=== PATIENT | male | born 1935 | race Caucasian/White ===

== ENCOUNTER 2021-08-10 08:21 | Inpatient (IN) | payer MEDICARE, OTHER, SELFPAY ==
[2021-08-10] VITALS (7 sets, daily range): BP systolic 97–180; BP diastolic 40–90; PULSE 68–128; RESP 18–22; TEMP 37.2–38.4; O2SAT 93–100; BMI 19.5
--- NOTE | ~2021-08-10 | CT_ITS ---
EXAMINATION: CT CHEST WITHOUT CONTRAST CLINICAL INFORMATION: Fever and confusion COMPARISON: Previous chest x-ray from earlier the same day TECHNIQUE: Multidetector volumetric CT imaging of the chest was done. Axial MIP volume rendering provided. Sagittal and coronal reformatted images were obtained. This CT examination was performed using dose optimization techniques as appropriate, variously including the following: *Automated exposure control *Adjustment of mA and/or kV according to patient size (this includes techniques or standardized protocols for targeted exams where dose is matched to indication/reason for exam; i.e. extremities or head) *Use of iterative reconstruction technique DLP: 202 mGy-cm FINDINGS: CLIENT SERVER PROGRAMMER: The lungs are well inflated. LUNGS: There is biapical pleural and parenchymal scarring. There is evidence of emphysema. There is subsegmental atelectasis at the lung bases. No evidence of pneumonia or mass is. MEDIASTINUM: The heart does not appear enlarged. There is mild coronary artery calcification. The thoracic aorta is tortuous. There is mild dilatation of the descending thoracic aorta measuring 3.2 cm. The pulmonary arteries are upper normal in size. There are no enlarged hilar or mediastinal lymph nodes. PLEURA: There is no pleural effusion. No pleural mass or thickening. AXILLA: No lymphadenopathy. UPPER ABDOMEN: Unremarkable. OSSEOUS STRUCTURES: There are degenerative changes of the spine. There is an old left anterior 10th rib fracture. CT/CT chest wo con IMPRESSION: Emphysema. No evidence of pneumonia. 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 Fleischner guidelines were followed.
--- NOTE | ~2021-08-10 | CT_ITS ---
EXAMINATION: CT ABDOMEN AND PELVIS WITHOUT CONTRAST CLINICAL INFORMATION: Fever COMPARISON: None TECHNIQUE: Multidetector volumetric imaging was performed from the superior aspect of the liver through the pubic symphysis. Sagittal and coronal reformatted images were obtained on the technologist's workstation. This CT examination was performed using dose optimization techniques as appropriate, variously including the following: *Automated exposure control *Adjustment of mA and/or kV according to patient size (this includes techniques or standardized protocols for targeted exams where dose is matched to indication/reason for exam; i.e. extremities or head) *Use of iterative reconstruction technique DLP: 332 mGy-cm FINDINGS: LIVER, GALLBLADDER, AND BILIARY TREE: The liver is normal in size, shape, and attenuation. No focal hepatic lesion or biliary ductal dilatation is present. The gallbladder is unremarkable with no evidence of radiopaque gallstones, gallbladder wall thickening, or obvious pericholecystic inflammatory changes. PANCREAS: Unremarkable. SPLEEN: Unremarkable. ADRENAL GLANDS: There is nodular appearance of the left adrenal gland. The right adrenal gland is normal. KIDNEYS AND URETERS: There are bilateral renal cysts. Largest cyst measures 2 cm in the lower pole of the left kidney. There is a 5 mm high attenuation lesion in the lower pole of the left kidney suggestive of a hyperdense. No imaging follow-up needed. The kidneys are otherwise unremarkable. BLADDER: There is a Yee catheter in the bladder. Bladder is empty. The bladder wall appears diffusely thickened. GASTROINTESTINAL TRACT: Constipation. There is diverticulosis of the colon. No evidence of diverticulitis or colitis is seen. There are small bilateral inguinal hernias containing small bowel. There is no evidence of obstruction. The appendix is not seen. The stomach is not optimally distended. ABDOMINAL WALL: There are small bilateral inguinal hernias containing small bowel, right greater than left. There is no evidence of obstruction. LYMPH NODES: Normal. VASCULAR: There is a lower or infrarenal abdominal aortic aneurysm that measures 4 x 4.2 cm in dimension. No other aneurysm is seen. PELVIC VISCERA: The prostate gland is enlarged and protrudes into the base of the bladder. OSSEOUS STRUCTURES: There is scoliosis and degenerative changes of the spine. CT/CT abdomen pelvis wo con IMPRESSION: Constipation. Diverticulosis. Small bilateral inguinal hernias containing small bowel. No evidence of obstruction. Bilateral renal cysts. 4 x 4.2 cm lower abdominal aortic aneurysm. Enlarged prostate gland. Yee catheter in the bladder. Diffuse bladder wall thickening. Fleischner guidelines were followed.
--- NOTE | ~2021-08-10 | XR_ITS ---
EXAMINATION: XR CHEST CLINICAL INFORMATION: Weakness. COMPARISON: None TECHNIQUE: Frontal view of the chest was obtained. FINDINGS: Moderate aortic calcific atherosclerosis. Normal heart size. No effusions or pneumothoraces. No focal pulmonary consolidation. Normal pattern of pulmonary vasculature. Chronic appearing biapical pleural parenchymal scarring of the lungs. Moderate multilevel endplate osteophytosis of the visualized thoracic and lumbar spine. Diffuse osteopenia. XR/XR chest 1V IMPRESSION: -No acute cardiopulmonary abnormalities.
--- NOTE | 2021-08-10 08:33 | ECG_ITS ---
Test Reason : AMS Blood Pressure : / mmHG Vent. Rate : 105 BPM Atrial Rate : 105 BPM P-R Int : 228 ms QRS Dur : 090 ms QT Int : 334 ms P-R-T Axes : 087 142 086 degrees QTc Int : 441 ms Sinus tachycardia with 1st degree A-V block Left posterior fascicular block Abnormal ECG No previous ECGs available Referred By: Emmie Sweeney Electronically Signed By:Sanjay Rollins
--- NOTE | 2021-08-10 08:35 | ED.WEAKNESS ---
HPI - Weakness General Chief complaint: Urogenital-Male Stated complaint: ?uti Time Seen by Provider: 08/10/21 08:25 Source: patient and EMS Mode of arrival: EMS Limitations: altered mental status History of Present Illness HPI Narrative: son in law here 956am - conversation patient is normally alert and oriented, yesterday patient c/o weakness not feeling well and dysuria - they noted some hematuria, this morning worse EMS called MD Complaint: generalized weakness (burning with urination) Onset (ago): unknown Duration: constant Location: generalized Severity: moderate Relieving factors: none Exacerbating factors: none Context: other (confusion, weakness, EMS called - limited history family not at bedside) Associated symptoms: confusion and loss of appetite Related Data Home Medications Medication Instructions Recorded Confirmed aspirin 325 mg tablet 325 mg PO DAILY 08/10/21 08/10/21 fluticasone propionate 50 1 spray INTRANASAL BID 08/10/21 08/10/21 mcg/actuation nasal spray,suspension simvastatin 20 mg tablet 1 tab PO DAILY 08/10/21 08/10/21 Allergies Allergy/AdvReac Type Severity Reaction Status Date / Time pentazocine [From KELSEY] Allergy Unknown NAUSEA Unverified 05/17/20 19:40 Review of Systems Review of Systems: ROS unable to be obtained due to altered mental status [facility] Past Medical History Medical History (Updated 08/10/21 @ 14:40 by Nadya Garcia NP) Acute CVA (cerebrovascular accident) HLD (hyperlipidemia) UTI (urinary tract infection) Social History Social History (Updated 08/10/21 @ 08:36 by Emmie Sweeney DO) Patient Tobacco Use Status: Tobacco use Unknown Advance Directives: Yes Advance Directives Information Provided: No Advance Directives on File: No Physical Exam Vital Signs: Vital Signs: Last Vital Signs Temp 98.9 F 08/10/21 11:19 Pulse 83 08/10/21 13:07 Resp 19 08/10/21 13:07 BP 115/46 L 08/10/21 13:07 Pulse Ox 94 08/10/21 13:07 BMI result Body Mass Index 19.5 Appearance: Alert. Oriented X1. Mild acute distress. Appears weak and frail Eyes: Pupils equal, round and reactive to light. ENT: Pharynx moderate dry MM Neck: Normal inspection. Neck supple. CVS: Normal heart rate and rhythm. Pulses normal. Respiratory: No respiratory distress. Breath sounds decreased Abdomen: Soft and he does grimace with suprapubic exam but no rebound Skin: Skin warm and dry. Normal skin color. Normal skin turgor. Extremities: No lower extremity edema. No calf ttp Neuro: Oriented X 1. No motor deficit. No sensory deficit. Course Course Course Narrative: CT scan of abdomen and chest for infection ordered. given symptoms of incontinence and dysuria at home, hematuria, thick walled bladder suspect urinary source, plan to admit MDM - Weakness MDM Narrative Medical decision making narrative: 86 yo male limited history HLD, UTI here with confusion and weakness unknown duration - at this time is tachycardia and hot to the touch will need labs, cultures, CXR< UA, empiric IV ceftriaxone for infection - dispo per results and findings. Suspect infection as cause of his symptoms. Lab Data Result diagrams: 08/10/21 08:57 08/10/21 08:57 Labs: Lab Results 08/10/21 08/10/21 08/10/21 Range/Units 08:57 08:57 08:57 WBC 12.1 H (4.8-10.8) X10*3/uL RBC 4.63 (4.60-5.80) X10*6/uL Hgb 13.7 L (14.0-18.0) g/dl Hct 43.5 (42.0-52.0) % MCV 94.0 (80.0-98.0) fL MCH 29.6 (27.0-33.0) pg MCHC 31.5 (31.0-36.0) g/dl RDW 14.4 (11.0-16.0) % Plt Count 197 (160-400) X10*3/uL MPV 8.7 L (9.4-12.4) fL Immature Gran % (Auto) 0.5 H (0.0-0.4) % Neut % (Auto) 90.3 H (45-73) % Lymph % (Auto) 3.6 L (20-40) % [place] % (Auto) 5.0 (2-11) % Eos % (Auto) 0.3 (0-4) % Baso % (Auto) 0.3 (0-2) % Lymph # (Auto) 0.4 L (1.2-4.9) X10*3/uL [place] # (Auto) 0.6 (0.1-1.2) X10*3/uL Eos # (Auto) 0.0 (0.0-0.4) X10*3/uL Baso # (Auto) 0.0 (0.0-0.2) X10*3/uL Abs Immat Gran (auto) 0.06 H (0.00-0.03) X10*3/uL Absolute Neuts (auto) 11.0 H (2.0-8.3) x10*3/uL Absolute Nucleated RBC 0.000 (0.0-0.012) X10*3/uL Nucleated RBC % (auto) 0.0 (0.0-0.2) /100WBC Smear Tech's Comments VERIFIED Sodium 142 (135-145) mmol/L Potassium 4.8 (3.3-5.1) mmol/L Chloride 107 (96-108) mmol/L Carbon Dioxide 24 (22-29) mmol/L Anion Gap 16 (12-20) BUN 28 H (9-16) mg/dL Creatinine 1.15 (0.5-1.4) mg/dL Estim Creat Clear Calc 39.0 Estimated GFR > 60 Random Glucose 110 (60-115) mg/dL Lactic Acid 1.0 (0.5-2.0) mmol/L Calcium 9.3 (8.4-10.2) mg/dL Magnesium 2.0 (1.6-2.6) mg/dL Total Bilirubin 1.1 H (0.0-1.0) mg/dL Direct Bilirubin 0.4 (0.0-0.5) mg/dL AST 19 (5-37) U/L ALT 13 (0-40) U/L Alkaline Phosphatase 109 (39-117) U/L Troponin I High Sens (<3.5-35.0) ng/L Total Protein 7.5 (6.5-8.0) g/dL Albumin 4.2 (3.5-5.0) g/dL Lipase 23 (8-78) U/L Urine Color Urine Appearance Urine pH (5.0-8.0) Ur Specific [place] (1.005-1.025) Urine Protein (NEG-TRACE) MG/DL Urine Glucose (UA) (NEG) MG/DL Urine Ketones (NEG) MG/DL Urine Blood (NEG) Urine Nitrite (NEG) Ur Leukocyte Esterase (NEG) Urine RBC (0) /HPF Urine WBC (0-4) /HPF Ur Squamous Epith Cells /LPF Urine Bacteria /LPF COVID-19 ([facility]) (Negative) COVID-19 Clin Com 08/10/21 08/10/21 08/10/21 Range/Units 08:57 08:57 09:38 WBC (4.8-10.8) X10*3/uL RBC (4.60-5.80) X10*6/uL Hgb (14.0-18.0) g/dl Hct (42.0-52.0) % MCV (80.0-98.0) fL MCH (27.0-33.0) pg MCHC (31.0-36.0) g/dl RDW (11.0-16.0) % Plt Count (160-400) X10*3/uL MPV (9.4-12.4) fL Immature Gran % (Auto) (0.0-0.4) % Neut % (Auto) (45-73) % Lymph % (Auto) (20-40) % [place] % (Auto) (2-11) % Eos % (Auto) (0-4) % Baso % (Auto) (0-2) % Lymph # (Auto) (1.2-4.9) X10*3/uL [place] # (Auto) (0.1-1.2) X10*3/uL Eos # (Auto) (0.0-0.4) X10*3/uL Baso # (Auto) (0.0-0.2) X10*3/uL Abs Immat Gran (auto) (0.00-0.03) X10*3/uL Absolute Neuts (auto) (2.0-8.3) x10*3/uL Absolute Nucleated RBC (0.0-0.012) X10*3/uL Nucleated RBC % (auto) (0.0-0.2) /100WBC Smear Tech's Comments Sodium (135-145) mmol/L Potassium (3.3-5.1) mmol/L Chloride (96-108) mmol/L Carbon Dioxide (22-29) mmol/L Anion Gap (12-20) BUN (9-16) mg/dL Creatinine (0.5-1.4) mg/dL Estim Creat Clear Calc Estimated GFR Random Glucose (60-115) mg/dL Lactic Acid (0.5-2.0) mmol/L Calcium (8.4-10.2) mg/dL Magnesium (1.6-2.6) mg/dL Total Bilirubin (0.0-1.0) mg/dL Direct Bilirubin (0.0-0.5) mg/dL AST (5-37) U/L ALT (0-40) U/L Alkaline Phosphatase (39-117) U/L Troponin I High Sens 6.7 (<3.5-35.0) ng/L Total Protein (6.5-8.0) g/dL Albumin (3.5-5.0) g/dL Lipase (8-78) U/L Urine Color RED Urine Appearance HAZY Urine pH 5.0 (5.0-8.0) Ur Specific [place] 1.025 (1.005-1.025) Urine Protein 2+ H (NEG-TRACE) MG/DL Urine Glucose (UA) NEG (NEG) MG/DL Urine Ketones SEE NOTE (NEG) MG/DL Urine Blood 3+ H (NEG) Urine Nitrite SEE NOTE (NEG) Ur Leukocyte Esterase NEG (NEG) Urine RBC TNTC H (0) /HPF Urine WBC 1-4 (0-4) /HPF Ur Squamous Epith Cells 1+ /LPF Urine Bacteria NONE /LPF COVID-19 ([facility]) Negative (Negative) COVID-19 Clin Com See Note ECG Data Attestation: I personally reviewed and interpreted this ECG as follows: ECG interpretation date: 08/10/21 ECG interpretation time: 08:39 Interpretation: Rate: 105 Rhythm: sinus tach with 1st degree AVB [place]: normal Normal P waves. Normal BRITNEY. Normal QRS complex. ST T wave : nonspecific no NICK qTC: normal prior studies: no acute ischemia The study has been interpreted contemporaneously by me. . Discharge Plan Discharge Clinical Impression: Acute confusion, Cystitis Hematuria Qualifiers: Hematuria type: unspecified type Qualified Code(s): R31.9 - Hematuria, unspecified Fever Qualifiers: Fever type: unspecified Qualified Code(s): R50.9 - Fever, unspecified Patient Disposition: Admitted As Inpatient
[2021-08-10] MEDS: 0.9 % Sodium Chloride 1,000 ML 999 ML IVCONT (08:58)
[2021-08-10] MEDS: Acetaminophen Oral Liquid 650 MG/20.3 ML SOLUTION PO (09:03)
[2021-08-10] MEDS: ondansetron HCL 4 MG/2 ML VIAL IVPUSH (09:03)
[2021-08-10 09:11] LABS: Basophils Percent Auto 0.3 % (0-2); Eosinophils Percent Auto 0.3 % (0-4); Hematocrit 43.5 % (42.0-52.0); Hemoglobin 13.7 g/dl (14.0-18.0); Imm Gran Abs Auto 0.06 X10*3/uL (0.00-0.03); Imm Gran Pct Auto 0.5 % (0.0-0.4); Lymphocytes Absolute Auto 0.4 X10*3/uL (1.2-4.9); Lymphocytes Percent Auto 3.6 % (20-40); MANUAL DIFF FLAG SCAN; Mean Corpuscular HGB Conc 31.5 g/dl (31.0-36.0); Mean Corpuscular Hemoglobin 29.6 pg (27.0-33.0); Mean Platelet Volume 8.7 fL (9.4-12.4); Monocytes Absolute Auto 0.6 X10*3/uL (0.1-1.2); Neutrophils Percent Auto 90.3 % (45-73); Platelet Count 197 X10*3/uL (160-400); Red Blood Count 4.63 X10*6/uL (4.60-5.80); Red Cell Distribution Width 14.4 % (11.0-16.0); SCAN SMEAR FLAG 1; White Blood Count 12.1 X10*3/uL (4.8-10.8)
[2021-08-10 09:27] LABS: Alanine Aminotransferase 13 U/L (0-40); Albumin Level 4.2 g/dL (3.5-5.0); Alkaline Phosphatase 109 U/L (39-117); Anion Gap 16 (12-20); Aspartate Amino Transferase 19 U/L (5-37); Bilirubin Direct 0.4 mg/dL (0.0-0.5); Bilirubin Total 1.1 mg/dL (0.0-1.0); Blood Urea Nitrogen 28 mg/dL (9-16); Calcium 9.3 mg/dL (8.4-10.2); Carbon Dioxide 24 mmol/L (22-29); Chloride 107 mmol/L (96-108); Estimated Glomerular Filt Rate > 60; Glucose Random 110 mg/dL (60-115); Lipase 23 U/L (8-78); Potassium 4.8 mmol/L (3.3-5.1); Sodium 142 mmol/L (135-145); Total Protein 7.5 g/dL (6.5-8.0)
[2021-08-10 09:32] LABS: COVID-19 Test Negative (Negative)
[2021-08-10 09:33] LABS: Troponin-I High Sensitivity 6.7 ng/L (<3.5-35.0)
[2021-08-10 09:38] LABS: SLIDE REVIEW VERIFIED
[2021-08-10 09:44] LABS: Appearance Urine HAZY; Color Urine RED; Glucose Urine UA NEG (NEG); Leukocyte Esterase Urine NEG (NEG); Specific Gravity - Urine 1.025 (1.005-1.025); Urine Blood 3+ (NEG); Urine Protein 2+ MG/DL (NEG-TRACE)
[2021-08-10 09:50] LABS: RBC Urine TNTC /HPF (0); Squamous Epithelial Cell Urine 1+ /LPF; UACC Culture Trigger NO
--- NOTE | 2021-08-10 09:59 | PHA.MEDREC ---
Pharmacy Consult ? Medication Reconciliation Pharmacy has completed the medication reconciliation. SPOKE WITH SON IN LAW IN ED. PATIENT LIVES WITH HIM .
[2021-08-10] MEDS: cefTRIAXone sodium 1 GM in 0.9 % Sodium Chloride 50 ML IV (10:01)
[2021-08-10] MEDS: 0.9 % Sodium Chloride 1,000 ML 999 ML IV (10:45)
[2021-08-10] MEDS: 0.9 % Sodium Chloride 500 ML IV (11:47)
--- NOTE | 2021-08-10 12:47 | PM.IMHP ---
History of Present Illness Date of Service: 08/10/21 Chief Complaint: urinary discomfort 86-year-old man presenting with incontinence and weakness. Apparently yesterday he had had several episodes of incontinence which is unlike him. Then he started having burning with urination and hematuria today. His son thought he was very weak and decided to bring him to the ER for further evaluation. He denied fever, chills, nausea, vomiting, diarrhea. In the ER his white blood cell count was noted to be elevated at 12.1, he had a fever of 101.2, heart rate of 105 , normal lactic acid. Blood pressure on lower side with lowest reading of 97/40. He was given ceftriaxone, Zofran, L of IV fluid. He will be admitted for further management and treatment of sepsis secondary to urinary tract infection. Review of Systems Review of Systems: Denies any recent fever chills or decrease in appetite respiratory denies any shortness of breath coverage production cardiovascular denies chest pain gastrointestinal denies any dysphagia abdominal pain nausea vomiting or diarrhea genitourinary See HPI musculoskeletal denies any joint pain or swelling neuropsych denies any weakness or seizures all other systems reviewed are negative [facility] Medical History (Updated 08/10/21 @ 14:40 by Nadya Garcia NP) Acute CVA (cerebrovascular accident) HLD (hyperlipidemia) UTI (urinary tract infection) Social History (Updated 08/10/21 @ 08:36 by Emmie Sweeney DO) Patient Tobacco Use Status: Tobacco use Unknown Advance Directives: Yes Advance Directives Information Provided: No Advance Directives on File: No Meds Allergies Allergy/AdvReac Type Severity Reaction Status Date / Time pentazocine [From KELSEY] Allergy Unknown NAUSEA Unverified 05/17/20 19:40 Active Medications: Current Medications Pharmacy Consult (Consult Rx Perform Med Rec) 1 each MISCELLANE ONCE PRN PRN Reason: Consult order Home Medications Medication Instructions Recorded Confirmed Last Taken Type aspirin 325 mg tablet 325 mg PO DAILY 08/10/21 08/10/21 Unknown History fluticasone propionate 50 1 spray INTRANASAL BID 08/10/21 08/10/21 Unknown History mcg/actuation nasal spray,suspension simvastatin 20 mg tablet 1 tab PO DAILY 08/10/21 08/10/21 Unknown History Physical Exam Vital Signs and Narrative: Vital Signs: Last Vital Signs Temp 98.9 F 08/10/21 11:19 Pulse 89 08/10/21 11:19 Resp 18 08/10/21 11:19 BP 97/40 L 08/10/21 11:19 Pulse Ox 93 08/10/21 11:19 BMI result Body Mass Index 19.5 Appearing in no acute distress head is normocephalic atraumatic eyes pupils are PERRLA sclera is anicteric mouth throat mucous membranes are intact and moist neck is supple no lymphadenopathy, no JVD noted lung sounds are clear to auscultation heart regular rate rhythm, clear S1, S2 positive bowel sounds, abdomen is soft, nontender neuro patient is alert x3, no focal deficits Results Labs CBC and Chem 7: 08/10/21 08:57 08/10/21 08:57 Labs: Laboratory Results - last 24 hr 08/10/21 08/10/21 08/10/21 08:57 08:57 08:57 MCV 94.0 MCH 29.6 MCHC 31.5 RDW 14.4 Plt Count 197 MPV 8.7 L Immature Gran % (Auto) 0.5 H Neut % (Auto) 90.3 H Lymph % (Auto) 3.6 L [place] % (Auto) 5.0 Eos % (Auto) 0.3 Baso % (Auto) 0.3 Lymph # (Auto) 0.4 L [place] # (Auto) 0.6 Eos # (Auto) 0.0 Baso # (Auto) 0.0 Abs Immat Gran (auto) 0.06 H Absolute Neuts (auto) 11.0 H Absolute Nucleated RBC 0.000 Nucleated RBC % (auto) 0.0 Smear Tech's Comments VERIFIED Anion Gap 16 Estim Creat Clear Calc 39.0 Estimated GFR > 60 Random Glucose 110 Lactic Acid 1.0 Calcium 9.3 Magnesium 2.0 Total Bilirubin 1.1 H Direct Bilirubin 0.4 AST 19 ALT 13 Alkaline Phosphatase 109 Troponin I High Sens Total Protein 7.5 Albumin 4.2 Lipase 23 Urine Color Urine Appearance Urine pH Ur Specific [place] Urine Protein Urine Glucose (UA) Urine Ketones Urine Blood Urine Nitrite Ur Leukocyte Esterase Urine RBC Urine WBC Ur Squamous Epith Cells Urine Bacteria COVID-19 ([facility]) COVID-19 Clin Com 08/10/21 08/10/21 08/10/21 08:57 08:57 09:38 MCV MCH MCHC RDW Plt Count MPV Immature Gran % (Auto) Neut % (Auto) Lymph % (Auto) [place] % (Auto) Eos % (Auto) Baso % (Auto) Lymph # (Auto) [place] # (Auto) Eos # (Auto) Baso # (Auto) Abs Immat Gran (auto) Absolute Neuts (auto) Absolute Nucleated RBC Nucleated RBC % (auto) Smear Tech's Comments Anion Gap Estim Creat Clear Calc Estimated GFR Random Glucose Lactic Acid Calcium Magnesium Total Bilirubin Direct Bilirubin AST ALT Alkaline Phosphatase Troponin I High Sens 6.7 Total Protein Albumin Lipase Urine Color RED Urine Appearance HAZY Urine pH 5.0 Ur Specific [place] 1.025 Urine Protein 2+ H Urine Glucose (UA) NEG Urine Ketones SEE NOTE Urine Blood 3+ H Urine Nitrite SEE NOTE Ur Leukocyte Esterase NEG Urine RBC TNTC H Urine WBC 1-4 Ur Squamous Epith Cells 1+ Urine Bacteria NONE COVID-19 ([facility]) Negative COVID-19 Clin Com See Note Imaging Radiologist's Impressions: Impressions Chest X-Ray 08/10/21 09:27 IMPRESSION: -No acute cardiopulmonary abnormalities. Abdomen/Pelvis CT 08/10/21 11:34 IMPRESSION: Constipation. Diverticulosis. Small bilateral inguinal hernias containing small bowel. No evidence of obstruction. Bilateral renal cysts. 4 x 4.2 cm lower abdominal aortic aneurysm. Enlarged prostate gland. Yee catheter in the bladder. Diffuse bladder wall thickening. Fleischner guidelines were followed. Chest CT 08/10/21 11:35 IMPRESSION: Emphysema. No evidence of pneumonia. 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 Fleischner guidelines were followed. Assessment and Plan (1) Sepsis: Status: Acute (2) UTI (urinary tract infection): Status: Acute (3) Low blood pressure: Status: Acute 86 year admitted with sepsis secondary to urinary tract infection Sepsis. Leukocytosis, tachycardia, fever. normal lactic acid Follow blood cultures Urinary tract infection Rocephin Follow urine cultures Low blood pressure reading Likely secondary to infection Gentle IV fluid hydration Trend blood pressures closely Hyperlipidemia Continue statin and aspirin DVT prophylaxis with heparin Attending Dr. Thurman Quality Stroke Does the patient have a stroke diagnosis?: No VTE Prior VTE?: No VTE Risk Level:: Medical - moderate - high VTE Device Contraindication: Treatment Not Indicated VTE Drug Contraindication: N/A - Med Ordered
[2021-08-10] MEDS: Acetaminophen 325 MG TABLET 650 MG PO (13:26)
[2021-08-10] MEDS: Heparin Sodium,Porcine 5,000 UNIT/ML VIAL 5000 UNIT SUBCUT (13:26)
[2021-08-10] MEDS: 0.9 % Sodium Chloride 1,000 ML 80 ML IVCONT (13:26)
[2021-08-10] MEDS: Phenazopyridine HCL 100 MG TABLET PO ×2 (15:03→19:18)
--- NOTE | 2021-08-10 16:24 | PC.NURSE ---
pt completed HCP with t/w . pt designated HCP is his daughter, Mercy
--- NOTE | 2021-08-10 16:29 | PC.NURSE ---
pt up to bedside commode, had a lg BM of soft stool
[2021-08-10] MEDS: Fluticasone Propionate Nasal 16 GM SPRAY 1 SPRAY NOSTRIL-B (21:12)
[2021-08-11] VITALS: BP 102/45; PULSE 76; RESP 16; O2SAT 92
[2021-08-11] MEDS: Heparin Sodium,Porcine 5,000 UNIT/ML VIAL 5000 UNIT SUBCUT ×2 (00:39→14:01)
[2021-08-11] MEDS: 0.9 % Sodium Chloride Flush 3 ML SYRINGE IVFLUSH ×2 (00:39→07:38)
[2021-08-11 05:18] LABS: Basophils Percent Auto 0.2 % (0-2); Eosinophils Percent Auto 0.4 % (0-4); Hemoglobin 11.4 g/dl (14.0-18.0); Imm Gran Abs Auto 0.03 X10*3/uL (0.00-0.03); Imm Gran Pct Auto 0.3 % (0.0-0.4); Lymphocytes Absolute Auto 1.1 X10*3/uL (1.2-4.9); Lymphocytes Percent Auto 10.9 % (20-40); MANUAL DIFF FLAG NO; Mean Corpuscular HGB Conc 30.8 g/dl (31.0-36.0); Mean Corpuscular Hemoglobin 29.4 pg (27.0-33.0); Mean Corpuscular Volume 95.4 fL (80.0-98.0); Mean Platelet Volume 9.1 fL (9.4-12.4); Monocytes Absolute Auto 0.7 X10*3/uL (0.1-1.2); Monocytes Percent Auto 7.3 % (2-11); Neutrophils Absolute Auto 8.1 x10*3/uL (2.0-8.3); Neutrophils Percent Auto 80.9 % (45-73); Platelet Count 165 X10*3/uL (160-400); Red Blood Count 3.88 X10*6/uL (4.60-5.80); Red Cell Distribution Width 14.6 % (11.0-16.0)
[2021-08-11 05:51] LABS: Anion Gap 11 (12-20); Blood Urea Nitrogen 23 mg/dL (9-16); Carbon Dioxide 24 mmol/L (22-29); Chloride 110 mmol/L (96-108); Creatinine Clr Calc Pharmacy 48.2; Estimated Glomerular Filt Rate > 60; Glucose Random 104 mg/dL (60-115); Potassium 4.5 mmol/L (3.3-5.1); Sodium 140 mmol/L (135-145)
[2021-08-11 07:35] VITALS: BP 102/21; PULSE 69; RESP 16; TEMP 36.6; O2SAT 96
[2021-08-11] MEDS: Phenazopyridine HCL 100 MG TABLET PO ×2 (08:36→17:02)
[2021-08-11] MEDS: Acetaminophen 325 MG TABLET 650 MG PO ×3 (08:36→23:53)
[2021-08-11] MEDS: Aspirin 325 MG TABLET PO (08:37)
[2021-08-11] MEDS: cefTRIAXone sodium 1 GM in 0.9 % Sodium Chloride 50 ML IV (09:08)
[2021-08-11] MEDS: Fluticasone Propionate Nasal 16 GM SPRAY 1 SPRAY NOSTRIL-B ×2 (09:09→21:17)
--- NOTE | 2021-08-11 10:13 | HO.PM.IMPN ---
Subjective Subjective Date of Service: 08/11/21 Review of Systems follow-up hematuria/UTI Complaints of penile pain Denies chest pain, shortness breath, nausea, vomiting, diarrhea All other systems are reviewed and are negative Physical Exam Vital Signs: Vital Signs: Last Vital Signs Temp 97.8 F 08/11/21 07:35 Pulse 69 08/11/21 07:35 Resp 16 08/11/21 07:35 BP 102/21 L 08/11/21 07:35 Pulse Ox 96 08/11/21 07:35 BMI result Body Mass Index 19.5 Appearing in no acute distress lung sounds are clear to auscultation heart regular rate rhythm, clear S1, S2 positive bowel sounds, abdomen is soft, nontender CBI with noted hematuria neuro patient is alert x3, no focal deficits Objective Data Active Medications Acetaminophen (Acetaminophen 325 Mg Tablet) 650 mg PO Q6H PRN PRN Reason: Pain, Mild (Pain Scale 1-3) Last Admin: 08/11/21 08:36 Dose: 650 mg Documented by: KALYN Aspirin (Aspirin 325 Mg Tablet) 325 mg PO DAILY [facility] Last Admin: 08/11/21 08:37 Dose: 325 mg Documented by: KALYN Atorvastatin Calcium (Atorvastatin Calcium 10 Mg Tablet) 10 mg PO DAILY [facility] Fluticasone Propionate (Fluticasone Propionate Nasal 16 Gm [place]) 1 spray NOSTRIL-B BID [facility] Last Admin: 08/11/21 09:09 Dose: 1 spray Documented by: KALYN Heparin Sodium (Porcine) (Heparin Sodium,Porcine 5,000 Unit/Ml Vial) 5,000 unit SUBCUT Q12H [facility] Last Admin: 08/11/21 00:39 Dose: 5,000 unit Documented by: MONIQUE Ceftriaxone Sodium 1 gm/ (Sodium Chloride) 50 mls @ 100 mls/hr IV Q24H [facility] Last Infusion: 08/11/21 10:09 Dose: 0 mls/hr Documented by: KEVIN Sodium Chloride (Ns) 1,000 mls @ 80 mls/hr IVCONT .[id number] [facility] Last Admin: 08/11/21 05:37 Dose: Not Given Documented by: MONIQUE Non-Admin Reason: IV Running Ondansetron HCl (Ondansetron Hcl 4 Mg/2 Ml Vial) 4 mg IVPUSH Q8H PRN PRN Reason: Nausea and Vomiting Pharmacy Consult (Consult Rx Perform Med Rec) 1 each MISCELLANE ONCE PRN PRN Reason: Consult order Phenazopyridine HCl (Phenazopyridine Hcl 100 Mg Tablet) 100 mg PO BIDWM PRN PRN Reason: urinary pain Stop: 08/13/21 07:45 Last Admin: 08/11/21 08:36 Dose: 100 mg Documented by: KALYN Sodium Chloride (0.9 % Sodium Chloride Flush 3 Ml Syringe) 3 ml IVFLUSH QSHIFT TEE Last Admin: 08/11/21 07:38 Dose: 3 ml Documented by: KALYN Labs CBC & Chem 7: 08/11/21 04:48 08/11/21 04:48 Labs: Laboratory Results - last 24 hr 08/11/21 08/11/21 04:48 04:48 MCV 95.4 MCH 29.4 MCHC 30.8 L RDW 14.6 Plt Count 165 MPV 9.1 L Immature Gran % (Auto) 0.3 Neut % (Auto) 80.9 H Lymph % (Auto) 10.9 L [place] % (Auto) 7.3 Eos % (Auto) 0.4 Baso % (Auto) 0.2 Lymph # (Auto) 1.1 L [place] # (Auto) 0.7 Eos # (Auto) 0.0 Baso # (Auto) 0.0 Abs Immat Gran (auto) 0.03 Absolute Neuts (auto) 8.1 Absolute Nucleated RBC 0.000 Nucleated RBC % (auto) 0.0 Anion Gap 11 L Estim Creat Clear Calc 48.2 Estimated GFR > 60 Random Glucose 104 Calcium 8.0 L D Assessment and Plan (1) UTI (urinary tract infection): Status: Acute (2) Sepsis: Status: Acute (3) Hematuria: Status: Acute Assessment and Plan: 86 year admitted with sepsis secondary to urinary tract infection Hematuria add CBI HH stable Sepsis.?Resolved Leukocytosis, tachycardia, fever. normal lactic acid Follow blood cultures Urinary tract infection Rocephin Follow urine cultures pyridium for discomfort Low blood pressure reading Likely secondary to infection Gentle IV fluid hydration Trend blood pressures closely Hyperlipidemia Continue statin and aspirin DVT prophylaxis with heparin Attending Dr. Thurman Quality Stroke Does the patient have a stroke diagnosis?: No VTE Prior VTE?: No VTE Risk Level:: Medical - moderate - high VTE Device Contraindication: Treatment Not Indicated VTE Drug Contraindication: N/A - Med Ordered
[2021-08-11] MEDS: Morphine Sulfate 2 MG/ML CARTRIDGE IVPUSH (11:39)
--- NOTE | 2021-08-11 11:41 | PC.NURSE ---
unable to place ordered cbi 20fr d/t resistance, provider aware. dr fish consulted, at bedside attempting to place catheter via guidewire. pt has much resistance, able to place 18fr coude w clear drainage. per dr fish, cbi not indicated at this time.
[2021-08-11 12:16] VITALS: BP 134/63; PULSE 70; RESP 18; TEMP 36.3; O2SAT 92
[2021-08-11 15:21] VITALS: BP 99/55; PULSE 64; RESP 18; TEMP 36.4; O2SAT 97
--- NOTE | 2021-08-11 18:02 | PC.NURSE ---
catheter irrigated, small clot noted, but otherwise patent. pt tolerated well. will cont to monitor and assess
[2021-08-11] MEDS: LORazepam 0.5 MG TABLET 0.25 MG PO (18:10)
--- NOTE | 2021-08-11 19:06 | PM.UROCN ---
History of Present Illness Consult details Consult date: 08/11/21 Narrative: Consult for difficult Yee catheter placement Prior placement attempted by emergency room staff Question of urinary retention Unable to place regular Yee catheter To place with guidewire and patient had significant bladder spasm Required flexible cystoscope. Mild damage to prostate but bladder itself was easy to enter and was inflamed likely secondary to infection [place] tip 18 Telugu Yee catheter placed with 7 cc balloon Minimal issues Continue antibiotics for UTI Review of Systems Constitutional: Constitutional: Reports as per HPI and Reports no additional constitutional complaints Cardiovascular: Cardiovascular: Reports as per HPI and Reports no additional cardiovascular complaints Respiratory: Respiratory: Reports as per HPI and Reports no additional respiratory complaints Gastrointestinal: Gastrointestinal: Reports as per HPI and Reports no additional gastrointestinal complaints Genitourinary: Genitourinary: Reports as per HPI Musculoskeletal: Musculoskeletal: Reports no additional musculoskeletal complaints and Reports as per HPI Neurologic: Reports system reviewed and no additional complaints, except as documented and Reports as per HPI PMFSH Past Medical History Medical History (Updated 08/11/21 @ 19:09 by Luis Pineda MD) Acute CVA (cerebrovascular accident) HLD (hyperlipidemia) UTI (urinary tract infection) Social History Social History (Updated 08/10/21 @ 08:36 by Emmie Sweeney DO) Household Members: Children Housing: House Do you presently have visiting nurse or other home services: No Patient Tobacco Use Status: Current everyday Tobacco user Tobacco use type: Cigarette Cigarette Packs Per Day: 1 Cigarettes Per Day: 20.0 Years Smoked: 72 Smoked in Last 30 Days: Yes Patient Interested in Nicotine Replacement: No Second Hand Smoke Exposure: Yes Use of substances other than those prescribed or required for medical reasons: No Currently Displaying Signs/Symptoms of Drug Intoxication Withdrawal: No Have you been hit, kicked, punched, or otherwise hurt by someone within the past year? If so, by whom?: No Do you feel safe in your current relationship?: No Current Relationship Is there a partner from a previous relationship who is making you feel unsafe now?: No Are you made to feel afraid or neglected: No Advance Directives: Yes Advance Directives Information Provided: No Advance Directives on File: No Advance Directives Date on File: 08/11/21 Do you have thoughts of harming others: None Do you have a plan to hurt others: No Plan Recently lost weight without trying: No Nutrition Risks: No Nutritional Risk Poor oral hygiene: No Meds Allergies Allergy/AdvReac Type Severity Reaction Status Date / Time No Known Allergies Allergy Verified 08/11/21 13:57 Active Medications: Current Medications Acetaminophen (Acetaminophen 325 Mg Tablet) 650 mg PO Q6H PRN PRN Reason: Pain, Mild (Pain Scale 1-3) Last Admin: 08/11/21 08:36 Dose: 650 mg Documented by: Acetaminophen (Acetaminophen 325 Mg Tablet) 650 mg PO Q6H [facility] Last Admin: 08/11/21 18:10 Dose: 650 mg Documented by: Aspirin (Aspirin 325 Mg Tablet) 325 mg PO DAILY [facility] Last Admin: 08/11/21 08:37 Dose: 325 mg Documented by: Atorvastatin Calcium (Atorvastatin Calcium 10 Mg Tablet) 10 mg PO DAILY [facility] Fluticasone Propionate (Fluticasone Propionate Nasal 16 Gm [place]) 1 spray NOSTRIL-B BID [facility] Last Admin: 08/11/21 09:09 Dose: 1 spray Documented by: Heparin Sodium (Porcine) (Heparin Sodium,Porcine 5,000 Unit/Ml Vial) 5,000 unit SUBCUT Q12H [facility] Last Admin: 08/11/21 14:01 Dose: 5,000 unit Documented by: Ceftriaxone Sodium 1 gm/ (Sodium Chloride) 50 mls @ 100 mls/hr IV Q24H [facility] Last Infusion: 08/11/21 10:09 Dose: Infused Documented by: Sodium Chloride (Ns) 1,000 mls @ 80 mls/hr IVCONT .[id number] [facility] Last Admin: 08/11/21 14:02 Dose: Not Given Documented by: Ondansetron HCl (Ondansetron Hcl 4 Mg/2 Ml Vial) 4 mg IVPUSH Q8H PRN PRN Reason: Nausea and Vomiting Pharmacy Consult (Consult Rx Perform Med Rec) 1 each MISCELLANE ONCE PRN PRN Reason: Consult order Phenazopyridine HCl (Phenazopyridine Hcl 100 Mg Tablet) 100 mg PO BIDWM PRN PRN Reason: urinary pain Stop: 08/13/21 07:45 Last Admin: 08/11/21 17:02 Dose: 100 mg Documented by: Sodium Chloride (0.9 % Sodium Chloride Flush 3 Ml Syringe) 3 ml IVFLUSH QSHIFT [facility] Last Admin: 08/11/21 14:48 Dose: Not Given Documented by: Home Medications Medication Instructions Recorded Confirmed Last Taken Type aspirin 325 mg tablet 325 mg PO DAILY 08/10/21 08/10/21 Unknown History fluticasone propionate 50 1 spray INTRANASAL BID 08/10/21 08/10/21 Unknown History mcg/actuation nasal spray,suspension simvastatin 20 mg tablet 1 tab PO DAILY 08/10/21 08/10/21 Unknown History Physical Exam Vital Signs: Vital Signs: Last Vital Signs Temp 97.6 F 08/11/21 15:21 Pulse 64 08/11/21 15:21 Resp 18 08/11/21 15:21 BP 99/55 L 08/11/21 15:21 Pulse Ox 97 08/11/21 15:21 BMI result Body Mass Index 19.5 Const: General: cooperative, healthy appearing, comfortable and no acute distress Orientation/consciousness: patient oriented x3 HENMT: Face and sinus: Yes normal facial exam Mouth: moist mucous membranes Neck: Neck: Yes normal visual inspection, Yes full ROM and Yes trachea midline Chest: Chest palpation & inspection: normal inspection of the chest Resp: Effort & Inspection: normal respiratory effort, able to speak in complete sentences and no respiratory distress GI: Inspection: Yes normal to inspection Back/Spine/Pelvis: Cervical Spine: normal cervical lordosis Thoracic/Lumbar Spine: thoracic and lumbar spine normal to inspection Skin: General skin exam: no rashes or lesions noted Neuro: General: patient oriented x3, tone normal and moves all extremities Extrem: General: Yes normal to inspection and Yes capillary refill normal Results Labs Result diagrams: 08/11/21 04:48 08/11/21 04:48 Labs: Abnormal lab results 08/11/21 08/11/21 Range/Units 04:48 04:48 RBC 3.88 L (4.60-5.80) X10*6/uL Hgb 11.4 L (14.0-18.0) g/dl Hct 37.0 L (42.0-52.0) % MCHC 30.8 L (31.0-36.0) g/dl MPV 9.1 L (9.4-12.4) fL Neut % (Auto) 80.9 H (45-73) % Lymph % (Auto) 10.9 L (20-40) % Lymph # (Auto) 1.1 L (1.2-4.9) X10*3/uL Chloride 110 H (96-108) mmol/L Anion Gap 11 L (12-20) BUN 23 H (9-16) mg/dL Calcium 8.0 L D (8.4-10.2) mg/dL Short CBC 08/11/21 Range/Units 04:48 WBC 10.0 (4.8-10.8) X10*3/uL Hgb 11.4 L (14.0-18.0) g/dl Hct 37.0 L (42.0-52.0) % Plt Count 165 (160-400) X10*3/uL BMP 08/11/21 04:48 Sodium 140 Potassium 4.5 Chloride 110 H Carbon Dioxide 24 BUN 23 H Creatinine 0.93 Calcium 8.0 L D Urine 08/10/21 Range/Units 09:38 Urine Color RED Urine Appearance HAZY Urine pH 5.0 (5.0-8.0) Ur Specific [place] 1.025 (1.005-1.025) Urine Protein 2+ H (NEG-TRACE) MG/DL Urine Glucose (UA) NEG (NEG) MG/DL All other labs normal. Assessment and Plan (1) UTI (urinary tract infection): Status: Acute (2) Difficult Yee catheter placement: Status: Acute Catheter remained to drainage Procedures Date of Service Date of Service: 08/11/21 Procedure Note Procedure Note: Flexible cystoscopy with wire placement Sixteen Telugu flexible cystoscopy performed Scope placed into bladder. Wire placed through scope Eighteen Telugu [place] tip catheter placed over wire and inflated
[2021-08-11 19:35] VITALS: BP 102/58; PULSE 71; RESP 16; TEMP 36.6; O2SAT 93
[2021-08-11] MEDS: Atorvastatin Calcium 10 MG TABLET PO (21:13)
[2021-08-11 23:54] VITALS: BP 111/52; PULSE 55; RESP 18; TEMP 36.2; O2SAT 93
[2021-08-12] MEDS: 0.9 % Sodium Chloride 1,000 ML 80 ML IVCONT ×2 (01:25→14:04)
[2021-08-12] MEDS: Heparin Sodium,Porcine 5,000 UNIT/ML VIAL 5000 UNIT SUBCUT (01:29)
[2021-08-12 04:00] VITALS: BP 137/61; PULSE 63; RESP 18; TEMP 36.1; O2SAT 94
[2021-08-12 04:54] LABS: Hematocrit 35.7 % (42.0-52.0); Mean Corpuscular HGB Conc 30.8 g/dl (31.0-36.0); Mean Corpuscular Hemoglobin 29.3 pg (27.0-33.0); Mean Corpuscular Volume 95.2 fL (80.0-98.0); Mean Platelet Volume 9.6 fL (9.4-12.4); Platelet Count 172 X10*3/uL (160-400); Red Blood Count 3.75 X10*6/uL (4.60-5.80); Red Cell Distribution Width 14.3 % (11.0-16.0); White Blood Count 8.3 X10*3/uL (4.8-10.8)
[2021-08-12 05:31] LABS: Anion Gap 11 (12-20); Blood Urea Nitrogen 20 mg/dL (9-16); Calcium 7.9 mg/dL (8.4-10.2); Carbon Dioxide 24 mmol/L (22-29); Chloride 109 mmol/L (96-108); Creatinine Clr Calc Pharmacy 43.5; Estimated Glomerular Filt Rate > 60; Glucose Random 99 mg/dL (60-115); Potassium 4.1 mmol/L (3.3-5.1); Sodium 140 mmol/L (135-145)
[2021-08-12] MEDS: Acetaminophen 325 MG TABLET 650 MG PO ×2 (07:16→17:45)
[2021-08-12 07:46] VITALS: BP 103/51; PULSE 58; RESP 20; TEMP 36.4; O2SAT 95
--- NOTE | 2021-08-12 08:35 | HO.PM.IMPN ---
Subjective Subjective Date of Service: 08/12/21 Review of Systems Follow up hematuria and UTI Some confusion noted agitation resolved from last night Denies chest pain, shortness of breath, nausea and vomiting All other systems are reviewed and are negative Physical Exam Vital Signs: Vital Signs: Last Vital Signs Temp 97.6 F 08/12/21 07:46 Pulse 58 08/12/21 07:46 Resp 20 08/12/21 07:46 BP 103/51 L 08/12/21 07:46 Pulse Ox 95 08/12/21 07:46 BMI result Body Mass Index 19.5 Appearing in no acute distress lung sounds are clear to auscultation heart regular rate rhythm, clear S1, S2 positive bowel sounds, abdomen is soft, nontender Yee cath with dark yellow urine noted neuro patient is alert, confused Objective Data Active Medications Acetaminophen (Acetaminophen 325 Mg Tablet) 650 mg PO Q6H PRN PRN Reason: Pain, Mild (Pain Scale 1-3) Last Admin: 08/11/21 08:36 Dose: 650 mg Documented by: KALYN Acetaminophen (Acetaminophen 325 Mg Tablet) 650 mg PO Q6H [facility] Last Admin: 08/12/21 07:16 Dose: 650 mg Documented by: GERMÁN Comments: pt was sleeping Aspirin (Aspirin 325 Mg Tablet) 325 mg PO DAILY [facility] Last Admin: 08/11/21 08:37 Dose: 325 mg Documented by: KALYN Atorvastatin Calcium (Atorvastatin Calcium 10 Mg Tablet) 10 mg PO DAILY [facility] Last Admin: 08/11/21 21:13 Dose: 10 mg Documented by: GERMÁN Fluticasone Propionate (Fluticasone Propionate Nasal 16 Gm [place]) 1 spray NOSTRIL-B BID [facility] Last Admin: 08/11/21 21:17 Dose: 1 spray Documented by: GERMÁN Ceftriaxone Sodium 1 gm/ (Sodium Chloride) 50 mls @ 100 mls/hr IV Q24H [facility] Last Infusion: 08/11/21 10:09 Dose: 0 mls/hr Documented by: KEVIN Sodium Chloride (Ns) 1,000 mls @ 80 mls/hr IVCONT .[id number] [facility] Last Admin: 08/12/21 01:25 Dose: 80 mls/hr Documented by: GERMÁN Ondansetron HCl (Ondansetron Hcl 4 Mg/2 Ml Vial) 4 mg IVPUSH Q8H PRN PRN Reason: Nausea and Vomiting Pharmacy Consult (Consult Rx Perform Med Rec) 1 each MISCELLANE ONCE PRN PRN Reason: Consult order Phenazopyridine HCl (Phenazopyridine Hcl 100 Mg Tablet) 100 mg PO BIDWM PRN PRN Reason: urinary pain Stop: 08/13/21 07:45 Last Admin: 08/11/21 17:02 Dose: 100 mg Documented by: CYRUS Sodium Chloride (0.9 % Sodium Chloride Flush 3 Ml Syringe) 3 ml IVFLUSH QSHIFT [facility] Last Admin: 08/12/21 00:49 Dose: Not Given Documented by: GERMÁN Non-Admin Reason: IV Running Labs CBC & Chem 7: 08/12/21 04:14 08/12/21 04:14 Labs: Laboratory Results - last 24 hr 08/12/21 08/12/21 04:14 04:14 MCV 95.2 MCH 29.3 MCHC 30.8 L RDW 14.3 Plt Count 172 MPV 9.6 Absolute Nucleated RBC 0.000 Nucleated RBC % (auto) 0.0 Anion Gap 11 L Estim Creat Clear Calc 43.5 Estimated GFR > 60 Random Glucose 99 Calcium 7.9 L Microbiology Microbiology Results: Microbiology 08/10/21 09:33 Blood Culture - Preliminary Blood - Venous No growth after 24 hours. 08/10/21 08:57 Blood Culture - Preliminary Blood - Venous No growth after 24 hours. Assessment and Plan (1) Hematuria: Status: Acute (2) Cystitis: Status: Acute (3) Sepsis: Status: Acute (4) UTI (urinary tract infection): Status: Acute (5) Low blood pressure: Status: Acute Assessment and Plan: 86 year admitted with sepsis secondary to urinary tract infection Hematuria. nearly resolved No CBI needed HH stable urology following Sepsis.?Resolved Leukocytosis, tachycardia, fever. normal lactic acid Follow blood cultures Urinary tract infection Rocephin Follow urine cultures pyridium for discomfort Low blood pressure reading Likely secondary to infection Gentle IV fluid hydration Trend blood pressures Hyperlipidemia Continue statin and aspirin DISPO PT consult DVT prophylaxis with SCD boots Attending Dr. Law Quality Stroke Does the patient have a stroke diagnosis?: No VTE Prior VTE?: No VTE Risk Level:: Medical - moderate - high VTE Device Contraindication: Treatment Not Indicated VTE Drug Contraindication: N/A - Med Ordered
[2021-08-12 09:03] VITALS: BP 103/51; PULSE 58; O2SAT 95
[2021-08-12] MEDS: cefTRIAXone sodium 1 GM in 0.9 % Sodium Chloride 50 ML IV (09:19)
[2021-08-12] MEDS: Aspirin 325 MG TABLET PO (09:20)
[2021-08-12] MEDS: Atorvastatin Calcium 10 MG TABLET PO (09:20)
[2021-08-12] MEDS: 0.9 % Sodium Chloride Flush 3 ML SYRINGE IVFLUSH ×2 (09:20→15:55)
[2021-08-12] MEDS: Fluticasone Propionate Nasal 16 GM SPRAY 1 SPRAY NOSTRIL-B (09:48)
[2021-08-12 10:22] VITALS: BMI 19.5
[2021-08-12 12:00] VITALS: BP 132/60; PULSE 55; RESP 18; TEMP 36.2; O2SAT 97
--- NOTE | 2021-08-12 12:14 | MHC.CM.PN ---
Addendum entered by Ese Hu 08/12/21 14:16: [facility] IS OFFERING SERVICES AT [facility]. Addendum entered by Ese Hu 08/12/21 13:59: REFERRALS SENT TO 9 VISITING NURSE AGENCIES FOR HOME PT. PENDING SALE TO [facility], [facility], AND [facility] HAVE ALL DECLINED REFERRAL. CURRENTLY AWAITING RESPONSES FROM THE OTHER 6 AGENCIES Original Note: CM MET WITH PT AND SON WHO WAS AT BEDSIDE. PT LIVES WITH HIS DAUGHTER AND SON-IN-LAW AND IS INDEPENDENT WITH CARE PT HAS A WALKER BUT ONLY USES IT OUTDOORS HE REPORTS HE HAS A HCP NAMING HIS DAUGHTER, TONO, HIS AGENT PTS PCP IS HUANG GAFFNEY. IMM DELIVERED PT AND SON ARE AWARE PHYSICAL THERAPY IS RECOMMENDING STR VS HOME WITH [facility] PT REPORTS HE WOULD PREFER TO GO HOME WITH PT AND IS NOT INTERESTED IN STR PT DENIES HAVING A PREFERRED VN AGENCY CURRENT DC PLAN IS HOME WITH PT. FAMILY TO TRANSPORT
[2021-08-12 15:47] VITALS: BP 120/59; PULSE 65; RESP 18; TEMP 36.3; O2SAT 96
[2021-08-12 19:23] VITALS: BP 127/60; PULSE 64; RESP 18; TEMP 36.6; O2SAT 95
[2021-08-13] VITALS: BP 140/63; PULSE 70; RESP 18; TEMP 36.6; O2SAT 92
[2021-08-13] MEDS: 0.9 % Sodium Chloride 1,000 ML 80 ML IVCONT (01:39)
[2021-08-13 04:00] VITALS: BP 137/84; PULSE 82; RESP 18; TEMP 36.4; O2SAT 97
[2021-08-13] MEDS: Acetaminophen 325 MG TABLET 650 MG PO (05:22)
[2021-08-13 07:55] VITALS: BP 131/60; PULSE 65; RESP 17; TEMP 36.3; O2SAT 94
[2021-08-13] MEDS: Atorvastatin Calcium 10 MG TABLET PO (08:38)
[2021-08-13] MEDS: Aspirin 325 MG TABLET PO (08:38)
--- NOTE | 2021-08-13 09:03 | P.F2F_ITS ---
Service Date Service Date: 08/13/21 Encounter Date of encounter: 08/13/21 Reasons for Services Reason for care home: teach disease management and GI/ assessment (Yee catheter ) Reason for physical therapy: home safety and mobility Homebound: Leaving the home is medically contraindicated at this time without the asist of a device and/or another person due th the listed conditions above and below. Reason homebound: unsteady gait / fall risk and bedbound/chairbound Certification: Based on the above findings, I certify that this patient is confined to the home and needs intermittent care home care, physical therapy and/or speech therapy, or continues to need occupational therapy. The patient is under my care, and I have initiated the establishment of the plan of care. The patient will be followed by a physician who will periodically review the plan of care.
--- NOTE | 2021-08-13 09:05 | PM.DS ---
DS: Providers Provider Date of Service: 08/13/21 <Nadya Garcia NP - Last Filed: 08/13/21 10:28> Date of admission: 08/10/21 12:56 <Nadya Garcia NP - Last Filed: 08/13/21 10:28> Primary care physician: Unknown Physician <Nadya Garcia NP - Last Filed: 08/13/21 10:28> Consults: 08/11/21 08:23 Consult to Urology Routine Consulting Provider: Luis Pineda Reason for consultation: hematuria Has provider been notified: No <Nadya Gracia NP - Last Filed: 08/13/21 10:28> Attending physician on discharge: Nishant Law <Nadya Garcia NP - Last Filed: 08/13/21 10:28> Discharging clinician: Nadya Garcia <Nadya Garcia NP - Last Filed: 08/13/21 10:28> DS: Diagnosis Discharge Diagnosis (1) Hematuria: Status: Acute <Nadya Garcia NP - Last Filed: 08/13/21 10:28> (2) Cystitis: Status: Acute <Nadya Garcia NP - Last Filed: 08/13/21 10:28> (3) Sepsis: Status: Acute <Nadya Garcia NP - Last Filed: 08/13/21 10:28> (4) UTI (urinary tract infection): Status: Acute <Nadya Garcia NP - Last Filed: 08/13/21 10:28> (5) Low blood pressure: Status: Acute <Nadya Garcia NP - Last Filed: 08/13/21 10:28> DS: Summary Hospital Course Hospital Course: 86-year-old man presenting with incontinence and weakness.? Apparently yesterday he had had several episodes of incontinence which is unlike him.? Then he started having burning with urination and hematuria today.? His son thought he was very weak and decided to bring him to the ER for further evaluation.? He denied fever, chills, nausea, vomiting, diarrhea.? In the ER his white blood cell count was noted to be elevated at 12.1, he had a fever of 101.2, heart rate of 105 , normal lactic acid. Blood pressure on lower side with lowest reading of 97/40.? He was given ceftriaxone, Zofran, L of IV fluid.? He will be admitted for further management and treatment of sepsis secondary to urinary tract infection. Hematuria. Sanford catheter placed. Resolved after 24 hours, no CBI required. HH remained stable. Seen and examined by Urology, Dr. Pineda, will be discharged with sanford catheter to follow up in urology office. Sepsis.?Resolved. secondary to UTI. Blood cx negative after 48 hours Urinary tract infection. Treated with IV rocephin, home with 5 more days of Ceftin. Low blood pressure reading. Secondary to sepsis and UTI. Resolved with IV fluids. <Nadya Garcia NP - Last Filed: 08/13/21 10:28> Time Spent with Patient Time attestation: Total time spent providing and/or coordinating discharge services: <Nadya Garcia NP - Last Filed: 08/13/21 10:28> Discharge coordination time: Greater than 30 minutes <Nadya Garcia NP - Last Filed: 08/13/21 10:28> Quality: Stroke Does the patient have a stroke diagnosis?: No <Nadya Garcia NP - Last Filed: 08/13/21 10:28> Physical Exam Vital Signs: Vital Signs: Last Vital Signs Temp 97.4 F 08/13/21 07:55 Pulse 65 08/13/21 07:55 Resp 17 08/13/21 07:55 BP 131/60 08/13/21 07:55 Pulse Ox 94 08/13/21 07:55 BMI result Body Mass Index 19.5 <Nadya Garcia NP - Last Filed: 08/13/21 10:28> Appearing in no acute distress head is normocephalic atraumatic eyes pupils are PERRLA sclera is anicteric mouth throat mucous membranes are intact and moist neck is supple no lymphadenopathy, no JVD noted lung sounds are clear to auscultation heart regular rate rhythm, clear S1, S2 positive bowel sounds, abdomen is soft, nontender Sanford catheter present with yellow urine neuro patient is alert x3, no focal deficits <Nadya Garcia NP - Last Filed: 08/13/21 10:28> DS: Data Data Completed and Pending Labs on day of discharge: Preliminary micro results at discharge 08/10/21 09:33 Blood Culture - Preliminary Blood - Venous No growth after 48 hours. 08/10/21 08:57 Blood Culture - Preliminary Blood - Venous No growth after 48 hours. <Nadya Garcia NP - Last Filed: 08/13/21 10:28> Discharge Plan Discharge Anticipated Discharge Date/Time: 08/13/21 08:55 <Nadya Garcia NP - Last Filed: 08/13/21 10:28> Patient Disposition: Home Health Service <Nadya Garcia NP - Last Filed: 08/13/21 10:28> Discharge Diagnosis: hematuria sepsis UTI Hypotension <Nadya Garcia NP - Last Filed: 08/13/21 10:28> hematuria sepsis UTI Hypotension <Nishant Law MD - Last Filed: 08/13/21 12:06> Referrals: [facility] [Outside] - 3-5 Days Gabbi Ramirez MD [Physician] - 1 Week <Nadya Garcia NP - Last Filed: 08/13/21 10:28> Discharge Medications: New cefuroxime axetil 500 mg tablet 500 mg PO BID Qty: 10 RF: 0 Continued aspirin 325 mg Tablet 325 mg PO DAILY RF: 0 simvastatin 20 mg tablet 1 tab PO DAILY RF: 0 fluticasone propionate 50 mcg/actuation [place],Suspension 1 spray INTRANASAL BID RF: 0 <Nadya Garcia NP - Last Filed: 08/13/21 10:28> Discharge Orders: Discharge Order (Routine); Ordered 08/13/21 Ordered By: Nadya Garcia <Nadya Garcia NP - Last Filed: 08/13/21 10:28> Diet: advance to usual diet <Nadya Garcia NP - Last Filed: 08/13/21 10:28> advance to usual diet <Nishant Law MD - Last Filed: 08/13/21 12:06> Activity on Discharge: As tolerated <Nadya Garcia NP - Last Filed: 08/13/21 10:28> As tolerated <Nishant Law MD - Last Filed: 08/13/21 12:06> Stand Alone Forms: Patient Portal Discharge page <Nadya Garcia NP - Last Filed: 08/13/21 10:28> Care Plan Goals: Sanford catheter care and follow-up with Urology <Nadya Garcia NP - Last Filed: 08/13/21 10:28> Health Concerns: hematuria sepsis UTI Hypotension <Nadya Garcia NP - Last Filed: 08/13/21 10:28> Plan of Treatment: Your folley catheter was removed He will continue on Ceftin for urinary tract infection please take as prescribed You may follow-up with your primary care provider as needed <Nadya Garcia NP - Last Filed: 08/13/21 10:28> Assessment: See discharge summary Attending Attestation: I have personally seen and examined the patient independently (on the date of service as documented by NPP), reviewed the NPP history, exam and?MDM and agree with the assessment and plan as?written <Ndaya Garcia NP - Last Filed: 08/13/21 10:28> Discharge Date/Time: 08/13/21 10:55 <Nadya Garcia NP - Last Filed: 08/13/21 10:28>
--- NOTE | 2021-08-13 09:09 | MHC.CM.PN ---
Patient has been medically cleared for dc to home today, with services. A referral was made to [facility], who has been notified of today's dc.Last IMM addressed on 08/12/2021.
== END 2021-08-13 10:55 | disposition home health service (06) | DRG 872 ==
LOC: HO.ED 10:02 → HO.EDOVER 13:25 → HO.S3 08-11 10:50
PROVIDERS: Admitting Provider Nurse Practitioner Acute Care; Emergency Provider Emergency Medicine; PCP Internal Medicine; Visit Provider Nurse Practitioner Acute Care
DX: A41.9 Sepsis, unspecified organism (principal); N39.0 Urinary tract infection, site not specified; F17.210 Nicotine dependence, cigarettes, uncomplicated; R31.0 Gross hematuria; Z71.6 Tobacco abuse counseling; E78.5 Hyperlipidemia, unspecified; Z20.822 Contact with and (suspected) exposure to COVID-19; Z79.82 Long term (current) use of aspirin; Z79.899 Other long term (current) drug therapy
CPT/HCPCS: 36415; 71045; 71250; 74176; 80048; 80076; 81001; 83605; 83690; 83735; 84484; 85025; 85027; 87040; 87635; 93005; 96361; 96374; 96375; 97162; 99285; J0696; J2270; J2405

== ENCOUNTER → 2021-10-01 14:49 | Outpatient (BNVA) | payer MEDICARE, OTHER, SELFPAY | PROVIDERS: PCP Internal Medicine; Visit Provider Urology | DX: N40.1 Benign prostatic hyperplasia with lower urinary tract symptoms (principal); N13.8 Other obstructive and reflux uropathy; R31.0 Gross hematuria | CPT/HCPCS: 99202 ==

== ENCOUNTER 2022-10-13 07:46 | Observation (INO) | payer MEDICARE, OTHER, SELFPAY ==
[2022-10-13] VITALS (7 sets, daily range): BP systolic 114–150; BP diastolic 45–82; PULSE 69–94; RESP 13–18; TEMP 36.6–37.2; O2SAT 85–99; BMI 28.0
--- NOTE | 2022-10-13 | ECG_ITS ---
Test Reason : CHEST PAIN Blood Pressure : / mmHG Vent. Rate : 083 BPM Atrial Rate : 083 BPM P-R Int : 168 ms QRS Dur : 092 ms QT Int : 402 ms P-R-T Axes : 096 164 071 degrees QTc Int : 472 ms Normal sinus rhythm Normal ECG When compared with ECG of 10-AUG-2021 08:34, IN interval has decreased Referred By: Donya Sweeney Electronically Signed By:Sanjay Rollins
--- NOTE | ~2022-10-13 | CT_ITS ---
EXAMINATION: CT ANGIOGRAM OF THE CHEST WITH AND WITHOUT CONTRAST (CT PULMONARY ANGIOGRAM FOR PE) CLINICAL INFORMATION: Reason for Exam elevated ddimer, chest pain COMPARISON: Previous chest x-ray from earlier the same day and chest CT July 2021 TECHNIQUE: Prior to contrast administration, noncontrast localization images were obtained. Subsequently, multidetector volumetric imaging was performed from the thoracic inlet to below the diaphragms following the administration of 65 mL Omnipaque 350 intravenous contrast. No contrast reaction reported Sagittal, coronal, and MIP oblique sagittal reformatted images were obtained on the CT workstation, uploaded to PACS, and reviewed. This CT examination was performed using dose optimization techniques as appropriate, variously including the following: *Automated exposure control *Adjustment of mA and/or kV according to patient size (this includes techniques or standardized protocols for targeted exams where dose is matched to indication/reason for exam; i.e. extremities or head) *Use of iterative reconstruction technique Total exam dose-length product 2448 mGy-cm for combined CT of the chest, abdomen and pelvis FINDINGS: QUALITY OF STUDY/CONTRAST BOLUS: Satisfactory. PULMONARY ARTERIES: No central or segmental pulmonary emboli. Upper normal in size. THORACIC AORTA: No aneurysm or dissection. Atherosclerotic disease of the thoracic aorta and left subclavian arteries. LUNG: No focal consolidation, nodules or masses. Severe emphysema. Mild airways disease with bronchial wall thickening, greatest in the left lower lobe. Small calcified right upper lobe nodule axial image 28 series 7 that is able. PLEURA: No pleural effusion or pneumothorax. MEDIASTINUM: Normal heart size. No pericardial effusion. Small mediastinal lymph nodes. No enlarged hilar or mediastinal lymphadenopathy. No evidence of septal bowing or right heart strain. CORONARY ARTERY CALCIFICATION: None visualized on this study. CHEST WALL/AXILLA: No axillary or internal mammary lymphadenopathy. 1. OSSEOUS STRUCTURES: No acute or suspicious osseous abnormality. degenerative changes of the spine. UPPER ABDOMEN: Severe atherosclerotic disease. Partially visualized partially thrombosed upper abdominal aortic aneurysm measuring at least 4.1 x 4.3 cm. Bilateral renal cysts. No reflux of contrast into the hepatic veins to suggest elevated right heart pressures. CT/CT angio chest PE protocol IMPRESSION: 1. No evidence of pulmonary embolism. 2. Severe emphysema. Mild airways disease. Severe atherosclerotic disease. Partially visualized partially thrombosed upper abdominal aortic aneurysm measuring at least 4.1 x 4.3 cm. VTE: negative
--- NOTE | ~2022-10-13 | CT_ITS ---
EXAMINATION: CT ABDOMEN AND PELVIS WITH CONTRAST CLINICAL INFORMATION: Vomiting. Lower abdominal pain. COMPARISON: Previous CT July 2021 TECHNIQUE: Multidetector volumetric images were obtained from the superior aspect of the liver through the pubic symphysis following administration 85 mL of Omnipaque 350 intravenous contrast. Sagittal and coronal reformatted images were obtained on the technologist's workstation. Oral contrast: Yes This CT examination was performed using dose optimization techniques as appropriate, variously including the following: *Automated exposure control *Adjustment of mA and/or kV according to patient size (this includes techniques or standardized protocols for targeted exams where dose is matched to indication/reason for exam; i.e. extremities or head) *Use of iterative reconstruction technique DLP: 2448 mGy-cm for combined CT of the chest, abdomen and pelvis FINDINGS: LIVER, GALLBLADDER, AND BILIARY TREE: The liver is normal in size, shape, and attenuation. Small 5 mm low-attenuation lesion in the right lobe of the liver probably representing a small cyst. No other focal hepatic lesion or biliary ductal dilatation is present. The gallbladder is unremarkable with no evidence of radiopaque gallstones, gallbladder wall thickening, or obvious pericholecystic inflammatory changes. PANCREAS: Unremarkable. SPLEEN: Unremarkable. ADRENAL GLANDS: Unremarkable. KIDNEYS AND URETERS: The kidneys are normal in size, shape, and attenuation. No hydronephrosis, hydroureter, or calculi seen. No perinephric stranding. Bilateral renal cysts. No imaging follow-up. BLADDER: Unremarkable. GASTROINTESTINAL TRACT: Diverticulosis. The small and large bowel are otherwise unremarkable. The appendix is unremarkable. ABDOMINAL WALL: Small bilateral groin hernias containing small bowel. No evidence of obstruction. LYMPH NODES: Small retroperitoneal lymph nodes. No enlarged lymph nodes or ascites. VASCULAR: Severe atherosclerotic disease. There is a 4.2 x 5.6 cm in greatest dimension lower abdominal aortic aneurysm. This is slightly irregular in shape and slightly in the somewhat saccular in contour. This demonstrates irregular appearing contrast enhancement anteriorly and to the right for example axial image 36 series 5. This is minimally changed in size from July 2021, increased from 4 x 5 cm. No abnormal perinephric fluid or soft tissue. PELVIC VISCERA: Enlarged prostate gland OSSEOUS STRUCTURES: Degenerative changes of the spine. Scoliosis. CT/CT abdomen pelvis w IV con IMPRESSION: Slight interval increase in size in the abdominal aortic aneurysm now measuring 4.2 x 5.6 cm in greatest dimension. This is slightly irregular in shape and slightly saccular in contour. This demonstrates irregular appearing contrast enhancement anteriorly and to the right. Vascular surgery consultation recommended. Diverticulosis. Enlarged prostate gland. Bilateral renal cysts. Probable small liver cyst. Findings will be communicated by the [employer] work flow construction scheduler. Fleischner guidelines were followed.
--- NOTE | ~2022-10-13 | XR_ITS ---
EXAMINATION: XR CHEST CLINICAL INFORMATION: Left-sided chest pain COMPARISON: Previous chest x-ray and chest CT July 2021 TECHNIQUE: Frontal view of the chest was obtained. FINDINGS: The cardiac and mediastinal contours are stable. The lungs are well-inflated suggestive of COPD. The lungs are clear. There is no pleural effusion or pneumothorax. There are degenerative changes of the spine. XR/XR chest 1V IMPRESSION: No evidence for acute disease in the chest.
--- NOTE | 2022-10-13 08:04 | ED_ITS ---
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 Af ter he vomited at 430am he developed L sided pleuritic chest pain that resolved on EMS arrival. EMS found his sats to be 92%. He was given 324 of aspirin prior to arrival.He has no pain now but his lower abdomen is slightly ttp. MD elicited complaint: nausea, vomiting and abdominal pain Description of vomiting: food contents and watery Associated nausea: Yes Associated abdominal pain: Yes Radiation: other (suprapubic) Pain consistency: constant Severity: moderate Quality: cramping, dull and constant Exacerbating factors: none Relieving factors: none Associated symptoms: chest pain, loss of appetite, malaise and nausea/vomiting Related Data Home Medications Medication Instructions Recorded Confirmed aspirin 325 mg tablet 325 mg PO DAILY 08/10/21 09/10/22 fluticasone propionate 50 1 spray intranasal BID 08/10/21 09/10/22 mcg/actuation nasal spray,suspension simvastatin 20 mg tablet 1 tab PO DAILY 08/10/21 09/10/22 loratadine 10 mg tablet 10 mg PO DAILY 10/01/21 09/10/22 Previous Rx's Medication Instructions Recorded finasteride 5 mg tablet 5 mg PO DAILY 30 days #30 tabs 10/01/21 tamsulosin 0.4 mg capsule 0.4 mg PO BEDTIME 30 days #30 caps 10/01/21 Allergies Allergy/AdvReac Type Severity Reaction Status Date / Time No Known Allergies Allergy Verified 10/01/21 15:07 Review of Systems Review of Systems: Constitutional : No Weight loss, No Fever, No Chills ENT/Mouth : No sore throat, No Rhinorrhea Eyes: No Swelling, No Redness Cardiovascular : pos Chest Pain, No SOB, NoEdema Respiratory : No Cough, No Sputum, No Wheezing Gastrointestinal : Positive Nausea, Positive Vomiting, no Diarrhea, positive abdominal Pain, No Hematochezia, No Melena Genitourinary : No Dysuria, No Urinary Frequency, No Hematuria, No Urgency Musculoskeletal : No joint pain, No Myalgias, No Joint Swelling Skin : No Skin Lesions, No rash Neuro : No Weakness, No Numbness, No Dizziness, No Headache Psych : No Anxiety/Panic, No Depression Heme/Lymph: No Bruising, No Lymphadenopathy Endocrine : No Polyuria, No Polydipsia All other systems reviewed and are negative. Gastrointestinal: Gastrointestinal: Reports nausea PMFSH Past Medical History Attestation statement: The following information was validated with the patient. Medical History Acute CVA (cerebrovascular accident) HLD (hyperlipidemia) UTI (urinary tract infection) Social History Social History Household Members: Children Housing: House Do you presently have visiting nurse or other home services: No Patient Tobacco Use Status: Current everyday Tobacco user Tobacco use type: Cigarette Cigarette Packs Per Day: 1 Cigarettes Per Day: 20.0 Years Smoked: 72 Smoked in Last 30 Days: Yes Second Hand Smoke Exposure: Yes Advance Directives: Yes Advance Directives on File: Yes Advance Directives Date on File: 08/14/21 service: No Current occupational status: retired Physical Exam Vital Signs: Vital Signs: Last Vital Signs Temp 98.0 F 10/13/22 09:57 Pulse 87 10/13/22 09:57 Resp 18 10/13/22 09:57 BP 149/52 H 10/13/22 09:57 Pulse Ox 98 10/13/22 09:57 O2 Del Method 10/13/22 09:57 BMI result Body Mass Index 28.0 Appearance: Alert. Oriented X3. No acute distress. Eyes: Pupils equal, round and reactive to light. ENT: Pharynx normal. Neck: Normal inspection. Neck supple. CVS: Normal heart rate and rhythm. Pulses normal. Respiratory: No respiratory distress. Breath sounds diminished L side. Abdomen: Soft and suprapubic ttp no mass felt, no signs of hernia noted in either groin at this time. Skin: Skin warm and dry. Normal skin color. Normal skin turgor. Extremities: No lower extremity edema. No calf ttp Neuro: Oriented X 3. No motor deficit. No sensory deficit. Course Course Course Narrative: ddimer over age adjusted limit CTA for PE ordered repeat vomiting IV zofran ordered Dr. Kamara is reviewing images today - family aware and updated Dr. Kamara will consult no need for emergent surgery at this time - 81mg aspirin daily Medications Administered Discontinued Medications Generic Name Dose Route Start Last Admin Trade Name Erinn PRN Reason Stop Dose Admin Iohexol 100 ml 10/13/22 09:55 10/13/22 09:55 Iohexol 350 Mg/Ml 100 Ml Infus..Btl IV 10/13/22 09:56 85 ml ONCE ONE Administration Morphine Sulfate 1 mg 10/13/22 10:34 10/13/22 10:50 Morphine Sulfate 2 Mg/Ml Cartridge IVPUSH 10/13/22 10:35 1 mg ONCE ONE Administration Protocol Ondansetron HCl 4 mg 10/13/22 08:01 10/13/22 08:55 Ondansetron Hcl 4 Mg/2 Ml Vial IVPUSH 10/13/22 08:02 4 mg ONCE ONE Administration Ondansetron HCl 4 mg 10/13/22 09:19 10/13/22 09:24 Ondansetron Hcl 4 Mg/2 Ml Vial IVPUSH 10/13/22 09:20 4 mg ONCE ONE Administration Medical Decision Making Medical Decision Making [facility] Narrative: 87 yo male with PMH of UTI, BPH, 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 He has hx of UTIs in the past. He could have SBO vs enlarging aneurysm. He also has L sided pleuritic chest pain after vomiting - seems atypical for ACS, could be aspiration pneumonia. Will obtain labs, CXR for pneumonia - if negative may need ddimer, CT scan for mass/obstruction,aortic aneurysm. IV zofran for nausea. Differential Diagnosis Differential Diagnoses: The differential diagnosis associated with the presentation includes UTI, constipation, obstruction, BPH, acs, aspiration pneumonia, VTE, aortic aneurysm Admission/Observation Consideration of admission/observation: Escalation of care including adm ission/observation considered Consult Healthcare Provider Management of the patient was discussed with: Hospitalist vascular surgeon Lab Data [facility] Lab Attestation statement: I reviewed the patient's lab results. 10/13/22 08:15 10/13/22 08:15 Labs: Lab Results 10/13/22 10/13/22 10/13/22 Range/Units 08:15 08:15 08:15 WBC 9.1 (4.8-10.8) X10*3/uL RBC 4.66 D (4.60-5.80) X10*6/uL Hgb 13.8 L D (14.0-18.0) g/dl Hct 43.2 D (42.0-52.0) % MCV 92.7 (80.0-98.0) fL MCH 29.6 (27.0-33.0) pg MCHC 31.9 (31.0-36.0) g/dl RDW 14.0 (11.0-16.0) % Plt Count 179 (160-400) X10*3/uL MPV 8.8 L (9.4-12.4) fL Immature Gran % (Auto) 0.3 (0.0-0.4) % Neut % (Auto) 85.8 H (45-73) % Lymph % (Auto) 9.6 L (20-40) % [place] % (Auto) 3.0 (2-11) % Eos % (Auto) 1.0 (0-4) % Baso % (Auto) 0.3 (0-2) % Lymph # (Auto) 0.9 L (1.2-4.9) X10*3/uL [place] # (Auto) 0.3 (0.1-1.2) X10*3/uL Eos # (Auto) 0.1 (0.0-0.4) X10*3/uL Baso # (Auto) 0.0 (0.0-0.2) X10*3/uL Abs Immat Gran (auto) 0.03 (0.00-0.03) X10*3/uL Absolute Neuts (auto) 7.8 (2.0-8.3) x10*3/uL Absolute Nucleated RBC 0.000 (0.0-0.012) X10*3/uL Nucleated RBC % (auto) 0.0 (0.0-0.2) /100WBC PT (10.0-13.1) SEC INR (0.9-1.1) D-Dimer High Sensitivty NG/ML Sodium 140 (135-145) mmol/L Potassium 5.1 D (3.3-5.1) mmol/L Chloride 105 (96-108) mmol/L Carbon Dioxide 26 (22-29) mmol/L Anion Gap 14 (12-20) BUN 28 H (9-16) mg/dL Creatinine 1.14 (0.5-1.4) mg/dL Estim Creat Clear Calc 49.6 Estimated GFR > 60 Random Glucose 136 H (60-115) mg/dL Lactic Acid (0.5-2.0) mmol/L Calcium 9.2 D (8.4-10.2) mg/dL Magnesium 2.0 (1.6-2.6) mg/dL Total Bilirubin 0.9 (0.0-1.0) mg/dL Direct Bilirubin 0.3 (0.0-0.5) mg/dL AST 16 (5-37) U/L ALT 11 (0-40) U/L Alkaline Phosphatase 114 (39-117) U/L Troponin I High Sens (<3.5-35.0) ng/L B-Natriuretic Peptide 214 H (<100) pg/mL Total Protein 7.3 (6.5-8.0) g/dL Albumin 4.1 (3.5-5.0) g/dL Lipase 24 (8-78) U/L COVID-19 (MAU) (Negative) COVID-19 Clin Com 10/13/22 10/13/22 10/13/22 Range/Units 08:15 08:15 08:15 WBC (4.8-10.8) X10*3/uL RBC (4.60-5.80) X10*6/uL Hgb (14.0-18.0) g/dl Hct (42.0-52.0) % MCV (80.0-98.0) fL MCH (27.0-33.0) pg MCHC (31.0-36.0) g/dl RDW (11.0-16.0) % Plt Count (160-400) X10*3/uL MPV (9.4-12.4) fL Immature Gran % (Auto) (0.0-0.4) % Neut % (Auto) (45-73) % Lymph % (Auto) (20-40) % [place] % (Auto) (2-11) % Eos % (Auto) (0-4) % Baso % (Auto) (0-2) % Lymph # (Auto) (1.2-4.9) X10*3/uL [place] # (Auto) (0.1-1.2) X10*3/uL Eos # (Auto) (0.0-0.4) X10*3/uL Baso # (Auto) (0.0-0.2) X10*3/uL Abs Immat Gran (auto) (0.00-0.03) X10*3/uL Absolute Neuts (auto) (2.0-8.3) x10*3/uL Absolute Nucleated RBC (0.0-0.012) X10*3/uL Nucleated RBC % (auto) (0.0-0.2) /100WBC PT 12.7 (10.0-13.1) SEC INR 1.1 (0.9-1.1) D-Dimer High Sensitivty 937 NG/ML Sodium (135-145) mmol/L Potassium (3.3-5.1) mmol/L Chloride (96-108) mmol/L Carbon Dioxide (22-29) mmol/L Anion Gap (12-20) BUN (9-16) mg/dL Creatinine (0.5-1.4) mg/dL Estim Creat Clear Calc Estimated GFR Random Glucose (60-115) mg/dL Lactic Acid 1.0 (0.5-2.0) mmol/L Calcium (8.4-10.2) mg/dL Magnesium (1.6-2.6) mg/dL Total Bilirubin (0.0-1.0) mg/dL Direct Bilirubin (0.0-0.5) mg/dL AST (5-37) U/L ALT (0-40) U/L Alkaline Phosphatase (39-117) U/L Troponin I High Sens (<3.5-35.0) ng/L B-Natriuretic Peptide (<100) pg/mL Total Protein (6.5-8.0) g/dL Albumin (3.5-5.0) g/dL Lipase (8-78) U/L COVID-19 (MAU) Negative (Negative) COVID-19 Clin Com See Note 10/13/22 10/13/22 Range/Units 08:16 10:40 WBC (4.8-10.8) X10*3/uL RBC (4.60-5.80) X10*6/uL Hgb (14.0-18.0) g/dl Hct (42.0-52.0) % MCV (80.0-98.0) fL MCH (27.0-33.0) pg MCHC (31.0-36.0) g/dl RDW (11.0-16.0) % Plt Count (160-400) X10*3/uL MPV (9.4-12.4) fL Immature Gran % (Auto) (0.0-0.4) % Neut % (Auto) (45-73) % Lymph % (Auto) (20-40) % [place] % (Auto) (2-11) % Eos % (Auto) (0-4) % Baso % (Auto) (0-2) % Lymph # (Auto) (1.2-4.9) X10*3/uL [place] # (Auto) (0.1-1.2) X10*3/uL Eos # (Auto) (0.0-0.4) X10*3/uL Baso # (Auto) (0.0-0.2) X10*3/uL Abs Immat Gran (auto) (0.00-0.03) X10*3/uL Absolute Neuts (auto) (2.0-8.3) x10*3/uL Absolute Nucleated RBC (0.0-0.012) X10*3/uL Nucleated RBC % (auto) (0.0-0.2) /100WBC PT (10.0-13.1) SEC INR (0.9-1.1) D-Dimer High Sensitivty NG/ML Sodium (135-145) mmol/L Potassium (3.3-5.1) mmol/L Chloride (96-108) mmol/L Carbon Dioxide (22-29) mmol/L Anion Gap (12-20) BUN (9-16) mg/dL Creatinine (0.5-1.4) mg/dL Estim Creat Clear Calc Estimated GFR Random Glucose (60-115) mg/dL Lactic Acid (0.5-2.0) mmol/L Calcium (8.4-10.2) mg/dL Magnesium (1.6-2.6) mg/dL Total Bilirubin (0.0-1.0) mg/dL Direct Bilirubin (0.0-0.5) mg/dL AST (5-37) U/L ALT (0-40) U/L Alkaline Phosphatase (39-117) U/L Troponin I High Sens 6.4 6.5 (<3.5-35.0) ng/L B-Natriuretic Peptide (<100) pg/mL Total Protein (6.5-8.0) g/dL Albumin (3.5-5.0) g/dL Lipase (8-78) U/L COVID-19 (MAU) (Negative) COVID-19 Clin Com Independent Interpretation I performed an independent interpretation of an: EKG, Plain X-Ray, Ultrasound and CT Scan Interpretation: Rate: 83 Rhythm: NSR [place]: normal Normal P waves. Normal BR[place]NEY. Normal QRS complex. ST T wave : normal no NICK qTC: normal prior studies: no acute ischemia The study has been interpreted contemporaneously by me. Radiology Impression Discussion of test interpretation with radiology: I have reviewed the radiologist's reading. Independent Historian Clinical information obtained from an independent historian. History obtained from or confirmed by: EMS and Other (family) had aorta US 3 weeks ago saw vascular surgeon 3 weeks ago was told aortic aneurysm was only 3.6 cm and to monitor which is unusual given his CT scan a year ago read it as 4.2 and his PCP told the family it was 4.6cm External Record Review External record reviewed: Inpatient record Discharge Plan Discharge Clinical Impression: Saccular aneurysm Vomiting Qualifiers: Vomiting type: unspecified Nausea presence: with nausea Qualified Code(s): R11.2 - Nausea with vomiting, unspecified Chest pain Qualifiers: Chest pain type: chest pain on breathing Qualified Code(s): R07.1 - Chest pain on breathing Patient Disposition: Admitted As Inpatient
[2022-10-13 08:25] LABS: MANUAL DIFF FLAG NO
[2022-10-13 08:26] LABS: Basophils Percent Auto 0.3 % (0-2); Eosinophils Absolute Auto 0.1 X10*3/uL (0.0-0.4); Hematocrit 43.2 % (42.0-52.0); Hemoglobin 13.8 g/dl (14.0-18.0); Imm Gran Abs Auto 0.03 X10*3/uL (0.00-0.03); Imm Gran Pct Auto 0.3 % (0.0-0.4); Lymphocytes Absolute Auto 0.9 X10*3/uL (1.2-4.9); Lymphocytes Percent Auto 9.6 % (20-40); Mean Corpuscular HGB Conc 31.9 g/dl (31.0-36.0); Mean Corpuscular Hemoglobin 29.6 pg (27.0-33.0); Mean Corpuscular Volume 92.7 fL (80.0-98.0); Mean Platelet Volume 8.8 fL (9.4-12.4); Monocytes Absolute Auto 0.3 X10*3/uL (0.1-1.2); Neutrophils Absolute Auto 7.8 x10*3/uL (2.0-8.3); Neutrophils Percent Auto 85.8 % (45-73); Platelet Count 179 X10*3/uL (160-400); Red Blood Count 4.66 X10*6/uL (4.60-5.80); White Blood Count 9.1 X10*3/uL (4.8-10.8)
[2022-10-13 08:31] LABS: INTERNATIONAL NORM RATIO 1.1 (0.9-1.1); Prothrombin Time 12.7 SEC (10.0-13.1)
[2022-10-13 08:44] LABS: COVID-19 Test Negative (Negative); IDNOW Serial# 16C4AD1C
[2022-10-13 08:46] LABS: Troponin-I High Sensitivity 6.4 ng/L (<3.5-35.0)
[2022-10-13 08:46] LABS: B Type Natriuretic Peptide 214 pg/mL (<100)
[2022-10-13 08:55] LABS: Alanine Aminotransferase 11 U/L (0-40); Albumin Level 4.1 g/dL (3.5-5.0); Alkaline Phosphatase 114 U/L (39-117); Anion Gap 14 (12-20); Aspartate Amino Transferase 16 U/L (5-37); Bilirubin Direct 0.3 mg/dL (0.0-0.5); Bilirubin Total 0.9 mg/dL (0.0-1.0); Blood Urea Nitrogen 28 mg/dL (9-16); Calcium 9.2 mg/dL (8.4-10.2); Carbon Dioxide 26 mmol/L (22-29); Chloride 105 mmol/L (96-108); Creatinine Clr Calc Pharmacy 49.6; Estimated Glomerular Filt Rate > 60; Glucose Random 136 mg/dL (60-115); Lipase 24 U/L (8-78); Potassium 5.1 mmol/L (3.3-5.1); Sodium 140 mmol/L (135-145); Total Protein 7.3 g/dL (6.5-8.0)
[2022-10-13] MEDS: ondansetron HCL 4 MG/2 ML VIAL IVPUSH ×2 (08:55→09:24)
--- NOTE | 2022-10-13 08:59 | PC.NURSE ---
Alert and oriented, resp even and unlabored. Coming from home, reporting vomiting off and on since yesterday with chest pain that has now resolved since this morning. Lives with his daughter who called EMS. Has had intermittent chest pain while here, denies any pain at this time.
[2022-10-13 09:20] LABS: D Dimer High Sensitivity 937 NG/ML
--- NOTE | 2022-10-13 09:27 | PC.NURSE ---
Pt vomited small amount, medicated per the MAR.
[2022-10-13] MEDS: iohexoL 350 MG/ML 100 ML INFUS..BTL IV (09:55)
[2022-10-13] MEDS: Morphine Sulfate 2 MG/ML CARTRIDGE 1 MG IVPUSH ×2 (10:50→14:10)
[2022-10-13 11:12] LABS: Troponin-I High Sensitivity 6.5 ng/L (<3.5-35.0)
--- NOTE | 2022-10-13 12:04 | P.HPHOSP_ITS ---
History of Present Illness Date of Service: 10/13/22 Attending physician on admission: [facility] Chief Complaint: nausea, vomiting, abd pain, chest pain 87-year-old male with history of BPH with LUTS, saccular aneurysm, hyperlipidemia, and history of CVA who is a current 1.5 ppd cigarette smoker presented to the ED via EMS earlier this morning for evaluation of nausea, vomiting, bilateral lower abdominal pain, and left-sided chest pain that started last night. He states that he had 4 episodes of nonbilious vomiting last night and generally feels unwell. He states he did go to a restaurant the night prior to symptom onset, but is unclear if he ate anything bad and denies anyone else with similar symptoms. He is unable to describe the lower abdominal pain but describes a moderate tightness in the left chest that is brought on by deep inspiration. In the ambulance, was given 325 mg of aspirin. On arrival, vital signs stable. Hematology studies unremarkable. Coagulation studies normal except for elevated D-dimer of 937. Renal function baseline, electrolyte levels normal. Troponins negative x2. BNP 214. Negative COVID 19. CTA chest negative for any pulmonary emboli did show severe emphysema as well as severe atherosclerotic disease and a partially visualized upper abdominal aortic aneurysm. Abdominal/pelvis CT showed slight interval increase in size of a bdominal aortic aneurysm now measuring 4.2 x 5.6 cm in greatest dimension slightly irregular in shape and slightly saccular in contour. ED provider did discuss aneurysm with Dr. Kamara in vascular surgery who will follow along with Case on admission but does not feel this is responsible for his symptoms. Recommending baby aspirin 81 mg daily. Pt follows with [facility] Vascular surgery. Denies etoh use, mj use, or illicit drug use. Review of Systems Review of Systems: General: +chills, +malaise. No fevers, unintentional weight loss HEENT: No blurred vision, diplopia. No sore throat, nasal congestion, rh inorrhea, sinus pain, ear pain Cardiovascular: +pleuritic chest pain. No chest pressure, palpitations, or leg edema Respiratory: No shortness of breath, wheezing, cough GI: +abdominal pain, +n/v. No diarrhea, constipation, melena, hematochezia : No dysuria, hematuria, increased urinary frequency, decreased urinary output MSK: No myalgia, back pain Neuro: No headaches, weakness, paresthesias Skin: No rashes or lesions [facility] Medical History (Updated 10/13/22 @ 12:20 by SCARLETT Greenfield) Acute CVA (cerebrovascular accident) BPH w urinary obs/LUTS HLD (hyperlipidemia) Saccular aneurysm UTI (urinary tract infection) Social History Household Members: Children Housing: House Do you presently have visiting nurse or other home services: No Patient Tobacco Use Status: Current everyday Tobacco user Tobacco use type: Cigarette Cigarette Packs Per Day: 1.5 Cigarettes Per Day: 30.0 Years Smoked: 72 Smoked in Last 30 Days: Yes Patient Interested in Nicotine Replacement: No Patient Given Instructions on How to Stop Smoking: No Second Hand Smoke Exposure: No Advance Directives: Yes Advance Directives on File: Yes Advance Directives Date on File: 08/14/21 service: No Current occupational status: retired [employer] Allergies Allergy/AdvReac Type Severity Reaction Status Date / Time No Known Allergies Allergy Verified 10/01/21 15:07 Active Medications: Current Medications Acetaminophen (Acetaminophen 325 Mg Tablet) 650 mg PO Q6H PRN PRN Reason: Pain, Mild (Pain Scale 1-3) Aspirin (Aspirin Enteric Coated 81 Mg Tablet.Dr) 81 mg PO DAILY [facility] Docusate Sodium (Docusate Sodium 100 Mg Capsule) 100 mg PO DAILY PRN PRN Reason: Constipation Enoxaparin Sodium (Enoxaparin Sodium 40 Mg/0.4 Ml Syringe) 40 mg SUBCUT Q24H [facility] Non-Formulary Medication (Simvastatin) 1 tab PO DAILY [facility] Ondansetron HCl (Ondansetron Hcl 4 Mg/2 Ml Vial) 4 mg IVPUSH Q8H PRN PRN Reason: Nausea and Vomiting Pharmacy Consult (Consult Rx Perform Med Rec) 1 each MISCELLANE ONCE PRN PRN Reason: Consult order Sodium Chloride (0.9 % Sodium Chloride Flush 3 Ml Syringe) 3 ml IVFLUSH QSHIFT [facility] Home Medications Medication Instructions Recorded Confirmed Last Taken Type aspirin 325 mg tablet 325 mg PO DAILY 08/10/21 10/13/22 Unknown History simvastatin 20 mg tablet 1 tab PO DAILY 08/10/21 10/13/22 Unknown History Physical Exam Vital Signs and Narrative: Vital Signs: Last Vital Signs Temp 98.0 F 10/13/22 09:57 Pulse 87 10/13/22 09:57 Resp 18 10/13/22 09:57 BP 149/52 H 10/13/22 09:57 Pulse Ox 98 10/13/22 09:57 O2 Del Method 10/13/22 09:57 BMI result Body Mass Index 28.0 Constitutional - Awake and Alert, No apparent distress Eyes - PERRLA, EOMI Cardiovascular - S1S2, RRR, No edema Respiratory - Normal lung expansion, Normal respiratory effort, No respiratory distress, CTA bilaterally Chest: Reproducible ttp left chest Gastrointestinal - NT / ND; +BS; No rebound or guarding Extremities - no calf tenderness bilaterally, no swelling Skin - Warm/Dry Neurological - Alert & oriented x3, CN II-XII in tact, 5/5 strength BUE and BLE Psychological - Appropriate affect Results Labs 10/13/22 08:15 10/13/22 08:15 Labs: Laboratory Results - last 24 hr 10/13/22 10/13/22 10/13/22 08:15 08:15 08:15 MCV 92.7 MCH 29.6 MCHC 31.9 RDW 14.0 Plt Count 179 MPV 8.8 L Immature Gran % (Auto) 0.3 Neut % (Auto) 85.8 H Lymph % (Auto) 9.6 L [place] % (Auto) 3.0 Eos % (Auto) 1.0 Baso % (Auto) 0.3 Lymph # (Auto) 0.9 L [place] # (Auto) 0.3 Eos # (Auto) 0.1 Baso # (Auto) 0.0 Abs Immat Gran (auto) 0.03 Absolute Neuts (auto) 7.8 Absolute Nucleated RBC 0.000 Nucleated RBC % (auto) 0.0 PT INR D-Dimer High Sensitivty Anion Gap 14 Estim Creat Clear Calc 49.6 Estimated GFR > 60 Random Glucose 136 H Lactic Acid Calcium 9.2 D Magnesium 2.0 Total Bilirubin 0.9 Direct Bilirubin 0.3 AST 16 ALT 11 Alkaline Phosphatase 114 Troponin I High Sens B-Natriuretic Peptide 214 H Total Protein 7.3 Albumin 4.1 Lipase 24 COVID-19 (MAU) COVID-19 Clin Com 10/13/22 10/13/22 10/13/22 08:15 08:15 08:15 MCV MCH MCHC RDW Plt Count MPV Immature Gran % (Auto) Neut % (Auto) Lymph % (Auto) [place] % (Auto) Eos % (Auto) Baso % (Auto) Lymph # (Auto) [place] # (Auto) Eos # (Auto) Baso # (Auto) Abs Immat Gran (auto) Absolute Neuts (auto) Absolute Nucleated RBC Nucleated RBC % (auto) PT 12.7 INR 1.1 D-Dimer High Sensitivty 937 Anion Gap Estim Creat Clear Calc Estimated GFR Random Glucose Lactic Acid 1.0 Calcium Magnesium Total Bilirubin Direct Bilirubin AST ALT Alkaline Phosphatase Troponin I High Sens B-Natriuretic Peptide Total Protein Albumin Lipase COVID-19 (MAU) Negative COVID-19 Clin Com See Note 10/13/22 10/13/22 08:16 10:40 MCV MCH MCHC RDW Plt Count MPV Immature Gran % (Auto) Neut % (Auto) Lymph % (Auto) [place] % (Auto) Eos % (Auto) Baso % (Auto) Lymph # (Auto) [place] # (Auto) Eos # (Auto) Baso # (Auto) Abs Immat Gran (auto) Absolute Neuts (auto) Absolute Nucleated RBC Nucleated RBC % (auto) PT INR D-Dimer High Sensitivty Anion Gap Estim Creat Clear Calc Estimated GFR Random Glucose Lactic Acid Calcium Magnesium Total Bilirubin Direct Bilirubin AST ALT Alkaline Phosphatase Troponin I High Sens 6.4 6.5 B-Natriuretic Peptide Total Protein Albumin Lipase COVID-19 (MAU) COVID-19 Clin Com Imaging Radiologist's Impressions: Impressions Chest X-Ray 10/13/22 08:54 IMPRESSION: No evidence for acute disease in the chest. Abdomen/Pelvis CT 10/13/22 09:57 IMPRESSION: Slight interval increase in size in the abdominal aortic aneurysm now measuring 4.2 x 5.6 cm in greatest dimension. This is slightly irregular in shape and slightly saccular in contour. This demonstrates irregular appearing contrast enhancement anteriorly and to the right. Vascular surgery consultation recommended. Diverticulosis. Enlarged prostate gland. Bilateral renal cysts. Probable small liver cyst. Findings will be communicated by the [place] work flow restaurant supervisor. Fleischner guidelines were followed. Chest CTA 10/13/22 09:57 IMPRESSION: 1. No evidence of pulmonary embolism. 2. Severe emphysema. Mild airways disease. Severe atherosclerotic disease. Partially visualized partially thrombosed upper abdominal aortic aneurysm measuring at least 4.1 x 4.3 cm. VTE: negative Assessment and Plan (1) Nausea and vomiting: Status: Acute Plan 87-year-old male with history of BPH with LUTS, saccular aneurysm, hyperlipidemia, and history of CVA who is a current 1.5 ppd cigarette smoker to be observed for persistent vomiting. #Nausea/vomiting- ? viral in etiology -Abd/pelvis CT negative for acute abnormality. Did show 4.2 x 5.6cm saccular aortic aneurysm. Per vascular surgery, not related to symptoms -Reports eating at a restaurant the night prior to sx onset. No other constitution party with similar symptoms. No diarrhea -Ondansetron prn for n/v -Clear liquid diet -No AISHWARYA or electrolyte abn. Follow BMP #Atypical chest pain- likely musculoskeletal in nature -reproducible tenderness to palpation over the left chest -pain management p.r.n. -unlikely to be ACS. Troponins negative x2, EKG without evidence of acute ischemia # saccular abdominal aortic aneurysm -CT abdomen/pelvis showing 4.2 x 5.6 cm saccular aortic aneurysm -per ED provider, vascular surgery agrees to follow. Consult placed, appreciate input -continue ASA 81 mg daily #HLD -continue statin #History CVA -continue asa #Cigarette smoker -Cessation counseling -Declines NRT DVT prophylaxis- lovenox Full code per patient Time Spent With Patient Time: Total time managing care of this patient today ____ minutes. Quality Stroke Does the patient have a stroke diagnosis?: No VTE Prior VTE?: No VTE Risk Level:: Medical - moderate - high VTE Device Contraindication: Treatment Not Indicated VTE Drug Contraindication: N/A - Med Ordered
[2022-10-13 12:28] LABS: Appearance Urine Clear; Color Urine Yellow; Glucose Urine UA Negative (Negative); Leukocyte Esterase Urine Negative (Negative); Nitrite Urine Negative (Negative); Specific Gravity - Urine >= 1.030 (1.005-1.025); UMIC TRIGGER UACC YES; Urine Blood Small (1+) (Negative); Urine Ketones Trace mg/dL (Negative); Urine Protein Trace mg/dL (Neg-Trace)
[2022-10-13 13:49] LABS: Bacteria Urine None Seen (None Seen); Hyaline Casts Urine 0-2 /LPF (0-2); Squamous Epithelial Cell Urine 0-2 /HPF (0-2); WBC Urine 0-5 /HPF (0-5)
--- NOTE | 2022-10-13 14:01 | MHC.EDTECH ---
@1400 faxed a request again to [facility] for records for the patient per request of Dr. Sweeney. Requested records related to ultrasound, vascular surgery, and aorta ultrasound. Waiting for records to be sent at this time.
[2022-10-13] MEDS: Enoxaparin Sodium 40 MG/0.4 ML SYRINGE SUBCUT (14:11)
[2022-10-13] MEDS: 0.9 % Sodium Chloride 1,000 ML 80 ML IVCONT (15:35)
--- NOTE | 2022-10-13 21:19 | PC.NURSE ---
pt destates on room air to 85% room air. Pt is alert x 3 and conscious. No signs of respiratory distress noted. Rn placed pt on 2 liters via nasal cannula oxygen saturation much improved 98% via 2 liters nasal cannula.
[2022-10-14 00:36] VITALS: BP 128/52; PULSE 59; RESP 17; TEMP 36.8; O2SAT 92
--- NOTE | 2022-10-14 00:38 | MHC.EDTECH ---
PT soiled with urine. Pericare given . PT bed pads changed. Pt given warm blankets and call bailon placed in reach
--- NOTE | 2022-10-14 01:37 | PC.NURSE ---
Attempted to call report. RN will call back.
[2022-10-14 02:38] VITALS: BMI 16.5
[2022-10-14 03:15] VITALS: BP 150/65; PULSE 51; RESP 17; TEMP 36.9; O2SAT 98
[2022-10-14] MEDS: 0.9 % Sodium Chloride 1,000 ML 80 ML IVCONT (05:47)
[2022-10-14 06:07] LABS: Basophils Percent Auto 0.2 % (0-2); Eosinophils Percent Auto 0.1 % (0-4); Hematocrit 38.3 % (42.0-52.0); Hemoglobin 12.2 g/dl (14.0-18.0); Imm Gran Abs Auto 0.05 X10*3/uL (0.00-0.03); Imm Gran Pct Auto 0.5 % (0.0-0.4); MANUAL DIFF FLAG SCAN; Mean Corpuscular HGB Conc 31.9 g/dl (31.0-36.0); Mean Platelet Volume 10.2 fL (9.4-12.4); Neutrophils Percent Auto 84.7 % (45-73); PLT CLUMP 1; SCAN SMEAR FLAG 1
[2022-10-14 06:09] LABS: Lymphocytes Absolute Auto 1.1 X10*3/uL (1.2-4.9); Mean Corpuscular Hemoglobin 30.3 pg (27.0-33.0); Monocytes Absolute Auto 0.5 X10*3/uL (0.1-1.2); Monocytes Percent Auto 4.5 % (2-11); Red Blood Count 4.03 X10*6/uL (4.60-5.80)
[2022-10-14 06:18] LABS: Anion Gap 17 (12-20); Blood Urea Nitrogen 26 mg/dL (9-16); Calcium 8.4 mg/dL (8.4-10.2); Carbon Dioxide 22 mmol/L (22-29); Chloride 107 mmol/L (96-108); Creatinine Clr Calc Pharmacy 39.7; Estimated Glomerular Filt Rate > 60; Glucose Random 117 mg/dL (60-115); Potassium 4.6 mmol/L (3.3-5.1); Sodium 141 mmol/L (135-145)
[2022-10-14 06:35] LABS: Platelet Count 159 X10*3/uL (160-400); White Blood Count 10.6 X10*3/uL (4.8-10.8)
[2022-10-14 06:38] LABS: SLIDE REVIEW VERIFIED
[2022-10-14 08:00] VITALS: BP 133/61; PULSE 55; RESP 18; TEMP 37.2; O2SAT 90
--- NOTE | 2022-10-14 08:57 | P.DS_ITS ---
DS: Providers Provider Date of Service: 10/14/22 Date of admission: 10/13/22 11:57 Primary care physician: Gabbi Ramirez MD Consults: 10/13/22 12:13 Consult to Vascular Surgery Routine Consulting Provider: Jong Kamara Reason for consultation: saccular abdominal aortic aneurysm DS: Diagnosis Discharge Diagnosis (1) Nausea and vomiting: Status: Acute DS: Summary Hospital Course Hospital Course: Chief Complaint: nausea, vomiting, abd pain, chest pain 87-year-old male with history of BPH with LUTS, saccular aneurysm, hyperlipidemia, and history of CVA who is a current 1.5 ppd cigarette smoker p resented to the ED via EMS earlier this morning for evaluation of nausea, vomiting, bilateral lower abdominal pain, and left-sided chest pain that started last night.? He states that he had 4 episodes of nonbilious vomiting last night and generally feels unwell.? He states he did go to a restaurant the night prior to symptom onset, but is unclear if he ate anything bad and denies anyone else with similar symptoms.? He is unable to describe the lower abdominal pain but describes a moderate tightness in the left chest that is brought on by deep inspiration.? In the ambulance, was given 325 mg of aspirin.? On arrival, vital signs stable.? Hematology studies unremarkable.? Coagulation studies normal except for elevated D-dimer of 937.? Renal function baseline, electrolyte levels normal.? Troponins negative x2.? BNP 214.? Negative COVID 19.? CTA chest negative for any pulmonary emboli did show severe emphysema as well as severe atherosclerotic disease and a partially visualized upper abdominal aortic aneurysm.? Abdominal/pelvis CT showed slight interval increase in size of abdominal aortic aneurysm now measuring 4.2 x 5.6 cm in greatest dimension slightly irregular in shape and slightly saccular in contour.? ED provider did discuss aneurysm with Dr. Kamara in vascular surgery who will follow along with Case on admission but does not feel this is responsible for his symptoms.? Recommending baby aspirin 81 mg daily. Pt follows with [facility]. Denies etoh use, mj use, or illicit drug use. Hospital course: Patient was admitted for nausea vomiting abdominal pain that is related likely to food poisoning. He was observed overnight, treat asymptomatically and all symptoms have resolved. Diet is being advanced and is tolerating. Incidental finding of a uric aneurysm was deemed not to be a cause of his pain and could be follow-up on outpatient basis. Time Spent with Patient Time attestation: Total time managing care of this patient today ____ minutes. Discharge coordination time: Greater than 30 minutes Quality: Safe Use of Opioids Does Pt have an Active Cancer Diagnosis on the Problem List?: No Quality: Stroke Does the patient have a stroke diagnosis?: No Physical Exam Vital Signs: Vital Signs: Last Vital Signs Temp 98.9 F 10/14/22 08:00 Pulse 55 10/14/22 08:00 Resp 18 10/14/22 08:00 BP 133/61 10/14/22 08:00 Pulse Ox 90 L 10/14/22 08:00 O2 Del Method 10/14/22 08:00 O2 Flow Rate 2 10/14/22 03:15 BMI result Body Mass Index 16.5 DS: Data Data Completed and Pending Completed studies during hospitalization [Text1]: Procedures Drainage of Bladder with Drainage Device, Via Natural or Artificial Opening Endoscopic (08/10/21) Labs on day of discharge: Laboratory Results - last 24 hr 10/13/22 10/13/22 10/13/22 08:15 10:40 12:13 WBC RBC Hgb Hct MCV MCH MCHC RDW Plt Count MPV Immature Gran % (Auto) Neut % (Auto) Lymph % (Auto) [place] % (Auto) Eos % (Auto) Baso % (Auto) Lymph # (Auto) [place] # (Auto) Eos # (Auto) Baso # (Auto) Abs Immat Gran (auto) Absolute Neuts (auto) Absolute Nucleated RBC Nucleated RBC % (auto) Smear Tech's Comments D-Dimer High Sensitivty 937 Sodium Potassium Chloride Carbon Dioxide Anion Gap BUN Creatinine Estim Creat Clear Calc Estimated GFR Random Glucose Calcium Troponin I High Sens 6.5 Urine Color Yellow Urine Appearance Clear Urine pH 7.0 Ur Specific [place] >= 1.030 H Urine Protein Trace Urine Glucose (UA) Negative Urine Ketones Trace Urine Blood Small (1+) H Urine Nitrite Negative Ur Leukocyte Esterase Negative Urine RBC 6-10 H Urine WBC 0-5 Ur Squamous Epith Cells 0-2 Urine Bacteria None Seen Hyaline Casts 0-2 Blood Type Antibody Screen 10/13/22 10/14/22 10/14/22 21:34 05:11 05:11 WBC 10.6 RBC 4.03 L Hgb 12.2 L Hct 38.3 L MCV 95.0 MCH 30.3 MCHC 31.9 RDW 14.0 Plt Count 159 L MPV 10.2 Immature Gran % (Auto) 0.5 H Neut % (Auto) 84.7 H Lymph % (Auto) 10.0 L [place] % (Auto) 4.5 Eos % (Auto) 0.1 Baso % (Auto) 0.2 Lymph # (Auto) 1.1 L [place] # (Auto) 0.5 Eos # (Auto) 0.0 Baso # (Auto) 0.0 Abs Immat Gran (auto) 0.05 H Absolute Neuts (auto) 9.0 H Absolute Nucleated RBC 0.000 Nucleated RBC % (auto) 0.0 Smear Tech's Comments VERIFIED D-Dimer High Sensitivty Sodium 141 Potassium 4.6 Chloride 107 Carbon Dioxide 22 Anion Gap 17 BUN 26 H Creatinine 0.94 Estim Creat Clear Calc 39.7 Estimated GFR > 60 Random Glucose 117 H Calcium 8.4 D Troponin I High Sens Urine Color Urine Appearance Urine pH Ur Specific [place] Urine Protein Urine Glucose (UA) Urine Ketones Urine Blood Urine Nitrite Ur Leukocyte Esterase Urine RBC Urine WBC Ur Squamous Epith Cells Urine Bacteria Hyaline Casts Blood Type A Positive Antibody Screen NEGATIVE Discharge Plan Discharge Anticipated Discharge Date/Time: 10/14/22 09:01 Discharge Diagnosis: Gastroenteritis Referrals: Gabbi Ramirez MD [Primary Care Provider] - 1 Week Discharge Medications: No Action aspirin 325 mg Tablet 325 mg PO DAILY simvastatin 20 mg tablet 1 tab PO DAILY Diet: Advance to usual diet Activity on Discharge: As tolerated Stand Alone Forms: Patient Portal Discharge page Care Plan Goals: Full recovery Health Concerns: Nausea vomiting abdominal pain that have resolved. Abdominal aortic aneurysm Plan of Treatment: Drink plenty of fluid, it is expected that you recover fully and follow up with her primary care doctor. Follow-up with vascular surgery for aortic aneurysm that is old Assessment: As above
--- NOTE | 2022-10-14 09:40 | P.CONGS_ITS ---
History of Present Illness Consult details Consult date: 10/14/22 Reason for consult: abdominal pain Narrative: Very pleasant 87-year-old gentleman presents for evaluation of abdominal discomfort. He presented to the emergency room with a bout of nausea and vomiti ng. He reports that he was able to tolerate a fairly heavy pasta dinner with meat balls on Thursday night non Thursday night was a turkey dinner. After that he developed some nausea and vomiting and was uncomfortable. He presented to the emergency room. This morning he reports that he is doing better. He is tolerating a liquid diet this morning. He now presents for vascular evaluation regarding an incidental finding of an aortic aneurysm. Review of Systems Review of Systems: Yes all other systems are reviewed and are negative Constitutional: Constitutional: Reports no additional constitutional complaints ENT: Reports Normal hearing present Cardiovascular: Cardiovascular: Denies chest pain, Denies chest pain at rest, Denies chest pain with activity and Denies pedal edema Respiratory: Respiratory: Denies cough Gastrointestinal: Gastrointestinal: Denies abdominal pain Musculoskeletal: Musculoskeletal: Denies abnormal gait, Denies muscle cramps and Denies radiating pain into limb Integumentary/Breasts: Skin/Breast: Denies skin ulcer and Denies wounds Neurologic: Reports Normal hearing present and Denies abnormal gait Psychiatric: Psychiatric: Reports no additional psychiatric complaints PMFSH Past Medical History Medical History (Updated 10/14/22 @ 09:43 by Jong Kamara MD) Acute CVA (cerebrovascular accident) BPH w urinary obs/LUTS HLD (hyperlipidemia) Saccular aneurysm UTI (urinary tract infection) Social History Social History Household Members: Children Housing: House Do you presently have visiting nurse or other home services: No Patient Tobacco Use Status: Current everyday Tobacco user Tobacco use type: Cigarette Cigarette Packs Per Day: 1.5 Cigarettes Per Day: 30.0 Years Smoked: 72 Smoked in Last 30 Days: Yes Patient Interested in Nicotine Replacement: No Patient Given Instructions on How to Stop Smoking: No Second Hand Smoke Exposure: No Advance Directives: Yes Advance Directives on File: Yes Advance Directives Date on File: 08/14/21 service: No Current occupational status: retired Meds Allergies Allergy/AdvReac Type Severity Reaction Status Date / Time No Known Allergies Allergy Verified 10/01/21 15:07 Active Medications: Current Medications Acetaminophen (Acetaminophen 325 Mg Tablet) 650 mg PO Q6H PRN PRN Reason: Pain, Mild (Pain Scale 1-3) Aspirin (Aspirin Enteric Coated 81 Mg Tablet.) 81 mg PO DAILY ON LICENSE OF [facility] Last Admin: 10/14/22 07:17 Dose: Not Given Atorvastatin Calcium (Atorvastatin Calcium 10 Mg Tablet) 10 mg PO DAILY ON LICENSE OF [facility] Last Admin: 10/14/22 07:17 Dose: Not Given Docusate Sodium (Docusate Sodium 100 Mg Capsule) 100 mg PO DAILY PRN PRN Reason: Constipation Enoxaparin Sodium (Enoxaparin Sodium 40 Mg/0.4 Ml Syringe) 40 mg SUBCUT Q24H ON LICENSE OF [facility] Last Admin: 10/13/22 14:11 Dose: 40 mg Sodium Chloride (Ns) 1,000 mls @ 80 mls/hr IVCONT .[id number] ON LICENSE OF [facility] Last Admin: 10/14/22 05:47 Dose: 80 mls/hr Morphine Sulfate (Morphine Sulfate 2 Mg/Ml Cartridge) 1 mg IVPUSH Q4H PRN; Protocol PRN Reason: Pain, Severe (Pain Scale 7-10) Last Admin: 10/13/22 14:10 Dose: 1 mg Ondansetron HCl (Ondansetron Hcl 4 Mg/2 Ml Vial) 4 mg IVPUSH Q8H PRN PRN Reason: Nausea and Vomiting Pharmacy Consult (Consult Rx Perform Med Rec) 1 each MISCELLANE ONCE PRN PRN Reason: Consult order Sodium Chloride (0.9 % Sodium Chloride Flush 3 Ml Syringe) 3 ml IVFLUSH QSHIFT ON LICENSE OF [facility] Last Admin: 10/14/22 07:16 Dose: Not Given Home Medications Medication Instructions Recorded Confirmed Last Taken Type aspirin 325 mg tablet 325 mg PO DAILY 08/10/21 10/13/22 Unknown History simvastatin 20 mg tablet 1 tab PO DAILY 08/10/21 10/13/22 Unknown History Physical Exam Vital Signs: Vital Signs: Last Vital Signs Temp 98.9 F 10/14/22 08:00 Pulse 55 10/14/22 08:00 Resp 18 10/14/22 08:00 BP 133/61 10/14/22 08:00 Pulse Ox 90 L 10/14/22 08:00 O2 Del Method 10/14/22 08:00 O2 Flow Rate 2 10/14/22 03:15 BMI result Body Mass Index 16.5 Const: General: cooperative, healthy appearing and comfortable Orientation/consciousness: oriented to person, oriented to place and oriented to time HEENT: Head: Yes normal to inspection Neck: Neck: Yes normal visual inspection Carotids: no bruits Chest: Chest palpation & inspection: normal inspection of the chest Resp: Effort & Inspection: normal respiratory effort and able to speak in complete sentences Auscultation: clear to auscultation bilaterally, no crackles, no rales, no rhonchi and no wheezes Cardio: Rate: regular rate Rhythm: regular rhythm Heart sounds: S1 normal heart sound present and S2 normal heart sound present Bruits: no carotid bruits Peripheral pulses: Peripheral pulses 2+ throughout GI: Other: Abdomen soft with no rebound or guarding, no scars noted Inspection: Yes normal to inspection Skin: Wounds: no wounds Hair: normal Neuro: General: oriented to person, oriented to place and oriented to time Cranial nerves: Yes CN's II-XII intact bilaterally and Yes Normal hearing present Cognition (Neuro): normal cognition Motor exam (neuro): 5/5 motor strength present throughout Extrem: Other: venous exam: No significant superficial varicosities or spider telangiectasias, minimal edema General: No clubbing, No cyanosis and No edema Psych: Appearance: grossly normal Mental Status: mental status grossly normal Speech and movement: Normal speech and movement present Results Labs 10/14/22 05:11 10/14/22 05:11 Labs: Abnormal lab results 10/13/22 10/14/22 10/14/22 Range/Units 12:13 05:11 05:11 RBC 4.03 L (4.60-5.80) X10*6/uL Hgb 12.2 L (14.0-18.0) g/dl Hct 38.3 L (42.0-52.0) % Plt Count 159 L (160-400) X10*3/uL Immature Gran % (Auto) 0.5 H (0.0-0.4) % Neut % (Auto) 84.7 H (45-73) % Lymph % (Auto) 10.0 L (20-40) % Lymph # (Auto) 1.1 L (1.2-4.9) X10*3/uL Abs Immat Gran (auto) 0.05 H (0.00-0.03) X10*3/uL Absolute Neuts (auto) 9.0 H (2.0-8.3) x10*3/uL BUN 26 H (9-16) mg/dL Random Glucose 117 H (60-115) mg/dL Ur Specific [place] >= 1.030 H (1.005-1.025) Urine Blood Small (1+) H (Negative) Urine RBC 6-10 H (0-2) /HPF Short CBC 10/14/22 Range/Units 05:11 WBC 10.6 (4.8-10.8) X10*3/uL Hgb 12.2 L (14.0-18.0) g/dl Hct 38.3 L (42.0-52.0) % Plt Count 159 L (160-400) X10*3/uL BMP 10/14/22 05:11 Sodium 141 Potassium 4.6 Chloride 107 Carbon Dioxide 22 BUN 26 H Creatinine 0.94 Calcium 8.4 D Urine 10/13/22 Range/Units 12:13 Urine Color Yellow Urine Appearance Clear Urine pH 7.0 (5.0-9.0) Ur Specific [place] >= 1.030 H (1.005-1.025) Urine Protein Trace (Neg-Trace) mg/dL Urine Glucose (UA) Negative (Negative) mg/dL All other labs normal. Assessment and Plan (1) AAA (abdominal aortic aneurysm) without rupture: Status: Acute Plan In short patient has a stable aortic aneurysm. It is saccular nature and there was thrombus. It is approximately 4.2 cm in greatest dimension per my measurement. Upon discussion with the patient and the son he is actually being followed by [facility] vascular. He had seen Dr. Cruz approximately a week ago. He reports that there had been no significant change. I do not believe this is the source of his abdominal discomfort. He is stable from my perspective. He can follow up with [facility] vascular as he is their patient. Thank you for allowing us to participate in his care. If there are any questions or concerns please do not hesitate to contact us. Time Spent With Patient Time: Total time managing care of this patient today ____ minutes. Procedures Date of Service Date of Service: 10/14/22
[2022-10-14 11:47] VITALS: BMI 16.5
--- NOTE | 2022-10-14 11:54 | MHC.CLN ---
PT IS MODERATELY MALNOURISHED PT WITH MILDLY DEPLETED SUBCUTANEOUS FAT AND MUSCLE MASS WITH 6% NONSIGNIFICANT WT LOSS X 2 MONTHS PT REPORTS 6% NONSIGNIFICANT WT LOSS X 2 MONTHS UBW 125# NOW 118 PER PT PREVIOUS WT HX: 50.7KG (10/14/22) 59.8 (08/20)15% WT LOSS X 1 YEAR DIET RX: BLAND-APPROPRIATE PO 100% X 1 MEAL; PT REPORTED APPETITE IS GOOD PT REFUSED SUPPLEMENTS TO INCREASE KCALS AT THIS TIME MONITOR PO INTAKE CLOSELY SEE ALSO FULL CLINICAL NUTRITION ASSESSMENT
[2022-10-14 12:00] VITALS: BP 145/67; PULSE 70; RESP 18; TEMP 37.1
--- NOTE | 2022-10-14 14:33 | MHC.CM.PN ---
IMM 10/14/22, CM MET W/PT WHO REPORTS HE LIVES W/DTR AND NILE, PT REPRTS HE IS INDEPENDENT W/ALL CARE HOWEVER DOES USE A WALKER WHEN WALKING LONG DISTANCES, PT DENIES HOME SERVICES OR NEED FOR SERVICES. PT VERIFIES PCP IS SONIA DOWELL, HCP DTR TONO AND ON FILE AND PT DENIES BEING VACCINATED AGAINST COVID.
--- NOTE | 2022-10-14 14:37 | MHC.CM.PN ---
PT MEDICALLY CLEARED FOR D/C HOME NO SERVICES AND FAMILY HAS TRANSPORTED PT
== END 2022-10-14 13:19 | disposition home or self-care (01) ==
LOC: HO.ED 11:06 → HO.EDOVER 22:16 → HO.S3 10-14 02:12 → HO.EDOVER 10-14 11:07
PROVIDERS: Admitting Provider Physician Assistant; Emergency Provider Emergency Medicine; PCP Internal Medicine; Visit Provider Internal Medicine
DX: R07.9 Chest pain, unspecified (principal); R07.1 Chest pain on breathing; R11.2 Nausea with vomiting, unspecified; I71.40 Abdominal aortic aneurysm, without rupture, unspecified; J43.9 Emphysema, unspecified; J45.909 Unspecified asthma, uncomplicated; E78.5 Hyperlipidemia, unspecified; Z20.822 Contact with and (suspected) exposure to COVID-19
CPT/HCPCS: 36415; 71045; 71275; 74177; 80048; 80076; 81001; 83605; 83690; 83735; 83880; 84484; 85025; 85379; 85610; 86850; 86900; 86901; 87040; 87635; 93005; 96361; 96372; 96374; 99221; 99285; J1650; J2270; J2405; Q9967

== ENCOUNTER 2022-11-03 10:39 | Day surgery (SDC) | payer MEDICARE, SELFPAY ==
[2022-10-28 13:51] VITALS: BMI 16.7
--- NOTE | 2022-10-30 13:02 | MHC.SHP ---
Pre-Procedural Eval Section A Date of Service: 10/31/22 Section B Chief Complaint: Age-related nuclear cataract, right eye Allergies: Allergies Allergy/AdvReac Type Severity Reaction Status Date / Time pentazocine [From [facility]] Allergy Unknown Verified 10/28/22 13:49 Plan Diagnosis/Plan: Unchanged I have reviewed the history and physical and performed a pertinent physical examination on my patient. No changes have occurred unless specified. Time Spent With Patient Time: Total time managing care of this patient today ____ minutes.
--- NOTE | 2022-10-31 12:16 | HO.ANESPROP2 ---
Documented by User: Brittany Arellano NP 10/31/22 12:19 HPI - Anesthesia Eval Consult details Narrative: 87yo M for Right Cataract Extraction IOL Insertion PCP cleared No previous cataract on record (Work up with ECHO, holter pending w/u for frequent PACs, but cleared to proceed) [facility] Active Problems Active Problems: All Active Problems (Updated 10/22/22 @ 00:02 by Background Danita) UTI (urinary tract infection) (Acute) Gross hematuria (Acute) BPH w urinary obs/LUTS (Acute) Saccular aneurysm (Acute) Past Medical History Medical History AAA (abdominal aortic aneurysm) without rupture Acute CVA (cerebrovascular accident) BPH w urinary obs/LUTS HLD (hyperlipidemia) Saccular aneurysm Smoker UTI (urinary tract infection) Social History Social History Household Members: Children Household Members Other:: Daughter and Son in Law Housing: House Are you a primary home health care worker to a significant other at home: No Patient Tobacco Use Status: Current everyday Tobacco user Tobacco use type: Cigarette Cigarette Packs Per Day: 1 Cigarettes Per Day: 20.0 Years Smoked: 72 Smoked in Last 30 Days: Yes Patient Interested in Nicotine Replacement: No Patient Given Instructions on How to Stop Smoking: Yes Date Education Initiated: 10/28/22 Second Hand Smoke Exposure: No Use of substances other than those prescribed or required for medical reasons: No Have you been hit, kicked, punched, or otherwise hurt by someone within the past year? If so, by whom?: No Advance Directives: No Advance Directives Information Provided: Yes Advance Directives on File: Yes Advance Directives Date on File: 08/14/21 service: No Current occupational status: retired Meds Allergies Allergy/AdvReac Type Severity Reaction Status Date / Time pentazocine [From Joi] Allergy Unknown Verified 10/28/22 13:49 Home Medications Medication Instructions Recorded Confirmed Last Taken Type aspirin 325 mg tablet 325 mg PO DAILY 08/10/21 10/28/22 10/26/22 History simvastatin 20 mg tablet 1 tab PO DAILY 08/10/21 10/28/22 Unknown History Exam Exam Date and Time: October 31, 2022 1216 Height,Weight and Vital Signs: Height 5 ft 10 in Weight 53.07 kg Pertinent Lab Results Pertinent Lab Results: Laboratory Tests 10/14/22 10/14/22 05:11 05:11 WBC 10.6 Hgb 12.2 L Hct 38.3 L Plt Count 159 L Sodium 141 Potassium 4.6 Chloride 107 Carbon Dioxide 22 BUN 26 H Creatinine 0.94 Narrative Narrative: EKG 10/2022 SR w@ 96 Freq PACs Poor R wave progression Assessment and Plan Assessment Anesthesia Assessment: Chart Reviewed Documented by User: Bridget Urbina MD 11/03/22 13:19 PMFSH Past Medical History Medical History AAA (abdominal aortic aneurysm) without rupture Acute CVA (cerebrovascular accident) BPH w urinary obs/LUTS HLD (hyperlipidemia) Saccular aneurysm Smoker UTI (urinary tract infection) Family History Family history of problems with anesthesia: No Surgical History History of Problems with Anesthesia: No Social History Social History Household Members: Children Household Members Other:: Daughter and Son in Law Housing: House Are you a primary home health care worker to a significant other at home: No Patient Tobacco Use Status: Current everyday Tobacco user Tobacco use type: Cigarette Cigarette Packs Per Day: 1 Cigarettes Per Day: 20.0 Years Smoked: 72 Smoked in Last 30 Days: Yes Patient Interested in Nicotine Replacement: No Patient Given Instructions on How to Stop Smoking: Yes Date Education Initiated: 10/28/22 Second Hand Smoke Exposure: No Use of substances other than those prescribed or required for medical reasons: No Have you been hit, kicked, punched, or otherwise hurt by someone within the past year? If so, by whom?: No Advance Directives: No Advance Directives Information Provided: Yes Advance Directives on File: Yes Advance Directives Date on File: 08/14/21 service: No Current occupational status: retired Meds Allergies Allergy/AdvReac Type Severity Reaction Status Date / Time pentazocine [From Jio] Allergy Unknown Verified 10/28/22 13:49 Home Medications Medication Instructions Recorded Confirmed Last Taken Type aspirin 325 mg tablet 325 mg PO DAILY 08/10/21 10/28/22 10/26/22 History simvastatin 20 mg tablet 1 tab PO DAILY 08/10/21 10/28/22 Unknown History Assessment and Plan Final Anesthetic Review Family History of Problems with Anesthesia: No History of Problems with Anesthesia: No
[2022-11-03 12:12] VITALS: BP 136/86; PULSE 69; RESP 18; TEMP 36.7; O2SAT 96
[2022-11-03 12:19] VITALS: BMI 16.9
[2022-11-03] MEDS: Lactated Ringers 500 ML 50 ML IV (12:27)
[2022-11-03] MEDS: Tetracaine HCl/PF 0.5% Oph Sol 4 ML DROPS 1 DROP EYE-RIGHT ×2 (12:28)
[2022-11-03] MEDS: Cyclopentolate 1 % Ophth Sol 2 ML DRPBTL 1 DROP EYE-RIGHT ×3 (12:28→12:35)
[2022-11-03] MEDS: Ketorolac Tromethamine 0.5% Op 5 ML DROPS 1 DROP EYE-RIGHT ×3 (12:28→12:35)
[2022-11-03] MEDS: Phenylephrine HCL 2.5% Oph SoL 2 ML BOTTLE 1 DROP EYE-RIGHT ×3 (12:29→12:35)
[2022-11-03] MEDS: Tropicamide 1 % Ophth Sol 3 ML BTL 1 DROP EYE-RIGHT ×2 (12:32→12:33)
--- NOTE | 2022-11-03 13:29 | HO.PNOPHT ---
Ophthalmology Procedure Procedure Date of Service: 11/03/22 Ophthalmology Viscoelastic: Gustavo Millert Dual Pack Pro Ophthalmology Lenses: TECANDREW [id number] (21) Procedure Notes: PREOPERATIVE DIAGNOSIS: Decreased visual acuity right eye secondary to cataract POSTOPERATIVE DIAGNOSIS: Same PROCEDURE: Right cataract extraction with intraocular lens insertion SURGEON: Galen Conner M.D. ANESTHESIA: Topical/MAC ESTIMATED BLOOD LOSS: None COMPLICATIONS: None After obtaining informed consent, the patient was brought to the operating room suite and placed in the supine position. After adequate sedation per anesthesia, topical drops of Tetracaine were given to the right eye. The eye was then prepped and draped in the usual sterile fashion. The operating room microscope was then positioned over the operative eye and a lid speculum placed. A paracentesis was created. Viscoelastic was then instilled into the anterior chamber. A three plane incision was then created temporally, utilizing a 2.85 mm keratome. Capsulotomy forceps were then utilized to create a circular tear capsulotomy. Hydrodissection and hydrodelineation were carried out until adequate mobilization of the nucleus occurred. Phacoemulsification was then utilized to remove the dense central nucleus followed by removal of the cortical material utilizing the automated aspiration irrigation unit. Viscoelastic was instilled into the posterior capsular bag followed by placement of a posterior chamber intraocular lens without difficulty. The residual Viscoelastic was then removed utilizing the automated IA machine. The wound was checked and found to be watertight. The patient tolerated the procedure well and the lid speculum was removed. Intracameral injection of Vigamox 0.1 mL followed by a subtenon injection of Kenalog-40 0.2 mL were administered. The patient will be seen in the a.m.
[2022-11-03 13:58] VITALS: BP 163/59; PULSE 73; RESP 16; TEMP 36.9; O2SAT 95
== END 2022-11-03 14:22 | disposition home or self-care (01) ==
PROVIDERS: PCP Internal Medicine; Visit Provider Ophthalmology
PROC: (CPT 66985; principal; 2022-11-03 14:30)
DX: H25.11 Age-related nuclear cataract, right eye (principal); H54.7 Unspecified visual loss; E78.00 Pure hypercholesterolemia, unspecified; J44.9 Chronic obstructive pulmonary disease, unspecified; I87.2 Venous insufficiency (chronic) (peripheral); I71.40 Abdominal aortic aneurysm, without rupture, unspecified; Z86.73 Personal history of transient ischemic attack (TIA), and cerebral infarction without residual deficits; Z79.51 Long term (current) use of inhaled steroids; Z79.82 Long term (current) use of aspirin; Z79.899 Other long term (current) drug therapy; Z88.8 Allergy status to other drugs, medicaments and biological substances; F17.210 Nicotine dependence, cigarettes, uncomplicated
CPT/HCPCS: 66984; J3010; J3301; V2632

== ENCOUNTER 2022-11-17 10:13 | Day surgery (SDC) | payer MEDICARE, SELFPAY ==
[2022-10-28 14:03] VITALS: BMI 16.7
--- NOTE | 2022-11-14 09:03 | MHC.SHP ---
Pre-Procedural Eval Section A Date of Service: 11/14/22 The patient is an INPATIENT: No Changes since office visit: No Cold of Flu in the past 2 weeks, No New Medical Problems, No Changes in Medication and No Patient answered all questions The History & Physical has been completed within 30 days and I have reviewed it.: Yes Section B Chief Complaint: Age-related nuclear cataract, left eye Allergies: Allergies Allergy/AdvReac Type Severity Reaction Status Date / Time pentazocine [From Talwin] Allergy Unknown Verified 10/28/22 13:49 Plan Diagnosis/Plan: Unchanged I have reviewed the history and physical and performed a pertinent physical examination on my patient. No changes have occurred unless specified. Time Spent With Patient Time: Total time managing care of this patient today ____ minutes.
--- NOTE | 2022-11-14 10:31 | P.CONAN_ITS ---
Documented by User: Brittany Arellano NP 11/14/22 10:40 HPI - Anesthesia Eval Consult details Narrative: 87yo M for Left Cataract Extraction IOL Insertion PCP cleared Right eye 11/03/22 with TIVA: F 50 PMFSH Active Problems Active Problems: All Active Problems (Updated 10/22/22 @ 00:02 by Background Daemon) UTI (urinary tract infection) (Acute) Gross hematuria (Acute) BPH w urinary obs/LUTS (Acute) Saccular aneurysm (Acute) Past Medical History Medical History AAA (abdominal aortic aneurysm) without rupture Acute CVA (cerebrovascular accident) BPH w urinary obs/LUTS HLD (hyperlipidemia) Saccular aneurysm Smoker UTI (urinary tract infection) Family History Family history of problems with anesthesia: No Surgical History History of Problems with Anesthesia: No Social History Social History Household Members: Children Household Members Other:: Daughter and Son in Law Housing: House Are you a primary healthcare administrator to a significant other at home: No Do you presently have visiting nurse or other home services: No Patient Tobacco Use Status: Current everyday Tobacco user Tobacco use type: Cigarette Cigarette Packs Per Day: 1.5 Cigarettes Per Day: 30.0 Years Smoked: 72 Smoked in Last 30 Days: Yes Patient Interested in Nicotine Replacement: No Patient Given Instructions on How to Stop Smoking: Yes Date Education Initiated: 10/28/22 Second Hand Smoke Exposure: No Use of substances other than those prescribed or required for medical reasons: No Have you been hit, kicked, punched, or otherwise hurt by someone within the past year? If so, by whom?: No Are you DNR?: No Advance Directives: Yes Advance Directives Information Provided: No Advance Directives on File: Yes Advance Directives Date on File: 08/14/21 Recently lost weight without trying: No service: No Current occupational status: retired Meds Allergies Allergy/AdvReac Type Severity Reaction Status Date / Time pentazocine [From Talwin] Allergy Unknown Verified 10/28/22 13:49 Home Medications Medication Instructions Recorded Confirmed Last Taken Type aspirin 325 mg tablet 325 mg PO DAILY 08/10/21 10/28/22 10/26/22 History simvastatin 20 mg tablet 1 tab PO DAILY 08/10/21 10/28/22 Unknown History Exam Exam Date and Time: November 14, 2022 1031 Height,Weight and Vital Signs: Height 5 ft 10 in Weight 53.07 kg Assessment and Plan Assessment Anesthesia Assessment: Chart Reviewed Final Anesthetic Review Family History of Problems with Anesthesia: No History of Problems with Anesthesia: No Documented by User: Juliocesar Brice MD 11/17/22 13:53 [facility] Past Medical History Medical History AAA (abdominal aortic aneurysm) without rupture Acute CVA (cerebrovascular accident) BPH w urinary obs/LUTS HLD (hyperlipidemia) Saccular aneurysm Smoker UTI (urinary tract infection) Functional capacity: independent ambulation Social History Social History Household Members: Children Household Members Other:: Daughter and Son in Law Housing: House Are you a primary healthcare administrator to a significant other at home: No Do you presently have visiting nurse or other home services: No Patient Tobacco Use Status: Current everyday Tobacco user Tobacco use type: Cigarette Cigarette Packs Per Day: 1.5 Cigarettes Per Day: 30.0 Years Smoked: 72 Smoked in Last 30 Days: Yes Patient Interested in Nicotine Replacement: No Patient Given Instructions on How to Stop Smoking: Yes Date Education Initiated: 10/28/22 Second Hand Smoke Exposure: No Use of substances other than those prescribed or required for medical reasons: No Have you been hit, kicked, punched, or otherwise hurt by someone within the past year? If so, by whom?: No Are you DNR?: No Advance Directives: Yes Advance Directives Information Provided: No Advance Directives on File: Yes Advance Directives Date on File: 08/14/21 Recently lost weight without trying: No service: No Current occupational status: retired Meds Allergies Allergy/AdvReac Type Severity Reaction Status Date / Time pentazocine [From Talwin] Allergy Unknown Verified 10/28/22 13:49 Home Medications Medication Instructions Recorded Confirmed Last Taken Type aspirin 325 mg tablet 325 mg PO DAILY 08/10/21 10/28/22 10/26/22 History simvastatin 20 mg tablet 1 tab PO DAILY 08/10/21 10/28/22 Unknown History Exam Airway Mallampati Class: III TM Dist: >3cm Denture: Upper and Lower Loose/Missing/Broken Teeth: Yes Heart: S1,S2 Lungs: diminished breath sounds Assessment and Plan Assessment Anesthesia Assessment: Anesthesia Plan Discussed Final Anesthetic Review NPO: Yes ASA Class: III Final Preanesthetic Review: Meds/Allgs Chart Reviewed, Consent Obtained/Reviewed and Anes Risks/Benef Reviewed Patient Risk: Intermediate Procedure Risk: Intermediate Anesthetic Plan Anesthetic Plan: MAC: and Agree w/ Assess. and Plan Disposition: Standard PACU
[2022-11-17 11:01] VITALS: BP 156/61; PULSE 67; RESP 17; TEMP 36.3; O2SAT 95
[2022-11-17] MEDS: Tetracaine HCl/PF 0.5% Oph Sol 4 ML DROPS 1 DROP EYE-LEFT (11:03)
[2022-11-17] MEDS: Cyclopentolate 1 % Ophth Sol 2 ML DRPBTL 1 DROP EYE-LEFT ×3 (11:06→11:16)
[2022-11-17] MEDS: Tropicamide 1 % Ophth Sol 3 ML BTL 1 DROP EYE-LEFT ×3 (11:07→11:17)
[2022-11-17] MEDS: Ketorolac Tromethamine 0.5% Op 5 ML DROPS 1 DROP EYE-LEFT ×3 (11:08→11:19)
[2022-11-17] MEDS: Phenylephrine HCL 2.5% Oph SoL 2 ML BOTTLE 1 DROP EYE-LEFT ×3 (11:09→11:21)
[2022-11-17] MEDS: Lactated Ringers 500 ML 50 ML IV (11:24)
--- NOTE | 2022-11-17 12:09 | HO.PNOPHT ---
Ophthalmology Procedure Procedure Date of Service: 11/17/22 Ophthalmology Viscoelastic: Healon Duet Dual Pack Pro Ophthalmology Lenses: TECNIS [id number] (20.5) Procedure Notes: PREOPERATIVE DIAGNOSIS: Decreased visual acuity left eye secondary to cataract POSTOPERATIVE DIAGNOSIS: Same PROCEDURE: Left cataract extraction with intraocular lens insertion SURGEON: Galen Conner M.D. ANESTHESIA: Topical/MAC ESTIMATED BLOOD LOSS: None COMPLICATIONS: None After obtaining informed consent, the patient was brought to the operation room suite and placed in the supine position. After adequate sedation per anesthesia, topical drops of Tetracaine were given to the left eye. The eye was then prepped and draped in the usual sterile fashion. The operating room microscope was then positioned over the operative eye and a lid speculum placed. A paracentesis was created. Viscoelastic was then instilled into the anterior chamber. A three plane incision was then created temporally, utilizing a 2.85 mm keratome. Capsulotomy forceps were then utilized to create a circular tear capsulotomy. Hydrodissection and hydrodelineation were carried out until adequate mobilization of the nucleus occurred. Phacoemulsification was then utilized to remove the dense central nucleus followed by removal of the cortical material utilizing the automated aspiration irrigation unit. Viscoat elastic was instilled into the posterior capsular bag followed by placement of a posterior chamber intraocular lens without difficulty. The residual Viscoat elastic was then removed utilizing the automated IA machine. The wound was check and found to be watertight. The patient tolerated the procedure well and the lid speculum was removed. Intracameral injection of Vigamox 0.1 mL followed by a subtenon injection of Kenalog-40 0.2 mL were administered. The patient will be seen in the a.m.
[2022-11-17 12:31] VITALS: BP 138/74; PULSE 74; RESP 16; TEMP 36.6; O2SAT 100
[2022-11-17 12:42] VITALS: BP 143/49; PULSE 68; RESP 16; TEMP 36.6; O2SAT 95
== END 2022-11-17 12:46 | disposition home or self-care (01) ==
PROVIDERS: PCP Internal Medicine; Visit Provider Ophthalmology
PROC: (CPT 66985; principal; 2022-11-17 12:30)
DX: H25.12 Age-related nuclear cataract, left eye (principal); H54.7 Unspecified visual loss; H18.413 Arcus senilis, bilateral; J44.9 Chronic obstructive pulmonary disease, unspecified; I71.40 Abdominal aortic aneurysm, without rupture, unspecified; I87.2 Venous insufficiency (chronic) (peripheral); E78.5 Hyperlipidemia, unspecified; Z86.73 Personal history of transient ischemic attack (TIA), and cerebral infarction without residual deficits; F17.210 Nicotine dependence, cigarettes, uncomplicated; Z79.82 Long term (current) use of aspirin; Z79.51 Long term (current) use of inhaled steroids; Z79.899 Other long term (current) drug therapy; Z88.8 Allergy status to other drugs, medicaments and biological substances
CPT/HCPCS: 66984; J3301; V2632

== ENCOUNTER 2023-07-14 16:56 | Inpatient (IN) | payer MEDICARE, SELFPAY ==
--- NOTE | ~2023-07-14 | XR_ITS ---
EXAMINATION: XR CHEST CLINICAL INFORMATION: Confusion. Question pneumonia. COMPARISON: Previous chest x-ray October 2022 TECHNIQUE: Frontal view of the chest was obtained. FINDINGS: The cardiac and mediastinal contours are stable. The lungs are well-inflated suggestive of COPD. There is a new airspace disease and bronchial wall thickening in the left lung base suggestive of bronchopneumonia. There may be a new 8 mm nodule at the right lung base. No pleural effusion or pneumothorax. Degenerative changes of the spine. XR/XR chest 1V IMPRESSION: Emphysema. Left base bronchopneumonia. Question new 8 mm nodule at the right lateral costophrenic angle.
--- NOTE | ~2023-07-14 | CT_ITS ---
EXAMINATION: CT HEAD WITHOUT CONTRAST CLINICAL INFORMATION: Altered mental status. COMPARISON: CTA head and neck from 12/27/2018. TECHNIQUE: Contiguous axial imaging was performed from the skull base to vertex without intravenous administration of contrast. This CT examination was performed using dose optimization techniques as appropriate, variously including the following: *Automated exposure control. *Adjustment of mA and/or kV according to patient size (this includes techniques or standardized protocols for targeted exams where dose is matched to indication/reason for exam; i.e. extremities or head). *Use of iterative reconstruction technique. DLP: 647 mGy-cm FINDINGS: There are chronic regions of encephalomalacia within the right greater than left occipitoparietal lobes with associated volume loss. Chronic lacunar infarcts of the bilateral cerebellar hemispheres and right thalamus. No additional loss of bradshaw-white matter differentiation. No evidence of acute intracranial hemorrhage. Confluent hypoattenuation in the periventricular and deep white matter. Proportional prominence of the ventricles and sulcal spaces without evidence of obstructive hydrocephalus. No abnormal mass effect or midline shift. No extra-axial fluid collections. No acute soft tissue or osseous abnormalities. Moderate mucosal thickening of the paranasal sinuses. Moderate rightward nasal septal deviation with spurring. The mastoid air cells and middle ear cavities are clear. CT/CT head/brain wo IV con IMPRESSION: 1. No evidence of acute intracranial hemorrhage or edematous territorial infarction. 2. Chronic regions of encephalomalacia within the right greater than left occipitoparietal lobes. Chronic lacunar infarcts of the deep nuclei and cerebellum. Extensive underlying microangiopathy and generalized cerebral volume loss.
[2023-07-14 16:58] VITALS: BP 137/87; PULSE 91; RESP 20; TEMP 37.2; O2SAT 88; BMI 17.3
--- NOTE | 2023-07-14 16:58 | ECG_ITS ---
Test Reason : WEAKNESS Blood Pressure : / mmHG Vent. Rate : 089 BPM Atrial Rate : 089 BPM P-R Int : 158 ms QRS Dur : 084 ms QT Int : 360 ms P-R-T Axes : 092 054 070 degrees QTc Int : 438 ms Normal sinus rhythm RSR' or QR pattern in V1 suggests right ventricular conduction delay Borderline ECG When compared with ECG of 13-OCT-2022 08:07, No significant change was found Referred By: Cody Arndt Electronically Signed By:ELLE AGUILLON MD
--- NOTE | 2023-07-14 16:59 | ED.GENADULT ---
HPI - General Adult General Chief complaint: Weakness Stated complaint: Confused? Stroke? Time Seen by Provider: 07/14/23 17:44 Source: patient and RN notes reviewed Mode of arrival: ambulatory Limitations: no limitations History of Present Illness HPI narrative: This is a 88-year-old male, with a history of CVA, BPH with urinary obstruction, hyperlipidemia, and urinary tract infections, presenting to the emergency department, accompanied by family, for evaluation of confusion. Family reports that on Thursday, July 12, patient was ?disoriented?. Family reports that patient was counting money for an hour, and was very confused throughout the entire day. The next morning, patient had no recollection of what had happened the day prior. Family reports that today, he is confused again, and appears to be very weak. Family reports that patient was unsure what your was and was found in the bathroom unable to walk secondary to weakness. The other reports that patient has lost approximately 20 lb in the course of several months, recently started dietary recommendations 2 weeks ago and is currently being followed by his primary care physician. Family denies any increased coughing, fevers, complaints of chest pain, abdominal pain, nausea, vomiting or diarrhea. He has been eating at his normal baseline. Upon re-evaluation, patient states that he was exposed to a family member who was sick about a month ago. He states that he has had an increased cough over the last several weeks. No other complaints or concerns at this time. complaint: Confusion Onset (ago): day(s) Radiation: non-radiation Relieving factors: none Exacerbating factors: none Associated symptoms: denies other symptoms Treatments prior to arrival: none Related Data Home Medications Medication Instructions Recorded Confirmed aspirin 325 mg tablet 325 mg PO DAILY 08/10/21 07/14/23 simvastatin 20 mg tablet 1 tab PO DAILY 08/10/21 07/14/23 Allergies Allergy/AdvReac Type Severity Reaction Status Date / Time pentazocine [From Joi] Allergy Unknown Verified 10/28/22 13:49 Review of Systems Review of Systems: Yes all other systems are reviewed and are negative Constitutional: Constitutional: Reports as per [facility] Past Medical History Attestation statement: The following information was validated with the patient. Medical History Smoker AAA (abdominal aortic aneurysm) without rupture Saccular aneurysm BPH w urinary obs/LUTS Acute CVA (cerebrovascular accident) UTI (urinary tract infection) HLD (hyperlipidemia) Social History Social History Household Members: Children Household Members Other:: Daughter and Son in Law Housing: House Are you a primary medicare contact specialist to a significant other at home: No Alcohol intake: never Patient Tobacco Use Status: Current everyday Tobacco user Tobacco use type: Cigarette Cigarette Packs Per Day: 1.5 Cigarettes Per Day: 30.0 Years Smoked: 72 Smoked in Last 30 Days: Yes Second Hand Smoke Exposure: No Use of substances other than those prescribed or required for medical reasons: No Advance Directives: No Advance Directives Information Provided: No Advance Directives Date on File: 08/14/21 Nutrition Risks: No Nutritional Risk service: No Current occupational status: retired Physical Exam ED Vital Signs: Vital Signs - 24 hr 07/14/23 16:58 07/14/23 18:05 07/14/23 20:00 Temperature 98.9 F 98.5 F Pulse Rate 91 90 91 Respiratory Rate 20 18 24 H Blood Pressure 137/87 132/51 L 126/52 L Pulse Oximetry 88 L 98 94 Oxygen Delivery Method Room Air Nasal Cannula Room Air Oxygen Flow Rate 3 BMI result Body Mass Index 17.3 Const General: cooperative, comfortable and no acute distress Orientation/consciousness: oriented to person and oriented to place Limitations: no limitations HENMT Head: Yes normal to inspection, Yes normocephalic and Yes atraumatic Ears: hearing grossly normal bilaterally General nose exam: Normal external nose present Face and sinus: Yes normal facial exam Mouth: Normal oral and palatal mucosa present, oropharynx normal and moist mucous membranes Throat: Yes posterior oropharynx normal Eyes General: appearance normal, both eyes and all related structures Eyelids: Yes eyelids normal Conjunctivae: conjunctivae normal Sclerae: sclerae normal Pupils: Equal, round and reactive pupils present EOM: EOMs intact bilaterally Neck Neck: Yes normal visual inspection, Yes full ROM and Yes no lymphadenopathy Lymphatic: no lymphadenopathy noted Chest Chest palpation & inspection: normal inspection of the chest Resp Other: Frequent coarse cough heard during examination. Coarse crackles heard at left lower lung base. Effort & Inspection: normal respiratory effort and able to speak in complete sentences Cardio Rate: regular rate Rhythm: regular rhythm Heart sounds: S1 normal heart sound present and S2 normal heart sound present GI Other: Abdomen is soft and nontender. Inspection: Yes normal to inspection Skin General skin exam: no rashes or lesions noted Trauma: no lacerations or abrasions Wounds: no wounds Neuro General: oriented to person, oriented to place, moves all extremities and Unable to assess gait Cranial nerves: Yes CN's II-XII intact bilaterally and Yes Equal, round and reactive pupils present Cognition (Neuro): normal cognition Gait exam (Neuro): Unable to assess gait Motor exam (neuro): 5/5 motor strength present throughout Extrem General: Yes normal to inspection Right upper extremity: normal to inspection Left upper extremity: normal to inspection Right lower extremity: normal to inspection Left lower extremity: normal to inspection Course Course Course Narrative: This is an RME: Additional HPI, ROS, PE not included below will be deferred to primary provider. 88 yo m presents w/ confusion and global weakness since thursday, not acting his normal self per family. Denies medical complaints. oriented to self and place not time or situation. Plan- labs, ua, ekg, trop Reevaluation(s) Reevaluation #1: Patient with leukocytosis at 14.9 with left shift. BUN 36, BNP 149, COVID negative. Head CT without any acute findings. Chest x-ray revealing left base bronchopneumonia and a question new 8 mm nodule at the right lateral costophrenic angle. Given these findings, with increased weakness, patient needs to be admitted for pneumonia and weakness. Time: 20:20 Reevaluation #2: Discussed case with hospitalist, Dr. Ortiz who accepts transfer of care for pneumonia and weakness. Medications Administered Generic Name Dose Route Start Last Admin Trade Name Freq PRN Reason Stop Dose Admin Enoxaparin Sodium 30 mg 07/14/23 21:00 07/14/23 20:59 Enoxaparin Sodium 30 Mg/0.3 Ml Syringe SUBCUT 30 mg Q24H TEE Administration Ceftriaxone Sodium 1 gm/ 50 mls @ 100 mls/hr 07/14/23 21:00 07/14/23 21:47 Sodium Chloride IV Infused Q24H TEE Infusion Azithromycin 500 mg/ Sodium 250 mls @ 125 mls/hr 07/14/23 22:00 07/14/23 23:58 Chloride IV Infused Q24H TEE Infusion Sodium Chloride 3 ml 07/15/23 00:00 07/14/23 23:23 0.9 % Sodium Chloride Flush 3 Ml Syringe IVFLUSH Not Given QSHIFT TEE Discontinued Medications Generic Name Dose Route Start Last Admin Trade Name Erinn PRN Reason Stop Dose Admin Sodium Chloride 1,000 mls @ 999 mls/hr 07/14/23 20:49 07/14/23 23:04 Ns IV 07/14/23 21:49 Infused .Q1H1M ONE Infusion Medical Decision Making Medical Decision Making [facility] Narrative: This is a 88-year-old male, with a history of CVA, BPH with urinary obstruction, hyperlipidemia, and urinary tract infections, presenting to the emergency department for evaluation of confusion and weakness. On arrival, oxygen saturation 88% on room air, all other vital signs within normal limits. Patient is alert and oriented x2, unaware of time. Plan: Labs, EKG, head CT, chest x-ray, UA Differential Diagnosis Differential Diagnoses: The differential diagnosis associated with the presentation includes UTI, pneumonia, metabolic encephalopathy Lab Data [facility] Lab Attestation statement: I reviewed the patient's lab results. 07/14/23 17:49 07/14/23 17:49 Labs: Lab Results 07/14/23 Range/Units 17:49 WBC 14.9 H (4.8-10.8) X10*3/uL RBC 4.44 L (4.60-5.80) X10*6/uL Hgb 13.1 L (14.0-18.0) g/dl Hct 41.1 L (42.0-52.0) % MCV 92.6 (80.0-98.0) fL MCH 29.5 (27.0-33.0) pg MCHC 31.9 (31.0-36.0) g/dl RDW 14.5 (11.0-16.0) % Plt Count 197 (160-400) X10*3/uL MPV 9.4 (9.4-12.4) fL Immature Gran % (Auto) 0.5 H (0.0-0.4) % Neut % (Auto) 88.9 H (45-73) % Lymph % (Auto) 4.7 L (20-40) % [place] % (Auto) 5.3 (2-11) % Eos % (Auto) 0.4 (0-4) % Baso % (Auto) 0.2 (0-2) % Lymph # (Auto) 0.7 L (1.2-4.9) X10*3/uL [place] # (Auto) 0.8 (0.1-1.2) X10*3/uL Eos # (Auto) 0.1 (0.0-0.4) X10*3/uL Baso # (Auto) 0.0 (0.0-0.2) X10*3/uL Abs Immat Gran (auto) 0.07 H (0.00-0.03) X10*3/uL Absolute Neuts (auto) 13.3 H (2.0-8.3) x10*3/uL Absolute Nucleated RBC 0.000 (0.0-0.012) X10*3/uL Nucleated RBC % (auto) 0.0 (0.0-0.2) /100WBC PT 13.7 H (11.1-13.3) SEC INR 1.1 (0.9-1.1) Sodium 144 (135-145) mmol/L Potassium 4.8 (3.3-5.1) mmol/L Chloride 106 (96-108) mmol/L Carbon Dioxide 29 (22-29) mmol/L Anion Gap 14 (12-20) BUN 36 H (9-16) mg/dL Creatinine 1.23 (0.5-1.4) mg/dL Estim Creat Clear Calc 28.4 Estimated GFR 56 Random Glucose 133 H (60-115) mg/dL Lactic Acid 1.0 (0.5-2.0) mmol/L Calcium 9.4 D (8.4-10.2) mg/dL Magnesium 2.2 (1.6-2.6) mg/dL Total Bilirubin 0.6 (0.0-1.0) mg/dL AST 17 (5-37) U/L ALT 12 (0-40) U/L Alkaline Phosphatase 108 (39-117) U/L Total Creatine Kinase 75 (38-174) U/L Troponin I High Sens 10.2 D (<3.5-35.0) ng/L B-Natriuretic Peptide 149 H (<100) pg/mL Total Protein 8.2 H (6.5-8.0) g/dL Albumin 4.1 (3.5-5.0) g/dL COVID-19 (MAU) Negative (Negative) COVID-19 Clin Com See Note Radiology Impression Discussion of test interpretation with radiology: I have reviewed the radiologist's reading. Radiologist Impression: EXAMINATION: XR CHEST CLINICAL INFORMATION: Confusion. Question pneumonia. COMPARISON: Previous chest x-ray October 2022 TECHNIQUE: Frontal view of the chest was obtained. FINDINGS: The cardiac and mediastinal contours are stable. The lungs are well-inflated suggestive of COPD. There is a new airspace disease and bronchial wall thickening in the left lung base suggestive of bronchopneumonia. There may be a new 8 mm nodule at the right lung base. No pleural effusion or pneumothorax. Degenerative changes of the spine. XR/XR chest 1V IMPRESSION: Emphysema. Left base bronchopneumonia. Question new 8 mm nodule at the right lateral costophrenic angle. Dictated By: Daya Forde MD EXAMINATION: CT HEAD WITHOUT CONTRAST CLINICAL INFORMATION: Altered mental status. COMPARISON: CTA head and neck from 12/27/2018. TECHNIQUE: Contiguous axial imaging was performed from the skull base to vertex without intravenous administration of contrast. This CT examination was performed using dose optimization techniques as appropriate, variously including the following: *Automated exposure control. *Adjustment of mA and/or kV according to patient size (this includes techniques or standardized protocols for targeted exams where dose is matched to indication/reason for exam; i.e. extremities or head). *Use of iterative reconstruction technique. DLP: 647 mGy-cm FINDINGS: There are chronic regions of encephalomalacia within the right greater than left occipitoparietal lobes with associated volume loss. Chronic lacunar infarcts of the bilateral cerebellar hemispheres and right thalamus. No additional loss of bradshaw-white matter differentiation. No evidence of acute intracranial hemorrhage. Confluent hypoattenuation in the periventricular and deep white matter. Proportional prominence of the ventricles and sulcal spaces without evidence of obstructive hydrocephalus. No abnormal mass effect or midline shift. No extra-axial fluid collections. No acute soft tissue or osseous abnormalities. Moderate mucosal thickening of the paranasal sinuses. Moderate rightward nasal septal deviation with spurring. The mastoid air cells and middle ear cavities are clear. CT/CT head/brain wo IV con IMPRESSION: 1. No evidence of acute intracranial hemorrhage or edematous territorial infarction. 2. Chronic regions of encephalomalacia within the right greater than left occipitoparietal lobes. Chronic lacunar infarcts of the deep nuclei and cerebellum. Extensive underlying microangiopathy and generalized cerebral volume loss. Dictated By: Sean Cho DO Critical Care Time Critical Care Time Critical Care Time: Yes Total Critical Care Time: 60 Attestation: I have personally provided critical care time exclusive of time spent on separately billable procedures. Time includes review of lab data, radiology results, discussion with consultants, and monitoring for potential decompensation. Intervention performed as documented. Discharge Plan Discharge Clinical Impression: Pneumonia, Weakness Patient Disposition: Admitted As Inpatient
[2023-07-14 17:59] LABS: MANUAL DIFF FLAG NO
[2023-07-14 18:00] LABS: Basophils Percent Auto 0.2 % (0-2); Eosinophils Absolute Auto 0.1 X10*3/uL (0.0-0.4); Eosinophils Percent Auto 0.4 % (0-4); Hematocrit 41.1 % (42.0-52.0); Hemoglobin 13.1 g/dl (14.0-18.0); Imm Gran Abs Auto 0.07 X10*3/uL (0.00-0.03); Imm Gran Pct Auto 0.5 % (0.0-0.4); Lymphocytes Absolute Auto 0.7 X10*3/uL (1.2-4.9); Lymphocytes Percent Auto 4.7 % (20-40); Mean Corpuscular HGB Conc 31.9 g/dl (31.0-36.0); Mean Corpuscular Hemoglobin 29.5 pg (27.0-33.0); Mean Corpuscular Volume 92.6 fL (80.0-98.0); Mean Platelet Volume 9.4 fL (9.4-12.4); Monocytes Absolute Auto 0.8 X10*3/uL (0.1-1.2); Monocytes Percent Auto 5.3 % (2-11); Neutrophils Absolute Auto 13.3 x10*3/uL (2.0-8.3); Neutrophils Percent Auto 88.9 % (45-73); Platelet Count 197 X10*3/uL (160-400); Red Blood Count 4.44 X10*6/uL (4.60-5.80); Red Cell Distribution Width 14.5 % (11.0-16.0); White Blood Count 14.9 X10*3/uL (4.8-10.8)
[2023-07-14 18:05] VITALS: BP 132/51; PULSE 90; RESP 18; TEMP 36.9; O2SAT 98
[2023-07-14 18:06] LABS: INTERNATIONAL NORM RATIO 1.1 (0.9-1.1); Prothrombin Time 13.7 SEC (11.1-13.3)
[2023-07-14 18:16] LABS: Alanine Aminotransferase 12 U/L (0-40); Albumin Level 4.1 g/dL (3.5-5.0); Alkaline Phosphatase 108 U/L (39-117); Anion Gap 14 (12-20); Aspartate Amino Transferase 17 U/L (5-37); Bilirubin Total 0.6 mg/dL (0.0-1.0); Blood Urea Nitrogen 36 mg/dL (9-16); Calcium 9.4 mg/dL (8.4-10.2); Carbon Dioxide 29 mmol/L (22-29); Chloride 106 mmol/L (96-108); Creatinine Clr Calc Pharmacy 28.4; Estimated Glomerular Filt Rate 56; Glucose Random 133 mg/dL (60-115); Magnesium 2.2 mg/dL (1.6-2.6); Potassium 4.8 mmol/L (3.3-5.1); Sodium 144 mmol/L (135-145); Total Protein 8.2 g/dL (6.5-8.0)
[2023-07-14 18:17] LABS: IDNOW Serial# BCCEAD1C
[2023-07-14 18:18] LABS: COVID-19 Test Negative (Negative)
[2023-07-14 18:22] LABS: Troponin-I High Sensitivity 10.2 ng/L (<3.5-35.0)
[2023-07-14 19:10] LABS: B Type Natriuretic Peptide 149 pg/mL (<100)
--- NOTE | 2023-07-14 19:13 | PC.NURSE ---
this rn assumed care of pt. pt &ox3, respirations even and unlabored. pt denies weakness and pain at this time. pt titrated off 3L nasal cannula to room air, pt currently sating 93% room air. pt resting in stretcher comfortably.
[2023-07-14 20:00] VITALS: BP 126/52; PULSE 91; RESP 24; O2SAT 94
--- NOTE | 2023-07-14 20:50 | P.HPHOSP_ITS ---
History of Present Illness Date of Service: 07/14/23 Chief Complaint: Altered mentation This is a 88-year-old male with pertinent history of BPH, mixed hyperlipidemia, history of CVA, tobacco use disorder who was brought to the emergency department for evaluation of confusion. Patient's family stated that patient was confused about 2 days prior to presentation. Patient does not have any recollection of what happened. He states that he has been coughing a lot with purulent sputum. His son-in-law's father was sick and was coughing over the weekend at his home. Patient states his grandson also got sick because of his son-in-law's father. Has associated fatigue and weakness. Unclear if use has fevers or chills. No chest discomfort, palpitations, shortness of breath, abdominal pain, changes in urinary or bowel habits In the emergency department, patient was found to be septic and imaging concerning for left-sided pneumonia. Review of Systems 2 Constitutional: Constitutional: Reports fatigue, Reports lethargy and Reports weakness Cardiovascular: Cardiovascular: Reports no additional cardiovascular complaints Respiratory: Respiratory: Reports cough Gastrointestinal: Gastrointestinal: Reports no additional gastrointestinal complaints Genitourinary: Genitourinary: Reports no additional male genitourinary complaints Neurologic: Reports weakness Endocrine: Endocrine: Reports fatigue ON LICENSE OF [facility] Medical History Smoker AAA (abdominal aortic aneurysm) without rupture Saccular aneurysm BPH w urinary obs/LUTS Acute CVA (cerebrovascular accident) UTI (urinary tract infection) HLD (hyperlipidemia) Pertinent family history: No family history of early CAD Social History Household Members: Children Household Members Other:: Daughter and Son in Law Housing: House Are you a primary dog day care attendant to a significant other at home: No Alcohol intake: never Patient Tobacco Use Status: Current everyday Tobacco user Tobacco use type: Cigarette Cigarette Packs Per Day: 1.5 Cigarettes Per Day: 30.0 Years Smoked: 72 Second Hand Smoke Exposure: No Advance Directives Date on File: 08/14/21 service: No Current occupational status: retired Meds Allergies Allergy/AdvReac Type Severity Reaction Status Date / Time pentazocine [From [place]] Allergy Unknown Verified 10/28/22 13:49 Active Medications: Current Medications Ceftriaxone Sodium 1 gm/ (Sodium Chloride) 50 mls @ 100 mls/hr IV ONCE ONE Stop: 07/14/23 21:00 Home Medications Medication Instructions Recorded Confirmed Last Taken Type aspirin 325 mg tablet 325 mg PO DAILY 08/10/21 07/14/23 10/26/22 History simvastatin 20 mg tablet 1 tab PO DAILY 08/10/21 07/14/23 Unknown History Physical Exam 2 Vital Signs and Narrative: Vital Signs: Last Vital Signs Temp 98.5 F 07/14/23 18:05 Pulse 91 07/14/23 20:00 Resp 24 H 07/14/23 20:00 BP 126/52 L 07/14/23 20:00 Pulse Ox 94 07/14/23 20:00 O2 Del Method Room Air 07/14/23 20:00 O2 Flow Rate 3 07/14/23 18:05 BMI result Body Mass Index 17.3 Elderly male lying in bed in mild distress Neck supple, no JVD Regular rate and rhythm, S1-S2 heard Tachypneic with left-sided crackles Abdomen soft nontender, no guarding, no rigidity Patient is awake, alert and oriented to self, place, disoriented to time and person ; no focal motor deficit Psych: Normal mood No pedal edema Results Labs 07/14/23 17:49 07/14/23 17:49 Labs: Laboratory Results - last 24 hr 07/14/23 17:49 MCV 92.6 MCH 29.5 MCHC 31.9 RDW 14.5 Plt Count 197 MPV 9.4 Immature Gran % (Auto) 0.5 H Neut % (Auto) 88.9 H Lymph % (Auto) 4.7 L [place] % (Auto) 5.3 Eos % (Auto) 0.4 Baso % (Auto) 0.2 Lymph # (Auto) 0.7 L [place] # (Auto) 0.8 Eos # (Auto) 0.1 Baso # (Auto) 0.0 Abs Immat Gran (auto) 0.07 H Absolute Neuts (auto) 13.3 H Absolute Nucleated RBC 0.000 Nucleated RBC % (auto) 0.0 PT 13.7 H INR 1.1 Anion Gap 14 Estim Creat Clear Calc 28.4 Estimated GFR 56 Random Glucose 133 H Lactic Acid 1.0 Calcium 9.4 D Magnesium 2.2 Total Bilirubin 0.6 AST 17 ALT 12 Alkaline Phosphatase 108 Total Creatine Kinase 75 B-Natriuretic Peptide 149 H Total Protein 8.2 H Albumin 4.1 COVID-19 (MAU) Negative COVID-19 Clin Com See Note Imaging Radiologist's Impressions: Impressions Chest X-Ray 07/14/23 17:21 IMPRESSION: Emphysema. Left base bronchopneumonia. Question new 8 mm nodule at the right lateral costophrenic angle. Head CT 07/14/23 17:25 IMPRESSION: 1. No evidence of acute intracranial hemorrhage or edematous territorial infarction. 2. Chronic regions of encephalomalacia within the right greater than left occipitoparietal lobes. Chronic lacunar infarcts of the deep nuclei and cerebellum. Extensive underlying microangiopathy and generalized cerebral volume loss. Assessment and Plan (1) Pneumonia: Status: Acute Plan This is a 88-year-old male with pertinent history of BPH, mixed hyperlipidemia, history of CVA, tobacco use disorder who was brought to the emergency department for evaluation of confusion. #. Sepsis due to left-sided pneumonia: Resuscitated with IV crystalloids. Initiating empiric IV antibiotics. Lactic acid obtained. Blood culture and sputum culture pending #. Acute metabolic encephalopathy in the setting of above #. History of CVA: On aspirin and statin #. Tobacco use disorder: Counseled regarding cessation. Refused nicotine patch in the hospital Admit as inpatient and will require two night minimum hospital stay for IV antibiotics (as above), which is not possible in a lesser acute setting. Quality Stroke Does the patient have a stroke diagnosis?: No VTE Prior VTE?: No VTE Risk Level:: Medical - moderate - high VTE Device Contraindication: Treatment Not Indicated VTE Drug Contraindication: N/A - Med Ordered
[2023-07-14] MEDS: Enoxaparin Sodium 30 MG/0.3 ML SYRINGE SUBCUT (20:59)
[2023-07-14] MEDS: cefTRIAXone sodium 1 GM in 0.9 % Sodium Chloride 50 ML IV (20:59)
[2023-07-14] MEDS: 0.9 % Sodium Chloride 1,000 ML 999 ML IV (21:00)
--- NOTE | 2023-07-14 21:00 | PHA.MEDREC ---
Pharmacy Consult ? Medication Reconciliation Pharmacy has completed the medication reconciliation. Patient's daughter reported medications. Ibis Hilton, ZeferinoD
[2023-07-14] MEDS: Azithromycin 500 MG in 0.9 % Sodium Chloride 250 ML 125 MG IV (21:58)
--- NOTE | 2023-07-14 22:47 | PC.NURSE ---
per previous nurse at shift report, labs had been drawn for pt, antibiotics hung per order, during report to overflow it came appaarent that second set of cultures had not been drawn, pt has received two antibiotics already. provider aware.
--- NOTE | 2023-07-14 22:53 | PC.NURSE ---
per Dr. Ortiz verbal order, draw second set of blood cultures.
--- NOTE | 2023-07-14 23:00 | PC.NURSE ---
report given to Jayleen LEDESMA in overflow.
[2023-07-14 23:13] LABS: Appearance Urine Clear; Color Urine Yellow; Glucose Urine UA Negative (Negative); Leukocyte Esterase Urine Negative (Negative); Nitrite Urine Negative (Negative); UMIC TRIGGER UACC YES; Urine Blood Trace (Negative); Urine Ketones Negative (Negative); Urine Protein Negative (Neg-Trace)
[2023-07-15 00:02] LABS: Bacteria Urine None Seen (None Seen); Hyaline Casts Urine 0-2 /LPF (0-2); Squamous Epithelial Cell Urine 0-2 /HPF (0-2); WBC Urine 0-5 /HPF (0-5)
--- NOTE | 2023-07-15 04:26 | PC.NURSE ---
Pt asleep at the bedside. No apparent distress noted. Breaths are even regular and unlabored with equal chest rises. + cough with phlegm. Pending bed assignment. Monitoring ongoing.
--- NOTE | 2023-07-15 05:01 | PC.NURSE ---
Pt awake, alert, oriented to self. Confused. Ambulating to the bathroom with 1 assist. Unsteady gait noted.
[2023-07-15 05:23] VITALS: BP 120/56; PULSE 72; RESP 16; TEMP 36.6; O2SAT 92
[2023-07-15 05:52] LABS: MANUAL DIFF FLAG NO
[2023-07-15 05:54] LABS: Basophils Percent Auto 0.3 % (0-2); Eosinophils Absolute Auto 0.1 X10*3/uL (0.0-0.4); Eosinophils Percent Auto 0.9 % (0-4); Hematocrit 37.6 % (42.0-52.0); Hemoglobin 11.8 g/dl (14.0-18.0); Imm Gran Abs Auto 0.03 X10*3/uL (0.00-0.03); Imm Gran Pct Auto 0.3 % (0.0-0.4); Lymphocytes Absolute Auto 1.5 X10*3/uL (1.2-4.9); Lymphocytes Percent Auto 13.3 % (20-40); Mean Corpuscular HGB Conc 31.4 g/dl (31.0-36.0); Mean Corpuscular Hemoglobin 30.1 pg (27.0-33.0); Mean Corpuscular Volume 95.9 fL (80.0-98.0); Mean Platelet Volume 9.4 fL (9.4-12.4); Monocytes Absolute Auto 0.8 X10*3/uL (0.1-1.2); Monocytes Percent Auto 6.8 % (2-11); Neutrophils Absolute Auto 9.1 x10*3/uL (2.0-8.3); Neutrophils Percent Auto 78.4 % (45-73); Platelet Count 182 X10*3/uL (160-400); Red Blood Count 3.92 X10*6/uL (4.60-5.80); Red Cell Distribution Width 14.6 % (11.0-16.0); White Blood Count 11.6 X10*3/uL (4.8-10.8)
--- NOTE | 2023-07-15 05:58 | PC.NURSE ---
Pt declines hospital attire. Pt desires to wear own clothes.
[2023-07-15 06:09] LABS: Anion Gap 11 (12-20); Blood Urea Nitrogen 28 mg/dL (9-16); Calcium 8.6 mg/dL (8.4-10.2); Carbon Dioxide 26 mmol/L (22-29); Chloride 109 mmol/L (96-108); Creatinine Clr Calc Pharmacy 39.8; Estimated Glomerular Filt Rate > 60; Glucose Random 99 mg/dL (60-115); Potassium 4.2 mmol/L (3.3-5.1); Sodium 142 mmol/L (135-145)
--- NOTE | 2023-07-15 06:09 | PC.NURSE ---
Pt ambulating with unsteady gait. Walker provided with great improvement. Pt redirected to the bedside.
[2023-07-15 07:50] VITALS: PULSE 80; RESP 15; TEMP 35.9; O2SAT 96
--- NOTE | 2023-07-15 07:50 | PC.NURSE ---
PT IS A/O X 2 NO SOB/CHAU NOTED SPEAKS IN FULL SENTENCES. PT AMB TO BATHROOM WITH WALKER AND CONTACT ASSIST. PT IS PLEASANT. PT AWARE OF PLAN OF CARE.
[2023-07-15] MEDS: Aspirin 325 MG TABLET PO (07:59)
[2023-07-15] MEDS: Atorvastatin Calcium 10 MG TABLET PO (07:59)
--- NOTE | 2023-07-15 08:59 | MHC.CM.PN ---
Patient lives with his daughter and son-in-law (HCP) HCP is on file and verified. He uses a cane in the home and a scooter when outside of home. He also has a FWW, but rarely uses this. Patient's insurance sends an RN for [id number] wellness visits. NO MANAGEMENT TRAINEE MARKETING services in the home Patient understands his Medicare rights. IMM signed. Copy 07/15 placed in ED medical records bin.
--- NOTE | 2023-07-15 09:05 | MHC.CM.PN ---
PCP IS SONIA DOWELL OF [facility]
--- NOTE | 2023-07-15 09:08 | MHC.CM.PN ---
PATIENT LIVES ALONE. SHE USES A 4-PRONG CANE FOR AMBULATION ASSIST. NO VNA OR NON LICENSED NUCLEAR EQUIPMENT OPERATOR SERVICES. SHE IS HOPING TO DC HOME TODAY WITH NO NEED FOR SERVICES. DAUGHTER TO TRANSPORT AT [employer] ASSISTANT FOUND HCP AT [facility] AND A COPY WILL BE SENT OVER. IMM 07/15 COPY IN ED MEDICAL RECORDS BIN
[2023-07-15] MEDS: 0.9 % Sodium Chloride Flush 3 ML SYRINGE IVFLUSH (12:26)
[2023-07-15 12:33] VITALS: BP 127/55; PULSE 78; RESP 18; O2SAT 96
--- NOTE | 2023-07-15 12:40 | P.DS_ITS ---
DS: Providers Provider Date of Service: 07/15/23 Date of admission: 07/14/23 20:48 Primary care physician: Unknown Physician DS: Diagnosis Discharge Diagnosis (1) Pneumonia: Status: Acute DS: Summary Hospital Course Hospital Course: This is a 88-year-old male with pertinent history of BPH, mixed hyperlipidemia, history of CVA, tobacco use disorder who was brought to the emergency department for evaluation of confusion. Patient's family stated that patient was confused about 2 days prior to presentation. Patient does not have any recollection of what happened. He states that he has been coughing a lot with purulent sputum. His son-in-law's father was sick and was coughing over the weekend at his home. Patient states his grandson also got sick because of his son-in-law's father. Has associated fatigue and weakness. Unclear if use has fevers or chills. No chest discomfort, palpitations, shortness of breath, abdominal pain, changes in urinary or bowel habits In the emergency department, patient was found to be septic and imaging concerning for left-sided pneumonia. 88-year-old man treated for community-acquired pneumonia. Started on Rocephin and azithromycin. Patient did not require any oxygen. No reports of shortness of breath and cough has subsided. Patient reports he smokes a pack and half cigarettes a day and did not express any desire to quit smoking which is understandable as he has smoked for over 70 years. His oxygen saturation was 96% on room air. He has expressed a desire to return home with his family and that seems reasonable at this point. Discussed with his daughter who agrees with his discharge. He will be discharged with a total of 5 days of antibiotics for community-acquired pneumonia, short burst taper of steroids. He should follow-up with his primary care provider regarding the chest x-ray that was taken which showed possible new 8 mm nodule at the right lateral costophrenic angle. He should have repeat imaging in a few weeks. History of stroke. Continue aspirin and statin Time Attestation Discharge coordination time: Greater than 30 minutes Quality: Safe Use of Opioids Does Pt have an Active Cancer Diagnosis on the Problem List?: No Quality: Stroke Does the patient have a stroke diagnosis?: No Physical Exam Vital Signs: Vital Signs: Last Vital Signs Temp 96.7 F L 07/15/23 07:50 Pulse 78 07/15/23 12:33 Resp 18 07/15/23 12:33 BP 127/55 L 07/15/23 12:33 Pulse Ox 96 07/15/23 12:33 O2 Del Method Room Air 07/15/23 12:33 O2 Flow Rate 3 07/14/23 18:05 BMI result Body Mass Index 17.3 Appearing in no acute distress head is normocephalic atraumatic eyes pupils are PERRLA sclera is anicteric mouth throat mucous membranes are intact and moist neck is supple no lymphadenopathy, no JVD noted lung sounds diminished heart regular rate rhythm, clear S1, S2 positive bowel sounds, abdomen is soft, nontender neuro patient is alert x3, no focal deficits DS: Data Data Completed and Pending Completed studies during hospitalization [Text1]: Procedures Drainage of Bladder with Drainage Device, Via Natural or Artificial Opening Endoscopic (08/10/21) Labs on day of discharge: Laboratory Results - last 24 hr 07/14/23 07/14/23 07/15/23 17:49 23:07 05:31 WBC 14.9 H 11.6 H RBC 4.44 L 3.92 L Hgb 13.1 L 11.8 L Hct 41.1 L 37.6 L MCV 92.6 95.9 MCH 29.5 30.1 MCHC 31.9 31.4 RDW 14.5 14.6 Plt Count 197 182 MPV 9.4 9.4 Immature Gran % (Auto) 0.5 H 0.3 Neut % (Auto) 88.9 H 78.4 H Lymph % (Auto) 4.7 L 13.3 L [place] % (Auto) 5.3 6.8 Eos % (Auto) 0.4 0.9 Baso % (Auto) 0.2 0.3 Lymph # (Auto) 0.7 L 1.5 [place] # (Auto) 0.8 0.8 Eos # (Auto) 0.1 0.1 Baso # (Auto) 0.0 0.0 Abs Immat Gran (auto) 0.07 H 0.03 Absolute Neuts (auto) 13.3 H 9.1 H Absolute Nucleated RBC 0.000 0.000 Nucleated RBC % (auto) 0.0 0.0 PT 13.7 H INR 1.1 Sodium 144 142 Potassium 4.8 4.2 Chloride 106 109 H Carbon Dioxide 29 26 Anion Gap 14 11 L BUN 36 H 28 H Creatinine 1.23 0.88 Estim Creat Clear Calc 28.4 39.8 Estimated GFR 56 > 60 Random Glucose 133 H 99 Lactic Acid 1.0 Calcium 9.4 D 8.6 D Magnesium 2.2 Total Bilirubin 0.6 AST 17 ALT 12 Alkaline Phosphatase 108 Total Creatine Kinase 75 Troponin I High Sens 10.2 D B-Natriuretic Peptide 149 H Total Protein 8.2 H Albumin 4.1 Urine Color Yellow Urine Appearance Clear Urine pH 6.0 Ur Specific [place] 1.020 Urine Protein Negative Urine Glucose (UA) Negative Urine Ketones Negative Urine Blood Trace H Urine Nitrite Negative Ur Leukocyte Esterase Negative Urine RBC 6-10 H Urine WBC 0-5 Ur Squamous Epith Cells 0-2 Urine Bacteria None Seen Hyaline Casts 0-2 COVID-19 (MAU) Negative COVID-19 Clin Com See Note Discharge Plan Discharge Anticipated Discharge Date/Time: 07/15/23 12:32 Patient Disposition: Home, Self-Care Discharge Diagnosis: Community-acquired pneumonia Smoker Discharge Medications: New cefuroxime axetil 500 mg tablet 500 mg PO BID Qty: 10 0RF azithromycin 500 mg tablet 500 mg PO DAILY 5 Days Qty: 5 0RF prednisone 10 mg tablet 40 mg PO DIRECTED Qty: 16 0RF Rx Instructions: see taper instructions Continued aspirin 325 mg Tablet 325 mg PO DAILY simvastatin 20 mg tablet 1 tab PO DAILY Discharge Orders: Discharge Order (Routine); Ordered 07/15/23 Ordered By: Nadya Garcia Diet: Advance to usual diet Activity on Discharge: As tolerated Stand Alone Forms: Patient Portal Discharge page Care Plan Goals: Educated on importance of smoking cessation Health Concerns: Community-acquired pneumonia Smoker Plan of Treatment: Follow-up with primary care provider as needed Take all medications as prescribed Follow up with primary care provider for repeat chest imaging Assessment: See discharge summary
== END 2023-07-15 14:12 | disposition home or self-care (01) | DRG 871 ==
LOC: HO.ED 21:20 → HO.EDOVER 21:34
PROVIDERS: Physician Assistant; Physician Assistant Medical; Admitting Provider Student in an Organized Health Care Education/Training Program; Emergency Provider Emergency Medicine Emergency Medical Services; PCP Internal Medicine; Visit Provider Nurse Practitioner Acute Care
DX: A41.9 Sepsis, unspecified organism (principal); J18.9 Pneumonia, unspecified organism; N13.8 Other obstructive and reflux uropathy; F17.210 Nicotine dependence, cigarettes, uncomplicated; E78.2 Mixed hyperlipidemia; N40.1 Benign prostatic hyperplasia with lower urinary tract symptoms; R91.1 Solitary pulmonary nodule; Z20.822 Contact with and (suspected) exposure to COVID-19; Z71.6 Tobacco abuse counseling; Z79.82 Long term (current) use of aspirin; Z86.73 Personal history of transient ischemic attack (TIA), and cerebral infarction without residual deficits; Z79.899 Other long term (current) drug therapy
CPT/HCPCS: 36415; 70450; 71045; 80048; 80053; 81001; 81003; 82550; 83605; 83735; 83880; 84484; 85025; 85610; 87040; 87635; 93005; 99285; J0456; J0696; J1650

== ENCOUNTER → 2023-07-14 20:48 | Outpatient (BNV) | payer MEDICARE, SELFPAY | PROVIDERS: Admitting Provider Student in an Organized Health Care Education/Training Program; Emergency Provider Emergency Medicine Emergency Medical Services; Visit Provider Student in an Organized Health Care Education/Training Program | DX: J18.9 Pneumonia, unspecified organism (principal) | CPT/HCPCS: 99222; 99239 ==

== ENCOUNTER 2023-12-29 17:12 | Inpatient (IN) | payer MEDICARE, OTHER, SELFPAY ==
[2023-12-29] VITALS (7 sets, daily range): BP systolic 108–159; BP diastolic 70–108; PULSE 91–130; RESP 20–30; TEMP 37.7–38.6; O2SAT 90–100; BMI 15.9
--- NOTE | ~2023-12-29 | CT_ITS ---
EXAMINATION: CT ABDOMEN AND PELVIS WITHOUT CONTRAST CLINICAL INFORMATION: Bacteremia. COMPARISON: CT abdomen and pelvis dated 10/13/2022. TECHNIQUE: Multidetector volumetric imaging was performed from the superior aspect of the liver through the pubic symphysis. Sagittal and coronal reformatted images were obtained on the technologist's workstation. This CT examination was performed using dose optimization techniques as appropriate, variously including the following: *Automated exposure control *Adjustment of mA and/or kV according to patient size (this includes techniques or standardized protocols for targeted exams where dose is matched to indication/reason for exam; i.e. extremities or head) *Use of iterative reconstruction technique DLP: 306 mGy-cm FINDINGS: LUNG BASES: There are small bilateral layering pleural effusions. There is mild adjacent atelectatic change. There are underlying diffuse emphysematous changes. LIVER, GALLBLADDER, AND BILIARY TREE: The liver is normal in size, shape, and attenuation. No focal hepatic lesion or biliary ductal dilatation is present. The gallbladder is unremarkable with no evidence of radiopaque gallstones, gallbladder wall thickening, or obvious pericholecystic inflammatory changes. PANCREAS: Unremarkable. SPLEEN: Unremarkable. ADRENAL GLANDS: Unremarkable. KIDNEYS AND URETERS: The kidneys are normal in size, shape, and attenuation. No hydronephrosis, hydroureter, or calculi seen. At the interpolar left kidney (2:30), a 2.4 cm cyst is seen with precontrast Hounsfield value 8.8 units. This has a simple appearance, and no imaging follow-up is recommended. No perinephric stranding. BLADDER: Unremarkable. GASTROINTESTINAL TRACT: There is moderate diverticulosis, without acute diverticulitis. No bowel obstruction, free intraperitoneal air abscess is seen. There is no focal bowel thickening. ABDOMINAL WALL: There are small bilateral inguinal hernias, the right a sliding-type hernia containing a nonobstructed small bowel loop and the left containing fat. LYMPH NODES: No abdominopelvic lymphadenopathy is seen. VASCULAR: An infrarenal abdominal aortic aneurysm is seen, measuring 5.0 cm transverse by 4.8 cm AP (6:31 and 7:69). PELVIC VISCERA: There is mild prostatomegaly, with a transverse span of 5.3 cm. The seminal vesicles are unremarkable. OSSEOUS STRUCTURES: There is a moderately severe thoracolumbar dextroscoliosis. There is multi-level thoracolumbar degenerative disc disease and spondylosis. No acute or aggressive osseous finding is noted. CT/CT abdomen pelvis wo IV con IMPRESSION: 1. There is moderate diverticulosis, without acute diverticulitis seen. 2. There are small bilateral inguinal hernias, including a sliding-type right inguinal hernia containing a small nonobstructed small bowel loop. 3. There is an infrarenal abdominal aortic aneurysm again noted. No rupture is noted. Elective Vascular Surgery consultation is recommended. Recommend follow-up ultrasound imaging at a 6 month interval. 4. There is mild prostatomegaly. 5. There are degenerative changes of the spine. There is a moderately severe thoracolumbar dextroscoliosis. 6. There are small bilateral pleural effusions, with adjacent compressive atelectasis. Underlying emphysematous changes are noted. Fleischner guidelines were followed.
--- NOTE | ~2023-12-29 | XR_ITS ---
Is EXAMINATION: XR chest 1V CLINICAL INFORMATION: Reason for Exam sob, fever COMPARISON: 07/14/2023 TECHNIQUE: Single portable frontal view. Tubes and lines: None Lungs and pleura: Mild interstitial perihilar infiltrates. Mild interstitial infiltrate at left lung base. No dense consolidation pneumonia. Heart and mediastinum: The mediastinum is within normal limits.. Bones/soft tissue: Skeletal structures included are normal for patient's age. XR/XR chest 1V IMPRESSION: 1. Mild interstitial infiltrate at left lung base. 2. Mild perihilar interstitial infiltrates. 3. No dense consolidation pneumonia. 4. No pleural effusion.
--- NOTE | 2023-12-29 17:51 | ECG_ITS ---
Test Reason : SEPSIS Blood Pressure : / mmHG Vent. Rate : 132 BPM Atrial Rate : 264 BPM P-R Int : 000 ms QRS Dur : 082 ms QT Int : 280 ms P-R-T Axes : 000 101 -55 degrees QTc Int : 414 ms Atrial flutter with 2:1 A-V conduction Rightward axis Nonspecific ST and T wave abnormality Abnormal ECG When compared with ECG of 14-JUL-2023 17:58, Atrial flutter has replaced Sinus rhythm Referred By: Beatriz Prabhakar Electronically Signed By:ENEDINA MASON
[2023-12-29 18:08] LABS: Hematocrit 38.5 % (42.0-52.0); Hemoglobin 12.4 g/dl (14.0-18.0); Mean Corpuscular HGB Conc 32.2 g/dl (31.0-36.0); Mean Corpuscular Hemoglobin 30.5 pg (27.0-33.0); Mean Corpuscular Volume 94.8 fL (80.0-98.0); Mean Platelet Volume 8.6 fL (9.4-12.4); Platelet Count 201 X10*3/uL (160-400); Red Blood Count 4.06 X10*6/uL (4.60-5.80); Red Cell Distribution Width 14.6 % (11.0-16.0); White Blood Count 13.6 X10*3/uL (4.8-10.8)
[2023-12-29] MEDS: cefTRIAXone sodium 1 GM in 0.9 % Sodium Chloride 50 ML IV (18:09)
[2023-12-29] MEDS: Acetaminophen Supp 650 MG SUPP.RECT PR (18:15)
[2023-12-29 18:19] LABS: VBG Base Excess 6.5 mmol/L; VBG HCO3 30 mmol/L (22-26); VBG pCO2 39 mmHg; VBG pH 7.48 (7.32-7.43); VBG pO2 50 mmHg
[2023-12-29 18:23] LABS: Alanine Aminotransferase 15 U/L (0-40); Albumin Level 3.6 g/dL (3.5-5.0); Alkaline Phosphatase 97 U/L (39-117); Anion Gap 13 (12-20); Aspartate Amino Transferase 19 U/L (5-37); Bilirubin Direct 0.3 mg/dL (0.0-0.5); Bilirubin Total 0.7 mg/dL (0.0-1.0); Blood Urea Nitrogen 26 mg/dL (9-16); Calcium 8.9 mg/dL (8.4-10.2); Carbon Dioxide 30 mmol/L (22-29); Chloride 103 mmol/L (96-108); Creatinine Clr Calc Pharmacy 37.4; Estimated Glomerular Filt Rate > 60; Glucose Random 100 mg/dL (60-115); Magnesium 1.9 mg/dL (1.6-2.6); Potassium 4.3 mmol/L (3.3-5.1); Sodium 142 mmol/L (135-145); Total Protein 7.3 g/dL (6.5-8.0)
[2023-12-29 18:28] LABS: Lactic Acid 2.3 mmol/L (0.5-2.0)
[2023-12-29 18:29] LABS: B Type Natriuretic Peptide 184 pg/mL (<100)
[2023-12-29 18:30] LABS: Venous Blood Gas Refer to POC result
[2023-12-29 18:31] LABS: Troponin-I High Sensitivity 10.1 ng/L (<3.5-35.0)
[2023-12-29 18:33] LABS: INTERNATIONAL NORM RATIO 1.2 (0.9-1.1)
[2023-12-29 18:41] LABS: Influenza A PCR NEGATIVE (Negative); Influenza B PCR NEGATIVE (Negative); Resp Syncy Virus RNA Qual PCR NEGATIVE (Negative); SARS COV2 PCR INHOUSE NEGATIVE (Negative)
[2023-12-29 18:42] LABS: SLIDE REVIEW MANUAL DIFF
[2023-12-29 18:45] LABS: Band Neutrophils Percent 9 % (3-5); Lymphocytes Absolute Manual 0.1 X10*3/uL (1.2-4.9); Lymphocytes Percent Manual 1 % (20-40); Neutrophils Absolute Manual 13.5 X10*3/uL (2.0-8.3); Neutrophils Percent Manual 90 % (45-73)
[2023-12-29 18:48] LABS: Platelet Estimate NORMAL (NORMAL); Platelet Morphology Comment NORMAL; RBC Morphology NORMAL
--- NOTE | 2023-12-29 18:51 | ED_ITS ---
HPI - General Adult General Chief complaint: General Medical Stated complaint: shivers,weak,cough Time Seen by Provider: 12/29/23 18:01 Source: patient and EMS Mode of arrival: EMS Limitations: no limitations History of Present Illness HPI narrative: Patient comes to the emergency room home home. According to the patient, patient has a generalized weakness and fevers. Patient reports that he has been having a very junky cough. Denies chest pain. When EMS arrived to the patient's residence, patient's oxygen saturations initially were in the low 90s, here in the ED, patient dropped to the high 70s. Related Data Home Medications ?Medication ?Instructions ?Recorded ?Confirmed aspirin 325 mg tablet 325 mg PO BEDTIME 08/10/21 12/29/23 simvastatin 20 mg tablet 1 tab PO BEDTIME 08/10/21 12/29/23 azelastine 137 mcg (0.1 %) nasal 2 spray intranasal BID 12/29/23 12/29/23 spray aerosol triamcinolone acetonide 0.1 % 1 appl topical BID 12/29/23 topical ointment Allergies Allergy/AdvReac Type Severity Reaction Status Date / Time pentazocine [From Joi] Allergy Unknown Verified 12/29/23 17:40 Review of Systems 2 Review of Systems: Constitutional : No Weight loss, No Fever, No Chills, No Night Sweats, No Fatigue, No Malaise ENT/Mouth : No Hearing loss, No Ear Pain, No Nasal Congestion, No Sinus Pain, No Hoarseness, No sore throat, No Rhinorrhea, No Swallowing Difficulty Eyes: No Eye Pain, No Swelling, No Redness, No Foreign Body, No Discharge, No Vision Changes Cardiovascular : No Chest Pain, No SOB, No Dyspnea on Exertion, No Orthopnea, No Edema, No Palpitations Respiratory : Complaining of cough and shortness of breath, denies wheezing Gastrointestinal : No Nausea, No Vomiting, No Diarrhea, No Constipation, No abdominal Pain, No Hematochezia, No Melena Genitourinary : no irregular bleeding, No Dysuria, No Urinary Frequency, No Hematuria, No Urinary Incontinence, No Urgency, No Flank Pain, No Urinary Flow Changes, No Hesitancy Musculoskeletal : No joint pain, No Myalgias, No Joint Swelling Skin : No Skin Lesions, No rash Neuro : No Weakness, No Numbness, No Paresthesias, No Loss of Consciousness, No Dizziness, No Headache Psych : No Anxiety/Panic, No Depression, No SI/HI/AH/VH, No Social Issues, Heme/Lymph: No Bruising, No Bleeding,No Lymphadenopathy Endocrine : No Polyuria, No Polydipsia, No Temperature Intolerance [facility] Past Medical History Medical History Smoker AAA (abdominal aortic aneurysm) without rupture Saccular aneurysm BPH w urinary obs/LUTS Acute CVA (cerebrovascular accident) UTI (urinary tract infection) HLD (hyperlipidemia) Social History Social History Household Members: Children Household Members Other:: Daughter and Son in Law Housing: House Are you a primary ocular care technician to a significant other at home: No Alcohol intake: never Patient Tobacco Use Status: Current everyday Tobacco user Tobacco use type: Cigarette Cigarette Packs Per Day: 1.5 Cigarettes Per Day: 30.0 Years Smoked: 72 Smoked in Last 30 Days: Yes Second Hand Smoke Exposure: No Advance Directives: Yes Advance Directives on File: Yes Advance Directives Date on File: 08/14/21 service: No Current occupational status: retired Physical Exam ED Vital Signs: Vital Signs - 24 hr 12/29/23 17:36 12/29/23 19:15 12/29/23 19:31 Temperature 101.5 F H Pulse Rate 130 H Respiratory Rate 24 H Blood Pressure 142/75 H 159/108 H 119/71 Pulse Oximetry 90 L 100 Oxygen Delivery Method Room Air Oxymask 12/29/23 20:23 Temperature 99.8 F Pulse Rate 123 H Respiratory Rate 20 Blood Pressure Pulse Oximetry Oxygen Delivery Method BMI result Body Mass Index 15.9 Const Other: Appearance: Alert. Oriented X3. No acute distress. Seems weak Eyes: Pupils equal, round and reactive to light. ENT: Pharynx normal. Neck: Normal inspection. Neck supple. No lymph nodes noted. No crepitus CVS: Normal heart rate and rhythm. Pulses normal. Normal S1 and S2 Respiratory: No respiratory distress. Bilateral rales, no crackles, no wheezing Abdomen: Soft and nontender. No rigidity. No distention. Skin: Skin warm and dry. Normal skin color. Normal skin turgor. Extremities: No lower extremity edema. No Lacerations. No Rash Neuro: Oriented X 3. No motor deficit. No sensory deficit. Moving all extremities. No slurred speech. CN 2 through 12 grossly intact Psych: calm, cooperative, normal affect Medications Administered Discontinued Medications Generic Name Dose Route Start Last Admin Trade Name Erinn PRN Reason Stop Dose Admin Acetaminophen 650 mg 12/29/23 17:52 12/29/23 18:15 Acetaminophen Supp 650 Mg Supp.Rect WI 12/29/23 17:53 650 mg NOW STA Administration Sodium Chloride 1,461 mls @ 1,461 mls/hr 12/29/23 17:51 12/29/23 19:09 Ns 30 ml/kg infuse over 1 hr (1461 ml) 12/29/23 18:50 Infused IV Infusion .Q1H STA Ceftriaxone Sodium 1 gm/ 50 mls @ 100 mls/hr 12/29/23 17:51 12/29/23 18:32 Sodium Chloride IV 12/29/23 18:20 Infused ONCE ONE Infusion Azithromycin 500 mg/ Sodium 250 mls @ 125 mls/hr 12/29/23 17:51 12/29/23 18:56 Chloride IV 12/29/23 19:50 125 mls/hr ONCE ONE Administration Medical Decision Making Medical Decision Making [facility] Narrative: My interpretation of labs: Increased white blood cell count, 13.6. Chemistry: Within normal limits, lactic acid 2.3 -urinalysis negative for UTI -my interpretation of x-rays, bilateral pneumonia. Effusions. -patient is currently on 5 L on OxyMask. Oxygen saturation 90%. -patient noted to be in atrial flutter, heart rate in the 130s. Patient received 1 dose of Cardizem 10 mg -I discussed the patient with Dr. Ortiz, patient being admitted Differential Diagnosis Differential Diagnoses: The differential diagnosis associated with the presentation includes (Pneumonia, CHF, viral illness) Admission/Observation Consideration of admission/observation: Escalation of care including admission/observation considered Consult Healthcare Provider Management of the patient was discussed with: Hospitalist Lab Data [facility] Lab Attestation statement: I reviewed the patient's lab results. 12/29/23 17:51 12/29/23 17:51 Labs: Lab Results 12/29/23 12/29/23 12/29/23 Range/Units 17:51 18:10 19:15 WBC 13.6 H (4.8-10.8) X10*3/uL RBC 4.06 L (4.60-5.80) X10*6/uL Hgb 12.4 L (14.0-18.0) g/dl Hct 38.5 L (42.0-52.0) % MCV 94.8 (80.0-98.0) fL MCH 30.5 (27.0-33.0) pg MCHC 32.2 (31.0-36.0) g/dl RDW 14.6 (11.0-16.0) % Plt Count 201 (160-400) X10*3/uL MPV 8.6 L (9.4-12.4) fL Immature Gran % (Auto) Cancelled Neut % (Auto) Cancelled Lymph % (Auto) Cancelled [place] % (Auto) Cancelled Eos % (Auto) Cancelled Baso % (Auto) Cancelled Lymph # (Auto) Cancelled [place] # (Auto) Cancelled Eos # (Auto) Cancelled Baso # (Auto) Cancelled Abs Immat Gran (auto) Cancelled Absolute Neuts (auto) Cancelled Absolute Nucleated RBC 0.000 (0.0-0.012) X10*3/uL Nucleated RBC % (auto) 0.0 (0.0-0.2) /100WBC Neutrophils % (Manual) 90 H (45-73) % Band Neutrophils % 9 H (3-5) % Lymphocytes % (Manual) 1 L (20-40) % Abs Neuts (Manual) 13.5 H (2.0-8.3) X10*3/uL Lymphocytes # (Manual) 0.1 L (1.2-4.9) X10*3/uL Platelet Estimate NORMAL (NORMAL) Plt Morphology Comment NORMAL RBC Morphology NORMAL Smear Tech's Comments MANUAL DIFF PT 14.0 H (11.1-13.3) SEC INR 1.2 H (0.9-1.1) VBG pH 7.48 H (7.32-7.43) VBG pCO2 39 mmHg VBG pO2 50 mmHg VBG HCO3 30 H (22-26) mmol/L VBG O2 Saturation 86.0 % VBG Base Excess 6.5 mmol/L Sodium 142 (135-145) mmol/L Potassium 4.3 (3.3-5.1) mmol/L Chloride 103 (96-108) mmol/L Carbon Dioxide 30 H (22-29) mmol/L Anion Gap 13 (12-20) BUN 26 H (9-16) mg/dL Creatinine 0.94 (0.5-1.4) mg/dL Estim Creat Clear Calc 37.4 Estimated GFR > 60 Random Glucose 100 (60-115) mg/dL Lactic Acid 2.3 H* (0.5-2.0) mmol/L Lactic Acid F/U @ 2Hr (0.5-2.0) mmol/L Calcium 8.9 (8.4-10.2) mg/dL Magnesium 1.9 (1.6-2.6) mg/dL Total Bilirubin 0.7 (0.0-1.0) mg/dL Direct Bilirubin 0.3 (0.0-0.5) mg/dL AST 19 (5-37) U/L ALT 15 (0-40) U/L Alkaline Phosphatase 97 (39-117) U/L Troponin I High Sens 10.1 (<3.5-35.0) ng/L B-Natriuretic Peptide 184 H (<100) pg/mL Total Protein 7.3 (6.5-8.0) g/dL Albumin 3.6 (3.5-5.0) g/dL Urine Color Yellow Urine Appearance Clear Urine pH 7.5 (5.0-9.0) Ur Specific [place] 1.010 (1.005-1.025) Urine Protein Negative (Neg-Trace) mg/dL Urine Glucose (UA) Negative (Negative) mg/dL Urine Ketones Negative (Negative) mg/dL Urine Blood Trace H (Negative) Urine Nitrite Negative (Negative) Ur Leukocyte Esterase Negative (Negative) Urine RBC 0-2 (0-2) /HPF Urine WBC 0-5 (0-5) /HPF Ur Squamous Epith Cells 0-2 (0-2) /HPF Urine Bacteria None Seen (None Seen) Hyaline Casts 0-2 (0-2) /LPF Influenza Type A (PCR) NEGATIVE (Negative) Influenza Type B (PCR) NEGATIVE (Negative) RSV RNA Qual (PCR) NEGATIVE (Negative) SARS-CoV-2 RNA (RT-PCR) NEGATIVE (Negative) 12/29/23 Range/Units 20:13 WBC (4.8-10.8) X10*3/uL RBC (4.60-5.80) X10*6/uL Hgb (14.0-18.0) g/dl Hct (42.0-52.0) % MCV (80.0-98.0) fL MCH (27.0-33.0) pg MCHC (31.0-36.0) g/dl RDW (11.0-16.0) % Plt Count (160-400) X10*3/uL MPV (9.4-12.4) fL Immature Gran % (Auto) Neut % (Auto) Lymph % (Auto) [place] % (Auto) Eos % (Auto) Baso % (Auto) Lymph # (Auto) [place] # (Auto) Eos # (Auto) Baso # (Auto) Abs Immat Gran (auto) Absolute Neuts (auto) Absolute Nucleated RBC (0.0-0.012) X10*3/uL Nucleated RBC % (auto) (0.0-0.2) /100WBC Neutrophils % (Manual) (45-73) % Band Neutrophils % (3-5) % Lymphocytes % (Manual) (20-40) % Abs Neuts (Manual) (2.0-8.3) X10*3/uL Lymphocytes # (Manual) (1.2-4.9) X10*3/uL Platelet Estimate (NORMAL) Plt Morphology Comment RBC Morphology Smear Tech's Comments PT (11.1-13.3) SEC INR (0.9-1.1) VBG pH (7.32-7.43) VBG pCO2 mmHg VBG pO2 mmHg VBG HCO3 (22-26) mmol/L VBG O2 Saturation % VBG Base Excess mmol/L Sodium (135-145) mmol/L Potassium (3.3-5.1) mmol/L Chloride (96-108) mmol/L Carbon Dioxide (22-29) mmol/L Anion Gap (12-20) BUN (9-16) mg/dL Creatinine (0.5-1.4) mg/dL Estim Creat Clear Calc Estimated GFR Random Glucose (60-115) mg/dL Lactic Acid (0.5-2.0) mmol/L Lactic Acid F/U @ 2Hr 1.1 (0.5-2.0) mmol/L Calcium (8.4-10.2) mg/dL Magnesium (1.6-2.6) mg/dL Total Bilirubin (0.0-1.0) mg/dL Direct Bilirubin (0.0-0.5) mg/dL AST (5-37) U/L ALT (0-40) U/L Alkaline Phosphatase (39-117) U/L Troponin I High Sens (<3.5-35.0) ng/L B-Natriuretic Peptide (<100) pg/mL Total Protein (6.5-8.0) g/dL Albumin (3.5-5.0) g/dL Urine Color Urine Appearance Urine pH (5.0-9.0) Ur Specific [place] (1.005-1.025) Urine Protein (Neg-Trace) mg/dL Urine Glucose (UA) (Negative) mg/dL Urine Ketones (Negative) mg/dL Urine Blood (Negative) Urine Nitrite (Negative) Ur Leukocyte Esterase (Negative) Urine RBC (0-2) /HPF Urine WBC (0-5) /HPF Ur Squamous Epith Cells (0-2) /HPF Urine Bacteria (None Seen) Hyaline Casts (0-2) /LPF Influenza Type A (PCR) (Negative) Influenza Type B (PCR) (Negative) RSV RNA Qual (PCR) (Negative) SARS-CoV-2 RNA (RT-PCR) (Negative) Independent Interpretation I performed an independent interpretation of an: Plain X-Ray Radiology Impression Discussion of test interpretation with radiology: I have reviewed the radiologist's reading. Radiologist Impression: IMPRESSION: 1. Mild interstitial infiltrate at left lung base. 2. Mild perihilar interstitial infiltrates. 3. No dense consolidation pneumonia. 4. No pleural effusion. Critical Care Time Critical Care Time Critical Care Time: Yes Total Critical Care Time: 75 Attestation: I have personally provided critical care time. Time includes review of lab data, radiology results, discussion with consultants, and monitoring for potential decompensation. Intervention performed as documented. Discharge Plan Discharge Clinical Impression: Pneumonia, Atrial flutter Patient Disposition: Admitted As Inpatient Print Language: Turkmen
[2023-12-29] MEDS: Azithromycin 500 MG in 0.9 % Sodium Chloride 250 ML 125 MG IV (18:56)
[2023-12-29 19:23] LABS: Appearance Urine Clear; Color Urine Yellow; Glucose Urine UA Negative (Negative); Leukocyte Esterase Urine Negative (Negative); Nitrite Urine Negative (Negative); PH 7.5 (5.0-9.0); UMIC TRIGGER UACC YES; Urine Blood Trace (Negative); Urine Ketones Negative (Negative); Urine Protein Negative (Neg-Trace)
[2023-12-29 19:33] LABS: Bacteria Urine None Seen (None Seen); Hyaline Casts Urine 0-2 /LPF (0-2); RBC Urine 0-2 /HPF (0-2); Squamous Epithelial Cell Urine 0-2 /HPF (0-2); WBC Urine 0-5 /HPF (0-5)
[2023-12-29 20:02] LABS: Reflex Lactate? Lactic Acid Added
--- NOTE | 2023-12-29 20:06 | PC.NURSE ---
pt brought in to dept via EMS- forehead o2 probe placed to obtain accurate SpO2- pt spo2 89-90 on RA- pt placed on 5lvia oxymask with improvement to 100%. 18G iv was placed in l-ac, 20g IV placed in R-forearm, labs obtained. fluid bolus of 1451mls infused rocephin given. APAP 650mg given rectally for 101.5 fever. nurse monitoring applied, call bailon within reach.
--- NOTE | 2023-12-29 20:10 | PM.IMHP ---
History of Present Illness Date of Service: 12/29/23 Attending physician on admission: Max Ortiz Chief Complaint: chills, weakness, cough 87-year-old male with history of BPH with LUTS, saccular aneurysm, hyperlipidemia, and history of CVA who is a current 1.5 ppd cigarette smoker [facility] Medical History Smoker AAA (abdominal aortic aneurysm) without rupture Saccular aneurysm BPH w urinary obs/LUTS Acute CVA (cerebrovascular accident) UTI (urinary tract infection) HLD (hyperlipidemia) Social History Household Members: Children Household Members Other:: Daughter and Son in Law Housing: House Are you a primary reproductive healthcare assistant to a significant other at home: No Alcohol intake: never Patient Tobacco Use Status: Current everyday Tobacco user Tobacco use type: Cigarette Cigarette Packs Per Day: 1.5 Cigarettes Per Day: 30.0 Years Smoked: 72 Smoked in Last 30 Days: Yes Second Hand Smoke Exposure: No Advance Directives: Yes Advance Directives on File: Yes Advance Directives Date on File: 08/14/21 service: No Current occupational status: retired Meds Allergies Allergy/AdvReac Type Severity Reaction Status Date / Time pentazocine [From Joi] Allergy Unknown Verified 12/29/23 17:40 Home Medications ?Medication ?Instructions ?Recorded ?Confirmed ?Last Taken ?Type aspirin 325 mg tablet 325 mg PO DAILY 08/10/21 07/14/23 10/26/22 History simvastatin 20 mg tablet 1 tab PO DAILY 08/10/21 07/14/23 Unknown History azelastine 137 mcg (0.1 %) nasal 2 spray intranasal BID 12/29/23 12/29/23 Unknown History spray aerosol triamcinolone acetonide 0.1 % 1 appl topical BID 12/29/23 Unknown History topical ointment Physical Exam Vital Signs and Narrative: Vital Signs: Last Vital Signs Temp 101.5 F H 12/29/23 17:36 Pulse 130 H 12/29/23 17:36 Resp 24 H 12/29/23 17:36 BP 119/71 12/29/23 19:31 Pulse Ox 100 12/29/23 19:31 O2 Del Method Oxymask 12/29/23 19:31 BMI result Body Mass Index 15.9 Results Labs 12/29/23 17:51 12/29/23 17:51 Labs: Laboratory Results - last 24 hr 12/29/23 12/29/23 12/29/23 17:51 18:10 19:15 MCV 94.8 MCH 30.5 MCHC 32.2 RDW 14.6 Plt Count 201 MPV 8.6 L Immature Gran % (Auto) Cancelled Neut % (Auto) Cancelled Lymph % (Auto) Cancelled [place] % (Auto) Cancelled Eos % (Auto) Cancelled Baso % (Auto) Cancelled Lymph # (Auto) Cancelled [place] # (Auto) Cancelled Eos # (Auto) Cancelled Baso # (Auto) Cancelled Abs Immat Gran (auto) Cancelled Absolute Neuts (auto) Cancelled Absolute Nucleated RBC 0.000 Nucleated RBC % (auto) 0.0 Neutrophils % (Manual) 90 H Band Neutrophils % 9 H Lymphocytes % (Manual) 1 L Abs Neuts (Manual) 13.5 H Lymphocytes # (Manual) 0.1 L Platelet Estimate NORMAL Plt Morphology Comment NORMAL RBC Morphology NORMAL Smear Tech's Comments MANUAL DIFF PT 14.0 H INR 1.2 H VBG pH 7.48 H VBG pCO2 39 VBG pO2 50 VBG HCO3 30 H VBG O2 Saturation 86.0 VBG Base Excess 6.5 Anion Gap 13 Estim Creat Clear Calc 37.4 Estimated GFR > 60 Random Glucose 100 Lactic Acid 2.3 H* Calcium 8.9 Magnesium 1.9 Total Bilirubin 0.7 Direct Bilirubin 0.3 AST 19 ALT 15 Alkaline Phosphatase 97 Troponin I High Sens 10.1 B-Natriuretic Peptide 184 H Total Protein 7.3 Albumin 3.6 Urine Color Yellow Urine Appearance Clear Urine pH 7.5 Ur Specific [place] 1.010 Urine Protein Negative Urine Glucose (UA) Negative Urine Ketones Negative Urine Blood Trace H Urine Nitrite Negative Ur Leukocyte Esterase Negative Urine RBC 0-2 Urine WBC 0-5 Ur Squamous Epith Cells 0-2 Urine Bacteria None Seen Hyaline Casts 0-2 Influenza Type A (PCR) NEGATIVE Influenza Type B (PCR) NEGATIVE RSV RNA Qual (PCR) NEGATIVE SARS-CoV-2 RNA (RT-PCR) NEGATIVE Imaging Radiologist's Impressions: Impressions Chest X-Ray 12/29/23 18:32 IMPRESSION: 1. Mild interstitial infiltrate at left lung base. 2. Mild perihilar interstitial infiltrates. 3. No dense consolidation pneumonia. 4. No pleural effusion. Assessment and Plan Plan 87-year-old male with history of BPH with LUTS, saccular aneurysm, hyperlipidemia, and history of CVA who is a current 1.5 ppd cigarette smoker # saccular abdominal aortic aneurysm -CT abdomen/pelvis showing 4.2 x 5.6 cm saccular aortic aneurysm -per ED provider, vascular surgery agrees to follow. Consult placed, appreciate input -continue ASA 81 mg daily #HLD -continue statin #History CVA -continue asa #Cigarette smoker -Cessation counseling -Declines NRT DVT prophylaxis- lovenox Full code per patient
--- NOTE | 2023-12-29 20:19 | PHA.MEDREC ---
Pharmacy Consult ? Medication Reconciliation Pharmacy has completed the medication reconciliation. Spoke with patient's daughter Mercy. Patient currently on his off week of triamcinolone. Ibis Hilton, ZeferinoD
--- NOTE | 2023-12-29 20:22 | PC.NURSE ---
repeat lactic obtained
[2023-12-29 20:29] LABS: ~Lactic Acid-LAB USE ONLY 1.1 mmol/L (0.5-2.0)
--- NOTE | 2023-12-29 20:46 | PC.NURSE ---
SCARLETT Coronado met with pt at bedside, req SpO2 to maintain at 92% pt rougth down to 2.5L via oxymask SPo2 92-95%. Diltizem ordered for tachycardia in the 130's pt B/p 104/57. med held at thid time. SCARLETT coronado notified via [facility] of pt condition, no new orders at this time
--- NOTE | 2023-12-29 21:07 | PM.IMHP ---
History of Present Illness Date of Service: 12/29/23 Chief Complaint: Fever This is a 88-year-old male with pertinent history of BPH, mixed hyperlipidemia, history of CVA, tobacco use disorder who presents to the emergency department for evaluation of fevers. Patient states he has been weak for the last couple of days. Also has been having a productive cough with purulent sputum production. Admits associated fevers and chills. No chest discomfort, palpitations or wheezing. Patient was found to be hypoxemic as per EMS. Is a current smoker. No abdominal pain, changes in urinary or bowel habits. In the emergency department, patient was found to be septic and imaging concerning for left-sided pneumonia. Also was found to be in atrial flutter with RVR Review of Systems Constitutional: Constitutional: Reports fatigue, Reports lethargy, Reports poor appetite and Reports weakness Cardiovascular: Cardiovascular: Reports no additional cardiovascular complaints Respiratory: Respiratory: Reports cough Gastrointestinal: Gastrointestinal: Reports no additional gastrointestinal complaints Genitourinary: Genitourinary: Reports no additional male genitourinary complaints Neurologic: Reports weakness Endocrine: Endocrine: Reports fatigue [facility] Medical History Smoker AAA (abdominal aortic aneurysm) without rupture Saccular aneurysm BPH w urinary obs/LUTS Acute CVA (cerebrovascular accident) UTI (urinary tract infection) HLD (hyperlipidemia) Pertinent family history: No family history of early CAD Social History Household Members: Children Household Members Other:: Daughter and Son in Law Housing: House Are you a primary care services manager to a significant other at home: No Alcohol intake: never Patient Tobacco Use Status: Current everyday Tobacco user Tobacco use type: Cigarette Cigarette Packs Per Day: 1.5 Cigarettes Per Day: 30.0 Years Smoked: 72 Smoked in Last 30 Days: Yes Second Hand Smoke Exposure: No Advance Directives: Yes Advance Directives on File: Yes Advance Directives Date on File: 08/14/21 service: No Current occupational status: retired Meds Allergies Allergy/AdvReac Type Severity Reaction Status Date / Time pentazocine [From Talwin] Allergy Unknown Verified 12/29/23 17:40 Active Medications: Current Medications Acetaminophen (Acetaminophen 325 Mg Tablet) 650 mg PO Q6H PRN PRN Reason: Pain, Mild (Pain Scale 1-3) Enoxaparin Sodium (Enoxaparin Sodium 40 Mg/0.4 Ml Syringe) 40 mg SUBCUT Q24H COUNT INCLUDES THE [facility] Melatonin (Melatonin 3 Mg Tablet) 6 mg PO BEDTIME PRN PRN Reason: Insomnia Ondansetron HCl (Ondansetron Hcl 4 Mg/2 Ml Vial) 4 mg IVPUSH Q8H PRN PRN Reason: Nausea and Vomiting Sodium Chloride (0.9 % Sodium Chloride Flush 3 Ml Syringe) 3 ml IVFLUSH QSHIFT COUNT INCLUDES THE [facility] Home Medications ?Medication ?Instructions ?Recorded ?Confirmed ?Last Taken ?Type aspirin 325 mg tablet 325 mg PO BEDTIME 08/10/21 12/29/23 10/26/22 History simvastatin 20 mg tablet 1 tab PO BEDTIME 08/10/21 12/29/23 Unknown History azelastine 137 mcg (0.1 %) nasal 2 spray intranasal BID 12/29/23 12/29/23 Unknown History spray aerosol triamcinolone acetonide 0.1 % 1 appl topical BID 12/29/23 Unknown History topical ointment Physical Exam Vital Signs and Narrative: Vital Signs: Last Vital Signs Temp 99.8 F 12/29/23 20:23 Pulse 123 H 12/29/23 20:23 Resp 20 12/29/23 20:23 BP 104/57 L 12/29/23 21:05 Pulse Ox 100 12/29/23 19:31 O2 Del Method Oxymask 12/29/23 19:31 BMI result Body Mass Index 15.9 Elderly male lying in bed in mild distress on supplemental oxygen Neck supple, no JVD Irregularly irregular, S1-S2 heard Tachypneic with left-sided crackles Abdomen soft nontender, no guarding, no rigidity Patient is awake, alert and oriented to self, place, no focal motor weakness Psych: Normal mood No pedal edema Results Labs 12/29/23 17:51 12/29/23 17:51 Labs: Laboratory Results - last 24 hr 12/29/23 12/29/23 12/29/23 17:51 18:10 19:15 MCV 94.8 MCH 30.5 MCHC 32.2 RDW 14.6 Plt Count 201 MPV 8.6 L Immature Gran % (Auto) Cancelled Neut % (Auto) Cancelled Lymph % (Auto) Cancelled [place] % (Auto) Cancelled Eos % (Auto) Cancelled Baso % (Auto) Cancelled Lymph # (Auto) Cancelled [place] # (Auto) Cancelled Eos # (Auto) Cancelled Baso # (Auto) Cancelled Abs Immat Gran (auto) Cancelled Absolute Neuts (auto) Cancelled Absolute Nucleated RBC 0.000 Nucleated RBC % (auto) 0.0 Neutrophils % (Manual) 90 H Band Neutrophils % 9 H Lymphocytes % (Manual) 1 L Abs Neuts (Manual) 13.5 H Lymphocytes # (Manual) 0.1 L Platelet Estimate NORMAL Plt Morphology Comment NORMAL RBC Morphology NORMAL Smear Tech's Comments MANUAL DIFF PT 14.0 H INR 1.2 H VBG pH 7.48 H VBG pCO2 39 VBG pO2 50 VBG HCO3 30 H VBG O2 Saturation 86.0 VBG Base Excess 6.5 Anion Gap 13 Estim Creat Clear Calc 37.4 Estimated GFR > 60 Random Glucose 100 Lactic Acid 2.3 H* Lactic Acid F/U @ 2Hr Calcium 8.9 Magnesium 1.9 Total Bilirubin 0.7 Direct Bilirubin 0.3 AST 19 ALT 15 Alkaline Phosphatase 97 Troponin I High Sens 10.1 B-Natriuretic Peptide 184 H Total Protein 7.3 Albumin 3.6 Urine Color Yellow Urine Appearance Clear Urine pH 7.5 Ur Specific [place] 1.010 Urine Protein Negative Urine Glucose (UA) Negative Urine Ketones Negative Urine Blood Trace H Urine Nitrite Negative Ur Leukocyte Esterase Negative Urine RBC 0-2 Urine WBC 0-5 Ur Squamous Epith Cells 0-2 Urine Bacteria None Seen Hyaline Casts 0-2 Influenza Type A (PCR) NEGATIVE Influenza Type B (PCR) NEGATIVE RSV RNA Qual (PCR) NEGATIVE SARS-CoV-2 RNA (RT-PCR) NEGATIVE 12/29/23 20:13 MCV MCH MCHC RDW Plt Count MPV Immature Gran % (Auto) Neut % (Auto) Lymph % (Auto) [place] % (Auto) Eos % (Auto) Baso % (Auto) Lymph # (Auto) [place] # (Auto) Eos # (Auto) Baso # (Auto) Abs Immat Gran (auto) Absolute Neuts (auto) Absolute Nucleated RBC Nucleated RBC % (auto) Neutrophils % (Manual) Band Neutrophils % Lymphocytes % (Manual) Abs Neuts (Manual) Lymphocytes # (Manual) Platelet Estimate Plt Morphology Comment RBC Morphology Smear Tech's Comments PT INR VBG pH VBG pCO2 VBG pO2 VBG HCO3 VBG O2 Saturation VBG Base Excess Anion Gap Estim Creat Clear Calc Estimated GFR Random Glucose Lactic Acid Lactic Acid F/U @ 2Hr 1.1 Calcium Magnesium Total Bilirubin Direct Bilirubin AST ALT Alkaline Phosphatase Troponin I High Sens B-Natriuretic Peptide Total Protein Albumin Urine Color Urine Appearance Urine pH Ur Specific [place] Urine Protein Urine Glucose (UA) Urine Ketones Urine Blood Urine Nitrite Ur Leukocyte Esterase Urine RBC Urine WBC Ur Squamous Epith Cells Urine Bacteria Hyaline Casts Influenza Type A (PCR) Influenza Type B (PCR) RSV RNA Qual (PCR) SARS-CoV-2 RNA (RT-PCR) Imaging Radiologist's Impressions: Impressions Chest X-Ray 12/29/23 18:32 IMPRESSION: 1. Mild interstitial infiltrate at left lung base. 2. Mild perihilar interstitial infiltrates. 3. No dense consolidation pneumonia. 4. No pleural effusion. Assessment and Plan (1) Pneumonia: Status: Acute (2) Atrial flutter: Status: Acute Plan This is a 88-year-old male with pertinent history of BPH, mixed hyperlipidemia, history of CVA, tobacco use disorder who presents to the emergency department for evaluation of fevers. #. Acute hypoxemic respiratory failure and Sepsis due to left-sided pneumonia: Resuscitated with IV crystalloids. Initiating empiric IV antibiotics. Lactic acid obtained. Blood culture and sputum culture pending. Continue supplemental oxygen and wean as tolerated #. Atrial flutter with RVR, ?new onset: Given IV diltiazem push in the ER. Obtaining TSH and echocardiogram. Consulting Cardiology. Chads Vasc score 4, will benefit from anticoagulation #. History of CVA: On aspirin and statin #. Tobacco use disorder: Counseled regarding cessation. Refused nicotine patch in the hospital Med rec pending Admit as inpatient and will require two night minimum hospital stay for IV antibiotics, supplemental oxygen, monitoring of heart rate (as above), which is not possible in a lesser acute setting. Specialist consult pending Quality Stroke Does the patient have a stroke diagnosis?: No VTE Prior VTE?: No VTE Risk Level:: Medical - moderate - high VTE Device Contraindication: Treatment Not Indicated VTE Drug Contraindication: N/A - Med Ordered
[2023-12-29] MEDS: Enoxaparin Sodium 40 MG/0.4 ML SYRINGE SUBCUT (22:03)
[2023-12-29] MEDS: dilTIAZem HCL 50 MG/10 ML VIAL 10 MG IVPUSH (22:12)
--- NOTE | 2023-12-29 22:14 | PC.NURSE ---
MD Ortiz at bedside evaluating pt- wishes to proceed with cardizem for HR 124 medicated per MAR
--- NOTE | 2023-12-29 22:17 | PC.NURSE ---
medicated per oct, notified CALLIE scott
--- NOTE | 2023-12-29 22:18 | PC.NURSE ---
DIlt administered pt HR 87 bpm- [place] catheter applied
--- NOTE | 2023-12-29 22:26 | MHC.EDTECH ---
condom catheter placed per request of RN. Pt tolerated well
[2023-12-29] MEDS: 0.9 % Sodium Chloride Flush 3 ML SYRINGE IVFLUSH (23:59)
[2023-12-30] VITALS (10 sets, daily range): BP systolic 103–140; BP diastolic 56–83; PULSE 84–126; RESP 16–20; TEMP 36.6–37.2; O2SAT 91–100; BMI 15.7
--- NOTE | 2023-12-30 00:03 | PC.NURSE ---
Assumed care for pt. Pt resting at the bedside. A - flutter on monitor with HR 115-130's. Breaths are even regular and unlabored. O2 sat 100% on 2L via oxy mask. Pt denies any pain at this time. In and out of sleep. [place] text sent to Dr. Ortiz regarding HR. No new orders at this time. Pt is pending bed assignment. Monitoring is ongoing.
[2023-12-30] MEDS: dilTIAZem HCL 50 MG/10 ML VIAL 15 MG IVPUSH (00:09)
--- NOTE | 2023-12-30 00:12 | PC.NURSE ---
Pt medicated per OCT. Tolerted well.
[2023-12-30 05:22] LABS: Hemoglobin 11.5 g/dl (14.0-18.0); Mean Corpuscular HGB Conc 31.9 g/dl (31.0-36.0); Mean Corpuscular Hemoglobin 30.4 pg (27.0-33.0); Mean Corpuscular Volume 95.2 fL (80.0-98.0); Mean Platelet Volume 9.2 fL (9.4-12.4); Platelet Count 186 X10*3/uL (160-400); Red Blood Count 3.78 X10*6/uL (4.60-5.80); Red Cell Distribution Width 14.8 % (11.0-16.0); White Blood Count 25.8 X10*3/uL (4.8-10.8)
[2023-12-30 05:37] LABS: Anion Gap 15 (12-20); Blood Urea Nitrogen 20 mg/dL (9-16); Calcium 8.1 mg/dL (8.4-10.2); Carbon Dioxide 24 mmol/L (22-29); Chloride 105 mmol/L (96-108); Estimated Glomerular Filt Rate > 60; Glucose Random 149 mg/dL (60-115); Potassium 4.1 mmol/L (3.3-5.1); Sodium 140 mmol/L (135-145)
--- NOTE | 2023-12-30 06:10 | PC.NURSE ---
Pts daughter, Mercy López, called for an update. Update provided. Reports son in law will be visiting later on today. Pt is currently sleeping. Will update pt when he awaken. Monitoring is ongoing.
--- NOTE | 2023-12-30 07:00 | CA_ITS ---
Transthoracic Echocardiogram Patient (Last, First, Middle): Luis Reina, Gender: Male Date of : 1935 Age: 88 Procedure Date: 12/30/2023 Procedure Type: Transthoracic Echocardiogram Location: [facility] – [place] Height: 175.26 cm Weight: 48.54 kg BSA: 1.58 m2 Heart Rate: bpm BP: 103 / 56 mmHg [place] Assistant: Referring MD: Max Ortiz MD Symptoms: atrial flutter Study Quality: Adequate ECG Rhythm: Atrial Fibrillation Conclusions: - The left ventricular systolic function is low normal. The visually estimated ejection fraction is between 50-55%. - There is mild aortic valve regurgitation. - Mild pulmonary hypertension is present. - There is mild dilatation of the ascending aorta measuring 4.20 cm. Findings Left Ventricle Normal left ventricular cavity size. There is normal left ventricular wall thickness. The left ventricular systolic function is low normal. The visually estimated ejection fraction is between 50-55%. Diastolic function is indeterminate on the basis of available data. Right Ventricle Normal right ventricular cavity size and systolic function. Atria The left atrium is normal in size. The right atrium is severely dilated. Aortic Valve There is a normal trileaflet aortic valve. There is no aortic valve stenosis. There is mild aortic valve regurgitation. Mitral Valve There is mild mitral annular calcification. There is trace mitral valve regurgitation. There is no mitral valve stenosis. Pulmonic Valve The pulmonic valve is likely normal. Tricuspid Valve Normal tricuspid valve structure. There is trace tricuspid valve regurgitation. Mild pulmonary hypertension is present. Great Vessels There is mild dilatation of the ascending aorta measuring 4.20 cm. Venous The inferior vena cava is dilated and collapses less than 50% with inspiration. Pericardium/Pleural There is no evidence of pericardial effusion. Prior Study Comparison No significant change compared to prior study dated: 02/04/2019. Measurements 2D Linear Measurements IVSd: 1.02 0.6-0.9/0.6-1.0 cm LVIDd: 3.90 3.9-5.3/4.2-5.9 cm LVIDd Index: 2.47 2.4-3.2/2.2-3.1 cm/m2 LVIDs: 2.09 2.0-3.6 cm LVPWd: 0.90 0.7-1.1 cm Ao Root: 4.20 2.1-3.5 cm LA Diam: 2.60 2.7-3.8/3.0-4.0 cm LAIDs Index: 1.65 1.5-2.3 cm/m2 LV Mass: 143.23 67-162/88-224 g LV Mass Index: 90.65 43-95/49-115 g/m2 LVOT Diam: 2.30 3.0+(-)1.3 cm 2D Systolic Function EF 4C: 51.40 >55% EF 2C: 58.90 >55% EF BiP: 54.80 >55% Mitral Valve MV Pk E: 1.29 MV Decel Time: 144.00 E'Lateral: 11.20 E'Medial: 6.64 E/E' Med: 19.40 E/E' Lat: 11.50 PHT: 42.00 MVA PHT: 5.24 Decel [place]: 8.90 Aortic Valve AoV Pk Issa: 0.92 AoV Mn Issa: 0.62 AoV VTI: 0.18 AoV Pk Grad: 3.00 Aov Mn Grad: 2.00 NOEMY Cont.VTI: 3.45 AI Pk Issa: 4.17 AI [place]: 3.83 LVOT LVOT Pk Issa: 0.63 LVOT Mn Issa: 0.41 LVOT VTI: 0.15 LVOT Pk Grad: 2.00 LVOT Mn Grad: 1.00 LVOT Diam: 2.30 LVOT Area: 4.15 Diastolic Function MV Pk E: 1.29 E'Medial: 6.64 E/E' Med: 19.40 E' Laterial: 11.20 E/E' Lat: 11.50 Right Ventricle TAPSE (mm): 24.00 Tricuspid Valve TR Pk Issa: 2.68 TR Pk Grad: 29.00 RA Press: 15.00 RVSP: 44.00 Great Vessels Aorta Ao Root-2D: 4.20 2.0-3.7 cm Ao Asc: 4.20 2.1-3.4 cm Pulmonary Valve PV Pk Issa: 0.94 Peak PV Grad: 4.00 Updated in Other Vendor System with Status of Final Daniel Farmer MD electronically signed on 12/30/2023 2:30:10 PM with status of Final
--- NOTE | 2023-12-30 07:43 | P.PNIM_ITS ---
Subjective Subjective Date of Service: 12/30/23 Interval History: Being followed for pneumonia and atrial flutter Patient denies shortness of breath, denies chest pain, no palpitations, complaining of cough, no headache no dizziness, denies fever, denies chills, stunner animal showed atrial flutter with stable ventricular rate. Review of Systems All other system reviewed and negative Physical Exam 2 Vital Signs: Vital Signs: Last Vital Signs Temp 98.4 F 12/30/23 07:21 Pulse 88 12/30/23 07:21 Resp 16 12/30/23 07:21 BP 121/58 L 12/30/23 07:21 Pulse Ox 96 12/30/23 07:21 O2 Del Method Oxymask 12/30/23 07:21 O2 Flow Rate 2 12/30/23 07:21 BMI result Body Mass Index 15.9 Const: Other: General frail- elderly gentleman , in no acute distress. Neck supple no JVD. CVS regular rate rhythm, Respiratory lungs few left basilar crackles, no respiratory distress, no wheeze, no rhonchi. Gastrointestinal abdomen soft, non tender, bowel sounds audible Extremities no edema. Neuro non focal Skin no rash Objective Data Active Medications Acetaminophen (Acetaminophen 325 Mg Tablet) 650 mg PO Q6H PRN PRN Reason: Pain, Mild (Pain Scale 1-3) Enoxaparin Sodium (Enoxaparin Sodium 40 Mg/0.4 Ml Syringe) 40 mg SUBCUT Q24H [facility] Last Admin: 12/29/23 22:03 Dose: 40 mg Documented By: DAMIEN Ceftriaxone Sodium 1 gm/ (Sodium Chloride) 50 mls @ 100 mls/hr IV Q24H [facility] Azithromycin 500 mg/ Sodium (Chloride) 250 mls @ 125 mls/hr IV Q24H [facility] Melatonin (Melatonin 3 Mg Tablet) 6 mg PO BEDTIME PRN PRN Reason: Insomnia Ondansetron HCl (Ondansetron Hcl 4 Mg/2 Ml Vial) 4 mg IVPUSH Q8H PRN PRN Reason: Nausea and Vomiting Sodium Chloride (0.9 % Sodium Chloride Flush 3 Ml Syringe) 3 ml IVFLUSH QSHIFT [facility] Last Admin: 12/30/23 07:23 Dose: Not Given Documented By: JOSELITO Non-Admin Reason: See Note Labs 12/30/23 04:30 12/30/23 04:30 Labs: Laboratory Results - last 24 hr 12/29/23 12/29/23 12/29/23 17:51 18:10 19:15 MCV 94.8 MCH 30.5 MCHC 32.2 RDW 14.6 Plt Count 201 MPV 8.6 L Immature Gran % (Auto) Cancelled Neut % (Auto) Cancelled Lymph % (Auto) Cancelled [place] % (Auto) Cancelled Eos % (Auto) Cancelled Baso % (Auto) Cancelled Lymph # (Auto) Cancelled [place] # (Auto) Cancelled Eos # (Auto) Cancelled Baso # (Auto) Cancelled Abs Immat Gran (auto) Cancelled Absolute Neuts (auto) Cancelled Absolute Nucleated RBC 0.000 Nucleated RBC % (auto) 0.0 Neutrophils % (Manual) 90 H Band Neutrophils % 9 H Lymphocytes % (Manual) 1 L Abs Neuts (Manual) 13.5 H Lymphocytes # (Manual) 0.1 L Platelet Estimate NORMAL Plt Morphology Comment NORMAL RBC Morphology NORMAL Smear Tech's Comments MANUAL DIFF PT 14.0 H INR 1.2 H VBG pH 7.48 H VBG pCO2 39 VBG pO2 50 VBG HCO3 30 H VBG O2 Saturation 86.0 VBG Base Excess 6.5 Anion Gap 13 Estim Creat Clear Calc 37.4 Estimated GFR > 60 Random Glucose 100 Lactic Acid 2.3 H* Lactic Acid F/U @ 2Hr Calcium 8.9 Magnesium 1.9 Total Bilirubin 0.7 Direct Bilirubin 0.3 AST 19 ALT 15 Alkaline Phosphatase 97 Troponin I High Sens 10.1 B-Natriuretic Peptide 184 H Total Protein 7.3 Albumin 3.6 TSH Urine Color Yellow Urine Appearance Clear Urine pH 7.5 Ur Specific [place] 1.010 Urine Protein Negative Urine Glucose (UA) Negative Urine Ketones Negative Urine Blood Trace H Urine Nitrite Negative Ur Leukocyte Esterase Negative Urine RBC 0-2 Urine WBC 0-5 Ur Squamous Epith Cells 0-2 Urine Bacteria None Seen Hyaline Casts 0-2 Influenza Type A (PCR) NEGATIVE Influenza Type B (PCR) NEGATIVE RSV RNA Qual (PCR) NEGATIVE SARS-CoV-2 RNA (RT-PCR) NEGATIVE 12/29/23 12/30/23 20:13 04:30 MCV 95.2 MCH 30.4 MCHC 31.9 RDW 14.8 Plt Count 186 MPV 9.2 L Immature Gran % (Auto) Neut % (Auto) Lymph % (Auto) [place] % (Auto) Eos % (Auto) Baso % (Auto) Lymph # (Auto) [place] # (Auto) Eos # (Auto) Baso # (Auto) Abs Immat Gran (auto) Absolute Neuts (auto) Absolute Nucleated RBC 0.000 Nucleated RBC % (auto) 0.0 Neutrophils % (Manual) Band Neutrophils % Lymphocytes % (Manual) Abs Neuts (Manual) Lymphocytes # (Manual) Platelet Estimate Plt Morphology Comment RBC Morphology Smear Tech's Comments PT INR VBG pH VBG pCO2 VBG pO2 VBG HCO3 VBG O2 Saturation VBG Base Excess Anion Gap 15 Estim Creat Clear Calc 45.0 Estimated GFR > 60 Random Glucose 149 H Lactic Acid Lactic Acid F/U @ 2Hr 1.1 Calcium 8.1 L D Magnesium Total Bilirubin Direct Bilirubin AST ALT Alkaline Phosphatase Troponin I High Sens B-Natriuretic Peptide Total Protein Albumin TSH 1.10 Urine Color Urine Appearance Urine pH Ur Specific [place] Urine Protein Urine Glucose (UA) Urine Ketones Urine Blood Urine Nitrite Ur Leukocyte Esterase Urine RBC Urine WBC Ur Squamous Epith Cells Urine Bacteria Hyaline Casts Influenza Type A (PCR) Influenza Type B (PCR) RSV RNA Qual (PCR) SARS-CoV-2 RNA (RT-PCR) Assessment and Plan (1) Atrial flutter with rapid ventricular response: Status: Acute (2) Pneumonia: Status: Acute Plan 88-year-old male with pertinent history of BPH, mixed hyperlipidemia, history of CVA, tobacco use disorder who presents to the emergency department for evaluation of fevers. #. Acute hypoxemic respiratory failure and Sepsis due to left-sided pneumonia: on IV ceftriaxone and azithromycin, will DC IV ceftriaxone and placed on IV Zosyn Met sepsis criteria due to fever tachypnea tachycardia now resolved, acute lactic acidosis 2.3 on admission improved to 1.1 Blood culture 1/2 positive for g positive faith and Gram-negative faith Continue supplemental oxygen and wean as tolerated Follow CBC and final blood culture report Resume diet. #. Atrial flutter with RVR, treated with IV diltiazem in emergency room, seen by Cardiology they recommend to continue Eliquis and beta-blockers Normal TSH , follow echocardiogram. Chads Vasc score 4, seen by Cardiology they recommend beta-blockers and Eliquis 2.5 mg b.i.d. #. History of CVA: On aspirin and simvastatin, will place on Lipitor 10 mg daily, DC aspirin since placed on Eliquis. #. Tobacco use disorder: Counseled regarding cessation. Patient declined nicotine patch. # DVT prophylaxis will DC Lovenox and place patient on Eliquis Patient requires continued inpatient hospitalization for treatment of bacteremia with IV antibiotics, supplemental oxygen, monitoring of heart rate (as above), which is not possible in a lesser acute setting. Quality Stroke Does the patient have a stroke diagnosis?: No VTE Prior VTE?: No VTE Risk Level:: Medical - moderate - high VTE Device Contraindication: Treatment Not Indicated VTE Drug Contraindication: N/A - Med Ordered
--- NOTE | 2023-12-30 08:00 | PC.NURSE ---
patient is resting in bed quietly, patient on oxymask 2l. respirations equal and unlabored, patient has occasional productive cough. patient states he feels tired and wants to be covered up. VSS. patient aflutter on the monitor, rate in the 80s.
--- NOTE | 2023-12-30 09:05 | MHC.CM.PN ---
Patient was unavailable; CM spoke with Daughter/HCP/[facility] @ [phone] and addressed IMM with her (original will be mailed certified letter to [facility] and a copy will be placed on the chart). Patient lives in a house with [facility], his Son-in-Law and his Grandson and he uses a walker to assist with mobility. Patient may benefit from a PT eval to assist with disposition. CM has initiated and will follow for dc planning. PCP is Dr.Michael Neri/Elen Noonan.
--- NOTE | 2023-12-30 10:46 | PM.CNCAR ---
History of Present Illness History of Present Illness Date of Service: 12/30/23 Chief complaint: Fevers Narrative: This is a cardiology consultation regarding atrial flutter. Patient himself is not able to really give me much information. Per documentation, it seems that he came for evaluation of fevers. There has also been cough with purulent sputum. In this context, treated as pneumonia but also found to have atrial flutter with rapid rate. Hence we are consulted. Patient not able to give any symptoms or other information. Review of Systems Review of Systems: Unable to obtain [facility] Past Medical History Medical History Smoker AAA (abdominal aortic aneurysm) without rupture Saccular aneurysm BPH w urinary obs/LUTS Acute CVA (cerebrovascular accident) UTI (urinary tract infection) HLD (hyperlipidemia) Family History Pertinent family history: No pertinent family history Social History Social History Household Members: Children Household Members Other:: Daughter and Son in Law Housing: House Are you a primary career based intervention coordinator to a significant other at home: No Alcohol intake: never Patient Tobacco Use Status: Current everyday Tobacco user Tobacco use type: Cigarette Cigarette Packs Per Day: 1.5 Cigarettes Per Day: 30.0 Years Smoked: 72 Smoked in Last 30 Days: Yes Second Hand Smoke Exposure: No Advance Directives: Yes Advance Directives on File: Yes Advance Directives Date on File: 08/14/21 Do you have a plan to hurt others: No Plan Nutrition Risks: Difficulty chewing, Difficulty swallowing and On aspiration precautions service: No Current occupational status: retired Meds Allergies Allergy/AdvReac Type Severity Reaction Status Date / Time pentazocine [From Joi] Allergy Unknown Verified 12/29/23 17:40 Active Medications: Current Medications Acetaminophen (Acetaminophen 325 Mg Tablet) 650 mg PO Q6H PRN PRN Reason: Pain, Mild (Pain Scale 1-3) Aspirin (Aspirin 325 Mg Tablet) 325 mg PO BEDTIME TEE Atorvastatin Calcium (Atorvastatin Calcium 10 Mg Tablet) 10 mg PO BEDTIME TEE Azelastine HCl (Azelastine Hcl Nasal 137 Mcg/[place] 30 Ml) 2 spray NOSTRIL-B BID TEE Enoxaparin Sodium (Enoxaparin Sodium 40 Mg/0.4 Ml Syringe) 40 mg SUBCUT Q24H [facility] Last Admin: 12/29/23 22:03 Dose: 40 mg Ceftriaxone Sodium 1 gm/ (Sodium Chloride) 50 mls @ 100 mls/hr IV Q24H [facility] Azithromycin 500 mg/ Sodium (Chloride) 250 mls @ 125 mls/hr IV Q24H [facility] Melatonin (Melatonin 3 Mg Tablet) 6 mg PO BEDTIME PRN PRN Reason: Insomnia Ondansetron HCl (Ondansetron Hcl 4 Mg/2 Ml Vial) 4 mg IVPUSH Q8H PRN PRN Reason: Nausea and Vomiting Sodium Chloride (0.9 % Sodium Chloride Flush 3 Ml Syringe) 3 ml IVFLUSH QSHIFT [facility] Last Admin: 12/30/23 07:23 Dose: Not Given Home Medications ?Medication ?Instructions ?Recorded ?Confirmed ?Last Taken ?Type aspirin 325 mg tablet 325 mg PO BEDTIME 08/10/21 12/29/23 10/26/22 History simvastatin 20 mg tablet 1 tab PO BEDTIME 08/10/21 12/29/23 Unknown History azelastine 137 mcg (0.1 %) nasal 2 spray intranasal BID 12/29/23 12/29/23 Unknown History spray aerosol triamcinolone acetonide 0.1 % 1 appl topical BID 12/29/23 Unknown History topical ointment Physical Exam Vital Signs: Vital Signs: Last Vital Signs Temp 98.4 F 12/30/23 07:21 Pulse 88 12/30/23 07:21 Resp 16 12/30/23 07:21 BP 121/58 L 12/30/23 07:21 Pulse Ox 96 12/30/23 07:21 O2 Del Method Oxymask 12/30/23 07:21 O2 Flow Rate 2 12/30/23 07:21 BMI result Body Mass Index 15.9 Const: General: comfortable and no acute distress Orientation/consciousness: No patient oriented x3 HEENT: Other: Unremarkable Head: Yes normal to inspection Neck: Neck: Yes normal visual inspection Chest: Chest palpation & inspection: normal inspection of the chest Resp: Auscultation: clear to auscultation bilaterally Cardio: Palpation: normal PMI Heart sounds: S1 normal heart sound present, S2 normal heart sound present, no gallops, no murmurs and no rubs GI: Palpation (GI): Soft to palpation Back/Spine/Pelvis: Other: unremarkable Skin: General skin exam: no rashes or lesions noted Neuro: General: No patient oriented x3 Extrem: General: Yes normal to inspection Psych: Mental Status: mental status grossly abnormal Objective Labs and Meds 12/30/23 04:30 12/30/23 04:30 Lab results: Laboratory Results - last 24 hr 12/29/23 12/29/23 12/29/23 17:51 18:10 19:15 WBC 13.6 H RBC 4.06 L Hgb 12.4 L Hct 38.5 L MCV 94.8 MCH 30.5 MCHC 32.2 RDW 14.6 Plt Count 201 MPV 8.6 L Immature Gran % (Auto) Cancelled Neut % (Auto) Cancelled Lymph % (Auto) Cancelled Island % (Auto) Cancelled Eos % (Auto) Cancelled Baso % (Auto) Cancelled Lymph # (Auto) Cancelled Island # (Auto) Cancelled Eos # (Auto) Cancelled Baso # (Auto) Cancelled Abs Immat Gran (auto) Cancelled Absolute Neuts (auto) Cancelled Absolute Nucleated RBC 0.000 Nucleated RBC % (auto) 0.0 Neutrophils % (Manual) 90 H Band Neutrophils % 9 H Lymphocytes % (Manual) 1 L Abs Neuts (Manual) 13.5 H Lymphocytes # (Manual) 0.1 L Platelet Estimate NORMAL Plt Morphology Comment NORMAL RBC Morphology NORMAL Smear Tech's Comments MANUAL DIFF PT 14.0 H INR 1.2 H VBG pH 7.48 H VBG pCO2 39 VBG pO2 50 VBG HCO3 30 H VBG O2 Saturation 86.0 VBG Base Excess 6.5 Sodium 142 Potassium 4.3 Chloride 103 Carbon Dioxide 30 H Anion Gap 13 BUN 26 H Creatinine 0.94 Estim Creat Clear Calc 37.4 Estimated GFR > 60 Random Glucose 100 Lactic Acid 2.3 H* Lactic Acid F/U @ 2Hr Calcium 8.9 Magnesium 1.9 Total Bilirubin 0.7 Direct Bilirubin 0.3 AST 19 ALT 15 Alkaline Phosphatase 97 Troponin I High Sens 10.1 B-Natriuretic Peptide 184 H Total Protein 7.3 Albumin 3.6 TSH Urine Color Yellow Urine Appearance Clear Urine pH 7.5 Ur Specific [place] 1.010 Urine Protein Negative Urine Glucose (UA) Negative Urine Ketones Negative Urine Blood Trace H Urine Nitrite Negative Ur Leukocyte Esterase Negative Urine RBC 0-2 Urine WBC 0-5 Ur Squamous Epith Cells 0-2 Urine Bacteria None Seen Hyaline Casts 0-2 Influenza Type A (PCR) NEGATIVE Influenza Type B (PCR) NEGATIVE RSV RNA Qual (PCR) NEGATIVE SARS-CoV-2 RNA (RT-PCR) NEGATIVE 12/29/23 12/30/23 20:13 04:30 WBC 25.8 H RBC 3.78 L Hgb 11.5 L Hct 36.0 L MCV 95.2 MCH 30.4 MCHC 31.9 RDW 14.8 Plt Count 186 MPV 9.2 L Immature Gran % (Auto) Neut % (Auto) Lymph % (Auto) Island % (Auto) Eos % (Auto) Baso % (Auto) Lymph # (Auto) [place] # (Auto) Eos # (Auto) Baso # (Auto) Abs Immat Gran (auto) Absolute Neuts (auto) Absolute Nucleated RBC 0.000 Nucleated RBC % (auto) 0.0 Neutrophils % (Manual) Band Neutrophils % Lymphocytes % (Manual) Abs Neuts (Manual) Lymphocytes # (Manual) Platelet Estimate Plt Morphology Comment RBC Morphology Smear Tech's Comments PT INR VBG pH VBG pCO2 VBG pO2 VBG HCO3 VBG O2 Saturation VBG Base Excess Sodium 140 Potassium 4.1 Chloride 105 Carbon Dioxide 24 Anion Gap 15 BUN 20 H Creatinine 0.78 Estim Creat Clear Calc 45.0 Estimated GFR > 60 Random Glucose 149 H Lactic Acid Lactic Acid F/U @ 2Hr 1.1 Calcium 8.1 L D Magnesium Total Bilirubin Direct Bilirubin AST ALT Alkaline Phosphatase Troponin I High Sens B-Natriuretic Peptide Total Protein Albumin TSH 1.10 Urine Color Urine Appearance Urine pH Ur Specific [place] Urine Protein Urine Glucose (UA) Urine Ketones Urine Blood Urine Nitrite Ur Leukocyte Esterase Urine RBC Urine WBC Ur Squamous Epith Cells Urine Bacteria Hyaline Casts Influenza Type A (PCR) Influenza Type B (PCR) RSV RNA Qual (PCR) SARS-CoV-2 RNA (RT-PCR) ECG Interpretation: EKG shows atrial flutter at a rate of 132/Min. Currently, rate is in the 80s. Imaging Radiologist's impression: Impressions Chest X-Ray 12/29/23 18:32 IMPRESSION: 1. Mild interstitial infiltrate at left lung base. 2. Mild perihilar interstitial infiltrates. 3. No dense consolidation pneumonia. 4. No pleural effusion. Assessment and Plan (1) Atrial flutter with rapid ventricular response: Status: Acute Plan Initially, he was in atrial flutter with rapid ventricular rate but currently controlled. May use a small dose of beta-blockers for rate control. Can stop aspirin/Lovenox and use Eliquis for anticoagulation. Echocardiogram. Discussed with Dr. Thurman. Procedures Date of Service Date of Service: 12/30/23
[2023-12-30] MEDS: Metoprolol Succinate ER 25 MG TAB.ER.24H PO (12:20)
[2023-12-30] MEDS: Piperacillin Sodium/Tazobactam 3.375 GM in 0.9 % Sodium Chloride 50 ML IV ×2 (12:20→17:47)
[2023-12-30] MEDS: 0.9 % Sodium Chloride Flush 3 ML SYRINGE IVFLUSH ×2 (12:21→21:25)
--- NOTE | 2023-12-30 15:38 | MHC.SL.SWA ---
Risk of Aspiration Due to: Lethargy Weak Voice Dysphasia Diet Status: DOWNGRADE solids Liquid Consistency and Strategies for Safe Swallow: Liquid Intake Recommendation: Thin Liquid Intake Strategies: Small Sips Solid Food Consistency: Dietary Recommendations: Pureed (NDD1) Oral Medication Intake: Whole/crushed with Puree Please contact the pharmacy regarding appropriate crushable or liquid drug formulations that are available whenever modified delivery is recommended. Compensatory Strategies and Precautions to be Taken for Safe Swallow: Sitting Upright (90 deg) Small Bites and Sips Alternate Liquids/Solids Rate of Ingestion Change Oral Check Supervision While Eating and Drinking for Safe Swallow: Total Assistance (1:1) Recommendation for Speech: Inpatient Speech Therapy Comment: Recommend DOWNGRADE to PUREE solids (NDD1) d/t oral residue with ground solids. Continue with THIN LIQUIDS. Pills WHOLE/CRUSHED in PUREE. Although patient assisted w feeding intermittently, difficulty was observed. Therefore, recommend 1-1 ASSIST. Encourage patient to assist with feeding. BURIAL VAULT DELIVERER AND INSTALLER to continue to follow for dysphagia tx to upgrade diet if/when warranted. Recommend BURIAL VAULT DELIVERER AND INSTALLER monitor speech. Night Warehouse Manager Clinican/Clinical Fellow: No Supervisory Statement: I have reviewed and agree with the student/clinical fellow's documentation: N/A Speech Language Pathologist: Ana Rice M.A., [facility] VAULT DELIVERER AND INSTALLER
--- NOTE | 2023-12-30 15:51 | MHC.CLN ---
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
[2023-12-30] MEDS: Azithromycin 500 MG in 0.9 % Sodium Chloride 250 ML 125 MG IV (17:48)
--- NOTE | 2023-12-30 17:55 | P.CDIM_ITS ---
PROVIDER RESPONSE TEXT: To clarify, the appropriate diagnosis supported by the clinical indicators: Other (explain): please see the note from today its documented thx QUERY TEXT: >>> Provider Instructions - Do not remove this line >>> PHYSICIAN'S DOCUMENTATION REQUEST Date of Query: 12/30/2023 10:19 AM EDT Patient Name: Luis Reina Admit Date: 12/30/2023 Dear Justina Thurman, A review of the medical record indicates additional documentation may be needed. Please review below and update the documentation accordingly. Clinical Indicators: Height: ( ) 5'9 Weight: ( ) 48.7 kg BMI: ( ) 15.9 Other Clinical Notes Supporting Significance of the BMI: No Nutrition Assessment in EMR If possible, please provide an associated diagnosis related to the abnormal BMI, such as: <<< Provider Instructions - Do not remove this line <<< Underweight Weight loss Cachexia Anorexia Severe Protein Calorie Malnutrition Other (explain) Clinically unable to determine (explain) >>> Contact Info - Do not remove this line>>> Thank you, Velma Brown RN Use of terms such as suspected, likely, concern for, or probable (associated with a specific diagnosi s that is being evaluated, monitored, or treated as if it exists) are acceptable and can be coded in the inpatient se tting, when documented at the time of discharge. Please use your independent medical judgment in providing your response. THIS QUERY IS PART OF THE PERMANENT MEDICAL RECORD <<< Contact Info - Do not remove this line <<< >>> Disclaimer - Do no remove this line>>> Extension: [phone] <<< Disclaimer - Do not remove this line<<<
[2023-12-30] MEDS: Melatonin 3 MG TABLET 6 MG PO (21:24)
[2023-12-30] MEDS: Acetaminophen 325 MG TABLET 650 MG PO (21:25)
[2023-12-30] MEDS: Atorvastatin Calcium 10 MG TABLET PO (21:25)
[2023-12-30] MEDS: Apixaban 2.5 MG TABLET PO (21:25)
[2023-12-31] MEDS: Piperacillin Sodium/Tazobactam 3.375 GM in 0.9 % Sodium Chloride 50 ML IV ×5 (00:18→23:51)
[2023-12-31 03:36] VITALS: BP 131/78; PULSE 104; RESP 14; TEMP 36.6; O2SAT 96
[2023-12-31 07:22] VITALS: BP 138/86; PULSE 107; RESP 20; TEMP 36.7; O2SAT 97
--- NOTE | 2023-12-31 09:26 | PM.PNCARD ---
Subjective Subjective Date of Service: 12/31/23 Interval history: Patient denies any clear cardiac symptoms. Review of Systems Review of Systems Yes all other systems are reviewed and are negative Constitutional: Reports as per HPI and Reports no additional constitutional complaints Eyes: Reports as per HPI and Denies no additional eye complaints Denies system reviewed and no additional complaints, except as documented and Reports as per HPI Cardiovascular: Reports as per HPI, Reports no additional cardiovascular complaints, Denies acrocyanosis, Denies cool extremities, Denies chest pain, Denies leg edema, Denies lightheadedness, Denies palpitations and Denies dyspnea Respiratory: Reports as per HPI, Denies no additional respiratory complaints and Denies dyspnea Gastrointestinal: Reports as per HPI and Denies no additional gastrointestinal complaints Genitourinary: Reports no additional male genitourinary complaints and Reports as per HPI Musculoskeletal: Reports no additional musculoskeletal complaints and Reports as per HPI Skin/Breast: Reports system reviewed and no additional complaints, except as docu Reports system reviewed and no additional complaints, except as documented and Reports as per HPI Psychiatric: Reports no additional psychiatric complaints and Reports as per HPI Endocrine: Reports no additional endocrine complaints, Reports as per HPI and Denies palpitations Hematologic/Lymphatic: Reports no additional hematologic/lymphatic complaints and Reports as per HPI Allergic/Immunologic: Reports no additional allergic/immunologic complaints and Reports as per HPI Physical Exam Vital Signs: Last Vital Signs Temp 98.0 F 12/31/23 07:22 Pulse 107 H 12/31/23 07:22 Resp 20 12/31/23 07:22 BP 138/86 12/31/23 07:22 Pulse Ox 97 12/31/23 07:22 O2 Del Method Room Air 12/31/23 07:22 O2 Flow Rate 2 12/30/23 19:57 BMI result Body Mass Index 15.7 Const General: comfortable, no acute distress, ill appearing and tired appearing Orientation/consciousness: patient oriented x3 HEENT Other: Unremarkable Head: Yes normal to inspection Neck Neck: Yes normal visual inspection Chest Chest palpation & inspection: normal inspection of the chest Resp Auscultation: clear to auscultation bilaterally Cardio Palpation: normal PMI Heart sounds: S1 normal heart sound present, S2 normal heart sound present, no gallops, no murmurs and no rubs GI Palpation (GI): Soft to palpation Back/Spine/Pelvis Other: unremarkable Skin General skin exam: no rashes or lesions noted Neuro General: patient oriented x3 Extrem General: Yes normal to inspection Psych Mental Status: mental status grossly abnormal Objective Labs and Meds 12/30/23 04:30 12/30/23 04:30 Progress Note: A&P Assessment and plan (1) Atrial flutter with rapid ventricular response: Status: Acute Plan Telemetry with atrial flutter with a rate around 100/Min. Recommend beta-blockers for rate control. Anticoagulation. Echocardiogram with low normal LVEF at 50-55%. Time Spent With Patient Time: Total time managing care of this patient today ____ minutes. Progress Note: Quality Stroke Does the patient have a stroke diagnosis?: No Procedures Date of Service Date of Service: 12/31/23
[2023-12-31 09:36] LABS: Hematocrit 41.9 % (42.0-52.0); Hemoglobin 13.5 g/dl (14.0-18.0); Mean Corpuscular HGB Conc 32.2 g/dl (31.0-36.0); Mean Corpuscular Hemoglobin 30.3 pg (27.0-33.0); Mean Corpuscular Volume 93.9 fL (80.0-98.0); Mean Platelet Volume 9.6 fL (9.4-12.4); Platelet Count 174 X10*3/uL (160-400); Red Blood Count 4.46 X10*6/uL (4.60-5.80); Red Cell Distribution Width 14.9 % (11.0-16.0)
[2023-12-31 09:56] VITALS: BP 138/86; PULSE 107
[2023-12-31] MEDS: 0.9 % Sodium Chloride Flush 3 ML SYRINGE IVFLUSH ×3 (09:56→21:36)
[2023-12-31] MEDS: Apixaban 2.5 MG TABLET PO ×2 (09:56→21:32)
[2023-12-31] MEDS: Metoprolol Succinate ER 50 MG TAB.ER.24H PO (09:56)
[2023-12-31 10:06] LABS: Anion Gap 18 (12-20); Blood Urea Nitrogen 31 mg/dL (9-16); Calcium 8.9 mg/dL (8.4-10.2); Carbon Dioxide 22 mmol/L (22-29); Chloride 106 mmol/L (96-108); Creatinine Clr Calc Pharmacy 33.2; Estimated Glomerular Filt Rate > 60; Glucose Random 109 mg/dL (60-115); Potassium 4.1 mmol/L (3.3-5.1); Sodium 142 mmol/L (135-145)
[2023-12-31 11:10] VITALS: BP 130/60; PULSE 98; RESP 20; TEMP 36.7; O2SAT 97
--- NOTE | 2023-12-31 11:27 | MHC.SL.SWA ---
Speech Pathologist Impression: Risk of Aspiration Due to: Lethargy Weak Voice Dysphasia Diet Status: Recommend continue on Puree (NDD1) with THIN liquids by cup sip or tsp only (NO STRAW), pills crushed in puree Liquid Consistency and Strategies for Safe Swallow: Liquid Intake Recommendation: Thin Liquid Intake Strategies: No Straws Solid Food Consistency: Dietary Recommendations: Pureed (NDD1) Additional Modifications to Solid Foods: No straws, liquids by cup sip or tsp. Encourage po intake. Patient requires 1-1 feed. Discontinue if patient exhibits clinical signs of aspiration (coughing, throat clearing, upper airway noise). Oral Medication Intake: Whole with Puree Please contact the pharmacy regarding appropriate crushable or liquid drug formulations that are available whenever modified delivery is recommended. Compensatory Strategies and Precautions to be Taken for Safe Swallow: Sitting Upright (90 deg) No Straw Liquids from Cup Liquids from Spoon Small Bites and Sips Alternate Liquids/Solids Rate of Ingestion Change Supervision While Eating and Drinking for Safe Swallow: Total Assistance (1:1) Foods to Avoid: Mixed consistencies. Add sauces and gravies and blend well. Swallowing Recommended Treatments: Compens. Strategy Educat. Recommendation for Speech: Inpatient Speech Therapy Comment: Patient seen during breakfast this a.m. Patient was alone in room with breakfast tray present, when asked if he wanted to eat, he expressed interest, but requested Logan Shortcake. INDUSTRIAL PRODUCTION MANAGER offered the magic cup which came with his tray, which patient accepted, taking the full amount of the cup, fed by tsp. Swallow noted to be mildly delayed consistently, with mildly reduced laryngeal elevation noted. Patient also had nutritional shake on tray, this was also offered, given by straw sip which was indicated as ok. However on straw sip, patient noted to cough repeatedly on swallow. Drink transferred to cup, with patient taking sips with hand over hand assistance (this improved patient's awareness/responsiveness to drinking from cup). Patient again evidenced mild delay/absent swallow trigger on cup sip, but had no clinical signs of aspiration. Patient refused all other offers of food. Recommend continue on Puree (NDD1) with THIN liquids by cup sip or tsp only (NO STRAW), pills crushed in puree. INDUSTRIAL PRODUCTION MANAGER will continue to follow. Frequency/Duration: Date Range for Service Req: Timeline to reassess: Employee Operations Examiner Clinican/Clinical Fellow: No Supervisory Statement: I have reviewed and agree with the student/clinical fellow's documentation: N/A Speech Language Pathologist: Radha Hurd M.A., CCC-INDUSTRIAL PRODUCTION MANAGER
--- NOTE | 2023-12-31 11:56 | HO.WOUND ---
Wound Consult: Initial 88yr old?Male admitted to [facility] on 12/28 - See progress notes and H&P for detailed history.? Wound consult placed for Left Eyebrow, Nose and Bilateral Hips - POA.? Patient agreeable to assessment and photo documentation.? Patient son at bedside and reports she has not treated at the wound clinic and does not recieve home services. He reports his father is independent in ambulation around the home and does not have a specialty bed but does have a sleep number mattress. He reports he and his have treated the wounds with foam dressing at home. The patient is agreeable to assessment and is alert and orientated however at times his speech is unclear and I am not able to decipher what he is trying to say. He overall appears malnourished - nutrition following and supplements in place. Patients son reports left eye brow and nose are the result of a fall two weeks ago. Left eyebrow resurfaced - scab removed with cleansing - no topical interventions needed. Bridge of nose - small scabbed area remains along with one suture - Dr. Darnell to be notified for removal assessment. No topical interventions needed at this time. Bilateral Heels assess no injury noted - foam dressing and elevated off of bed surface for prevention. Sacrum assessed no injury noted - preventative foam dressing in place. Peel back and assess Q shift and change every 3 days and PRN. 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 well defined hyperpigmented and scar tissue noted Rosa wound: ? No Induration, Fluctuance or Warmth noted Pain: reports pain Goals of Treatment: ? 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 well defined hyperpigmented and scar tissue noted Rosa wound: ? No Induration, Fluctuance or Warmth noted Pain: denies pain Goals of Treatment: ? Foam dressing and off loading pressure Recommendations: 1. Turn and Reposition every 2 hours and as needed for patient comfort.? Use pillows or wedges to support off loading positions. 2. Off Load all bony prominences with use of pillows and heel boots if needed.? Apply Preventative foams where needed. ? 3. Monitor for incontinence and moisture control, use barrier creams when needed for prevention and treatment. 4. Provide adequate and supplemental nutrition.? 5. Order low air loss mattress. 6. Bilateral Heels, Hips and Sacrum - Apply foam dressings peel back and assess Q shift and change every 3 days. 7. Bridge of nose and Left eyebrow - No topical recommendations needed. Re-consult wound care Nurse for wound deterioration or wound changes.
--- NOTE | 2023-12-31 14:55 | P.PNIM_ITS ---
Subjective Subjective Date of Service: 01/01/24 Interval History: Patient noted to be confused this morning, unable to answer questions appropriately, son-in-law at bedside, patient lives with his daughter and son-in-law. No overnight acute events. No fevers, no chills, no nausea, no vomiting, decreased by mouth intake Review of Systems Unable to obtain review of system due to mental status Physical Exam 2 Vital Signs: Vital Signs: Last Vital Signs Temp 98.0 F 12/31/23 11:10 Pulse 98 12/31/23 11:10 Resp 20 12/31/23 11:10 BP 130/60 12/31/23 11:10 Pulse Ox 97 12/31/23 11:10 O2 Del Method Room Air 12/31/23 11:10 O2 Flow Rate 2 12/30/23 19:57 BMI result Body Mass Index 15.7 Const: Other: General frail- elderly gentleman , pulling sheets, in no acute distress. Neck supple no JVD. CVS regular rate rhythm, Respiratory lungs few left basilar crackles, no respiratory distress, no wheeze, no rhonchi. Gastrointestinal abdomen soft, non tender, bowel sounds audible Extremities no edema. Neuro moving all 4 extremities,, speech clear, not making sense Skin no rash Objective Data Active Medications Acetaminophen (Acetaminophen 325 Mg Tablet) 650 mg PO Q6H PRN PRN Reason: Pain, Mild (Pain Scale 1-3) Last Admin: 12/30/23 21:25 Dose: 650 mg Documented By: LV Apixaban (Apixaban 2.5 Mg Tablet) 2.[address] [facility] Last Admin: 12/31/23 09:56 Dose: 2.5 mg Documented By: YARELI Atorvastatin Calcium (Atorvastatin Calcium 10 Mg Tablet) [address] [facility] Last Admin: 12/30/23 21:25 Dose: 10 mg Documented By: LV Azelastine HCl (Azelastine Hcl Nasal 137 Mcg/[place] 30 Ml) 2 spray NOSTRIL-B BID [facility] Last Admin: 12/31/23 09:57 Dose: Not Given Documented By: YARELI Non-Admin Reason: Med Not Available Azithromycin 500 mg/ Sodium (Chloride) 250 mls @ 125 mls/hr IV Q24H [facility] Last Infusion: 05/01/24 21:24 Dose: Infused Documented By: LV Piperacillin Sod/Tazobactam (Sod 3.375 gm/ Sodium Chloride) 50 mls @ 100 mls/hr IV Q6H [facility] Last Infusion: 12/31/23 13:46 Dose: Infused Documented By: YARELI Melatonin (Melatonin 3 Mg Tablet) 6 mg PO BEDTIME PRN PRN Reason: Insomnia Last Admin: 12/30/23 21:24 Dose: 6 mg Documented By: LV Metoprolol Succinate (Metoprolol Succinate Er 50 Mg Tab.Er.24h) [address] [facility]; Protocol Last Admin: 12/31/23 09:56 Dose: 50 mg Documented By: YARELI Ondansetron HCl (Ondansetron Hcl 4 Mg/2 Ml Vial) 4 mg IVPUSH Q8H PRN PRN Reason: Nausea and Vomiting Sodium Chloride (0.9 % Sodium Chloride Flush 3 Ml Syringe) [address] [facility] Last Admin: 12/31/23 09:56 Dose: 3 ml Documented By: YARELI Labs 01/01/24 07:57 01/01/24 07:57 Labs: Laboratory Results - last 24 hr 12/31/23 08:30 MCV 93.9 MCH 30.3 MCHC 32.2 RDW 14.9 Plt Count 174 MPV 9.6 Absolute Nucleated RBC 0.000 Nucleated RBC % (auto) 0.0 Anion Gap 18 Estim Creat Clear Calc 33.2 Estimated GFR > 60 Random Glucose 109 Calcium 8.9 D Microbiology Microbiology Results: Microbiology 12/29/23 18:04 Blood Culture - Preliminary Blood - Venous Prelim: GNR Gram Stain only Prelim: GPR Gram Stain only 12/29/23 18:03 Blood Culture - Preliminary Blood - Venous Prelim: GNR Gram Stain only Prelim: GPR Gram Stain only Assessment and Plan (1) Atrial flutter with rapid ventricular response: Status: Acute (2) Pneumonia: Status: Acute Plan 88-year-old male with pertinent history of BPH, mixed hyperlipidemia, history of CVA, tobacco use disorder who presents to the emergency department for evaluation of fevers, productive cough and admitted with following diagnosis. #. Acute hypoxemic respiratory failure and Sepsis due to left-sided pneumonia: No recurrent fevers, WBC trending down, UA negative, no diarrhea abdomen benign on IV Zosyn and IV azithromycin day 2 Met sepsis criteria due to fever tachypnea tachycardia now resolved, acute lactic acidosis 2.3 on admission improved to 1.1 Blood culture 2/2 positive for g positive faith and Gram-negative faith Continue supplemental oxygen and wean as tolerated Follow CBC and final blood culture report ID consult , will discuss further imaging studies/add ivf /mrsa nares #. Atrial flutter with RVR, treated with IV diltiazem in emergency room, seen by Cardiology they recommend to continue Eliquis and beta-blockers Normal TSH , echocardiogram showed EF 50-55% indeterminate diastolic function no significant valvular disease. Chads Vasc score 4, seen by Cardiology they recommend beta-blockers and Eliquis 2.5 mg b.i.d. 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 Turn and Reposition every 2 hours and as needed for patient comfort.? Use pillows or wedges to support off loading positions. 2. Off Load all bony prominences with use of pillows and heel boots if needed.? Apply Preventative foams where needed. ? 3. Monitor for incontinence and moisture control, use barrier creams when needed for prevention and treatment. 4. Provide adequate and supplemental nutrition.? 5. Order low air loss mattress. 6. Bilateral Heels, Hips and Sacrum - Apply foam dressings peel back and assess Q shift and change every 3 days. 7. Bridge of nose and Left eyebrow - No topical recommendations needed. #. History of CVA: On aspirin and simvastatin, placed on Lipitor 10 mg daily, DC aspirin since placed on Eliquis. #. Tobacco use disorder: Counseled regarding cessation. Patient declined nicotine patch. # DVT prophylaxis will DC Lovenox and on Eliquis Spoke with patient's daughter and son-in-law at bedside and updated them about patient current clinical situation and treatment plan. Patient requires continued inpatient hospitalization for treatment of bacteremia with IV antibiotics, supplemental oxygen, monitoring of heart rate (as above), as well as acute encephalopathy which is not possible in a lesser acute setting. Quality Stroke Does the patient have a stroke diagnosis?: No VTE Prior VTE?: No VTE Risk Level:: Medical - moderate - high VTE Device Contraindication: Treatment Not Indicated VTE Drug Contraindication: N/A - Med Ordered
[2023-12-31] MEDS: Dextrose 5 % and Lactated Ring 1,000 ML 100 ML IVCONT (15:19)
[2023-12-31 16:00] VITALS: BP 142/78; PULSE 95; RESP 16; TEMP 37.2; O2SAT 96
[2023-12-31 17:39] LABS: MRSA Nasal PCR NEGATIVE (Negative); SA Nasal PCR NEGATIVE (Negative)
[2023-12-31] MEDS: Azithromycin 500 MG in 0.9 % Sodium Chloride 250 ML 125 MG IV (18:34)
[2023-12-31 19:58] VITALS: BP 150/86; PULSE 95; RESP 20; TEMP 37.1; O2SAT 94
[2023-12-31] MEDS: Atorvastatin Calcium 10 MG TABLET PO (21:32)
[2023-12-31] MEDS: Melatonin 3 MG TABLET 6 MG PO (21:32)
[2023-12-31] MEDS: Acetaminophen 325 MG TABLET 650 MG PO (21:32)
[2024-01-01] VITALS (7 sets, daily range): BP systolic 119–152; BP diastolic 67–89; PULSE 89–105; RESP 16–20; TEMP 36.8–37.2; O2SAT 93–98
[2024-01-01] MEDS: Piperacillin Sodium/Tazobactam 3.375 GM in 0.9 % Sodium Chloride 50 ML IV ×4 (06:18→23:55)
[2024-01-01 09:17] LABS: Hematocrit 42.1 % (42.0-52.0); Hemoglobin 13.5 g/dl (14.0-18.0); Mean Corpuscular HGB Conc 32.1 g/dl (31.0-36.0); Mean Corpuscular Hemoglobin 30.5 pg (27.0-33.0); Mean Corpuscular Volume 95.2 fL (80.0-98.0); Mean Platelet Volume 9.6 fL (9.4-12.4); Platelet Count 172 X10*3/uL (160-400); Red Blood Count 4.42 X10*6/uL (4.60-5.80); Red Cell Distribution Width 14.7 % (11.0-16.0)
[2024-01-01] MEDS: Apixaban 2.5 MG TABLET PO ×2 (09:33→21:39)
[2024-01-01] MEDS: Metoprolol Succinate ER 50 MG TAB.ER.24H PO (09:33)
[2024-01-01] MEDS: 0.9 % Sodium Chloride Flush 3 ML SYRINGE IVFLUSH ×2 (09:34→16:57)
[2024-01-01 09:36] LABS: Anion Gap 18 (12-20); Blood Urea Nitrogen 31 mg/dL (9-16); Calcium 8.9 mg/dL (8.4-10.2); Carbon Dioxide 22 mmol/L (22-29); Chloride 108 mmol/L (96-108); Creatinine Clr Calc Pharmacy 36.7; Estimated Glomerular Filt Rate > 60; Glucose Random 141 mg/dL (60-115); Potassium 3.7 mmol/L (3.3-5.1); Sodium 144 mmol/L (135-145)
--- NOTE | 2024-01-01 11:49 | MHC.CLN ---
F/U PT IS MODERATELY MALNOURISHED SEE FULL CLINICAL NUTRITION ASSESSMENT DATED 12/30/23 PO INTAKE 25% X 1 MEAL DIET RX: PUREED -APPROPRIATE PT WITH ORDER FOR ENSURE TID -RECOMMEND CHANGE SUPPLEMENT TO BID AND ADD MAGIC CUP WITH MEALS ENSURE BID TO PROVIDE 700KCALS, 40G PROTEIN MAGIC CUP WITH MEALS PROVIDES 870KCALS, 27G PROTEIN WITH 100% ACCEPTANCE NOTED STAGE 3 R AND L HIP-SUPPLEMENTS WILL PROMOTE WOUND HEALING MONITOR PO INTAKE AND ENCOURAGE SUPPLEMENTS
--- NOTE | 2024-01-01 13:26 | MHC.CM.PN ---
CM CALLED PTS DAUGHTER, TONO [phone] TO DISCUSS DC PLANNING, HOWEVER, SHE HAD SEVERAL COMPLAINTS INCLUDING: NO ONE HAS CALLED HER TO GIVE HER UPDATES ON THE PTS CULTURES, SHE HAS TRIED TO REACH THE NURSES SEVERAL TIMES, SHE TRIED SPEAKING TO A NURSING [employer] AND THEY HAVE NO RETURNED HER CALLS, NO ONE IS FEEDING THE PT, AND THEY WERE TOLD SOMEONE WOULD COME TO SPEAK TO HER THIS MORNING IN THE ROOM, AND NO ONE CAME IN. TONO SAYS SHE HAS TAKEN THE AFTERNOON OFF OF WORK AND WILL BE PRESENT AROUND 1400 HOURS OF NOTE: PT HAS SEEN PT, THEY WILL RECOMMEND STR TRIAL, HOWEVER THIS HAS NOT YET BEEN DISCUSSED WITH PTS FAMILY CM DID CONTACT EXPERIENCE OFFICER AND LEARNED THEY SPOKE TO PTS DAUGHTER YESTERDAY, THEY WILL FOLLOW UP AGAIN
--- NOTE | 2024-01-01 14:11 | P.CDIM_ITS ---
PROVIDER RESPONSE TEXT: To clarify, the appropriate diagnosis supported by the clinical indicators: Pressure (decubitus) ulcer stage 3 left hip present on admission QUERY TEXT: PHYSICIAN'S DOCUMENTATION REQUEST Date of Query: 01/01/2024 08:44 AM EDT Patient Name: Luis Reina Admit Date: 12/30/2023 Dear Justina Thurman, A review of the medical record indicates additional documentation may be needed. Please review below and update the documentation accordingly. Clinical Indicators: Per Wound Note 12/31/23: L hip/trochanter previous full thickness pressure injury suspect stage 3, POA Foam dressing and off load pressure Based on the above, could you please provide further information regarding the ulcer/wound: Pressure (decubitus) ulcer stage 3 left hip present on admission Traumatic wound Other (explain) Clinically unable to determine (explain) Thank you, Velma Brown RN Use of terms such as suspected, likely, concern for, or probable (associated with a specific diagnosi s that is being evaluated, monitored, or treated as if it exists) are acceptable and can be coded in the inpatient se tting, when documented at the time of discharge. Please use your independent medical judgment in providing your response. THIS QUERY IS PART OF THE PERMANENT MEDICAL RECORD
--- NOTE | 2024-01-01 14:11 | P.CDIM_ITS ---
PROVIDER RESPONSE TEXT: To clarify, the appropriate diagnosis supported by the clinical indicators: Pressure (decubitus) ulcer right hip stage 3 present on admission QUERY TEXT: PHYSICIAN'S DOCUMENTATION REQUEST Date of Query: 01/01/2024 08:47 AM EDT Patient Name: Luis Reina Admit Date: 12/30/2023 Dear Justina Thurman, A review of the medical record indicates additional documentation may be needed. Please review below and update the documentation accordingly. Clinical Indicators: Per Wound Note 12/01/23: Right hip/trochanter previous full thickness pressure injury suspect stage 3 present on admission Foam dressing and off loading pressure Based on the above, could you please provide further information regarding the ulcer/wound: Pressure (decubitus) ulcer right hip stage 3 present on admission Traumatic wound Other (explain) Clinically unable to determine (explain) Thank you, Velma Brown RN Use of terms such as suspected, likely, concern for, or probable (associated with a specific diagnosi s that is being evaluated, monitored, or treated as if it exists) are acceptable and can be coded in the inpatient se tting, when documented at the time of discharge. Please use your independent medical judgment in providing your response. THIS QUERY IS PART OF THE PERMANENT MEDICAL RECORD
--- NOTE | 2024-01-01 14:46 | HO.PM.IMPN ---
Subjective Subjective Date of Service: 01/01/24 Interval History: Patient noted to be pleasantly confused,, unable to provide meaningful history, daughter and son-in-law at bedside noted the patient is not at his baseline, is seeing things . patient is following commands tolerating diet, no nausea no vomiting or diarrhea noted, is incontinent of urine, T-max 99 degrees in last 48 hours. Review of Systems Unable to obtain review of system due to mental status Physical Exam Vital Signs: Vital Signs: Last Vital Signs Temp 98.4 F 01/01/24 12:00 Pulse 93 01/01/24 13:20 Resp 16 01/01/24 12:00 BP 152/71 H 01/01/24 13:20 Pulse Ox 94 01/01/24 13:20 O2 Del Method Room Air 01/01/24 12:00 O2 Flow Rate 2 12/30/23 19:57 BMI result Body Mass Index 15.7 Const: Other: General frail- elderly gentleman , resting comfortably in bed, nontoxic appearing, pleasantly confused . Neck supple no JVD. CVS regular rate rhythm, Respiratory lungs few left basilar crackles, no respiratory distress, no wheeze, no rhonchi. Gastrointestinal abdomen soft, non tender, bowel sounds audible Extremities no edema. Neuro moving all 4 extremities, verbalizing but not making sense Skin no rash Objective Data Active Medications Acetaminophen (Acetaminophen 325 Mg Tablet) 650 mg PO Q6H PRN PRN Reason: Pain, Mild (Pain Scale 1-3) Last Admin: 12/31/23 21:32 Dose: 650 mg Documented By: ALFREDO Apixaban (Apixaban 2.5 Mg Tablet) 2.5 mg PO BID [facility] Last Admin: 01/01/24 09:33 Dose: 2.5 mg Documented By: YARELI Atorvastatin Calcium (Atorvastatin Calcium 10 Mg Tablet) 10 mg PO BEDTIME [facility] Last Admin: 12/31/23 21:32 Dose: 10 mg Documented By: ALFREDO Azelastine HCl (Azelastine Hcl Nasal 137 Mcg/[place] 30 Ml) 2 spray NOSTRIL-B BID [facility] Last Admin: 01/01/24 09:35 Dose: Not Given Documented By: YARELI Non-Admin Reason: Patient Refused Azithromycin 500 mg/ Sodium (Chloride) 250 mls @ 125 mls/hr IV Q24H [facility] Last Infusion: 12/31/23 21:15 Dose: Infused Documented By: ALFREDO Piperacillin Sod/Tazobactam (Sod 3.375 gm/ Sodium Chloride) 50 mls @ 100 mls/hr IV Q6H [facility] Last Infusion: 01/01/24 12:37 Dose: Infused Documented By: YARELI Melatonin (Melatonin 3 Mg Tablet) 6 mg PO BEDTIME PRN PRN Reason: Insomnia Last Admin: 12/31/23 21:32 Dose: 6 mg Documented By: ALFREDO Metoprolol Succinate (Metoprolol Succinate Er 50 Mg Tab.Er.24h) 50 mg PO DAILY [facility]; Protocol Last Admin: 01/01/24 09:33 Dose: 50 mg Documented By: YARELI Ondansetron HCl (Ondansetron Hcl 4 Mg/2 Ml Vial) 4 mg IVPUSH Q8H PRN PRN Reason: Nausea and Vomiting Sodium Chloride (0.9 % Sodium Chloride Flush 3 Ml Syringe) 3 ml IVFLUSH QSHIFT [facility] Last Admin: 01/01/24 09:34 Dose: 3 ml Documented By: YARELI Labs 01/01/24 07:57 01/01/24 07:57 Labs: Laboratory Results - last 24 hr 12/31/23 01/01/24 15:35 07:57 MCV 95.2 MCH 30.5 MCHC 32.1 RDW 14.7 Plt Count 172 MPV 9.6 Absolute Nucleated RBC 0.000 Nucleated RBC % (auto) 0.0 Anion Gap 18 Estim Creat Clear Calc 36.7 Estimated GFR > 60 Random Glucose 141 H Calcium 8.9 Nasal Screen MRSA (PCR) NEGATIVE Nasal S. aureus Screen NEGATIVE Nasal MRSA/S.aureus Interp SEE NOTE Microbiology Microbiology Results: Microbiology 12/29/23 18:04 Blood Culture - Preliminary Blood - Venous Gram negative faith Gram positive faith 12/29/23 18:03 Blood Culture - Preliminary Blood - Venous Gram negative faith Prelim: GPR Gram Stain only Assessment and Plan (1) Atrial flutter with rapid ventricular response: Status: Acute (2) Pneumonia: Status: Acute Plan 88-year-old male with pertinent history of BPH, mixed hyperlipidemia, history of CVA, tobacco use disorder who presents to the emergency department for evaluation of fevers, productive cough and admitted with following diagnosis. #. Acute hypoxemic respiratory failure and Sepsis due to left-sided pneumonia: No recurrent fevers, WBC trending down, UA negative, no diarrhea, abdomen benign on IV Zosyn and IV azithromycin day 3 Met sepsis criteria due to fever, tachypnea tachycardia now resolved, acute lactic acidosis 2.3 on admission improved to 1.1, WBC trending down from 25.8 to 14 Blood culture 2/2 positive for gm positive faith and Gram-negative faith , MRSA nares negative Continue supplemental oxygen and wean as tolerated Follow CBC and final blood culture report Follow ID recommendation Need1:1 feeding seen by speech therapy continued on pureed and downgraded to honey fix with no straws, noted to be coughing on thin liquids #. Atrial flutter with RVR, treated with IV diltiazem in emergency room, seen by Cardiology they recommend to continue Eliquis and beta-blockers Normal TSH , echocardiogram showed EF 50-55% indeterminate diastolic function no significant valvular disease. Chads Vasc score 4, seen by Cardiology, continue metoprolol xl 50 mg and Eliquis 2.5 mg b.i.d. # acute toxic metabolic encephalopathy likely due to infection: UA negative/no new medications/question underlying mild cognitive impairment with confusion due to change in environment, and related to above infection, moving all 4 extremities less likely acute CVA Continue supportive care/IV fluid for dehydration Recent CT head July 2023 showed chronic regions of encephalomalacia within right greater than left occipital parietal lobes, chronic lacunar infarction and extensive underlying microangiopathy and generalized cerebral volume loss # full-thickness pressure injury suspect stage III left hip/trochanter and right hip/trochanter present on admission seen by wound nurse with following recommendation 1. Turn and Reposition every 2 hours and as needed for patient comfort.? Use pillows or wedges to support off loading positions. 2. Off Load all bony prominences with use of pillows and heel boots if needed.? Apply Preventative foams where needed. ? 3. Monitor for incontinence and moisture control, use barrier creams when needed for prevention and treatment. 4. Provide adequate and supplemental nutrition.? 5. Order low air loss mattress. 6. Bilateral Heels, Hips and Sacrum - Apply foam dressings peel back and assess Q shift and change every 3 days. 7. Bridge of nose and Left eyebrow - No topical recommendations needed. #. History of CVA: On aspirin and simvastatin, placed on Lipitor 10 mg daily, DC aspirin since placed on Eliquis. #. Tobacco use disorder: Counseled regarding cessation. Patient declined nicotine patch. # DVT prophylaxis will DC Lovenox and on Eliquis Spoke with patient's daughter and son-in-law at bedside today and updated them about patient current clinical situation and treatment plan. PT recommend short-term rehab for bed mobility, transfer training safety and balance, patient was residing at home with daughter and son-in-law. Patient requires continued inpatient hospitalization for treatment of bacteremia with IV antibiotics, monitoring of heart rate (as above), as well as acute encephalopathy which is not possible in a lesser acute setting. Quality Stroke Does the patient have a stroke diagnosis?: No VTE Prior VTE?: No VTE Risk Level:: Medical - moderate - high VTE Device Contraindication: Treatment Not Indicated VTE Drug Contraindication: N/A - Med Ordered
--- NOTE | 2024-01-01 15:12 | MHC.SL.SWA ---
Speech Pathologist Impression: Risk of aspiration, oropharyngeal dysphagia Risk of Aspiration Due to: Lethargy Weak Voice Dysphasia Diet Status: Coughing on thin liquids. Recommend downgrade to HONEY THICK (NO STRAWS). Liquid Consistency and Strategies for Safe Swallow: Liquid Intake Recommendation: Honey Thick Liquid Intake Strategies: Small Sips No Straws Solid Food Consistency: Dietary Recommendations: Pureed (NDD1) Additional Modifications to Solid Foods: No straws, liquids by cup sip or tsp. Encourage po intake. Patient requires 1-1 feed. Discontinue if patient exhibits clinical signs of aspiration (coughing, throat clearing, upper airway noise). Oral Medication Intake: Whole with Puree Please contact the pharmacy regarding appropriate crushable or liquid drug formulations that are available whenever modified delivery is recommended. Compensatory Strategies and Precautions to be Taken for Safe Swallow: Sitting Upright (90 deg) No Straw Liquids from Cup Liquids from Spoon Small Bites and Sips Alternate Liquids/Solids Rate of Ingestion Change Supervision While Eating and Drinking for Safe Swallow: Total Assistance (1:1) Foods to Avoid: Mixed consistencies. Add sauces and gravies and blend well. Swallowing Recommended Treatments: Compens. Strategy Educat. Recommendation for Speech: Inpatient Speech Therapy Prototype [employer] Clinican/Clinical Fellow: No Supervisory Statement: I have reviewed and agree with the student/clinical fellow's documentation: N/A Speech Language Pathologist: Vandana Darnell M.A., CCC-INSTRUCTOR [employer]
--- NOTE | 2024-01-01 16:58 | W.PM.IDCN ---
History of Present Illness Data of Consult Service Date: 12/31/23 Requesting physician: Justina Thurman Primary Care Provider: SCARLETT Mcnamara HPI Reason for consult: multiple bacteremia He comes in 12/28 due to weakness and cough. He has no fever now. He has multiple bacteremia. Review of Systems Review of Systems: Yes all other systems are reviewed and are negative PMFSH Past Medical History Medical History (Updated 01/01/24 @ 17:00 by Corinne Andrade MD) Bacteremia Smoker AAA (abdominal aortic aneurysm) without rupture Saccular aneurysm BPH w urinary obs/LUTS Acute CVA (cerebrovascular accident) UTI (urinary tract infection) HLD (hyperlipidemia) Family History Family history: reviewed and not pertinent Social History Social History Household Members: Children Household Members Other:: Daughter and Son in Law Housing: House Are you a primary primary care physician to a significant other at home: No Alcohol intake: never Patient Tobacco Use Status: Current everyday Tobacco user Tobacco use type: Cigarette Cigarette Packs Per Day: 1.5 Cigarettes Per Day: 30.0 Years Smoked: 72 Second Hand Smoke Exposure: No Advance Directives Date on File: 08/14/21 service: No Current occupational status: retired Meds Allergies Allergy/AdvReac Type Severity Reaction Status Date / Time pentazocine [From Joi] Allergy Unknown Verified 12/29/23 17:40 Active Medications: Current Medications Acetaminophen (Acetaminophen 325 Mg Tablet) 650 mg PO Q6H PRN PRN Reason: Pain, Mild (Pain Scale 1-3) Last Admin: 12/31/23 21:32 Dose: 650 mg Apixaban (Apixaban 2.5 Mg Tablet) 2.5 mg PO BID [facility] Last Admin: 01/01/24 09:33 Dose: 2.5 mg Atorvastatin Calcium (Atorvastatin Calcium 10 Mg Tablet) 10 mg PO BEDTIME [facility] Last Admin: 12/31/23 21:32 Dose: 10 mg Azelastine HCl (Azelastine Hcl Nasal 137 Mcg/[place] 30 Ml) 2 spray NOSTRIL-B BID [facility] Last Admin: 01/01/24 09:35 Dose: Not Given Azithromycin 500 mg/ Sodium (Chloride) 250 mls @ 125 mls/hr IV Q24H [facility] Last Infusion: 12/31/23 21:15 Dose: Infused Piperacillin Sod/Tazobactam (Sod 3.375 gm/ Sodium Chloride) 50 mls @ 100 mls/hr IV Q6H [facility] Last Infusion: 01/01/24 12:37 Dose: Infused Melatonin (Melatonin 3 Mg Tablet) 6 mg PO BEDTIME PRN PRN Reason: Insomnia Last Admin: 12/31/23 21:32 Dose: 6 mg Metoprolol Succinate (Metoprolol Succinate Er 50 Mg Tab.Er.24h) 50 mg PO DAILY [facility]; Protocol Last Admin: 01/01/24 09:33 Dose: 50 mg Ondansetron HCl (Ondansetron Hcl 4 Mg/2 Ml Vial) 4 mg IVPUSH Q8H PRN PRN Reason: Nausea and Vomiting Sodium Chloride (0.9 % Sodium Chloride Flush 3 Ml Syringe) 3 ml IVFLUSH QSHIFT [facility] Last Admin: 01/01/24 09:34 Dose: 3 ml Home Medications ?Medication ?Instructions ?Recorded ?Confirmed ?Last Taken ?Type aspirin 325 mg tablet 325 mg PO BEDTIME 08/10/21 12/29/23 10/26/22 History simvastatin 20 mg tablet 1 tab PO BEDTIME 08/10/21 12/29/23 Unknown History azelastine 137 mcg (0.1 %) nasal 2 spray intranasal BID 12/29/23 12/29/23 Unknown History spray aerosol triamcinolone acetonide 0.1 % 1 appl topical BID 12/29/23 Unknown History topical ointment Physical Exam Vital Signs: Vital Signs: Last Vital Signs Temp 98.5 F 01/01/24 16:00 Pulse 97 01/01/24 16:00 Resp 16 01/01/24 16:00 BP 134/89 01/01/24 16:00 Pulse Ox 93 01/01/24 16:00 O2 Del Method Room Air 01/01/24 16:00 O2 Flow Rate 2 12/30/23 19:57 BMI result Body Mass Index 15.7 Const: General: cooperative HEENT: Head: Yes normal to inspection Face and sinus: Yes normal facial exam Mouth: Normal oral and palatal mucosa present Teeth and gingiva: dentition normal Eyes: General: appearance normal, both eyes and all related structures Pupils: Equal, round and reactive pupils present Resp: Effort & Inspection: normal respiratory effort Cardio: Rate: regular rate Rhythm: regular rhythm GI: Palpation (GI): Soft to palpation and nontender : General: Yes no CVA tenderness Back/Spine/Pelvis: Back: no CVA tenderness Skin: General skin exam: no rashes or lesions noted Neuro: General: moves all extremities Cranial nerves: Yes Equal, round and reactive pupils present Extrem: General: Yes normal to inspection Psych: Appearance: grossly normal Results Labs 01/01/24 07:57 01/01/24 07:57 Labs: Short CBC 01/01/24 Range/Units 07:57 WBC 14.0 H (4.8-10.8) X10*3/uL Hgb 13.5 L (14.0-18.0) g/dl Hct 42.1 (42.0-52.0) % Plt Count 172 (160-400) X10*3/uL BMP 01/01/24 07:57 Sodium 144 Potassium 3.7 Chloride 108 Carbon Dioxide 22 BUN 31 H Creatinine 0.95 Calcium 8.9 Microbiology Microbiology Results: Microbiology 12/29/23 18:04 Blood - Venous Blood Culture - Preliminary Gram negative faith Gram positive faith 12/29/23 18:03 Blood - Venous Blood Culture - Preliminary Gram negative faith Prelim: GPR Gram Stain only Assessment and Plan (1) Pneumonia: Status: Acute (2) Bacteremia: Status: Acute Plan He has multiple bacteremia. This is probable aspiration source and not identified yet. Would continue piperacillin/tazobactam for now and await final. Can stop azithromycin
[2024-01-01] MEDS: KCl 20 mEq in 5 % Dex/Lact Rin 20 MEQ/1,000 ML IV.SOLN 80 MEQ IVCONT (18:16)
--- NOTE | 2024-01-01 18:28 | PC.NURSE ---
Around 3 pm nursing tilt wall supervisor Brittney, Dr. Thurman, and this scenario writer met collectively in patient's room to discuss with family about the patient's condition, medical plan, and diet. Answered questions that the family had at the time.
[2024-01-01] MEDS: Atorvastatin Calcium 10 MG TABLET PO (21:39)
[2024-01-01] MEDS: Acetaminophen 325 MG TABLET 650 MG PO (21:43)
[2024-01-01] MEDS: Melatonin 3 MG TABLET 6 MG PO (21:44)
[2024-01-02] VITALS (7 sets, daily range): BP systolic 133–148; BP diastolic 65–92; PULSE 84–99; RESP 16–82; TEMP 36.3–37.5; O2SAT 92–96
[2024-01-02] MEDS: 0.9 % Sodium Chloride Flush 3 ML SYRINGE IVFLUSH ×2 (02:22→07:59)
[2024-01-02] MEDS: Piperacillin Sodium/Tazobactam 3.375 GM in 0.9 % Sodium Chloride 50 ML IV ×3 (04:39→16:43)
[2024-01-02] MEDS: KCl 20 mEq in 5 % Dex/Lact Rin 20 MEQ/1,000 ML IV.SOLN 80 MEQ IVCONT ×2 (04:40→07:59)
[2024-01-02] MEDS: Apixaban 2.5 MG TABLET PO ×2 (07:59→19:53)
[2024-01-02] MEDS: Metoprolol Succinate ER 50 MG TAB.ER.24H PO (07:59)
--- NOTE | 2024-01-02 13:31 | HO.PM.IMPN ---
Subjective Subjective Date of Service: 01/02/24 Interval History: Markedly improved overnight with respect to the notes. Discussed with daughter who agrees Review of Systems Denies chest pain Denies shortness of breath Denies nausea vomiting diarrhea Denies fever chills Physical Exam Vital Signs: Vital Signs: Last Vital Signs Temp 99.5 F 01/02/24 11:23 Pulse 84 01/02/24 11:23 Resp 18 01/02/24 11:23 BP 133/77 01/02/24 11:23 Pulse Ox 96 01/02/24 11:23 O2 Del Method Room Air 01/02/24 11:23 O2 Flow Rate 2 12/30/23 19:57 BMI result Body Mass Index 15.7 Const: Other: Awake alert no acute distress Resp: Other: Clear to auscultation bilaterally no rales rhonchi or wheezes Cardio: Other: No S4; positive S1-S2; no S3 murmurs rubs or gallops GI: Other: Soft nontender nondistended normoactive bowel sounds Extrem: Other: No edema bilaterally Objective Data Active Medications Acetaminophen (Acetaminophen 325 Mg Tablet) 650 mg PO Q6H PRN PRN Reason: Pain, Mild (Pain Scale 1-3) Last Admin: 01/01/24 21:43 Dose: 650 mg Documented By: HOWARD Apixaban (Apixaban 2.5 Mg Tablet) 2.5 mg PO BID [facility] Last Admin: 01/02/24 07:59 Dose: 2.5 mg Documented By: KELLY Atorvastatin Calcium (Atorvastatin Calcium 10 Mg Tablet) 10 mg PO BEDTIME [facility] Last Admin: 01/01/24 21:39 Dose: 10 mg Documented By: HOWARD Azelastine HCl (Azelastine Hcl Nasal 137 Mcg/[place] 30 Ml) 2 spray NOSTRIL-B BID [facility] Last Admin: 01/02/24 08:00 Dose: Not Given Documented By: KELLY Non-Admin Reason: waiting for pharmacy Piperacillin Sod/Tazobactam (Sod 3.375 gm/ Sodium Chloride) 50 mls @ 100 mls/hr IV Q6H [facility] Last Infusion: 01/02/24 11:43 Dose: Infused Documented By: KELLY Potassium Cl/Dextrose/Lact Ringer's (Kcl 20 Meq In 5 % Dex/Lact Rin) 20 meq in 1,000 mls @ 80 mls/hr IVCONT .[id number] [facility] Last Admin: 01/02/24 07:59 Dose: 80 mls/hr Documented By: KELLY Melatonin (Melatonin 3 Mg Tablet) 6 mg PO BEDTIME PRN PRN Reason: Insomnia Last Admin: 01/01/24 21:44 Dose: 6 mg Documented By: HOWARD Metoprolol Succinate (Metoprolol Succinate Er 50 Mg Tab.Er.24h) 50 mg PO DAILY [facility]; Protocol Last Admin: 01/02/24 07:59 Dose: 50 mg Documented By: KELLY Ondansetron HCl (Ondansetron Hcl 4 Mg/2 Ml Vial) 4 mg IVPUSH Q8H PRN PRN Reason: Nausea and Vomiting Sodium Chloride (0.9 % Sodium Chloride Flush 3 Ml Syringe) 3 ml IVFLUSH QSHIFT [facility] Last Admin: 01/02/24 07:59 Dose: 3 ml Documented By: KELLY Labs 01/01/24 07:57 01/01/24 07:57 Microbiology Microbiology Results: Microbiology 12/29/23 18:04 Blood Culture - Preliminary Blood - Venous Pseudomonas aeruginosa Gram positive faith 12/29/23 18:03 Blood Culture - Preliminary Blood - Venous Pseudomonas aeruginosa Prelim: GPR Gram Stain only Klebsiella pneumoniae Assessment and Plan (1) Pneumonia: Status: Acute (2) Bacteremia: Status: Acute (3) Atrial flutter with rapid ventricular response: Status: Acute Plan 88-year-old male with pertinent history of BPH, mixed hyperlipidemia, history of CVA, tobacco use disorder who presents to the emergency department for evaluation of fevers, productive cough and admitted with following diagnosis. 1.Acute hypoxemic respiratory failure and Sepsis due to left-sided pneumonia (sepsis resolved) -Zosyn (3) -oxygen and wean as tolerated -2/2 blood cultures Pseudomonas/Klebsiella. . . Discussed with ID continue Zosyn and upon DC switch to Levaquin 2.Atrial flutter with RVR -rate controlled -Eliquis/beta-omer as tolerated 3.Acute toxic metabolic encephalopathy likely due bacteremia -resolved -as per 1. 4.Full-thickness pressure injury suspect stage III left hip/trochanter and right hip/trochanter present on admission seen by wound nurse with following recommendation -Turn and Reposition every 2 hours and as needed for patient comfort.? Use pillows or wedges to support off loading positions. -Off Load all bony prominences with use of pillows and heel boots if needed.? Apply Preventative foams where needed. ? -Monitor for incontinence and moisture control, use barrier creams when needed for prevention and treatment. -Provide adequate and supplemental nutrition.? -Order low air loss mattress. -Bilateral Heels, Hips and Sacrum - Apply foam dressings peel back and assess Q shift and change every 3 days. -Bridge of nose and Left eyebrow - No topical recommendations needed. Eliquis Full code Patient requires continued inpatient hospitalization for treatment of bacteremia with IV antibiotics, monitoring of heart rate (as above), as well as acute encephalopathy which is not possible in a lesser acute setting. Quality Stroke Does the patient have a stroke diagnosis?: No VTE Prior VTE?: No VTE Risk Level:: Medical - moderate - high VTE Device Contraindication: Treatment Not Indicated VTE Drug Contraindication: N/A - Med Ordered
[2024-01-02] MEDS: Nicotine 14 MG PATCH.TD24 TRANSDERMA (15:16)
[2024-01-02] MEDS: Acetaminophen 325 MG TABLET 650 MG PO (19:53)
[2024-01-02] MEDS: Atorvastatin Calcium 10 MG TABLET PO (19:53)
[2024-01-02] MEDS: Melatonin 3 MG TABLET 6 MG PO (19:54)
[2024-01-03] VITALS (7 sets, daily range): BP systolic 122–155; BP diastolic 56–77; PULSE 70–89; RESP 18–20; TEMP 36.3–37.1; O2SAT 94–97
[2024-01-03] MEDS: Piperacillin Sodium/Tazobactam 3.375 GM in 0.9 % Sodium Chloride 50 ML IV ×3 (00:16→11:32)
[2024-01-03] MEDS: Apixaban 2.5 MG TABLET PO ×2 (08:08→20:23)
[2024-01-03] MEDS: Metoprolol Succinate ER 50 MG TAB.ER.24H PO (08:08)
[2024-01-03] MEDS: Nicotine 14 MG PATCH.TD24 TRANSDERMA (08:08)
[2024-01-03] MEDS: 0.9 % Sodium Chloride Flush 3 ML SYRINGE IVFLUSH ×2 (08:09→17:23)
--- NOTE | 2024-01-03 13:07 | P.PNIM_ITS ---
Subjective Subjective Date of Service: 01/03/24 Interval History: Continues to be improving however still weak Review of Systems Denies chest pain Denies shortness of breath Denies nausea vomiting diarrhea Denies fever chills Physical Exam 2 Vital Signs: Vital Signs: Last Vital Signs Temp 98.3 F 01/03/24 11:57 Pulse 86 01/03/24 11:57 Resp 18 01/03/24 11:57 BP 123/56 L 01/03/24 11:57 Pulse Ox 96 01/03/24 11:57 O2 Del Method Room Air 01/03/24 11:57 O2 Flow Rate 2 12/30/23 19:57 BMI result Body Mass Index 15.7 Const: Other: Awake alert no acute distress Resp: Other: Clear to auscultation bilaterally no rales rhonchi or wheezes Cardio: Other: No S4; positive S1-S2; no S3 murmurs rubs or gallops GI: Other: Soft nontender nondistended normoactive bowel sounds Extrem: Other: No edema bilaterally Objective Data Active Medications Acetaminophen (Acetaminophen 325 Mg Tablet) 650 mg PO Q6H PRN PRN Reason: Pain, Mild (Pain Scale 1-3) Last Admin: 01/02/24 19:53 Dose: 650 mg Documented By: HOWARD Apixaban (Apixaban 2.5 Mg Tablet) 2.5 mg PO BID [facility] Last Admin: 01/03/24 08:08 Dose: 2.5 mg Documented By: KELLY Atorvastatin Calcium (Atorvastatin Calcium 10 Mg Tablet) 10 mg PO BEDTIME [facility] Last Admin: 01/02/24 19:53 Dose: 10 mg Documented By: HOWARD Azelastine HCl (Azelastine Hcl Nasal 137 Mcg/[place] 30 Ml) 2 spray NOSTRIL-B BID [facility] Last Admin: 01/03/24 07:50 Dose: Not Given Documented By: KELLY Non-Admin Reason: Patient Refused Potassium Cl/Dextrose/Lact Ringer's (Kcl 20 Meq In 5 % Dex/Lact Rin) 20 meq in 1,000 mls @ 80 mls/hr IVCONT .[id number] [facility] Last Admin: 01/03/24 08:09 Dose: Not Given Documented By: KELLY Non-Admin Reason: Bag still full Piperacillin Sod/Tazobactam (Sod 2.25 gm/ Sodium Chloride) 50 mls @ 100 mls/hr IV Q6H [facility] Melatonin (Melatonin 3 Mg Tablet) 6 mg PO BEDTIME PRN PRN Reason: Insomnia Last Admin: 01/02/24 19:54 Dose: 6 mg Documented By: HOWARD Metoprolol Succinate (Metoprolol Succinate Er 50 Mg Tab.Er.24h) 50 mg PO DAILY [facility]; Protocol Last Admin: 01/03/24 08:08 Dose: 50 mg Documented By: KELLY Nicotine (Nicotine 14 Mg Patch.Td24) 14 mg TRANSDERMA DAILY [facility] Last Admin: 01/03/24 08:08 Dose: 14 mg Documented By: KELLY Ondansetron HCl (Ondansetron Hcl 4 Mg/2 Ml Vial) 4 mg IVPUSH Q8H PRN PRN Reason: Nausea and Vomiting Sodium Chloride (0.9 % Sodium Chloride Flush 3 Ml Syringe) 3 ml IVFLUSH QSHIFT [facility] Last Admin: 01/03/24 08:09 Dose: 3 ml Documented By: KELLY Labs 01/01/24 07:57 01/01/24 07:57 Microbiology Microbiology Results: Microbiology 12/29/23 18:04 Blood Culture - Final Blood - Venous Pseudomonas aeruginosa Gram positive faith Bacteroides fragilis Bacteroides thetaiotaomicron Anaerobic gram positive rods 12/29/23 18:03 Blood Culture - Final Blood - Venous Pseudomonas aeruginosa Anaerobic gram positive rods Klebsiella pneumoniae Assessment and Plan (1) Pneumonia: Status: Acute (2) Atrial flutter with rapid ventricular response: Status: Acute Plan 88-year-old male with pertinent history of BPH, mixed hyperlipidemia, history of CVA, tobacco use disorder who presents to the emergency department for evaluation of fevers, productive cough and admitted with following diagnosis. 1.Acute hypoxemic respiratory failure and Sepsis due to left-sided pneumonia (sepsis resolved) -Zosyn (4) -oxygen and wean as tolerated -2/2 blood cultures Pseudomonas/Klebsiella. . . Discussed with ID continue Zosyn and upon DC switch to Levaquin 2.Atrial flutter with RVR -rate controlled -Eliquis/beta-omer as tolerated 3.Acute toxic metabolic encephalopathy likely due bacteremia -resolved -as per 1. 4.Full-thickness pressure injury suspect stage III left hip/trochanter and right hip/trochanter present on admission seen by wound nurse with following recommendation -Turn and Reposition every 2 hours and as needed for patient comfort.? Use pillows or wedges to support off loading positions. -Off Load all bony prominences with use of pillows and heel boots if needed.? Apply Preventative foams where needed. ? -Monitor for incontinence and moisture control, use barrier creams when needed for prevention and treatment. -Provide adequate and supplemental nutrition.? -Order low air loss mattress. -Bilateral Heels, Hips and Sacrum - Apply foam dressings peel back and assess Q shift and change every 3 days. -Bridge of nose and Left eyebrow - No topical recommendations needed. Eliquis Full code Patient requires continued inpatient hospitalization for treatment of bacteremia with IV antibiotics, monitoring of heart rate (as above), as well as acute encephalopathy which is not possible in a lesser acute setting. Quality Stroke Does the patient have a stroke diagnosis?: No VTE Prior VTE?: No VTE Risk Level:: Medical - moderate - high VTE Device Contraindication: Treatment Not Indicated VTE Drug Contraindication: N/A - Med Ordered
--- NOTE | 2024-01-03 14:48 | MHC.CM.PN ---
Addendum entered by Radha Campbell RN 01/03/24 14:51: print out of snf's closest to home left at bedside for dtr in case preferred facilities are unable to offer. Original Note: cm met w/pt and dtr [facility] at bedside to discuss str options, preferred [facility] and [facility], referral sent earlier in shift and cm still awaiting bed offer, [facility] not have beds available, cm will cont to follow dc needs.
[2024-01-03] MEDS: Piperacillin Sodium/Tazobactam 2.25 GM in 0.9 % Sodium Chloride 50 ML IV (17:23)
[2024-01-03] MEDS: Atorvastatin Calcium 10 MG TABLET PO (20:23)
[2024-01-03] MEDS: Melatonin 3 MG TABLET 6 MG PO (20:24)
[2024-01-04] VITALS (7 sets, daily range): BP systolic 110–185; BP diastolic 57–97; PULSE 73–101; RESP 16–19; TEMP 36.3–36.9; O2SAT 92–100
[2024-01-04] MEDS: 0.9 % Sodium Chloride Flush 3 ML SYRINGE IVFLUSH ×4 (00:19→21:04)
[2024-01-04] MEDS: Piperacillin Sodium/Tazobactam 2.25 GM in 0.9 % Sodium Chloride 50 ML IV ×2 (00:19→08:41)
[2024-01-04] MEDS: Apixaban 2.5 MG TABLET PO ×2 (08:42→21:04)
[2024-01-04] MEDS: Nicotine 14 MG PATCH.TD24 TRANSDERMA (08:42)
[2024-01-04] MEDS: Metoprolol Succinate ER 50 MG TAB.ER.24H PO (08:42)
--- NOTE | 2024-01-04 11:50 | MHC.SL.SWA ---
Speech Pathologist Impression: Risk of aspiration, oropharyngeal dysphagia Risk of Aspiration Due to: Lethargy Weak Voice Dysphasia Diet Status: Coughing on thin liquids. UPGRADE to NDD2, continue on HTL. Liquid Consistency and Strategies for Safe Swallow: Liquid Intake Recommendation: Honey Thick Liquid Intake Strategies: Small Sips No Straws Solid Food Consistency: Dietary Recommendations: Grnd/Mech Altered (NDD2) Additional Modifications to Solid Foods: Recommend UPGRADE to GROUND/MECH ALTERED (NDD2) diet and continue on HONEY THICK liquids (NO STRAW), pills WHOLE in PUREE. Patient requires 1-1 feed, cues to promote oral clearance: give small bites, check oral cavity, alternate solids/liquids, cue for dry swallow as needed. Discontinue if patient exhibits clinical signs of aspiration (coughing, throat clearing, upper airway noise). Oral Medication Intake: Whole with Puree Please contact the pharmacy regarding appropriate crushable or liquid drug formulations that are available whenever modified delivery is recommended. Compensatory Strategies and Precautions to be Taken for Safe Swallow: Sitting Upright (90 deg) No Straw Liquids from Cup Liquids from Spoon Small Bites and Sips Alternate Liquids/Solids Rate of Ingestion Change Supervision While Eating and Drinking for Safe Swallow: Total Assistance (1:1) Foods to Avoid: Mixed consistencies. Add sauces and gravies and blend well. Swallowing Recommended Treatments: Compens. Strategy Educat. Recommendation for Speech: Inpatient Speech Therapy [employer] Lieutenant Clinican/Clinical Fellow: No Supervisory Statement: I have reviewed and agree with the student/clinical fellow's documentation: N/A Speech Language Pathologist: Vandana Darnell M.A., CCC-REED PRESS FEEDER
--- NOTE | 2024-01-04 11:52 | MHC.CM.PN ---
Addendum entered by Bianka Moeller 01/04/24 15:09: [facility] has offered bed. Communicated to daughter [facility]. She would like to visit facility, reports she is going to go there now. this typewriter assembly and parts inspector did communicate to daughter that if she did not accept this bed offer, she would need to appeal pt's d/c. Addendum entered by Bianka Moeller 01/04/24 14:16: This typewriter assembly and parts inspector met w/ patient, daughter and son-in-law. Updated on status of referrals. Added the following facilities: [facility], [facility], [facility] and [facility]. Original Note: Call placed to [facility]- went right to , left message, awiting return call.
--- NOTE | 2024-01-04 12:48 | MHC.CLN ---
F/U PO INTAKE 25% X 1 MEAL DIET ADVANCED TO GRD M/S WITH HT LIQ PER HIGH [employer]CHOOL COACH ENSURE BID TO PROVIDE 700KCALS, 40G PROTEIN AND MAGIC CUP WITH MEALS PROVIDES 870KCALS, 27G PROTEIN WITH 100% ACCEPTANCE NOTED STAGE 3 R AND L HIP-SUPPLEMENTS WILL PROMOTE WOUND HEALING MONITOR PO INTAKE AND ENCOURAGE SUPPLEMENTS
--- NOTE | 2024-01-04 13:51 | P.PNIM_ITS ---
Subjective Subjective Date of Service: 01/04/24 Interval History: Continues to slowly improve. Tolerating diet as outlined by speech Review of Systems Denies chest pain Denies shortness of breath Denies nausea vomiting diarrhea Denies fever chills Physical Exam 2 Vital Signs: Vital Signs: Last Vital Signs Temp 97.8 F 01/04/24 11:32 Pulse 79 01/04/24 11:32 Resp 16 01/04/24 11:32 BP 138/96 H 01/04/24 11:32 Pulse Ox 92 01/04/24 11:32 O2 Del Method Room Air 01/04/24 11:32 O2 Flow Rate 2 12/30/23 19:57 BMI result Body Mass Index 15.7 Const: Other: Awake alert no acute distress Resp: Other: Clear to auscultation bilaterally no rales rhonchi or wheezes Cardio: Other: No S4; positive S1-S2; no S3 murmurs rubs or gallops GI: Other: Soft nontender nondistended normoactive bowel sounds Extrem: Other: No edema bilaterally Objective Data Active Medications Acetaminophen (Acetaminophen 325 Mg Tablet) 650 mg PO Q6H PRN PRN Reason: Pain, Mild (Pain Scale 1-3) Last Admin: 01/02/24 19:53 Dose: 650 mg Documented By: HOWARD Apixaban (Apixaban 2.5 Mg Tablet) 2.5 mg PO BID [facility] Last Admin: 01/04/24 08:42 Dose: 2.5 mg Documented By: LUCIANO Atorvastatin Calcium (Atorvastatin Calcium 10 Mg Tablet) 10 mg PO BEDTIME [facility] Last Admin: 01/03/24 20:23 Dose: 10 mg Documented By: LUCIANO Azelastine HCl (Azelastine Hcl Nasal 137 Mcg/[place] 30 Ml) 2 spray NOSTRIL-B BID [facility] Last Admin: 01/04/24 12:24 Dose: Not Given Documented By: AZRA Non-Admin Reason: Med Not Available Piperacillin Sod/Tazobactam (Sod 2.25 gm/ Sodium Chloride) 50 mls @ 100 mls/hr IV Q6H [facility] Last Infusion: 01/04/24 09:37 Dose: Infused Documented By: LUCIANO Melatonin (Melatonin 3 Mg Tablet) 6 mg PO BEDTIME PRN PRN Reason: Insomnia Last Admin: 01/03/24 20:24 Dose: 6 mg Documented By: LUCIANO Metoprolol Succinate (Metoprolol Succinate Er 50 Mg Tab.Er.24h) 50 mg PO DAILY [facility]; Protocol Last Admin: 01/04/24 08:42 Dose: 50 mg Documented By: LUCIANO Nicotine (Nicotine 14 Mg Patch.Td24) 14 mg TRANSDERMA DAILY [facility] Last Admin: 01/04/24 08:42 Dose: 14 mg Documented By: LUCIANO Ondansetron HCl (Ondansetron Hcl 4 Mg/2 Ml Vial) 4 mg IVPUSH Q8H PRN PRN Reason: Nausea and Vomiting Sodium Chloride (0.9 % Sodium Chloride Flush 3 Ml Syringe) 3 ml IVFLUSH QSHIFT [facility] Last Admin: 01/04/24 08:42 Dose: 3 ml Documented By: LUCIANO Labs 01/01/24 07:57 01/01/24 07:57 Microbiology Microbiology Results: Microbiology 01/02/24 11:10 Blood Culture - Preliminary Blood - Venous No growth after 48 hours. 01/02/24 11:10 Blood Culture - Preliminary Blood - Venous No growth after 48 hours. Assessment and Plan (1) Pneumonia: Status: Acute (2) Bacteremia: Status: Acute Plan 88-year-old male with pertinent history of BPH, mixed hyperlipidemia, history of CVA, tobacco use disorder who presents to the emergency department for evaluation of fevers, productive cough and admitted with following diagnosis. 1.Acute hypoxemic respiratory failure and Sepsis due to left-sided pneumonia (sepsis resolved) -oxygen weaned... Room air sats acceptable -2/2 blood cultures Pseudomonas/Klebsiella. . . Will switch to Levaquin 500 mg daily to complete a 14 day course 2.Atrial flutter with RVR -rate controlled -Eliquis/beta-omer as tolerated 3.Acute toxic metabolic encephalopathy likely due bacteremia -resolved -as per 1. 4.Full-thickness pressure injury suspect stage III left hip/trochanter and right hip/trochanter present on admission seen by wound nurse with following recommendation -Turn and Reposition every 2 hours and as needed for patient comfort.? Use pillows or wedges to support off loading positions. -Off Load all bony prominences with use of pillows and heel boots if needed.? Apply Preventative foams where needed. ? -Monitor for incontinence and moisture control, use barrier creams when needed for prevention and treatment. -Provide adequate and supplemental nutrition.? -Order low air loss mattress. -Bilateral Heels, Hips and Sacrum - Apply foam dressings peel back and assess Q shift and change every 3 days. -Bridge of nose and Left eyebrow - No topical recommendations needed. Eliquis Full code Patient requires continued inpatient hospitalization for treatment of bacteremia with IV antibiotics, monitoring of heart rate (as above), Quality Stroke Does the patient have a stroke diagnosis?: No VTE Prior VTE?: No VTE Risk Level:: Medical - moderate - high VTE Device Contraindication: Treatment Not Indicated VTE Drug Contraindication: N/A - Med Ordered
[2024-01-04] MEDS: levoFLOXacin 250 MG TABLET PO (14:04)
[2024-01-04] MEDS: Melatonin 3 MG TABLET 6 MG PO (21:03)
[2024-01-04] MEDS: Acetaminophen 325 MG TABLET 650 MG PO (21:04)
[2024-01-04] MEDS: Atorvastatin Calcium 10 MG TABLET PO (21:04)
[2024-01-05] VITALS (7 sets, daily range): BP systolic 91–155; BP diastolic 54–83; PULSE 70–98; RESP 16–20; TEMP 36.3–37.2; O2SAT 92–95
[2024-01-05] MEDS: Apixaban 2.5 MG TABLET PO ×2 (09:09→21:06)
[2024-01-05] MEDS: Metoprolol Succinate ER 50 MG TAB.ER.24H PO (09:09)
[2024-01-05] MEDS: 0.9 % Sodium Chloride Flush 3 ML SYRINGE IVFLUSH ×2 (09:09→14:52)
[2024-01-05] MEDS: Nicotine 14 MG PATCH.TD24 TRANSDERMA (09:10)
--- NOTE | 2024-01-05 10:30 | MHC.CM.PN ---
Second IMM 01/05/24, signed by HCP, son in law. Family accepted bed from [facility], CM let [facility] know and they will pursue auth. Provider will D/C pt. when he eats, he has not eaten anything today.
[2024-01-05] MEDS: levoFLOXacin 250 MG TABLET PO (14:52)
--- NOTE | 2024-01-05 15:00 | HO.PM.IMPN ---
Subjective Subjective Date of Service: 01/05/24 Interval History: Being followed for fevers, tolerated 50% of lunch today, awake alert this afternoon, aware of place and person, no acute events overnight, had 1 brown loose stool today, offers no acute complaints. Review of Systems All other system reviewed and are negative. Physical Exam Vital Signs: Vital Signs: Last Vital Signs Temp 99.0 F 01/05/24 10:52 Pulse 97 01/05/24 10:52 Resp 18 01/05/24 10:52 BP 151/76 H 01/05/24 10:52 Pulse Ox 94 01/05/24 10:52 O2 Del Method Room Air 01/05/24 10:52 O2 Flow Rate 2 12/30/23 19:57 BMI result Body Mass Index 15.7 Const: Other: General frail- elderly gentleman , resting comfortably in bed, no acute distress. Neck supple no JVD. CVS regular rate rhythm, Respiratory no respiratory distress, no wheeze, no rhonchi. Gastrointestinal abdomen soft, non tender, bowel sounds audible Extremities no edema. Neuro moving all 4 extremities, speech clear Skin no rash Objective Data Active Medications Acetaminophen (Acetaminophen 325 Mg Tablet) 650 mg PO Q6H PRN PRN Reason: Pain, Mild (Pain Scale 1-3) Last Admin: 01/04/24 21:04 Dose: 650 mg Documented By: SERG Apixaban (Apixaban 2.5 Mg Tablet) 2.5 mg PO BID [facility] Last Admin: 01/05/24 09:09 Dose: 2.5 mg Documented By: RICARDO Atorvastatin Calcium (Atorvastatin Calcium 10 Mg Tablet) 10 mg PO BEDTIME [facility] Last Admin: 01/04/24 21:04 Dose: 10 mg Documented By: SERG Azelastine HCl (Azelastine Hcl Nasal 137 Mcg/[place] 30 Ml) 2 spray NOSTRIL-B BID [facility] Last Admin: 01/05/24 09:14 Dose: Not Given Documented By: RICARDO Non-Admin Reason: Med Not Available Levofloxacin (Levofloxacin 250 Mg Tablet) 250 mg PO Q24H [facility] Last Admin: 01/05/24 14:52 Dose: 250 mg Documented By: GOLDEN Melatonin (Melatonin 3 Mg Tablet) 6 mg PO BEDTIME PRN PRN Reason: Insomnia Last Admin: 01/04/24 21:03 Dose: 6 mg Documented By: SERG Metoprolol Succinate (Metoprolol Succinate Er 50 Mg Tab.Er.24h) 50 mg PO DAILY [facility]; Protocol Last Admin: 01/05/24 09:09 Dose: 50 mg Documented By: RICARDO Nicotine (Nicotine 14 Mg Patch.Td24) 14 mg TRANSDERMA DAILY [facility] Last Admin: 01/05/24 09:10 Dose: 14 mg Documented By: RICARDO Ondansetron HCl (Ondansetron Hcl 4 Mg/2 Ml Vial) 4 mg IVPUSH Q8H PRN PRN Reason: Nausea and Vomiting Sodium Chloride (0.9 % Sodium Chloride Flush 3 Ml Syringe) 3 ml IVFLUSH QSHIFT [facility] Last Admin: 01/05/24 14:52 Dose: 3 ml Documented By: BEVANES Labs 01/01/24 07:57 01/01/24 07:57 Microbiology Microbiology Results: Microbiology 01/02/24 11:10 Blood Culture - Preliminary Blood - Venous No growth after 48 hours. 01/02/24 11:10 Blood Culture - Preliminary Blood - Venous No growth after 48 hours. Assessment and Plan (1) Pneumonia: Status: Acute (2) Bacteremia: Status: Acute Plan 88-year-old male with pertinent history of BPH, mixed hyperlipidemia, history of CVA, tobacco use disorder who presents to the emergency department for evaluation of fevers, productive cough and admitted with following diagnosis. 1.Acute hypoxemic respiratory failure and Sepsis due to left-sided pneumonia (sepsis resolved) -oxygen weaned... Room air sats acceptable -2/2 blood cultures Pseudomonas/Klebsiella/Bacteroides . . . Status post IV Zosyn and IV azithromycin, placed on Levaquin 250 mg daily on 01/03 to complete a 14 day course - seen by ID likely aspiration, chest x-ray showed mild interstitial infiltrated left lung base, mild perihilar interstitial infiltrates, CT abdomen and pelvis showed moderate diverticulosis without diverticulitis, showed compressive atelectasis underlying emphysematous changes, and chronic infrarenal abdominal aortic aneurysm outpatient follow-up with repeat ultrasound in 6 month recommended. Seen by speech therapy they recommend honey thick liquids and modified NDD 2 diet. 2.Atrial flutter with RVR -rate controlled -continue Eliquis/beta-omer . 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 Use pillows or wedges to support off loading positions. -Off Load all bony prominences with use of pillows and heel boots if needed.? Apply Preventative foams where needed. ? -Monitor for incontinence and moisture control, use barrier creams when needed for prevention and treatment. -Provide adequate and supplemental nutrition.? -Order low air loss mattress. -Bilateral Heels, Hips and Sacrum - Apply foam dressings peel back and assess Q shift and change every 3 days. -Bridge of nose and Left eyebrow - No topical recommendations needed. Leon Full code PT recommend short-term rehab, if patient refuse short-term rehab PT recommends home PT and 24 hours care. Patient requires continued inpatient hospitalization for treatment of bacteremia , monitoring of heart rate (as above), and safe disposition, skin supportive employment case manager arranging for safe discharge Quality Stroke Does the patient have a stroke diagnosis?: No VTE Prior VTE?: No VTE Risk Level:: Medical - moderate - high VTE Device Contraindication: Treatment Not Indicated VTE Drug Contraindication: N/A - Med Ordered
[2024-01-05] MEDS: Melatonin 3 MG TABLET 6 MG PO (21:07)
[2024-01-05] MEDS: Atorvastatin Calcium 10 MG TABLET PO (21:07)
[2024-01-06] VITALS (7 sets, daily range): BP systolic 117–144; BP diastolic 58–73; PULSE 82–98; RESP 17–20; TEMP 36.2–37.1; O2SAT 92–97
[2024-01-06] MEDS: Apixaban 2.5 MG TABLET PO ×2 (08:10→21:08)
[2024-01-06] MEDS: Metoprolol Succinate ER 50 MG TAB.ER.24H PO (08:10)
[2024-01-06] MEDS: 0.9 % Sodium Chloride Flush 3 ML SYRINGE IVFLUSH ×3 (08:12→23:05)
--- NOTE | 2024-01-06 10:12 | MHC.CLN ---
F/U PO INTAKE 50% X 1 MEAL DIET ADVANCED TO GRD M/S WITH HT LIQ PER ARM MAKER PT WITH VERY POOR INTAKE; SUPPLEMENTS IN PLACE ENSURE BID TO PROVIDE 700KCALS, 40G PROTEIN AND MAGIC CUP WITH MEALS PROVIDES 870KCALS, 27G PROTEIN WITH 100% ACCEPTANCE NOTED STAGE 3 R AND L HIP-SUPPLEMENTS WILL PROMOTE WOUND HEALING CONTINUE TO MONITOR PO INTAKE AND ENCOURAGE SUPPLEMENTS
--- NOTE | 2024-01-06 12:20 | MHC.CM.PN ---
Pt has been medically cleared for DC, he is awaiting authorization from his insurance to go to [facility] for STR.
--- NOTE | 2024-01-06 13:41 | HO.PM.IMPN ---
Subjective Subjective Date of Service: 01/06/24 Interval History: Being followed for bacteremia and fevers, noted to have no recurrent fevers, patient awake, alert, answering questions appropriately, tolerated lunch and dinner, agreed to eat breakfast this morning, no other acute events overnight. Review of Systems All other system reviewed and negative. Physical Exam Vital Signs: Vital Signs: Last Vital Signs Temp 98.8 F 01/06/24 10:59 Pulse 82 01/06/24 10:59 Resp 18 01/06/24 10:59 BP 135/68 01/06/24 10:59 Pulse Ox 96 01/06/24 10:59 O2 Del Method Room Air 01/06/24 10:59 O2 Flow Rate 2 12/30/23 19:57 BMI result Body Mass Index 15.7 Const: Other: General frail- elderly gentleman , resting comfortably in bed, no acute distress. Neck supple no JVD. CVS regular rate rhythm, Respiratory no respiratory distress, no wheeze, no rhonchi. Gastrointestinal abdomen soft, non tender, bowel sounds audible Extremities no edema. Neuro awake alert, moving all 4 extremities, speech clear Skin no rash Objective Data Active Medications Acetaminophen (Acetaminophen 325 Mg Tablet) 650 mg PO Q6H PRN PRN Reason: Pain, Mild (Pain Scale 1-3) Last Admin: 01/04/24 21:04 Dose: 650 mg Documented By: SERG Apixaban (Apixaban 2.5 Mg Tablet) 2.5 mg PO BID [facility] Last Admin: 01/06/24 08:10 Dose: 2.5 mg Documented By: BAUTISTA Atorvastatin Calcium (Atorvastatin Calcium 10 Mg Tablet) 10 mg PO BEDTIME [facility] Last Admin: 01/05/24 21:07 Dose: 10 mg Documented By: SERG Azelastine HCl (Azelastine Hcl Nasal 137 Mcg/[place] 30 Ml) 2 spray NOSTRIL-B BID [facility] Last Admin: 01/06/24 10:49 Dose: Not Given Documented By: BAUTISTA Non-Admin Reason: med not available Levofloxacin (Levofloxacin 250 Mg Tablet) 250 mg PO Q24H [facility] Last Admin: 01/05/24 14:52 Dose: 250 mg Documented By: GOLDEN Melatonin (Melatonin 3 Mg Tablet) 6 mg PO BEDTIME PRN PRN Reason: Insomnia Last Admin: 01/05/24 21:07 Dose: 6 mg Documented By: SERG Metoprolol Succinate (Metoprolol Succinate Er 50 Mg Tab.Er.24h) 50 mg PO DAILY [facility]; Protocol Last Admin: 01/06/24 08:10 Dose: 50 mg Documented By: BAUTISTA Nicotine (Nicotine 14 Mg Patch.Td24) 14 mg TRANSDERMA DAILY [facility] Last Admin: 01/06/24 08:12 Dose: Not Given Documented By: BAUTISTA Non-Admin Reason: Patient Refused Ondansetron HCl (Ondansetron Hcl 4 Mg/2 Ml Vial) 4 mg IVPUSH Q8H PRN PRN Reason: Nausea and Vomiting Sodium Chloride (0.9 % Sodium Chloride Flush 3 Ml Syringe) 3 ml IVFLUSH QSHIFT [facility] Last Admin: 01/06/24 08:12 Dose: 3 ml Documented By: BAUTISTA Labs 01/01/24 07:57 01/01/24 07:57 Assessment and Plan (1) Pneumonia: Status: Acute (2) Bacteremia: Status: Acute Plan 88-year-old male with pertinent history of BPH, mixed hyperlipidemia, history of CVA, tobacco use disorder who presents to the emergency department for evaluation of fevers, productive cough and admitted with following diagnosis. 1.Acute hypoxemic respiratory failure and Sepsis due to left-sided pneumonia (sepsis resolved) -oxygen weaned... Currently 96% on room air -2/2 blood cultures Pseudomonas/Klebsiella/Bacteroides . . . Status post IV Zosyn and IV azithromycin, placed on Levaquin 250 mg daily on 01/03 to complete a 14 day course - seen by ID likely aspiration, chest x-ray showed mild interstitial infiltrated left lung base, mild perihilar interstitial infiltrates, CT abdomen and pelvis showed moderate diverticulosis without diverticulitis, showed compressive atelectasis underlying emphysematous changes, and chronic infrarenal abdominal aortic aneurysm outpatient follow-up with repeat ultrasound in 6 month recommended. Seen by speech therapy they recommend honey thick liquids and modified NDD 2 diet. 2.Atrial flutter with RVR -rate controlled -continue Eliquis/beta-omer . 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 Use pillows or wedges to support off loading positions. -Off Load all bony prominences with use of pillows and heel boots if needed.? Apply Preventative foams where needed. ? -Monitor for incontinence and moisture control, use barrier creams when needed for prevention and treatment. -Provide adequate and supplemental nutrition.? -Order low air loss mattress. -Bilateral Heels, Hips and Sacrum - Apply foam dressings peel back and assess Q shift and change every 3 days. -Bridge of nose and Left eyebrow - No topical recommendations needed. Leon Full code PT recommend short-term rehab, call daughter Mercy updated her about patient's clinical condition, cm waiting for authorization Patient requires continued inpatient hospitalization for treatment of bacteremia , monitoring of heart rate (as above), and safe disposition, skin employment evaluator/case manager arranging for safe discharge Quality Stroke Does the patient have a stroke diagnosis?: No VTE Prior VTE?: No VTE Risk Level:: Medical - moderate - high VTE Device Contraindication: Treatment Not Indicated VTE Drug Contraindication: N/A - Med Ordered
[2024-01-06] MEDS: levoFLOXacin 250 MG TABLET PO (15:16)
[2024-01-06] MEDS: Melatonin 3 MG TABLET 6 MG PO (21:08)
[2024-01-06] MEDS: Atorvastatin Calcium 10 MG TABLET PO (21:08)
[2024-01-06] MEDS: Azelastine HCl Nasal 137 MCG/Spray 30 ML 2 SPRAY NOSTRIL-B (21:47)
[2024-01-07 03:35] VITALS: BP 141/65; PULSE 89; RESP 19; TEMP 36.6; O2SAT 100
[2024-01-07 07:06] VITALS: BP 127/79; PULSE 98; RESP 20; TEMP 36.7; O2SAT 99
[2024-01-07 09:33] VITALS: BP 127/79; PULSE 98; O2SAT 99
[2024-01-07 10:56] VITALS: BP 143/78; PULSE 88; RESP 18; TEMP 37.2; O2SAT 98
--- NOTE | 2024-01-07 11:53 | MHC.SL.SWA ---
Speech Pathologist Impression: Risk of aspiration, oropharygneal dysphagia Risk of Aspiration Due to: Lethargy Weak Voice Dysphasia Diet Status: Recommend continue w/ GROUND/MECH ALTERED (NDD2) diet and continue on HONEY THICK liquids (TEASPOON ONLY), pills WHOLE in PUREE. Patient requires 1-1 feed, cues to promote oral clearance: give small bites, check oral cavity, alternate solids/liquids, cue for dry swallow as needed. Discontinue if patient exhibits clinical signs of aspiration (coughing, throat clearing, upper airway noise). Liquid Consistency and Strategies for Safe Swallow: Liquid Intake Recommendation: Honey Thick Liquid Intake Strategies: Small Sips No Straws Solid Food Consistency: Dietary Recommendations: Grnd/Mech Altered (NDD2) Oral Medication Intake: Whole with Puree Please contact the pharmacy regarding appropriate crushable or liquid drug formulations that are available whenever modified delivery is recommended. Compensatory Strategies and Precautions to be Taken for Safe Swallow: Sitting Upright (90 deg) No Straw Liquids from Cup Liquids from Spoon Small Bites and Sips Alternate Liquids/Solids Rate of Ingestion Change Supervision While Eating and Drinking for Safe Swallow: Total Assistance (1:1) Foods to Avoid: Mixed consistencies. Add sauces and gravies and blend well. Swallowing Recommended Treatments: Compens. Strategy Educat. Recommendation for Speech: Inpatient Speech Therapy Site Director Clinican/Clinical Fellow: No Supervisory Statement: I have reviewed and agree with the student/clinical fellow's documentation: N/A Speech Language Pathologist: Vandana Darnell M.A., CCC-ELECTRIC TRACK SWITCH MAINTAINER
[2024-01-07] MEDS: Nicotine 14 MG PATCH.TD24 TRANSDERMA (11:55)
[2024-01-07] MEDS: Apixaban 2.5 MG TABLET PO ×2 (11:55→22:03)
[2024-01-07] MEDS: Metoprolol Succinate ER 50 MG TAB.ER.24H PO (11:55)
[2024-01-07] MEDS: 0.9 % Sodium Chloride Flush 3 ML SYRINGE IVFLUSH ×2 (12:26→15:59)
[2024-01-07] MEDS: Azelastine HCl Nasal 137 MCG/Spray 30 ML 2 SPRAY NOSTRIL-B ×2 (12:33→22:03)
--- NOTE | 2024-01-07 14:22 | P.PNIM_ITS ---
Subjective Subjective Date of Service: 01/07/24 Interval History: Being followed for bacteremia due to pneumonia. At present patient awake alert offers no acute complaints, tolerating 250-75% of meals, has [place] catheter , no other acute events overnight, being followed by speech therapy and they recommend to continue ground mechanical altered diet with honey thick liquids, patient requiring one-to-one feeds. Review of Systems All other system reviewed and negative. Physical Exam 2 Vital Signs: Vital Signs: Last Vital Signs Temp 98.9 F 01/07/24 10:56 Pulse 88 01/07/24 10:56 Resp 18 01/07/24 10:56 BP 143/78 H 01/07/24 10:56 Pulse Ox 98 01/07/24 10:56 O2 Del Method Nasal Cannula 01/07/24 10:56 O2 Flow Rate 2 01/07/24 10:56 BMI result Body Mass Index 15.7 Const: Other: General frail- elderly gentleman , resting comfortably in bed, no acute distress. Neck supple no JVD. CVS regular rate rhythm, Respiratory no respiratory distress, no wheeze, no rhonchi. Gastrointestinal abdomen soft, non tender, bowel sounds audible Extremities no edema. Neuro awake alert, moving all 4 extremities, speech clear Skin no rash Objective Data Active Medications Acetaminophen (Acetaminophen 325 Mg Tablet) 650 mg PO Q6H PRN PRN Reason: Pain, Mild (Pain Scale 1-3) Last Admin: 01/04/24 21:04 Dose: 650 mg Documented By: SERG Apixaban (Apixaban 2.5 Mg Tablet) 2.5 mg PO BID [facility] Last Admin: 01/07/24 11:55 Dose: 2.5 mg Documented By: AZRA Atorvastatin Calcium (Atorvastatin Calcium 10 Mg Tablet) 10 mg PO BEDTIME [facility] Last Admin: 01/06/24 21:08 Dose: 10 mg Documented By: FRAN Azelastine HCl (Azelastine Hcl Nasal 137 Mcg/[place] 30 Ml) 2 spray NOSTRIL-B BID [facility] Last Admin: 01/07/24 12:33 Dose: 2 spray Documented By: AZRA Levofloxacin (Levofloxacin 250 Mg Tablet) 250 mg PO Q24H [facility] Last Admin: 01/06/24 15:16 Dose: 250 mg Documented By: BAUTISTA Melatonin (Melatonin 3 Mg Tablet) 6 mg PO BEDTIME PRN PRN Reason: Insomnia Last Admin: 01/06/24 21:08 Dose: 6 mg Documented By: FRAN Metoprolol Succinate (Metoprolol Succinate Er 50 Mg Tab.Er.24h) 50 mg PO DAILY [facility]; Protocol Last Admin: 01/07/24 11:55 Dose: 50 mg Documented By: AZRA Nicotine (Nicotine 14 Mg Patch.Td24) 14 mg TRANSDERMA DAILY [facility] Last Admin: 01/07/24 11:55 Dose: 14 mg Documented By: AZRA Ondansetron HCl (Ondansetron Hcl 4 Mg/2 Ml Vial) 4 mg IVPUSH Q8H PRN PRN Reason: Nausea and Vomiting Sodium Chloride (0.9 % Sodium Chloride Flush 3 Ml Syringe) 3 ml IVFLUSH QSHIFT [facility] Last Admin: 01/07/24 12:26 Dose: 3 ml Documented By: AZRA Labs 01/01/24 07:57 01/01/24 07:57 Microbiology Microbiology Results: Microbiology 01/02/24 11:10 Blood Culture - Final Blood - Venous No growth after 5 days. 01/02/24 11:10 Blood Culture - Final Blood - Venous No growth after 5 days. Assessment and Plan (1) Pneumonia: Status: Acute (2) Bacteremia: Status: Acute Plan 88-year-old male with pertinent history of BPH, mixed hyperlipidemia, history of CVA, tobacco use disorder who presents to the emergency department for evaluation of fevers, productive cough and admitted with following diagnosis. 1.Acute hypoxemic respiratory failure and Sepsis due to left-sided pneumonia (sepsis resolved). -oxygen weaned... Currently 96% on room air -2/2 blood cultures Pseudomonas/Klebsiella/Bacteroides . . . Status post IV Zosyn and IV azithromycin, placed on Levaquin 250 mg daily on 01/03 to complete a 14 day course - seen by ID likely aspiration, chest x-ray showed mild interstitial infiltrated left lung base, mild perihilar interstitial infiltrates, CT abdomen and pelvis showed moderate diverticulosis without diverticulitis, showed compressive atelectasis underlying emphysematous changes, and chronic infrarenal abdominal aortic aneurysm, outpatient follow-up with repeat ultrasound in 6 month recommended. Seen by speech therapy they recommend honey thick liquids and modified NDD 2 diet. 2.Atrial flutter with RVR -rate controlled -continue Eliquis/beta-omer . 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 Use pillows or wedges to support off loading positions. -Off Load all bony prominences with use of pillows and heel boots if needed.? Apply Preventative foams where needed. ? -Monitor for incontinence and moisture control, use barrier creams when needed for prevention and treatment. -Provide adequate and supplemental nutrition.? -Order low air loss mattress. -Bilateral Heels, Hips and Sacrum - Apply foam dressings peel back and assess Q shift and change every 3 days. -Bridge of nose and Left eyebrow - No topical recommendations needed. Eliquis Full code PT recommend short-term rehab, waiting for authorization for safe disposition to rehab. Spoke with patient's daughter, patient does not have a wheelchair, he ambulates with a walker and has a scooter only for going long distances. Patient requires continued inpatient hospitalization for treatment of bacteremia , monitoring of heart rate (as above), and safe disposition, lining caser arranging for safe discharge Quality Stroke Does the patient have a stroke diagnosis?: No VTE Prior VTE?: No VTE Risk Level:: Medical - moderate - high VTE Device Contraindication: Treatment Not Indicated VTE Drug Contraindication: N/A - Med Ordered
--- NOTE | 2024-01-07 14:56 | MHC.CM.PN ---
cm made multiple calls to pt's [employer] Medicare plan d/t pt being denied STR and pt being impulsive and very high fall risk and need to be home alone all day while dtr/magdi are at work. pt now under expedited appeal Req ID#[id number], per [employer] appeal will take until next Wednesday 01/10. Peer to peer done 01/06 and denial was upheld, reference #[id number]. PT note 01/06 faxed to expedited appeals #[phone]
[2024-01-07 15:33] VITALS: BP 136/77; PULSE 79; RESP 20; TEMP 36.7; O2SAT 96
[2024-01-07] MEDS: levoFLOXacin 250 MG TABLET PO (15:59)
[2024-01-07 20:00] VITALS: BP 119/65; PULSE 87; RESP 20; TEMP 36.3; O2SAT 98
[2024-01-07] MEDS: Atorvastatin Calcium 10 MG TABLET PO (22:03)
[2024-01-08] VITALS (9 sets, daily range): BP systolic 112–140; BP diastolic 56–81; PULSE 67–89; RESP 16–20; TEMP 36.6–36.9; O2SAT 94–100
[2024-01-08] MEDS: Metoprolol Succinate ER 50 MG TAB.ER.24H PO (08:27)
[2024-01-08] MEDS: Apixaban 2.5 MG TABLET PO ×2 (08:28→21:40)
[2024-01-08] MEDS: Nicotine 14 MG PATCH.TD24 TRANSDERMA (08:28)
[2024-01-08] MEDS: Azelastine HCl Nasal 137 MCG/Spray 30 ML 2 SPRAY NOSTRIL-B (08:31)
[2024-01-08] MEDS: 0.9 % Sodium Chloride Flush 3 ML SYRINGE IVFLUSH ×2 (08:45→15:34)
[2024-01-08 09:38] LABS: Hematocrit 35.3 % (42.0-52.0); Hemoglobin 11.4 g/dl (14.0-18.0); Mean Corpuscular HGB Conc 32.3 g/dl (31.0-36.0); Mean Corpuscular Hemoglobin 29.9 pg (27.0-33.0); Mean Corpuscular Volume 92.7 fL (80.0-98.0); Mean Platelet Volume 8.9 fL (9.4-12.4); Platelet Count 295 X10*3/uL (160-400); Red Blood Count 3.81 X10*6/uL (4.60-5.80); Red Cell Distribution Width 14.7 % (11.0-16.0); White Blood Count 12.3 X10*3/uL (4.8-10.8)
--- NOTE | 2024-01-08 10:41 | MHC.SL.SWA ---
Speech Pathologist Impression: Risk of aspiration, oropharyngeal dysphagia Risk of Aspiration Due to: Lethargy Weak Voice Dysphasia Diet Status: Recommend continue w/ GROUND/MECH ALTERED (NDD2) diet and continue on HONEY THICK liquids ([place] ONLY), pills WHOLE in PUREE. Patient requires 1-1 feed, cues to promote oral clearance: give small bites, check oral cavity, alternate solids/liquids, cue for dry swallow as needed. Discontinue if patient exhibits clinical signs of aspiration (coughing, throat clearing, upper airway noise). Liquid Consistency and Strategies for Safe Swallow: Liquid Intake Recommendation: Honey Thick Liquid Intake Strategies: Small Sips No Straws Solid Food Consistency: Dietary Recommendations: Grnd/Mech Altered (NDD2) Oral Medication Intake: Whole with Puree Please contact the pharmacy regarding appropriate crushable or liquid drug formulations that are available whenever modified delivery is recommended. Compensatory Strategies and Precautions to be Taken for Safe Swallow: Sitting Upright (90 deg) No Straw Liquids from Cup Liquids from Spoon Small Bites and Sips Alternate Liquids/Solids Rate of Ingestion Change Supervision While Eating and Drinking for Safe Swallow: Total Assistance (1:1) Foods to Avoid: Mixed consistencies. Add sauces and gravies and blend well. Swallowing Recommended Treatments: Compens. Strategy Educat. Recommendation for Speech: Inpatient Speech Therapy Shrimp Packer Clinican/Clinical Fellow: No Supervisory Statement: I have reviewed and agree with the student/clinical fellow's documentation: N/A Speech Language Pathologist: Vandana Darnell M.A., CCC-BED SPRING MAKER
--- NOTE | 2024-01-08 11:55 | MHC.CLN ---
F/U PO INTAKE VARIABLE 25-75% DIET ADVANCED TO GRD M/S WITH HT LIQ PER RECOVERY OPERATOR HELPER ENSURE BID PROVIDES 700KCALS, 40G PROTEIN AND MAGIC CUP WITH MEALS PROVIDES 870KCALS, 27G PROTEIN WITH 100% ACCEPTANCE NOTED STAGE 3 R AND L HIP-SUPPLEMENTS WILL PROMOTE WOUND HEALING CONTINUE TO MONITOR PO INTAKE AND ENCOURAGE SUPPLEMENTS
--- NOTE | 2024-01-08 13:18 | P.PNIM_ITS ---
Subjective Subjective Date of Service: 01/08/24 Interval History: Patient is sitting on chair, tolerated breakfast denies pain, no nausea, no vomiting, no abdominal pain, no other acute issues overnight, no fevers, no chills, being followed closely by Physical therapy. Review of Systems All other system reviewed and negative Physical Exam 2 Vital Signs: Vital Signs: Last Vital Signs Temp 98.4 F 01/08/24 10:54 Pulse 82 01/08/24 11:00 Resp 18 01/08/24 10:54 BP 129/56 L 01/08/24 11:00 Pulse Ox 94 01/08/24 11:00 O2 Del Method Room Air 01/08/24 10:54 O2 Flow Rate 2 01/08/24 07:10 BMI result Body Mass Index 15.7 Const: Other: General frail- elderly gentleman , resting comfortably , no acute distress. Neck supple no JVD. CVS regular rate rhythm, Respiratory no respiratory distress, no wheeze, no rhonchi. Gastrointestinal abdomen soft, non tender, bowel sounds audible Extremities no edema. Neuro awake alert, moving all 4 extremities, speech clear Skin no rash Objective Data Active Medications Acetaminophen (Acetaminophen 325 Mg Tablet) 650 mg PO Q6H PRN PRN Reason: Pain, Mild (Pain Scale 1-3) Last Admin: 01/04/24 21:04 Dose: 650 mg Documented By: SERG Apixaban (Apixaban 2.5 Mg Tablet) 2.5 mg PO BID [facility] Last Admin: 01/08/24 08:28 Dose: 2.5 mg Documented By: AZRA Atorvastatin Calcium (Atorvastatin Calcium 10 Mg Tablet) 10 mg PO BEDTIME [facility] Last Admin: 01/07/24 22:03 Dose: 10 mg Documented By: JETT Azelastine HCl (Azelastine Hcl Nasal 137 Mcg/[place] 30 Ml) 2 spray NOSTRIL-B BID [facility] Last Admin: 01/08/24 08:31 Dose: 2 spray Documented By: AZRA Levofloxacin (Levofloxacin 250 Mg Tablet) 250 mg PO Q24H [facility] Last Admin: 01/07/24 15:59 Dose: 250 mg Documented By: AZRA Melatonin (Melatonin 3 Mg Tablet) 6 mg PO BEDTIME PRN PRN Reason: Insomnia Last Admin: 01/06/24 21:08 Dose: 6 mg Documented By: FRAN Metoprolol Succinate (Metoprolol Succinate Er 50 Mg Tab.Er.24h) 50 mg PO DAILY [facility]; Protocol Last Admin: 01/08/24 08:27 Dose: 50 mg Documented By: AZRA Nicotine (Nicotine 14 Mg Patch.Td24) 14 mg TRANSDERMA DAILY [facility] Last Admin: 01/08/24 08:28 Dose: 14 mg Documented By: AZRA Ondansetron HCl (Ondansetron Hcl 4 Mg/2 Ml Vial) 4 mg IVPUSH Q8H PRN PRN Reason: Nausea and Vomiting Sodium Chloride (0.9 % Sodium Chloride Flush 3 Ml Syringe) 3 ml IVFLUSH QSHIFT [facility] Last Admin: 01/08/24 08:45 Dose: 3 ml Documented By: AZRA Labs 01/08/24 09:21 01/01/24 07:57 Labs: Laboratory Results - last 24 hr 01/08/24 09:21 MCV 92.7 MCH 29.9 MCHC 32.3 RDW 14.7 Plt Count 295 D MPV 8.9 L Absolute Nucleated RBC 0.000 Nucleated RBC % (auto) 0.0 Microbiology Microbiology Results: Microbiology 01/02/24 11:10 Blood Culture - Final Blood - Venous No growth after 5 days. 01/02/24 11:10 Blood Culture - Final Blood - Venous No growth after 5 days. Assessment and Plan (1) Pneumonia: Status: Acute (2) Bacteremia: Status: Acute Plan 88-year-old male with pertinent history of BPH, mixed hyperlipidemia, history of CVA, tobacco use disorder who presents to the emergency department for evaluation of fevers, productive cough and admitted with following diagnosis. 1.Acute hypoxemic respiratory failure and Sepsis due to left-sided pneumonia (sepsis resolved). -remained hemodynamically stable overnight -oxygen weaned... Currently 96% on room air -2/2 blood cultures Pseudomonas/Klebsiella/Bacteroides . . . Status post IV Zosyn and IV azithromycin, placed on Levaquin 250 mg daily on 01/03 to complete a 14 day course - seen by ID likely aspiration, chest x-ray showed mild interstitial infiltrated left lung base, mild perihilar interstitial infiltrates, CT abdomen and pelvis showed moderate diverticulosis without diverticulitis, showed compressive atelectasis underlying emphysematous changes, and chronic infrarenal abdominal aortic aneurysm, outpatient follow-up with repeat ultrasound in 6 month recommended. Seen by speech therapy they recommend honey thick liquids and modified NDD 2 diet, patient tolerating current consistencies. 2.Atrial flutter with RVR -rate controlled -continue Eliquis/beta-omer . 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 Use pillows or wedges to support off loading positions. -Off Load all bony prominences with use of pillows and heel boots if needed.? Apply Preventative foams where needed. ? -Monitor for incontinence and moisture control, use barrier creams when needed for prevention and treatment. -Provide adequate and supplemental nutrition.? -Order low air loss mattress. -Bilateral Heels, Hips and Sacrum - Apply foam dressings peel back and assess Q shift and change every 3 days. -Bridge of nose and Left eyebrow - No topical recommendations needed. Eliquis Full code PT recommend short-term rehab, patient tolerated increased distant gait today but requiring hands-on assist for safety at all times, increase assists needed for turns in hallways, continued lower extremity weakness and moderate balance impairment, with high risk for falls. [employer] Medicare plan denied short-term rehab, patient now under expedited appeal request per [employer] appeal will take until next Wednesday 01/10 Patient requires continued inpatient hospitalization for treatment of bacteremia , monitoring of heart rate (as above), and safe disposition, case checker arranging for safe discharge Quality Stroke Does the patient have a stroke diagnosis?: No VTE Prior VTE?: No VTE Risk Level:: Medical - moderate - high VTE Device Contraindication: Treatment Not Indicated VTE Drug Contraindication: N/A - Med Ordered
--- NOTE | 2024-01-08 14:18 | MHC.CM.PN ---
CM RECEIVED A CALL FROM PTS DAUGHTER, TONO, WHO STATED SHE SPOKE TO [employer] AND THEY TOLD HER THE PTS THERAPY CHELLE STATED HE WAS W/C AND SCOOTER BOUND AT [facility]ELINE SHE SAYS THEY NEED A CORRECTED NOTE SENT TO THEM CORRECTED NOTE FAXED PT HAS BEEN CLEARED TO DC, [facility] HAS DENIED REQUEST FOR STR AUTH DECISION WAS APPEALED, AWAITING RESPONE
[2024-01-08] MEDS: levoFLOXacin 250 MG TABLET PO (15:34)
[2024-01-08] MEDS: Atorvastatin Calcium 10 MG TABLET PO (21:40)
[2024-01-09] VITALS (7 sets, daily range): BP systolic 119–132; BP diastolic 58–72; PULSE 76–87; RESP 16–20; TEMP 36.4–36.8; O2SAT 95–98
[2024-01-09] MEDS: Metoprolol Succinate ER 50 MG TAB.ER.24H PO (09:47)
[2024-01-09] MEDS: Apixaban 2.5 MG TABLET PO ×2 (09:47→20:42)
[2024-01-09] MEDS: Nicotine 14 MG PATCH.TD24 TRANSDERMA (09:48)
[2024-01-09] MEDS: 0.9 % Sodium Chloride Flush 3 ML SYRINGE IVFLUSH ×3 (09:53→20:42)
[2024-01-09] MEDS: Azelastine HCl Nasal 137 MCG/Spray 30 ML 2 SPRAY NOSTRIL-B (09:55)
--- NOTE | 2024-01-09 10:18 | HO.PM.IMPN ---
Subjective Subjective Date of Service: 01/09/24 Interval History: Being followed for acute hypoxic respiratory failure and sepsis due to left-sided pneumonia likely aspiration multiple organism bacteremia. Resting comfortably offers no acute complaints, tolerating 75% of meals, no acute events overnight. Review of Systems All other system reviewed and negative Physical Exam Vital Signs: Vital Signs: Last Vital Signs Temp 97.6 F 01/09/24 08:00 Pulse 83 01/09/24 09:47 Resp 16 01/09/24 08:00 BP 125/58 L 01/09/24 09:47 Pulse Ox 96 01/09/24 09:25 O2 Del Method Room Air 01/09/24 08:00 O2 Flow Rate 2 01/08/24 07:10 BMI result Body Mass Index 15.7 Const: Other: General frail- eld erly gentleman , r esting comfortably , no acute distre ss. Upper denture s Neck supple no JVD. CVS regular rate rhythm, Respi ratory no respira tory distress, no wheeze, no rhonchi . Gastrointestinal abdomen soft, non tender, bowel violetta nds audible Extrem ities no edema. N euro awake alert, moving all 4 extre mities, speech allan ar Skin no rash Objective Data Active Medications Acetaminophen (Acetaminophen 325 Mg Tablet) 650 mg PO Q6H PRN PRN Reason: Pain, Mild (Pain Scale 1-3) Last Admin: 01/04/24 21:04 Dose: 650 mg Documented By: SERG Apixaban (Apixaban 2.5 Mg Tablet) 2.5 mg PO BID [facility] Last Admin: 01/09/24 09:47 Dose: 2.5 mg Documented By: GOLDEN Atorvastatin Calcium (Atorvastatin Calcium 10 Mg Tablet) 10 mg PO BEDTIME [facility] Last Admin: 01/08/24 21:40 Dose: 10 mg Documented By: SERG Azelastine HCl (Azelastine Hcl Nasal 137 Mcg/[place] 30 Ml) 2 spray NOSTRIL-B BID [facility] Last Admin: 01/09/24 09:55 Dose: 2 spray Documented By: GOLDEN Levofloxacin (Levofloxacin 250 Mg Tablet) 250 mg PO Q24H [facility] Last Admin: 01/08/24 15:34 Dose: 250 mg Documented By: AZRA Melatonin (Melatonin 3 Mg Tablet) 6 mg PO BEDTIME PRN PRN Reason: Insomnia Last Admin: 01/06/24 21:08 Dose: 6 mg Documented By: FRAN Metoprolol Succinate (Metoprolol Succinate Er 50 Mg Tab.Er.24h) 50 mg PO DAILY [facility]; Protocol Last Admin: 01/09/24 09:47 Dose: 50 mg Documented By: GOLDEN Nicotine (Nicotine 14 Mg Patch.Td24) 14 mg TRANSDERMA DAILY [facility] Last Admin: 01/09/24 09:48 Dose: 14 mg Documented By: GOLDEN Ondansetron HCl (Ondansetron Hcl 4 Mg/2 Ml Vial) 4 mg IVPUSH Q8H PRN PRN Reason: Nausea and Vomiting Sodium Chloride (0.9 % Sodium Chloride Flush 3 Ml Syringe) 3 ml IVFLUSH QSHIFT [facility] Last Admin: 01/09/24 09:53 Dose: 3 ml Documented By: GOLDEN Labs 01/08/24 09:21 01/01/24 07:57 Assessment and Plan (1) Pneumonia: Status: Acute (2) Bacteremia: Status: Acute Plan 88-year-old male with pertinent history of BPH, mixed hyperlipidemia, history of CVA, tobacco use disorder who presents to the emergency department for evaluation of fevers, productive cough and admitted with following diagnosis. 1.Acute hypoxemic respiratory failure and Sepsis due to left-sided pneumonia (resolved). -remained hemodynamically stable -oxygen weaned... Currently 96% on room air -2/2 blood cultures Pseudomonas/Klebsiella/Bacteroides . . . Status post IV Zosyn and IV azithromycin, placed on Levaquin 250 mg daily on 01/03 to complete a 14 day course ending 01/17 - seen by ID likely aspiration, chest x-ray showed mild interstitial infiltrated left lung base, mild perihilar interstitial infiltrates, CT abdomen and pelvis showed moderate diverticulosis without diverticulitis, showed compressive atelectasis underlying emphysematous changes, and chronic infrarenal abdominal aortic aneurysm, outpatient follow-up with repeat ultrasound in 6 month recommended. Seen by speech therapy they recommend honey thick liquids and modified NDD 2 diet, patient tolerating current consistencies. 2. New onset Atrial flutter with RVR -rate controlled -continue Eliquis/beta-omer . 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 Use pillows or wedges to support off loading positions. -Off Load all bony prominences with use of pillows and heel boots if needed.? Apply Preventative foams where needed. ? -Monitor for incontinence and moisture control, use barrier creams when needed for prevention and treatment. -Provide adequate and supplemental nutrition.? -Order low air loss mattress. -Bilateral Heels, Hips and Sacrum - Apply foam dressings peel back and assess Q shift and change every 3 days. -Bridge of nose and Left eyebrow - No topical recommendations needed. Eliquis Full code PT recommend short-term rehab, due to bilateral upper and lower extremity weakness, decreased safety and independence with bed mobility and transfers, and very high risk for fall. [employer] Medicare plan denied short-term rehab, patient now under expedited appeal request per [employer] appeal will take until next Wednesday 01/10 Patient requires continued inpatient hospitalization for treatment of bacteremia , monitoring of heart rate (as above), and safe disposition, counter caser arranging for safe discharge Quality Stroke Does the patient have a stroke diagnosis?: No VTE Prior VTE?: No VTE Risk Level:: Medical - moderate - high VTE Device Contraindication: Treatment Not Indicated VTE Drug Contraindication: N/A - Med Ordered
[2024-01-09] MEDS: levoFLOXacin 250 MG TABLET PO (12:54)
[2024-01-09] MEDS: Melatonin 3 MG TABLET 6 MG PO (20:42)
[2024-01-09] MEDS: ondansetron HCL 4 MG/2 ML VIAL IVPUSH (20:42)
[2024-01-09] MEDS: Acetaminophen 325 MG TABLET 650 MG PO (20:42)
[2024-01-09] MEDS: Atorvastatin Calcium 10 MG TABLET PO (20:52)
[2024-01-10] VITALS (8 sets, daily range): BP systolic 97–120; BP diastolic 50–70; PULSE 73–120; RESP 16–18; TEMP 36.5–37; O2SAT 92–98
[2024-01-10] MEDS: 0.9 % Sodium Chloride 500 ML 250 ML IVCONT (08:16)
[2024-01-10] MEDS: 0.9 % Sodium Chloride Flush 3 ML SYRINGE IVFLUSH ×3 (08:16→19:55)
[2024-01-10] MEDS: Metoprolol Succinate ER 50 MG TAB.ER.24H PO (10:24)
[2024-01-10] MEDS: Apixaban 2.5 MG TABLET PO ×2 (10:24→19:55)
[2024-01-10] MEDS: levoFLOXacin 250 MG TABLET PO (14:05)
--- NOTE | 2024-01-10 16:04 | P.PNIM_ITS ---
Subjective Subjective Date of Service: 01/10/24 Interval History: cough improving, trying to eat more Review of Systems Review of Systems: Yes all other systems are reviewed and are negative Physical Exam 2 Vital Signs: Vital Signs: Last Vital Signs Temp 97.8 F 01/10/24 15:28 Pulse 86 01/10/24 15:28 Resp 17 01/10/24 15:28 BP 98/62 01/10/24 15:28 Pulse Ox 94 01/10/24 15:28 O2 Del Method Room Air 01/10/24 15:28 O2 Flow Rate 2 01/08/24 07:10 BMI result Body Mass Index 15.7 Gen: frail, cachectic HEENT: sclera anicteric, moist mucus membranes Neck: supple Lungs: clear to auscultation bilaterally Heart: regular rate and rhythm, no murmurs Abd: soft, non-tender, non-distended Ext: no edema Skin: warm/well-perfused Neuro: alert and oriented x3, no focal findings Psych: appropriate affect Objective Data Active Medications Acetaminophen (Acetaminophen 325 Mg Tablet) 650 mg PO Q6H PRN PRN Reason: Pain, Mild (Pain Scale 1-3) Last Admin: 01/09/24 20:42 Dose: 650 mg Documented By: SERG Apixaban (Apixaban 2.5 Mg Tablet) 2.5 mg PO BID [facility] Last Admin: 01/10/24 10:24 Dose: 2.5 mg Documented By: RINKU Atorvastatin Calcium (Atorvastatin Calcium 10 Mg Tablet) 10 mg PO BEDTIME [facility] Last Admin: 01/09/24 20:52 Dose: 10 mg Documented By: SERG Azelastine HCl (Azelastine Hcl Nasal 137 Mcg/[place] 30 Ml) 2 spray NOSTRIL-B BID [facility] Last Admin: 01/10/24 10:24 Dose: Not Given Documented By: RINKU Non-Admin Reason: Patient Refused Levofloxacin (Levofloxacin 250 Mg Tablet) 250 mg PO Q24H [facility] Last Admin: 01/10/24 14:05 Dose: 250 mg Documented By: RINKU Melatonin (Melatonin 3 Mg Tablet) 6 mg PO BEDTIME PRN PRN Reason: Insomnia Last Admin: 01/09/24 20:42 Dose: 6 mg Documented By: SERG Metoprolol Succinate (Metoprolol Succinate Er 50 Mg Tab.Er.24h) 50 mg PO DAILY [facility]; Protocol Last Admin: 01/10/24 10:24 Dose: 50 mg Documented By: RINKU Nicotine (Nicotine 14 Mg Patch.Td24) 14 mg TRANSDERMA DAILY [facility] Last Admin: 01/10/24 10:25 Dose: Not Given Documented By: RINKU Non-Admin Reason: Patient Refused Ondansetron HCl (Ondansetron Hcl 4 Mg/2 Ml Vial) 4 mg IVPUSH Q8H PRN PRN Reason: Nausea and Vomiting Last Admin: 01/09/24 20:42 Dose: 4 mg Documented By: SERG Sodium Chloride (0.9 % Sodium Chloride Flush 3 Ml Syringe) 3 ml IVFLUSH QSHIFT [facility] Last Admin: 01/10/24 14:27 Dose: 3 ml Documented By: RINKU Labs 01/08/24 09:21 01/01/24 07:57 Assessment and Plan (1) Pneumonia: Status: Acute (2) Bacteremia: Status: Acute Plan [id number] 88yo M with BPH, HLD, hx CVA, tobacco abuse presenting with fever + productive cough, admitted for hypoxia + sepsis due to PNA, also found to have atrial flutter sepsis + acute hypoxic resp failure due to pneumonia with polymicrobial bacteremia - weaned off O2 - BCx grew Pseudomonas aeruginosa, Klebsiella pneumoniae, and Bacteroides. Initially treated with pip-arabella + azithromycin. Per ID started on levofloxacin 01/03-01/17. Per ID likely source aspiration. - ECHO VASC TECH: honey liquids + NDD2 solids new-onset atrial flutter with RVR - rate-controlled, continue metoprolol succinate + apixaban chronic infrarenal AAA, 5cm in diameter - output f/u with US in 6 mo recommended acute encephalopathy due to infection - resolved stage 3 pressure injury bilateral hips, POA - Wound Care consulted: 1. Turn and Reposition every 2 hours and as needed for patient comfort.? Use pillows or wedges to support off loading positions. 2. Off Load all bony prominences with use of pillows and heel boots if needed.? Apply Preventative foams where needed. ? 3. Monitor for incontinence and moisture control, use barrier creams when needed for prevention and treatment. 4. Provide adequate and supplemental nutrition.? 5. Order low air loss mattress. 6. Bilateral Heels, Hips and Sacrum - Apply foam dressings peel back and assess Q shift and change every 3 days. 7. Bridge of nose and Left eyebrow - No topical recommendations needed. VTE ppx - apixaban dispo - PT recommended STR due to weakness of legs and arms bilaterally, decreased safety + assistance for bed mobility + transfers, very high risk of fall - insurance declined STR, now under expedited appeal to take place tomorrow In my clinical judgment, the patient requires continued inpatient hospitalization for the following reasons: safe disposition; medically unsafe for discharge home at this time Total time managing care of this patient today: 45 minutes. Quality Stroke Does the patient have a stroke diagnosis?: No VTE Prior VTE?: No VTE Risk Level:: Medical - moderate - high VTE Device Contraindication: Treatment Not Indicated VTE Drug Contraindication: N/A - Med Ordered
[2024-01-10] MEDS: Atorvastatin Calcium 10 MG TABLET PO (19:55)
[2024-01-10] MEDS: Melatonin 3 MG TABLET 6 MG PO (23:44)
[2024-01-11] VITALS (10 sets, daily range): BP systolic 86–107; BP diastolic 42–59; PULSE 64–98; RESP 16–20; TEMP 36.2–37; O2SAT 93–96
[2024-01-11] MEDS: Metoprolol Succinate ER 50 MG TAB.ER.24H PO (09:17)
[2024-01-11] MEDS: 0.9 % Sodium Chloride Flush 3 ML SYRINGE IVFLUSH ×3 (09:17→20:24)
[2024-01-11] MEDS: Nicotine 14 MG PATCH.TD24 TRANSDERMA (09:17)
[2024-01-11] MEDS: Apixaban 2.5 MG TABLET PO ×2 (09:18→20:24)
--- NOTE | 2024-01-11 10:32 | MHC.CM.PN ---
Addendum entered by Ese Hu 01/11/24 13:55: DC HELD DUE TO LOW BP SNF, AMBULANCE AND DAUGHTER INFORMED PLAN IS FOR PT TO DC TO [facility] FOR STR TOMORROW IF IMPROVED Original Note: CM RECEIVED NOTICE THAT [facility] HAS APPROVED STR FOR PT WITH [facility] [place] PT WILL DC TO [facility] FOR STR TODAY AT 1300 HOURS [facility] CM CALLED PTS DAUGHTERTONO [phone], SHE IS AWARE OF DC TIME/PLAN
--- NOTE | 2024-01-11 10:36 | PM.DS ---
DS: Providers Provider Date of Service: 01/11/24 Date of admission: 12/29/23 21:05 Date of discharge: 01/11/24 Primary care physician: SCARLETT Mcnamara Consults: 12/29/23 22:22 Consult to Cardiology Routine Consulting Provider: [facility] Reason for consultation: atrial flutter new onset Has provider been notified: Yes 12/30/23 14:08 Consult to Wound Care Routine Reason for consultation: Left eye brow, nose, bilateral hips Has provider been notified: Yes 12/31/23 15:06 Consult to Infectious Diseases Routine Consulting Provider: Corinne Andrade Reason for consultation: gm pos bacteremia and gm neg Has provider been notified: No DS: Diagnosis Discharge Diagnosis (1) Pneumonia: Status: Acute (2) Bacteremia: Status: Acute (3) Atrial flutter with rapid ventricular response: Status: Acute (4) Severe malnutrition: Status: Acute (5) Saccular aneurysm: Status: Acute (6) Stage III pressure ulcer of hip: Status: Acute (7) Abdominal aneurysm: Status: Acute (8) Sepsis: Status: Resolved (9) Acute hypoxic respiratory failure: Status: Acute (10) Encephalopathy due to infection: Status: Acute DS: Summary Hospital Course Hospital Course: From the history and physical by the admitting hospitalist, Niecy Ortiz MD, 12/29/23: This is a 88-year-old male with pertinent history of BPH, mixed hyperlipidemia, history of CVA, tobacco use disorder who presents to the emergency department for evaluation of fevers. Patient states he has been weak for the last couple of days. Also has been having a productive cough with purulent sputum production. Admits associated fevers and chills. No chest discomfort, palpitations or wheezing. Patient was found to be hypoxemic as per EMS. Is a current smoker. No abdominal pain, changes in urinary or bowel habits. In the emergency department, patient was found to be septic and imaging concerning for left-sided pneumonia. Also was found to be in atrial flutter with RVR 88yo M with BPH, HLD, hx CVA, and tobacco abuse presenting with fever + productive cough and admitted for hypoxia + sepsis due to pneumonia; also found to have atrial flutter. Hospital course by problem: sepsis + acute hypoxic resp failure due to pneumonia with polymicrobial bacteremia - BCx grew a polymicrobial mixture of Pseudomonas aeruginosa, Klebsiella pneumoniae, and Bacteroides spp. Initially treated with pip-arabella + azithromycin. Per Infectious Disease, started on levofloxacin 01/03 to complete 14 days ending 01/18/24. Per ID likely source aspiration. Repeat blood cultures cleared. He was weaned off of oxygen and SIRS physiology also resolved. - INTERACTIVE MEDIA DESIGNER consulted: recommended honey-thick liquids liquids + NDD2 solids. new-onset atrial flutter with RVR - Cardiology consulted. Rate-controlled on metoprolol succinate. Also started apixaban for anticoagulation. Should follow up with Cardiology in 2 weeks. 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 Output f/u with US in 6 mo recommended. acute encephalopathy due to infection - Resolved. stage 3 pressure injury bilateral hips, POA - Wound Care consulted: 1. Turn and Reposition every 2 hours and as needed for patient comfort.? Use pillows or wedges to support off loading positions. 2. Off Load all bony prominences with use of pillows and heel boots if needed.? Apply Preventative foams where needed. ? 3. Monitor for incontinence and moisture control, use barrier creams when needed for prevention and treatment. 4. Provide adequate and supplemental nutrition.? 5. Order low air loss mattress. 6. Bilateral Heels, Hips and Sacrum - Apply foam dressings peel back and assess Q shift and change every 3 days. 7. Bridge of nose and Left eyebrow - No topical recommendations needed. Severe protein-calorie malnutrition - Protein supplementation recommended. He was discharged to a SNF for short-term rehabilitation. Time Attestation Discharge Coordination Time (in mins): 40 Quality: Safe Use of Opioids Does Pt have an Active Cancer Diagnosis on the Problem List?: No Quality: Stroke Does the patient have a stroke diagnosis?: No Physical Exam Vital Signs: Vital Signs: Last Vital Signs Temp 97.3 F 01/11/24 07:40 Pulse 77 01/11/24 09:17 Resp 20 01/11/24 07:40 BP 99/54 L 01/11/24 09:17 Pulse Ox 96 01/11/24 07:40 O2 Del Method Room Air 01/11/24 07:40 O2 Flow Rate 2 01/08/24 07:10 BMI result Body Mass Index 15.7 Gen: frail, cachectic HEENT: sclera anicteric, moist mucus membranes Neck: supple Lungs: clear to auscultation bilaterally Heart: regular rate and rhythm, no murmurs Abd: soft, non-tender, non-distended Ext: no edema Skin: warm/well-perfused Neuro: alert and oriented x3, no focal findings Psych: appropriate affect DS: Data Data Completed and Pending Completed studies during hospitalization [Text1]: Laboratory Results WBC 12.3 X10*3/uL (4.8-10.8) H 01/08/24 09:21 RBC 3.81 X10*6/uL (4.60-5.80) L 01/08/24 09:21 Hgb 11.4 g/dl (14.0-18.0) L 01/08/24 09:21 Hct 35.3 % (42.0-52.0) L 01/08/24 09:21 MCV 92.7 fL (80.0-98.0) 01/08/24 09:21 MCH 29.9 pg (27.0-33.0) 01/08/24 09:21 MCHC 32.3 g/dl (31.0-36.0) 01/08/24 09:21 RDW 14.7 % (11.0-16.0) 01/08/24 09:21 Plt Count 295 X10*3/uL (160-400) D 01/08/24 09:21 MPV 8.9 fL (9.4-12.4) L 01/08/24 09:21 Immature Gran % (Auto) Cancelled 12/29/23 17:51 Neut % (Auto) Cancelled 12/29/23 17:51 Lymph % (Auto) Cancelled 12/29/23 17:51 Emanuel % (Auto) Cancelled 12/29/23 17:51 Eos % (Auto) Cancelled 12/29/23 17:51 Baso % (Auto) Cancelled 12/29/23 17:51 Lymph # (Auto) Cancelled 12/29/23 17:51 Emanuel # (Auto) Cancelled 12/29/23 17:51 Eos # (Auto) Cancelled 12/29/23 17:51 Baso # (Auto) Cancelled 12/29/23 17:51 Abs Immat Gran (auto) Cancelled 12/29/23 17:51 Absolute Neuts (auto) Cancelled 12/29/23 17:51 Absolute Nucleated RBC 0.000 X10*3/uL (0.0-0.012) 01/08/24 09:21 Nucleated RBC % (auto) 0.0 /100WBC (0.0-0.2) 01/08/24 09:21 Neutrophils % (Manual) 90 % (45-73) H 12/29/23 17:51 Band Neutrophils % 9 % (3-5) H 12/29/23 17:51 Lymphocytes % (Manual) 1 % (20-40) L 12/29/23 17:51 Abs Neuts (Manual) 13.5 X10*3/uL (2.0-8.3) H 12/29/23 17:51 Lymphocytes # (Manual) 0.1 X10*3/uL (1.2-4.9) L 12/29/23 17:51 Platelet Estimate NORMAL (NORMAL) 12/29/23 17:51 Plt Morphology Comment NORMAL 12/29/23 17:51 RBC Morphology NORMAL 12/29/23 17:51 Smear Tech's Comments MANUAL DIFF 12/29/23 17:51 PT 14.0 SEC (11.1-13.3) H 12/29/23 17:51 INR 1.2 (0.9-1.1) H 12/29/23 17:51 VBG pH 7.48 (7.32-7.43) H 12/29/23 18:10 VBG pCO2 39 mmHg 12/29/23 18:10 VBG pO2 50 mmHg 12/29/23 18:10 VBG HCO3 30 mmol/L (22-26) H 12/29/23 18:10 VBG O2 Saturation 86.0 % 12/29/23 18:10 VBG Base Excess 6.5 mmol/L 12/29/23 18:10 Sodium 144 mmol/L (135-145) 01/01/24 07:57 Potassium 3.7 mmol/L (3.3-5.1) 01/01/24 07:57 Chloride 108 mmol/L (96-108) 01/01/24 07:57 Carbon Dioxide 22 mmol/L (22-29) 01/01/24 07:57 Anion Gap 18 (12-20) 01/01/24 07:57 BUN 31 mg/dL (9-16) H 01/01/24 07:57 Creatinine 0.95 mg/dL (0.5-1.4) 01/01/24 07:57 Estim Creat Clear Calc 36.7 01/01/24 07:57 Estimated GFR > 60 01/01/24 07:57 Random Glucose 141 mg/dL (60-115) H 01/01/24 07:57 Lactic Acid 2.3 mmol/L (0.5-2.0) H* 12/29/23 17:51 Lactic Acid F/U @ 2Hr 1.1 mmol/L (0.5-2.0) 12/29/23 20:13 Calcium 8.9 mg/dL (8.4-10.2) 01/01/24 07:57 Magnesium 1.9 mg/dL (1.6-2.6) 12/29/23 17:51 Total Bilirubin 0.7 mg/dL (0.0-1.0) 12/29/23 17:51 Direct Bilirubin 0.3 mg/dL (0.0-0.5) 12/29/23 17:51 AST 19 U/L (5-37) 12/29/23 17:51 ALT 15 U/L (0-40) 12/29/23 17:51 Alkaline Phosphatase 97 U/L (39-117) 12/29/23 17:51 Troponin I High Sens 10.1 ng/L (<3.5-35.0) 12/29/23 17:51 B-Natriuretic Peptide 184 pg/mL (<100) H 12/29/23 17:51 Total Protein 7.3 g/dL (6.5-8.0) 12/29/23 17:51 Albumin 3.6 g/dL (3.5-5.0) 12/29/23 17:51 TSH 1.10 uIU/mL (0.32-4.0) 12/30/23 04:30 Urine Color Yellow 12/29/23 19:15 Urine Appearance Clear 12/29/23 19:15 Urine pH 7.5 (5.0-9.0) 12/29/23 19:15 Ur Specific Paulina 1.010 (1.005-1.025) 12/29/23 19:15 Urine Protein Negative mg/dL (Neg-Trace) 12/29/23 19:15 Urine Glucose (UA) Negative mg/dL (Negative) 12/29/23 19:15 Urine Ketones Negative mg/dL (Negative) 12/29/23 19:15 Urine Blood Trace (Negative) H 12/29/23 19:15 Urine Nitrite Negative (Negative) 12/29/23 19:15 Ur Leukocyte Esterase Negative (Negative) 12/29/23 19:15 Urine RBC 0-2 /HPF (0-2) 12/29/23 19:15 Urine WBC 0-5 /HPF (0-5) 12/29/23 19:15 Ur Squamous Epith Cells 0-2 /HPF (0-2) 12/29/23 19:15 Urine Bacteria None Seen (None Seen) 12/29/23 19:15 Hyaline Casts 0-2 /LPF (0-2) 12/29/23 19:15 Nasal Screen MRSA (PCR) NEGATIVE (Negative) 12/31/23 15:35 Nasal S. aureus Screen NEGATIVE (Negative) 12/31/23 15:35 Nasal MRSA/S.aureus Interp SEE NOTE 12/31/23 15:35 Influenza Type A (PCR) NEGATIVE (Negative) 12/29/23 17:51 Influenza Type B (PCR) NEGATIVE (Negative) 12/29/23 17:51 RSV RNA Qual (PCR) NEGATIVE (Negative) 12/29/23 17:51 SARS-CoV-2 RNA (RT-PCR) NEGATIVE (Negative) 12/29/23 17:51 Impressions Chest X-Ray 12/29/23 18:32 IMPRESSION: 1. Mild interstitial infiltrate at left lung base. 2. Mild perihilar interstitial infiltrates. 3. No dense consolidation pneumonia. 4. No pleural effusion. Abdomen/Pelvis CT 01/02/24 14:37 IMPRESSION: 1. There is moderate diverticulosis, without acute diverticulitis seen. 2. There are small bilateral inguinal hernias, including a sliding-type right inguinal hernia containing a small nonobstructed small bowel loop. 3. There is an infrarenal abdominal aortic aneurysm again noted. No rupture is noted. Elective Vascular Surgery consultation is recommended. Recommend follow-up ultrasound imaging at a 6 month interval. 4. There is mild prostatomegaly. 5. There are degenerative changes of the spine. There is a moderately severe thoracolumbar dextroscoliosis. 6. There are small bilateral pleural effusions, with adjacent compressive atelectasis. Underlying emphysematous changes are noted. Fleischner guidelines were followed. Microbiology 01/02/24 11:10 Blood - Venous Blood Culture - Final No growth after 5 days. 01/02/24 11:10 Blood - Venous Blood Culture - Final No growth after 5 days. 12/29/23 18:04 Blood - Venous Blood Culture - Final Pseudomonas aeruginosa Gram positive faith Bacteroides fragilis Bacteroides thetaiotaomicron Anaerobic gram positive rods 12/29/23 18:03 Blood - Venous Blood Culture - Final Pseudomonas aeruginosa Anaerobic gram positive rods Klebsiella pneumoniae Discharge Plan Discharge Anticipated Discharge Date/Time: 01/11/24 10:30 Patient Disposition: er [facility] Discharge Diagnosis: bacteremia, pneumonia, atrial flutter, malnutrition Referrals: [facility] [Outside] Nasir Neri PA [Primary Care Provider] - 1 Week Daniel Farmer MD [Physician] - 2 Weeks Discharge Medications: New nicotine 14 mg/24 hr Patch 24 Hour 14 mg transdermal DAILY Qty: 1 0RF levofloxacin 250 mg Tablet 250 mg PO Q24H Qty: 7 0RF Eliquis 2.5 mg Tablet 2.5 mg PO BID Qty: 1 0RF metoprolol succinate 50 mg Tablet Extended Release 24 Hr 50 mg PO DAILY Qty: 1 0RF Protocol: Hold for SBP/HR < HOLD for SBP < : 90 HOLD for HR < : 60 Continued simvastatin 20 mg tablet 1 tab PO BEDTIME triamcinolone acetonide 0.1 % ointment 1 appl topical BID Rx Instructions: 2 WEEKS ON 1 WEEK OFF azelastine 137 mcg (0.1 %) aerosol,spray 2 spray intranasal BID Discontinued aspirin 325 mg Tablet 325 mg PO BEDTIME Discharge Orders: Discharge Order (Routine); Ordered 01/11/24 Ordered By: Mervat Rodriguez Diet: NDD2 solids/honey liquids Activity on Discharge: As tolerated Stand Alone Forms: Patient Portal Discharge page Print Language: Mauritian Care Plan Goals: recovery from pneumonia/bacteremia prevention of stroke/control of atrial fibrillation improved nutrition Health Concerns: bacteremia, pneumonia, atrial flutter, malnutrition Plan of Treatment: levofloxacin 250 mg daily until 01/18/24 take metoprolol succinate 50 mg daily and apixaban 2.5 mg twice daily diet: NDD2 [ground/mechanical] solids and honey-thick liquids. Add Ensure or Boost 1 can tid. stop smoking; use nicotine patch to help Wound Care: 1. Turn and Reposition every 2 hours and as needed for patient comfort.? Use pillows or wedges to support off loading positions. 2. Off Load all bony prominences with use of pillows and heel boots if needed.? Apply Preventative foams where needed. ? 3. Monitor for incontinence and moisture control, use barrier creams when needed for prevention and treatment. 4. Provide adequate and supplemental nutrition.? 5. Order low air loss mattress. 6. Bilateral Heels, Hips and Sacrum - Apply foam dressings peel back and assess Q shift and change every 3 days. 7. Bridge of nose and Left eyebrow - No topical recommendations needed. follow aneurysm with repeat US in 6 months; ask your primary care doctor to order Please follow up with your primary care doctor within 1 week of discharge from SNF rehab. Return to the hospital if you experience recurrent or worsening symptoms. Assessment: See Discharge Summary. Patient Instructions: Pneumonia (ED)
--- NOTE | 2024-01-11 11:09 | HO.PM.IMPN ---
Subjective Subjective Date of Service: 01/11/24 Interval History: asymptomatic hypotension 86/42 minimal cough no dizziness/lightheadedness remains in rate-controlled atrial flutter Review of Systems Review of Systems: Yes all other systems are reviewed and are negative Physical Exam Vital Signs: Vital Signs: Last Vital Signs Temp 97.2 F 01/11/24 10:50 Pulse 83 01/11/24 10:50 Resp 20 01/11/24 10:50 BP 86/42 L 01/11/24 10:50 Pulse Ox 96 01/11/24 10:50 O2 Del Method Room Air 01/11/24 10:50 O2 Flow Rate 2 01/08/24 07:10 BMI result Body Mass Index 15.7 Gen: frail, cachectic HEENT: sclera anicteric, moist mucus membranes Neck: supple Lungs: clear to auscultation bilaterally Heart: regular rate and rhythm, no murmurs Abd: soft, non-tender, non-distended Ext: no edema Skin: warm/well-perfused Neuro: alert and oriented x3, no focal findings Psych: appropriate affect Objective Data Active Medications Acetaminophen (Acetaminophen 325 Mg Tablet) 650 mg PO Q6H PRN PRN Reason: Pain, Mild (Pain Scale 1-3) Last Admin: 01/09/24 20:42 Dose: 650 mg Documented By: SERG Apixaban (Apixaban 2.5 Mg Tablet) 2.5 mg PO BID [facility] Last Admin: 01/11/24 09:18 Dose: 2.5 mg Documented By: KELLY Atorvastatin Calcium (Atorvastatin Calcium 10 Mg Tablet) 10 mg PO BEDTIME [facility] Last Admin: 01/10/24 19:55 Dose: 10 mg Documented By: CECE Azelastine HCl (Azelastine Hcl Nasal 137 Mcg/Emeigh 30 Ml) 2 spray NOSTRIL-B BID [facility] Last Admin: 01/11/24 09:18 Dose: Not Given Documented By: KELLY Non-Admin Reason: Patient Refused Sodium Chloride (Ns) 500 mls @ 250 mls/hr IVCONT .Q2H [facility] Stop: 01/11/24 12:59 Levofloxacin (Levofloxacin 250 Mg Tablet) 250 mg PO Q24H [facility] Last Admin: 01/10/24 14:05 Dose: 250 mg Documented By: RINKU Melatonin (Melatonin 3 Mg Tablet) 6 mg PO BEDTIME PRN PRN Reason: Insomnia Last Admin: 01/10/24 23:44 Dose: 6 mg Documented By: CECE Metoprolol Succinate (Metoprolol Succinate Er 25 Mg Tab.Er.24h) 25 mg PO DAILY [facility]; Protocol Nicotine (Nicotine 14 Mg Patch.Td24) 14 mg TRANSDERMA DAILY [facility] Last Admin: 01/11/24 09:17 Dose: 14 mg Documented By: KELLY Ondansetron HCl (Ondansetron Hcl 4 Mg/2 Ml Vial) 4 mg IVPUSH Q8H PRN PRN Reason: Nausea and Vomiting Last Admin: 01/09/24 20:42 Dose: 4 mg Documented By: SERG Sodium Chloride (0.9 % Sodium Chloride Flush 3 Ml Syringe) 3 ml IVFLUSH QSHIFT [facility] Last Admin: 01/11/24 09:17 Dose: 3 ml Documented By: KELLY Labs 01/08/24 09:21 01/01/24 07:57 Assessment and Plan (1) Pneumonia: Status: Acute (2) Bacteremia: Status: Acute Plan d14 88yo M with BPH, HLD, hx CVA, tobacco abuse presenting with fever + productive cough, admitted for hypoxia + sepsis due to PNA, also found to have atrial flutter sepsis + acute hypoxic resp failure due to pneumonia with polymicrobial bacteremia - weaned off O2 - BCx grew Pseudomonas aeruginosa, Klebsiella pneumoniae, and Bacteroides. Initially treated with pip-arabella + azithromycin. Per ID started on levofloxacin 01/03-01/17. Per ID likely source aspiration. - STATE HISTORICAL SOCIETY DIRECTOR: honey liquids + NDD2 solids new-onset atrial flutter with RVR - rate-controlled, continue metoprolol succinate + apixaban. 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 Turn and Reposition every 2 hours and as needed for patient comfort.? Use pillows or wedges to support off loading positions. 2. Off Load all bony prominences with use of pillows and heel boots if needed.? Apply Preventative foams where needed. ? 3. Monitor for incontinence and moisture control, use barrier creams when needed for prevention and treatment. 4. Provide adequate and supplemental nutrition.? 5. Order low air loss mattress. 6. Bilateral Heels, Hips and Sacrum - Apply foam dressings peel back and assess Q shift and change every 3 days. 7. Bridge of nose and Left eyebrow - No topical recommendations needed. VTE ppx - apixaban dispo - PT recommended STR due to weakness of legs and arms bilaterally, decreased safety + assistance for bed mobility + transfers, very high risk of fall - authorized for STR but discharge held for hypotension In my clinical judgment, the patient requires continued inpatient hospitalization for the following reasons: safe disposition; medically unsafe for discharge home at this time due to hypotension Total time managing care of this patient today: 45 minutes. Quality Stroke Does the patient have a stroke diagnosis?: No VTE Prior VTE?: No VTE Risk Level:: Medical - moderate - high VTE Device Contraindication: Treatment Not Indicated VTE Drug Contraindication: N/A - Med Ordered
[2024-01-11] MEDS: 0.9 % Sodium Chloride 500 ML 250 ML IVCONT (11:25)
--- NOTE | 2024-01-11 11:44 | MHC.SL.SWA ---
Speech Pathologist Impression: Risk of aspiration, oropharyngeal dysphagia Risk of Aspiration Due to: Lethargy Weak Voice Dysphasia Diet Status: Recommend continue w/ GROUND/MECH ALTERED (NDD2) diet and continue on HONEY THICK liquids ([place] ONLY), pills WHOLE in PUREE. Patient requires 1-1 feed, cues to promote oral clearance: give small bites, check oral cavity, alternate solids/liquids, cue for dry swallow as needed. Discontinue if patient exhibits clinical signs of aspiration (coughing, throat clearing, upper airway noise). Liquid Consistency and Strategies for Safe Swallow: Liquid Intake Recommendation: Honey Thick Liquid Intake Strategies: Small Sips No Straws Solid Food Consistency: Dietary Recommendations: Grnd/Mech Altered (NDD2) Oral Medication Intake: Whole with Puree Please contact the pharmacy regarding appropriate crushable or liquid drug formulations that are available whenever modified delivery is recommended. Compensatory Strategies and Precautions to be Taken for Safe Swallow: Sitting Upright (90 deg) No Straw Liquids from Cup Liquids from Spoon Small Bites and Sips Alternate Liquids/Solids Rate of Ingestion Change Supervision While Eating and Drinking for Safe Swallow: Total Assistance (1:1) Foods to Avoid: Mixed consistencies. Add sauces and gravies and blend well. Swallowing Recommended Treatments: Compens. Strategy Educat. Recommendation for Speech: Inpatient Speech Therapy Speech Therapy at [facility] Facility Examiner Clinican/Clinical Fellow: No Supervisory Statement: I have reviewed and agree with the student/clinical fellow's documentation: N/A Speech Language Pathologist: Vandana Darnell M.A., CCC-RADIOCHEMICAL TECHNICIAN
--- NOTE | 2024-01-11 12:18 | MHC.CLN ---
F/U PO INTAKE REMAINS VARIABLE 25-75% DIET ADVANCED TO GRD M/S WITH HT LIQ PER RESIDENTIAL ASSISTANT ENSURE BID PROVIDES 700KCALS, 40G PROTEIN AND MAGIC CUP WITH MEALS PROVIDES 870KCALS, 27G PROTEIN WITH 100% ACCEPTANCE NOTED STAGE 3 R AND L HIP-SUPPLEMENTS WILL PROMOTE WOUND HEALING CONTINUE TO MONITOR PO INTAKE AND ENCOURAGE SUPPLEMENTS
[2024-01-11] MEDS: levoFLOXacin 250 MG TABLET PO (14:54)
[2024-01-11] MEDS: Azelastine HCl Nasal 137 MCG/Spray 30 ML 2 SPRAY NOSTRIL-B (20:24)
[2024-01-11] MEDS: Atorvastatin Calcium 10 MG TABLET PO (20:24)
[2024-01-11] MEDS: Lactated Ringers 500 ML 999 ML IV (20:26)
[2024-01-11] MEDS: Melatonin 3 MG TABLET 6 MG PO (20:31)
[2024-01-11] MEDS: Lactated Ringers 1,000 ML 100 ML IVCONT (22:28)
[2024-01-12] VITALS: BP 100/75; PULSE 60
[2024-01-12 03:48] VITALS: BP 109/62; PULSE 80; RESP 18; TEMP 37.6; O2SAT 96
[2024-01-12 07:42] VITALS: BP 123/69; PULSE 79; RESP 18; TEMP 36.6; O2SAT 96
[2024-01-12] MEDS: Nicotine 14 MG PATCH.TD24 TRANSDERMA (08:18)
[2024-01-12] MEDS: Azelastine HCl Nasal 137 MCG/Spray 30 ML 2 SPRAY NOSTRIL-B (08:19)
[2024-01-12] MEDS: Apixaban 2.5 MG TABLET PO (08:19)
[2024-01-12] MEDS: 0.9 % Sodium Chloride Flush 3 ML SYRINGE IVFLUSH (08:19)
[2024-01-12] MEDS: Metoprolol Succinate ER 25 MG TAB.ER.24H PO (08:19)
--- NOTE | 2024-01-12 08:46 | MHC.CM.PN ---
PT MEDICALLY CLEARED FOR DC TO [facility] FOR BLS TRANSPORT
--- NOTE | 2024-01-12 10:24 | P.DS_ITS ---
DS: Providers Provider Date of Service: 01/12/24 Date of admission: 12/29/23 21:05 Date of discharge: 01/12/24 Primary care physician: SCARLETT Mcnamara Consults: 12/29/23 22:22 Consult to Cardiology Routine Consulting Provider: [facility] Reason for consultation: atrial flutter new onset Has provider been notified: Yes 12/30/23 14:08 Consult to Wound Care Routine Reason for consultation: Left eye brow, nose, bilateral hips Has provider been notified: Yes 12/31/23 15:06 Consult to Infectious Diseases Routine Consulting Provider: Corinne Andrade Reason for consultation: gm pos bacteremia and gm neg Has provider been notified: No DS: Diagnosis Discharge Diagnosis (1) Pneumonia: Status: Acute (2) Bacteremia: Status: Acute (3) Atrial flutter with rapid ventricular response: Status: Acute (4) Stage III pressure ulcer of hip: Status: Acute (5) Severe malnutrition: Status: Acute (6) Acute hypoxic respiratory failure: Status: Acute (7) Abdominal aneurysm: Status: Acute (8) Encephalopathy due to infection: Status: Acute (9) Sepsis: Status: Resolved DS: Summary Hospital Course Hospital Course: From the history and physical by the admitting hospitalist, Niecy Ortiz MD, 12/29/23: This is a 88-year-old male with pertinent history of BPH, mixed hyperlipidemia, history of CVA, tobacco use disorder who presents to the emergency department for evaluation of fevers. Patient states he has been weak for the last couple of days. Also has been having a productive cough with purulent sputum production. Admits associated fevers and chills. No chest discomfort, palpitations or wheezing. Patient was found to be hypoxemic as per EMS. Is a current smoker. No abdominal pain, changes in urinary or bowel habits. In the emergency department, patient was found to be septic and imaging soraya rning for left-sided pneumonia. Also was found to be in atrial flutter with RVR 88yo M with BPH, HLD, hx CVA, and tobacco abuse presenting with fever + productive cough and admitted for hypoxia + sepsis due to pneumonia; also found to have atrial flutter. Hospital course by problem: sepsis + acute hypoxic resp failure due to pneumonia with polymicrobial bacteremia - BCx grew a polymicrobial mixture of Pseudomonas aeruginosa, Klebsiella pneumoniae, and Bacteroides spp. Initially treated with pip-arabella + azithromycin. Per Infectious Disease, started on levofloxacin 01/03 to complete 14 days ending 01/18/24. Per ID likely source aspiration. Repeat blood cultures cleared. He was weaned off of oxygen and SIRS physiology also resolved. - [employer] consulted: recommended honey-thick liquids liquids + NDD2 solids. new-onset atrial flutter with RVR - Cardiology consulted. Rate-controlled on metoprolol succinate. Dose decreased from 50 to 25 mg daily due to hypotension. Also started apixaban for anticoagulation. Should follow up with Cardiology in 2 weeks. 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 Output f/u with US in 6 mo recommended. acute encephalopathy due to infection - Resolved. stage 3 pressure injury bilateral hips, POA - Wound Care consulted: 1. Turn and Reposition every 2 hours and as needed for patient comfort.? Use pillows or wedges to support off loading positions. 2. Off Load all bony prominences with use of pillows and heel boots if needed.? Apply Preventative foams where needed. ? 3. Monitor for incontinence and moisture control, use barrier creams when needed for prevention and treatment. 4. Provide adequate and supplemental nutrition.? 5. Order low air loss mattress. 6. Bilateral Heels, Hips and Sacrum - Apply foam dressings peel back and assess Q shift and change every 3 days. 7. Bridge of nose and Left eyebrow - No topical recommendations needed. Severe protein-calorie malnutrition - Protein supplementation recommended. He was discharged to a SNF for short-term rehabilitation. Time Attestation Discharge Coordination Time (in mins): 45 Quality: Safe Use of Opioids Does Pt have an Active Cancer Diagnosis on the Problem List?: No Quality: Stroke Does the patient have a stroke diagnosis?: No Physical Exam Vital Signs: Vital Signs: Last Vital Signs Temp 97.8 F 01/12/24 07:42 Pulse 79 01/12/24 07:42 Resp 18 01/12/24 07:42 BP 123/69 01/12/24 07:42 Pulse Ox 96 01/12/24 07:42 O2 Del Method Room Air 01/12/24 07:42 O2 Flow Rate 2 01/08/24 07:10 BMI result Body Mass Index 15.7 Gen: frail, cachectic HEENT: sclera anicteric, moist mucus membranes Neck: supple Lungs: clear to auscultation bilaterally Heart: regular rate and rhythm, no murmurs Abd: soft, non-tender, non-distended Ext: no edema Skin: warm/well-perfused Neuro: alert and oriented x3, no focal findings Psych: appropriate affect DS: Data Data Completed and Pending Completed studies during hospitalization [Text1]: Laboratory Results WBC 12.3 X10*3/uL (4.8-10.8) H 01/08/24 09:21 RBC 3.81 X10*6/uL (4.60-5.80) L 01/08/24 09:21 Hgb 11.4 g/dl (14.0-18.0) L 01/08/24 09:21 Hct 35.3 % (42.0-52.0) L 01/08/24 09:21 MCV 92.7 fL (80.0-98.0) 01/08/24 09:21 MCH 29.9 pg (27.0-33.0) 01/08/24 09:21 MCHC 32.3 g/dl (31.0-36.0) 01/08/24 09:21 RDW 14.7 % (11.0-16.0) 01/08/24 09:21 Plt Count 295 X10*3/uL (160-400) D 01/08/24 09:21 MPV 8.9 fL (9.4-12.4) L 01/08/24 09:21 Immature Gran % (Auto) Cancelled 12/29/23 17:51 Neut % (Auto) Cancelled 12/29/23 17:51 Lymph % (Auto) Cancelled 12/29/23 17:51 Metcalfe % (Auto) Cancelled 12/29/23 17:51 Eos % (Auto) Cancelled 12/29/23 17:51 Baso % (Auto) Cancelled 12/29/23 17:51 Lymph # (Auto) Cancelled 12/29/23 17:51 Metcalfe # (Auto) Cancelled 12/29/23 17:51 Eos # (Auto) Cancelled 12/29/23 17:51 Baso # (Auto) Cancelled 12/29/23 17:51 Abs Immat Gran (auto) Cancelled 12/29/23 17:51 Absolute Neuts (auto) Cancelled 12/29/23 17:51 Absolute Nucleated RBC 0.000 X10*3/uL (0.0-0.012) 01/08/24 09:21 Nucleated RBC % (auto) 0.0 /100WBC (0.0-0.2) 01/08/24 09:21 Neutrophils % (Manual) 90 % (45-73) H 12/29/23 17:51 Band Neutrophils % 9 % (3-5) H 12/29/23 17:51 Lymphocytes % (Manual) 1 % (20-40) L 12/29/23 17:51 Abs Neuts (Manual) 13.5 X10*3/uL (2.0-8.3) H 12/29/23 17:51 Lymphocytes # (Manual) 0.1 X10*3/uL (1.2-4.9) L 12/29/23 17:51 Platelet Estimate NORMAL (NORMAL) 12/29/23 17:51 Plt Morphology Comment NORMAL 12/29/23 17:51 RBC Morphology NORMAL 12/29/23 17:51 Smear Tech's Comments MANUAL DIFF 12/29/23 17:51 PT 14.0 SEC (11.1-13.3) H 12/29/23 17:51 INR 1.2 (0.9-1.1) H 12/29/23 17:51 VBG pH 7.48 (7.32-7.43) H 12/29/23 18:10 VBG pCO2 39 mmHg 12/29/23 18:10 VBG pO2 50 mmHg 12/29/23 18:10 VBG HCO3 30 mmol/L (22-26) H 12/29/23 18:10 VBG O2 Saturation 86.0 % 12/29/23 18:10 VBG Base Excess 6.5 mmol/L 12/29/23 18:10 Sodium 144 mmol/L (135-145) 01/01/24 07:57 Potassium 3.7 mmol/L (3.3-5.1) 01/01/24 07:57 Chloride 108 mmol/L (96-108) 01/01/24 07:57 Carbon Dioxide 22 mmol/L (22-29) 01/01/24 07:57 Anion Gap 18 (12-20) 01/01/24 07:57 BUN 31 mg/dL (9-16) H 01/01/24 07:57 Creatinine 0.95 mg/dL (0.5-1.4) 01/01/24 07:57 Estim Creat Clear Calc 36.7 01/01/24 07:57 Estimated GFR > 60 01/01/24 07:57 Random Glucose 141 mg/dL (60-115) H 01/01/24 07:57 Lactic Acid 2.3 mmol/L (0.5-2.0) H* 12/29/23 17:51 Lactic Acid F/U @ 2Hr 1.1 mmol/L (0.5-2.0) 12/29/23 20:13 Calcium 8.9 mg/dL (8.4-10.2) 01/01/24 07:57 Magnesium 1.9 mg/dL (1.6-2.6) 12/29/23 17:51 Total Bilirubin 0.7 mg/dL (0.0-1.0) 12/29/23 17:51 Direct Bilirubin 0.3 mg/dL (0.0-0.5) 12/29/23 17:51 AST 19 U/L (5-37) 12/29/23 17:51 ALT 15 U/L (0-40) 12/29/23 17:51 Alkaline Phosphatase 97 U/L (39-117) 12/29/23 17:51 Troponin I High Sens 10.1 ng/L (<3.5-35.0) 12/29/23 17:51 B-Natriuretic Peptide 184 pg/mL (<100) H 12/29/23 17:51 Total Protein 7.3 g/dL (6.5-8.0) 12/29/23 17:51 Albumin 3.6 g/dL (3.5-5.0) 12/29/23 17:51 TSH 1.10 uIU/mL (0.32-4.0) 12/30/23 04:30 Urine Color Yellow 12/29/23 19:15 Urine Appearance Clear 12/29/23 19:15 Urine pH 7.5 (5.0-9.0) 12/29/23 19:15 Ur Specific [place] 1.010 (1.005-1.025) 12/29/23 19:15 Urine Protein Negative mg/dL (Neg-Trace) 12/29/23 19:15 Urine Glucose (UA) Negative mg/dL (Negative) 12/29/23 19:15 Urine Ketones Negative mg/dL (Negative) 12/29/23 19:15 Urine Blood Trace (Negative) H 12/29/23 19:15 Urine Nitrite Negative (Negative) 12/29/23 19:15 Ur Leukocyte Esterase Negative (Negative) 12/29/23 19:15 Urine RBC 0-2 /HPF (0-2) 12/29/23 19:15 Urine WBC 0-5 /HPF (0-5) 12/29/23 19:15 Ur Squamous Epith Cells 0-2 /HPF (0-2) 12/29/23 19:15 Urine Bacteria None Seen (None Seen) 12/29/23 19:15 Hyaline Casts 0-2 /LPF (0-2) 12/29/23 19:15 Nasal Screen MRSA (PCR) NEGATIVE (Negative) 12/31/23 15:35 Nasal S. aureus Screen NEGATIVE (Negative) 12/31/23 15:35 Nasal MRSA/S.aureus Interp SEE NOTE 12/31/23 15:35 Influenza Type A (PCR) NEGATIVE (Negative) 12/29/23 17:51 Influenza Type B (PCR) NEGATIVE (Negative) 12/29/23 17:51 RSV RNA Qual (PCR) NEGATIVE (Negative) 12/29/23 17:51 SARS-CoV-2 RNA (RT-PCR) NEGATIVE (Negative) 12/29/23 17:51 Impressions Chest X-Ray 12/29/23 18:32 IMPRESSION: 1. Mild interstitial infiltrate at left lung base. 2. Mild perihilar interstitial infiltrates. 3. No dense consolidation pneumonia. 4. No pleural effusion. Abdomen/Pelvis CT 01/02/24 14:37 IMPRESSION: 1. There is moderate diverticulosis, without acute diverticulitis seen. 2. There are small bilateral inguinal hernias, including a sliding-type right inguinal hernia containing a small nonobstructed small bowel loop. 3. There is an infrarenal abdominal aortic aneurysm again noted. No rupture is noted. Elective Vascular Surgery consultation is recommended. Recommend follow-up ultrasound imaging at a 6 month interval. 4. There is mild prostatomegaly. 5. There are degenerative changes of the spine. There is a moderately severe thoracolumbar dextroscoliosis. 6. There are small bilateral pleural effusions, with adjacent compressive atelectasis. Underlying emphysematous changes are noted. Fleischner guidelines were followed. Discharge Plan Discharge Anticipated Discharge Date/Time: 01/11/24 10:30 Patient Disposition: Xfer SNF Discharge Diagnosis: bacteremia, pneumonia, atrial flutter, malnutrition Referrals: [facility] [Outside] Nasir Neri PA [Primary Care Provider] - 1 Week Daniel Farmer MD [Physician] - 2 Weeks Discharge Medications: New nicotine 14 mg/24 hr Patch 24 Hour 14 mg transdermal DAILY Qty: 1 0RF levofloxacin 250 mg Tablet 250 mg PO Q24H Qty: 7 0RF Eliquis 2.5 mg Tablet 2.5 mg PO BID Qty: 1 0RF metoprolol succinate 25 mg Tablet Extended Release 24 Hr 25 mg PO DAILY Qty: 1 0RF Protocol: Hold for SBP/HR < HOLD for SBP < : 90 HOLD for HR < : 60 Continued simvastatin 20 mg tablet 1 tab PO BEDTIME triamcinolone acetonide 0.1 % ointment 1 appl topical BID Rx Instructions: 2 WEEKS ON 1 WEEK OFF azelastine 137 mcg (0.1 %) aerosol,spray 2 spray intranasal BID Discontinued aspirin 325 mg Tablet 325 mg PO BEDTIME Discharge Orders: Discharge Order (Routine); Ordered 01/12/24 Ordered By: Mervat Rodriguez Diet: NDD2 solids/honey liquids Activity on Discharge: As tolerated Stand Alone Forms: Patient Portal Discharge page Print Language: Slovak Care Plan Goals: recovery from pneumonia/bacteremia prevention of stroke/control of atrial fibrillation improved nutrition Health Concerns: bacteremia, pneumonia, atrial flutter, malnutrition Plan of Treatment: levofloxacin 250 mg daily until 01/18/24 take metoprolol succinate 25 mg daily and apixaban 2.5 mg twice daily diet: NDD2 [ground/mechanical] solids and honey-thick liquids. Add Ensure or Boost 1 can tid. stop smoking; use nicotine patch to help Wound Care: 1. Turn and Reposition every 2 hours and as needed for patient comfort.? Use pillows or wedges to support off loading positions. 2. Off Load all bony prominences with use of pillows and heel boots if needed.? Apply Preventative foams where needed. ? 3. Monitor for incontinence and moisture control, use barrier creams when needed for prevention and treatment. 4. Provide adequate and supplemental nutrition.? 5. Order low air loss mattress. 6. Bilateral Heels, Hips and Sacrum - Apply foam dressings peel back and assess Q shift and change every 3 days. 7. Bridge of nose and Left eyebrow - No topical recommendations needed. follow aneurysm with repeat US in 6 months; ask your primary care doctor to order Please follow up with your primary care doctor within 1 week of discharge from SNF rehab. Return to the hospital if you experience recurrent or worsening symptoms. Assessment: See Discharge Summary. Patient Instructions: Pneumonia (ED)
[2024-01-12 11:16] VITALS: BP 98/53; PULSE 76; RESP 18; TEMP 37; O2SAT 98
== END 2024-01-12 13:09 | disposition skilled nursing facility (03) | DRG 871 ==
LOC: HO.ED 20:12 → HO.EDOVER 21:18 → HO.IMC 12-30 09:55
PROVIDERS: Hospitalist; Admitting Provider Student in an Organized Health Care Education/Training Program; Emergency Provider Emergency Medicine; PCP Physician Assistant Medical; Visit Provider Family Medicine
DX: A41.9 Sepsis, unspecified organism (principal); G92.8 Other toxic encephalopathy; L89.223 Pressure ulcer of left hip, stage 3; L89.213 Pressure ulcer of right hip, stage 3; J96.01 Acute respiratory failure with hypoxia; J69.0 Pneumonitis due to inhalation of food and vomit; E87.21 Acute metabolic acidosis; E44.0 Moderate protein-calorie malnutrition; Z68.1 Body mass index [BMI] 19.9 or less, adult; I48.92 Unspecified atrial flutter; J98.11 Atelectasis; I95.9 Hypotension, unspecified; B96.5 Pseudomonas (aeruginosa) (mallei) (pseudomallei) as the cause of diseases classified elsewhere; B96.1 Klebsiella pneumoniae [K. pneumoniae] as the cause of diseases classified elsewhere; I71.43 Infrarenal abdominal aortic aneurysm, without rupture; B96.6 Bacteroides fragilis [B. fragilis] as the cause of diseases classified elsewhere; N40.0 Benign prostatic hyperplasia without lower urinary tract symptoms; E78.2 Mixed hyperlipidemia; F17.210 Nicotine dependence, cigarettes, uncomplicated; Z71.6 Tobacco abuse counseling; Z20.822 Contact with and (suspected) exposure to COVID-19; Z86.73 Personal history of transient ischemic attack (TIA), and cerebral infarction without residual deficits; Z79.82 Long term (current) use of aspirin; Z79.899 Other long term (current) drug therapy
CPT/HCPCS: 0241U; 36415; 71045; 74176; 80048; 80076; 81001; 82803; 83605; 83735; 83880; 84443; 84484; 85007; 85027; 85610; 87040; 87076; 87077; 87185; 87186; 87205; 87640; 87641; 92526; 92610; 93005; 93306; 97110; 97116; 97163; 97530; 99285; J0456; J0696; J1650; J2405; J2543; J3480; J7120

== ENCOUNTER 2023-12-29 21:05 | Outpatient (BNV) | payer MEDICARE, SELFPAY | END 2023-12-30 07:00 | PROVIDERS: Admitting Provider Student in an Organized Health Care Education/Training Program; Emergency Provider Emergency Medicine; PCP Physician Assistant Medical; Visit Provider Internal Medicine | DX: I35.1 Nonrheumatic aortic (valve) insufficiency (principal); I34.81 Nonrheumatic mitral (valve) annulus calcification | CPT/HCPCS: 93306 ==

== ENCOUNTER → 2023-12-29 21:05 | Outpatient (BNV) | payer MEDICARE, SELFPAY | PROVIDERS: Admitting Provider Student in an Organized Health Care Education/Training Program; Emergency Provider Emergency Medicine; PCP Physician Assistant Medical; Visit Provider Internal Medicine | DX: J18.9 Pneumonia, unspecified organism (principal); R78.81 Bacteremia | CPT/HCPCS: 99222 ==

== ENCOUNTER → 2023-12-29 21:05 | Outpatient (BNV) | payer MEDICARE, SELFPAY | PROVIDERS: Admitting Provider Student in an Organized Health Care Education/Training Program; Emergency Provider Emergency Medicine; Visit Provider Internal Medicine | DX: I48.92 Unspecified atrial flutter (principal) | CPT/HCPCS: 93010; 99223; 99233 ==

== ENCOUNTER → 2023-12-29 21:05 | Outpatient (BNV) | payer MEDICARE, SELFPAY | PROVIDERS: Admitting Provider Student in an Organized Health Care Education/Training Program; Emergency Provider Emergency Medicine; Visit Provider Student in an Organized Health Care Education/Training Program | DX: J18.9 Pneumonia, unspecified organism (principal); R78.81 Bacteremia; I48.92 Unspecified atrial flutter; L89.203 Pressure ulcer of unspecified hip, stage 3; E43 Unspecified severe protein-calorie malnutrition; J96.01 Acute respiratory failure with hypoxia; I71.40 Abdominal aortic aneurysm, without rupture, unspecified; G93.49 Other encephalopathy; B99.9 Unspecified infectious disease; A41.9 Sepsis, unspecified organism | CPT/HCPCS: 99223; 99232; 99239 ==

== ENCOUNTER 2024-03-18 17:36 | Emergency (ER) | payer MEDICARE, OTHER, SELFPAY ==
--- NOTE | ~2024-03-18 | CT_ITS ---
EXAMINATION: CT ANGIOGRAM CHEST CLINICAL INFORMATION: New aneurysm. Abnormal lung findings. COMPARISON: CT abdomen/pelvis dated 01/02/2024. CTA chest dated 10/13/2022 and chest radiograph dated 12/29/2023. TECHNIQUE: Multiple axial images were obtained through the chest after the administration of 70 mL of Omnipaque 350 intravenous contrast. Extensive vascular post-processing including two-dimensional and three-dimensional reformatted images were created and reviewed on an independent workstation. This CT examination was performed using dose optimization techniques as appropriate, variously including the following: *Automated exposure control *Adjustment of mA and/or kV according to patient size (this includes techniques or standardized protocols for targeted exams where dose is matched to indication/reason for exam; i.e. extremities or head) *Use of iterative reconstruction technique DLP: 196 mGy-cm FINDINGS: PULMONARY ARTERIES: No large central pulmonary embolism, however, evaluation of the pulmonary arteries limited due to contrast bolus timing for aortogram. THORACIC AORTA: No new thoracic aortic dilatation. Prominent atherosclerotic calcifications are redemonstrated. No thoracic aortic dissection. Partially visualized abdominal aortic aneurysm as seen on the prior imaging. This extends distally beyond the imaged [id number]. LUNG: Emphysematous changes are redemonstrated with interstitial prominence in the left lower lobe, increased when compared to the prior examination. Left lower lobe dependent atelectasis. No large pulmonary nodule or mass. The central airways are patent. PLEURA: Small left-sided pleural effusion, new when compared to prior examination. No pneumothorax. MEDIASTINUM: No cardiomegaly. No pericardial effusion. Mildly prominent anterior tracheal lymph node measuring up to 1.0 x 0.9 cm, increased in size when compared to the prior examination where it measured less than 0.5 cm. Precarinal lymph node, unchanged and measuring up to 2.1 x 1.0 cm. No evidence of septal bowing or right heart strain. CORONARY ARTERY CALCIFICATION: Present. CHEST WALL/AXILLA: No axillary or internal mammary lymphadenopathy. OSSEOUS STRUCTURES: No acute or suspicious osseous abnormality. UPPER ABDOMEN: Unremarkable. No reflux of contrast into the hepatic veins to suggest elevated right heart pressures. CT/CT angio chest aorta IMPRESSION: 1. No large central pulmonary embolism, however, evaluation of the pulmonary arteries limited due to contrast bolus timing for aortogram. 2. No thoracic aortic dilatation. Atherosclerotic calcifications are redemonstrated. Partially visualized abdominal aortic aneurysm as seen on the prior imaging. 3. Emphysematous changes are redemonstrated with interstitial prominence in the left lower lobe, increased when compared to the prior examination. Left lower lobe dependent atelectasis. 4. Small left-sided pleural effusion, new when compared to the prior examination. 5. Mildly prominent mediastinal lymph nodes, increased in size when compared to the prior examination. Fleischner guidelines were followed.
[2024-03-18 17:55] VITALS: BP 134/70; PULSE 80; RESP 19; TEMP 36.6; O2SAT 95; BMI 15.1
--- NOTE | 2024-03-18 17:59 | ECG_ITS ---
Test Reason : ABD LABS Blood Pressure : / mmHG Vent. Rate : 073 BPM Atrial Rate : 000 BPM P-R Int : 000 ms QRS Dur : 102 ms QT Int : 426 ms P-R-T Axes : 000 105 069 degrees QTc Int : 469 ms Rhythm shows atrial flutter with variable block Rightward axis Incomplete right bundle branch block Abnormal ECG When compared with ECG of 29-DEC-2023 18:07, Vent. rate has decreased BY [address] no longer depressed in Inferior leads Nonspecific T wave abnormality no longer evident in Inferior leads Referred By: Donya Sweeney Electronically Signed By:RASHAD BRAVO MD
[2024-03-18 18:31] LABS: MANUAL DIFF FLAG NO
--- NOTE | 2024-03-18 18:35 | ED_ITS ---
HPI - Recheck/Abnormal Lab/Rx General Chief Complaint: Recheck/Abnormal Lab/Rx Stated Complaint: funny feeling in abdomen, seen for sepsis and pne Time Seen by Provider: 03/18/24 17:56 Source: patient Mode of arrival: ambulatory Limitations: no limitations History of Present Illness ED Provider: CHARLEY ARRINGTON narrative: 89 yo male with PMH of pneumonia, malnutrition, UTI, BPH, aneurysm, aflutter on eliquis, CVA - previous polymicrobial bacteremia back in December who comes in today after PCP called about abnormal CT scan small L sided effusion, spiculated nodule left upper lobe, aortic aneurysm. The patient himself has no complaints. complaint: other (abnormal CT scan ) Initial visit (ago): day(s) (CT scan read today) Returns today for: other Symptoms since prior visit: no new symptoms Context: other (called because of CT scan ) Related Data Home Medications ?Medication ?Instructions ?Recorded ?Confirmed simvastatin 20 mg tablet 1 tab PO BEDTIME 08/10/21 12/29/23 azelastine 137 mcg (0.1 %) nasal 2 spray intranasal BID 12/29/23 12/29/23 spray triamcinolone acetonide 0.1 % 1 appl topical BID 12/29/23 topical ointment Previous Rx's ?Medication ?Instructions ?Recorded apixaban 2.5 mg tablet (Eliquis) 2.5 mg PO BID #1 tab 01/11/24 levofloxacin 250 mg tablet 250 mg PO Q24H #7 tabs 01/11/24 nicotine 14 mg/24 hr daily 14 mg transdermal DAILY #1 ea 01/11/24 transdermal patch metoprolol succinate 25 mg 25 mg PO DAILY #1 tab 01/12/24 tablet,extended release 24 hr Allergies Allergy/AdvReac Type Severity Reaction Status Date / Time pentazocine [From Joi] Allergy Unknown Verified 03/18/24 17:56 Review of Systems 2 Review of Systems: Constitutional : No Fever, No Chills, pos Fatigue, pos weight loss ENT/Mouth : No sore throat, No Rhinorrhea Eyes: No Eye Pain, No Swelling, No Redness Cardiovascular : No Chest Pain, No SOB, No Dyspnea on Exertion Respiratory : No Cough, No Sputum Gastrointestinal : No Nausea, No Vomiting, No Diarrhea, No abdominal Pain Genitourinary : No Dysuria, No Urinary Frequency, No Hematuria, Musculoskeletal : No joint pain, No Myalgias, No Joint Swelling Skin : No Skin Lesions, No rash Neuro : No Weakness, No Numbness, No Dizziness, no Headache Psych : no Anxiety/Panic, No Depression All other systems reviewed and are negative [facility] Past Medical History Attestation statement: The following information was validated with the patient. Source: old records reviewed Medical History Atrial flutter Bacteremia Smoker AAA (abdominal aortic aneurysm) without rupture Saccular aneurysm BPH w urinary obs/LUTS Acute CVA (cerebrovascular accident) UTI (urinary tract infection) HLD (hyperlipidemia) Social History Social History Household Members: Children Household Members Other:: Daughter and Son in Law Housing: House Are you a primary occasional caregiver to a significant other at home: No Alcohol intake: never Patient Tobacco Use Status: Current everyday Tobacco user Tobacco use type: Cigarette Cigarette Packs Per Day: 1.5 Cigarettes Per Day: 30.0 Years Smoked: 72 Second Hand Smoke Exposure: No Advance Directives: Yes Advance Directives on File: Yes Advance Directives Date on File: 08/14/21 service: No Current occupational status: retired Physical Exam 2 Vital Signs: Vital Signs: Last Vital Signs Temp 98.9 F 03/18/24 22:15 Pulse 94 03/18/24 22:15 Resp 15 03/18/24 22:15 BP 111/61 03/18/24 22:15 Pulse Ox 94 03/18/24 22:15 O2 Del Method Room Air 03/18/24 22:15 BMI result Body Mass Index 15.1 Appearance: Alert. Oriented X3. No acute distress. temporal wasting Eyes: Pupils equal, round and reactive to light. ENT: Pharynx midly dry MM Neck: Normal inspection. Neck supple. CVS: Normal heart rate and rhythm. Pulses normal. Respiratory: No respiratory distress. Breath sounds normal. Abdomen: Soft and nontender. Skin: Skin warm and dry. Normal skin color. Normal skin turgor. Extremities: No lower extremity edema. Neuro: Oriented X 3. No motor deficit. No sensory deficit. Medications Administered Discontinued Medications Generic Name Dose Route Start Last Admin Trade Name Freq PRN Reason Stop Dose Admin Iohexol 100 ml 03/18/24 20:32 07/19/24 20:32 Iohexol 350 Mg/Ml 100 Ml Infus..Btl IV 03/18/24 20:33 70 ml ONCE ONE Administration Medical Decision Making Medical Decision Making [facility] Narrative: 89 yo male with PMH of pneumonia, malnutrition, UTI, BPH, aneurysm, aflutter on eliquis, CVA - previous polymicrobial bacteremia back in December he has no complaints sent in by daughter after PCP called them with updated CT read of chest mass. He denies cough, fevers, pain, dyspnea has had 34 lb weight loss in 1 year - at this time will obtain labs, CTA of chest given aneurysm if labs and VS stable can be DC with pulm follow up. Differential Diagnosis Differential Diagnoses: The differential diagnosis associated with the presentation includes lung cancer, aneurysm, FTT Admission/Observation Consideration of admission/observation: Escalation of care including admission/observation considered normal VS, normal labs, CT scan no acute cause or need for admission did speak to daughter plan would be to follow up with PCP and pulmonology for need for further workup including IR biopsy or pulm eval Lab Data [facility] Lab Attestation statement: I reviewed the patient's lab results. 03/18/24 18:26 03/18/24 18:26 Labs: Lab Results 03/18/24 Range/Units 18:26 WBC 6.8 (4.8-10.8) X10*3/uL RBC 3.89 L (4.60-5.80) X10*6/uL Hgb 11.6 L (14.0-18.0) g/dl Hct 36.9 L (42.0-52.0) % MCV 94.9 (80.0-98.0) fL MCH 29.8 (27.0-33.0) pg MCHC 31.4 (31.0-36.0) g/dl RDW 15.8 (11.0-16.0) % Plt Count 200 D (160-400) X10*3/uL MPV 8.9 L (9.4-12.4) fL Immature Gran % (Auto) 0.4 (0.0-0.4) % Neut % (Auto) 60.2 (45-73) % Lymph % (Auto) 24.9 (20-40) % Terrell % (Auto) 8.5 (2-11) % Eos % (Auto) 5.6 H (0-4) % Baso % (Auto) 0.4 (0-2) % Lymph # (Auto) 1.7 (1.2-4.9) X10*3/uL Terrell # (Auto) 0.6 (0.1-1.2) X10*3/uL Eos # (Auto) 0.4 (0.0-0.4) X10*3/uL Baso # (Auto) 0.0 (0.0-0.2) X10*3/uL Abs Immat Gran (auto) 0.03 (0.00-0.03) X10*3/uL Absolute Neuts (auto) 4.1 (2.0-8.3) x10*3/uL Absolute Nucleated RBC 0.000 (0.0-0.012) X10*3/uL Nucleated RBC % (auto) 0.0 (0.0-0.2) /100WBC Sodium 144 (135-145) mmol/L Potassium 4.5 D (3.3-5.1) mmol/L Chloride 107 (96-108) mmol/L Carbon Dioxide 29 (22-29) mmol/L Anion Gap 13 (12-20) BUN 32 H (9-16) mg/dL Creatinine 1.07 (0.5-1.4) mg/dL Estim Creat Clear Calc 33.4 Estimated GFR > 60 Random Glucose 111 (60-115) mg/dL Calcium 9.1 (8.4-10.2) mg/dL Magnesium 2.3 (1.6-2.6) mg/dL Total Bilirubin 0.6 (0.0-1.0) mg/dL Direct Bilirubin 0.2 (0.0-0.5) mg/dL AST 19 (5-37) U/L ALT 11 (0-40) U/L Alkaline Phosphatase 95 (39-117) U/L Troponin I High Sens 8.5 (<3.5-35.0) ng/L Total Protein 6.8 (6.5-8.0) g/dL Albumin 3.4 L (3.5-5.0) g/dL Lipase 18 (8-78) U/L Independent Interpretation I performed an independent interpretation of an: EKG and CT Scan (effusion no PE no aneurysm) Interpretation: Rate: 73 Rhythm: afib Reddell: normal Normal QRS complex. ST T wave : no NICK, nonspecific qTC: 469 prior studies: no acute ischemia no acute change The study has been interpreted contemporaneously by me. . Radiology Impression Discussion of test interpretation with radiology: I have reviewed the radiologist's reading. Independent Historian Clinical information obtained from an independent historian. History obtained from or confirmed by: EMS External Record Review External record reviewed: Inpatient record and Outpatient record Discharge Plan Discharge Clinical Impression: Weakness Patient Disposition: Home, Self-Care Instructions: Weakness (ED) Additional Instructions: labs reassuring CT scan with contrast there is no pneumonia, small fluid in left lung there are some non specific lymph nodes this mass in left lung should be worked up by primary care doctor including pulmonology evaluation and referral to interventional radiology for lung biopsy if necessary return for difficulty breathing or low oxygen levels below 92% Prescriptions: No Action simvastatin 20 mg tablet 1 tab PO BEDTIME triamcinolone acetonide 0.1 % ointment 1 appl topical BID Rx Instructions: 2 WEEKS ON 1 WEEK OFF azelastine 137 mcg (0.1 %) aerosol,spray 2 spray intranasal BID nicotine 14 mg/24 hr Patch 24 Hour 14 mg transdermal DAILY Qty: 1 0RF levofloxacin 250 mg Tablet 250 mg PO Q24H Qty: 7 0RF Eliquis 2.5 mg Tablet 2.5 mg PO BID Qty: 1 0RF metoprolol succinate 25 mg Tablet Extended Release 24 Hr 25 mg PO DAILY Qty: 1 0RF Protocol: Hold for SBP/HR < HOLD for SBP < : 90 HOLD for HR < : 60 Referrals: Gordon Dumont MD [Physician] - (can call to schedule appointment with pulmonology) Interventions: ED Discharge Assessment Last Done: 03/18/24 22:15 Discharge Date/Time: 03/18/24 22:15 Print Language: [place] Irish
[2024-03-18 18:37] LABS: Basophils Percent Auto 0.4 % (0-2); Eosinophils Absolute Auto 0.4 X10*3/uL (0.0-0.4); Eosinophils Percent Auto 5.6 % (0-4); Hematocrit 36.9 % (42.0-52.0); Hemoglobin 11.6 g/dl (14.0-18.0); Imm Gran Abs Auto 0.03 X10*3/uL (0.00-0.03); Imm Gran Pct Auto 0.4 % (0.0-0.4); Lymphocytes Absolute Auto 1.7 X10*3/uL (1.2-4.9); Lymphocytes Percent Auto 24.9 % (20-40); Mean Corpuscular HGB Conc 31.4 g/dl (31.0-36.0); Mean Corpuscular Hemoglobin 29.8 pg (27.0-33.0); Mean Corpuscular Volume 94.9 fL (80.0-98.0); Mean Platelet Volume 8.9 fL (9.4-12.4); Monocytes Absolute Auto 0.6 X10*3/uL (0.1-1.2); Monocytes Percent Auto 8.5 % (2-11); Neutrophils Absolute Auto 4.1 x10*3/uL (2.0-8.3); Neutrophils Percent Auto 60.2 % (45-73); Platelet Count 200 X10*3/uL (160-400); Red Blood Count 3.89 X10*6/uL (4.60-5.80); Red Cell Distribution Width 15.8 % (11.0-16.0); White Blood Count 6.8 X10*3/uL (4.8-10.8)
[2024-03-18 19:12] LABS: Alanine Aminotransferase 11 U/L (0-40); Albumin Level 3.4 g/dL (3.5-5.0); Alkaline Phosphatase 95 U/L (39-117); Anion Gap 13 (12-20); Aspartate Amino Transferase 19 U/L (5-37); Bilirubin Direct 0.2 mg/dL (0.0-0.5); Bilirubin Total 0.6 mg/dL (0.0-1.0); Blood Urea Nitrogen 32 mg/dL (9-16); Calcium 9.1 mg/dL (8.4-10.2); Carbon Dioxide 29 mmol/L (22-29); Chloride 107 mmol/L (96-108); Creatinine Clr Calc Pharmacy 33.4; Estimated Glomerular Filt Rate > 60; Glucose Random 111 mg/dL (60-115); Lipase 18 U/L (8-78); Magnesium 2.3 mg/dL (1.6-2.6); Potassium 4.5 mmol/L (3.3-5.1); Sodium 144 mmol/L (135-145); Total Protein 6.8 g/dL (6.5-8.0)
[2024-03-18 19:19] VITALS: BP 120/73; PULSE 85; RESP 18; TEMP 37.6; O2SAT 94
--- NOTE | 2024-03-18 19:19 | PC.NURSE ---
This RN with [facility] completed nikki care and changed pt into hospital attire. Plan of care ongoing.
--- NOTE | 2024-03-18 19:22 | MHC.EDTECH ---
PATIENT WAS CHANGE INTO HOSPITAL ATTIRE ,VITALS TAKEN , EKG DONE AND WAS READ BY PROVIDER ,PATIENT A&O AND IS WATCHING TELEVISION ,STEWART,M BLANKET GIVEN .
--- NOTE | 2024-03-18 19:32 | PC.NURSE ---
Pt daughter called [facility] [phone] requesting a call if father gets admitted or if she needs to come pick him up. Plan of care ongoing.
[2024-03-18 19:42] LABS: Troponin-I High Sensitivity 8.5 ng/L (<3.5-35.0)
--- NOTE | 2024-03-18 20:07 | PC.NURSE ---
Pt with CT. Plan of care ongoing.
[2024-03-18] MEDS: iohexoL 350 MG/ML 100 ML INFUS..BTL IV (20:32)
[2024-03-18 21:29] VITALS: BP 111/61; PULSE 94; RESP 15; TEMP 37.2; O2SAT 94
[2024-03-18 22:15] VITALS: BP 111/61; PULSE 94; RESP 15; TEMP 37.2; O2SAT 94
== END 2024-03-18 22:15 | disposition home or self-care (01) ==
PROVIDERS: Emergency Provider Emergency Medicine
DX: R53.1 Weakness (principal); R93.5 Abnormal findings on diagnostic imaging of other abdominal regions, including retroperitoneum; E78.5 Hyperlipidemia, unspecified; I48.91 Unspecified atrial fibrillation; E46 Unspecified protein-calorie malnutrition; Z68.1 Body mass index [BMI] 19.9 or less, adult; F17.210 Nicotine dependence, cigarettes, uncomplicated; Z86.73 Personal history of transient ischemic attack (TIA), and cerebral infarction without residual deficits; Z79.02 Long term (current) use of antithrombotics/antiplatelets; Z79.899 Other long term (current) drug therapy; Z79.01 Long term (current) use of anticoagulants
CPT/HCPCS: 36415; 71275; 80048; 80076; 83690; 83735; 84484; 85025; 93005; 99284; Q9967

== ENCOUNTER → 2024-03-18 17:59 | Outpatient (BNV) | payer MEDICARE, SELFPAY | PROVIDERS: Emergency Provider Emergency Medicine; Visit Provider Internal Medicine Cardiovascular Disease | DX: R94.31 Abnormal electrocardiogram [ECG] [EKG] (principal) | CPT/HCPCS: 93010 ==

== ENCOUNTER 2024-03-25 09:26 | Outpatient (AMB) | payer MEDICARE, SELFPAY ==
[2024-03-25 09:31] VITALS: BP 132/62; PULSE 77; O2SAT 94; BMI 14.8
--- NOTE | 2024-03-25 09:31 | A.OFFVIS_ITS ---
Vital Signs 03/25/24 09:31 Height 6 ft Weight 109 lb 2.061 oz BMI 14.8 BP 132/62 Blood Pressure Location Rt brachial Position Sitting Pulse 77 Pulse Source Doppler Pulse Oximetry (%) 94 Oxygen Delivery Method Room Air Intake Visit Reasons: Abnormal CT scan/[place] [place] Allergies pentazocine [From Talwin] Allergy (Verified 03/25/24 09:37) Unknown HPI HPI Abnormal CT scan/ER [place] [place] Details: 89-year-old gentleman active 110 pack-year smoker with underlying emphysema and likely COPD who had recent CT chest that demonstrated left 2.1 cm spiculated nodule and some pleural effusion referred for further follow-up. Patient is interested in working up his likely malignant nodule. [facility] Medical History Atrial flutter Bacteremia Smoker AAA (abdominal aortic aneurysm) without rupture Saccular aneurysm BPH w urinary obs/LUTS Acute CVA (cerebrovascular accident) UTI (urinary tract infection) HLD (hyperlipidemia) Social History Household Members: Children Household Members Other:: Daughter and Son in Law Housing: House Are you a primary physician primary care sports medicine to a significant other at home: No Alcohol intake: never Patient Tobacco Use Status: Current everyday Tobacco user Tobacco use type: Cigarette Cigarette Packs Per Day: 1.5 Cigarettes Per Day: 30.0 Years Smoked: 72 Second Hand Smoke Exposure: No Advance Directives Date on File: 08/14/21 service: No Current occupational status: retired Review of Systems Const Denies daytime sleepiness, Denies excessive sweating, Denies fatigue, Denies fever(s), Denies lethargy, Denies malaise, Denies night sweats, Denies snoring and Denies weight loss Eyes Denies blurry vision and Denies itchy eyes ENT Denies nasal congestion, Denies post nasal drip, Denies sinus pain, Denies sinus pressure and Denies other ( Thrush) Card Denies chest pain, Denies pedal edema, Denies dyspnea, Denies orthopnea and Denies paroxysmal nocturnal dyspnea Resp Denies cough, Denies hemoptysis, Denies excessive phlegm production, Denies dyspnea, Denies snoring and Denies wheezing GI Denies abdominal pain and Denies heartburn Musc Denies myalgias, Denies arthralgias and Denies joint swelling Skin/Breast Denies rash Neuro Denies memory loss and Denies seizure-like activity Psych Denies abnormal sleep pattern, Denies anxiety and Denies memory loss Endo Denies excessive sweating, Denies fatigue and Denies heat intolerance Dre/Lymph Denies easy bruising Aller/Immun Denies itchy eyes, Denies seasonal rhinorrhea and Denies wheezing Physical Exam Vital Signs: Last Vital Signs Pulse 77 03/25/24 09:31 BP 132/62 03/25/24 09:31 Pulse Ox 94 03/25/24 09:31 Oxygen Delivery Method Room Air 03/25/24 09:31 BMI result Body Mass Index 14.8 Const General: no acute distress and alert Nutritional Appearance: not obese Orientation/consciousness: Other orientation findings ( oriented) HEENT Head: Yes atraumatic Eyes General: appearance normal, both eyes and all related structures Sclerae: sclerae normal EOM: EOMs intact bilaterally Neck Neck: Yes supple Lymphatic: no lymphadenopathy noted Resp Effort & Inspection: normal respiratory effort and no use of accessory muscles Auscultation: clear to auscultation bilaterally Cardio Rate: regular rate Rhythm: regular rhythm Heart sounds: no gallops, no murmurs and no rubs Skin General skin exam: other ( warm) Extrem General: No clubbing, No cyanosis and No edema Assessment & Plan Assessment & Plan (1) Pulmonary nodule 1 cm or greater in diameter: Code(s): R91.1 - Solitary pulmonary nodule Category: Medical Plan: Discussed options for biopsy or monitoring of the nodule. Patient is interested in proceeding with biopsy. Will arrange for IR biopsy. (2) Emphysema of lung: Code(s): J43.9 - Emphysema, unspecified Category: Medical Plan: Emphysema on CT chest, likely underlying COPD. Will obtain full PFT. Orders: Orders PFT pulmonary function test Today R91.1 - Solitary pulmonary nodule CT biopsy lung LT Today R91.1 - Solitary pulmonary nodule Coding Level of Care Code New Pt Level 4 (16280) Diagnoses Pulmonary nodule 1 cm or greater in diameter R91.1 Emphysema of lung J43.9
== END 2024-03-25 12:46 | disposition home or self-care (01) ==
PROVIDERS: PCP Physician Assistant Medical; Referring Provider Emergency Medicine; Visit Provider Internal Medicine Pulmonary Disease
DX: R91.1 Solitary pulmonary nodule (principal); J43.9 Emphysema, unspecified
CPT/HCPCS: 99204

== ENCOUNTER → 2024-03-25 09:26 | Outpatient (BNVA) | payer MEDICARE, OTHER, SELFPAY | PROVIDERS: PCP Physician Assistant Medical; Referring Provider Emergency Medicine; Visit Provider Internal Medicine Pulmonary Disease | DX: R91.1 Solitary pulmonary nodule (principal); J43.9 Emphysema, unspecified; F17.210 Nicotine dependence, cigarettes, uncomplicated | CPT/HCPCS: 99202 ==

== ENCOUNTER 2024-03-28 11:13 | Outpatient (REF) | payer MEDICARE, OTHER, SELFPAY ==
[2024-03-28 10:57] VITALS: PULSE 73; RESP 16; O2SAT 98
--- NOTE | 2024-03-28 12:41 | PFT_ITS ---
Flows: FEV1: 68 % of predicted at 1.55 L FVC: 85 % of predicted at 2.66 L FEV1/FVC: 59 % Bronchodilator response: Absent Volumes: Patient unable to perform lung volumes maneuvers. Diffusion capacity: Very severely decreased Impression: Moderate obstructive ventilatory defect with no bronchodilator response. Decreased diffusion capacity suggests emphysema. MTDD
== END 2024-03-28 11:14 | disposition home or self-care (01) ==
LOC: HO.RESP 11:13
PROVIDERS: PCP Physician Assistant Medical; Visit Provider Internal Medicine Pulmonary Disease
DX: R91.1 Solitary pulmonary nodule (principal)
CPT/HCPCS: 94010; 94640; 94727; 94729

== ENCOUNTER → 2024-03-28 12:41 | Outpatient (BNV) | payer MEDICARE, SELFPAY | PROVIDERS: PCP Physician Assistant Medical; Visit Provider Internal Medicine Pulmonary Disease | DX: J43.9 Emphysema, unspecified (principal); R91.1 Solitary pulmonary nodule; Z01.811 Encounter for preprocedural respiratory examination | CPT/HCPCS: 94060; 94729 ==

== ENCOUNTER → 2024-04-14 08:21 | Day surgery (SDC) | payer MEDICARE, SELFPAY ==
--- NOTE | ~2024-04-14 | CT_ITS ---
EXAMINATION: Limited CT of the chest CLINICAL INFORMATION: Left lower lobe mass. Significant smoking history. Pulmonology requests a lung biopsy. COMPARISON: CT chest 03/18/2024 PROCEDURE NOTE: The procedure, risks, benefits, and alternatives were carefully explained to the patient and his daughter and written informed consent was obtained. The patient was placed in the left lateral decubitus position on the CT table. A limited CT of the chest was performed, which demonstrated interval improvement in size of the left lower lobe lesion, as well as near complete resolution of the previously seen left pleural effusion. Given the improvement in size of the lung lesion in one month, and the patient's significant comorbidities including severe emphysema, we elected not to perform a biopsy at this time. The patient's cable hooker was contacted regarding these events. A follow-up CT scan in 4-6 weeks was recommended to ensure continued improvement of this left lower lobe lesion. Alternatively, a PET scan at that time could also be considered. CT/CT chest wo IV con Impression: Interval improvement in size of the previously seen left lower lobe lesion. Follow-up imaging of the chest is recommended in 4-6 weeks, which can include a CT of the chest or PET. This procedure was performed by Anthony Bird PA-C and supervised by Dr. Fuller.
[2024-04-14 09:07] LABS: INTERNATIONAL NORM RATIO 1.1 (0.9-1.1); Prothrombin Time 13.1 SEC (11.1-13.3)
[2024-04-14 09:10] LABS: Partial Thromboplastin Time 31.4 SEC (26.0-36.8)
[2024-04-14 09:14] LABS: Estimated Glomerular Filt Rate > 60
--- NOTE | 2024-04-14 10:40 | MHC.SHP ---
Pre-Procedural Eval Section A - 24 Hr Update-Section A only Date of Service: 04/14/24 Section B - Complete if H&P > 30 days Chief Complaint: LEFT LUNG SOLITARY PULMONARY NODULE 1CM Details of Present Illness: 89 y/o man with a left lung mass. Pulmonology requests a biopsy Relevant Family History (Specify if Yes): No Relevant Social History: Tobacco Use Present Medications: see Short Stay Collaborative assessment Medical History: Significant History History of Previous Operations: Relevant previous surgery/procedure and date(s) Allergies: Allergies Allergy/AdvReac Type Severity Reaction Status Date / Time pentazocine [From Talwin] Allergy Unknown Verified 03/25/24 09:37 Review of Systems Sugical H&P ROS: Negative: Constitution and Cardiovascular and Yes, Specify: Respiratory (mild dyspnea) Exam Surgical H&P Exam: Normal: Heart, Normal: Lungs and Normal: Skin and Significant Findings: Neurological (alert to self, place) Plan 89 y/o man with left lung mass in setting of severe emphysema -CT left lung biopsy with possible chest tube. Discussed with HCR, high risk of pneumothorax Time Spent With Patient Time: Total time managing care of this patient today ____ minutes.
== END ==
LOC: HO.SSS 08:22
PROVIDERS: Physician Assistant Surgical; Student in an Organized Health Care Education/Training Program; Visit Provider Internal Medicine Pulmonary Disease
DX: R91.1 Solitary pulmonary nodule (principal); J43.9 Emphysema, unspecified; F17.210 Nicotine dependence, cigarettes, uncomplicated; Z86.73 Personal history of transient ischemic attack (TIA), and cerebral infarction without residual deficits
CPT/HCPCS: 36415; 71250; 82565; 85610; 85730; 86850; 86900; 86901; J2250; J2310; J3010

== ENCOUNTER → 2024-04-14 10:27 | Outpatient (BNV) | payer MEDICARE, SELFPAY | PROVIDERS: Visit Provider Physician Assistant Surgical | DX: R91.1 Solitary pulmonary nodule (principal) | CPT/HCPCS: 71250 ==

== ENCOUNTER 2024-04-21 10:26 | Outpatient (AMB) | payer MEDICARE, MEDICAID, SELFPAY ==
[2024-04-21 10:32] VITALS: BP 116/62; PULSE 77; O2SAT 94
--- NOTE | 2024-04-21 10:32 | A.OFFVIS_ITS ---
Vital Signs 04/21/24 10:32 Height 6 ft BP 116/62 Blood Pressure Location Rt brachial Position Sitting Pulse 77 Pulse Source Doppler Pulse Oximetry (%) 94 Oxygen Delivery Method Room Air Intake Visit Reasons: PFT,biopsy results Allergies pentazocine [From Talwin] Allergy (Verified 04/21/24 10:37) Unknown HPI HPI PFT,biopsy results: Details: 89-year-old gentleman active 110 pack-year smoker with underlying emphysema and likely COPD who had recent CT chest that demonstrated left 2.1 cm spiculated nodule and some pleural effusion referred for further follow-up. After the last office visit biopsy of the left-sided nodule was attempted, however during the fluoroscopy, significant decrease in nodule size was noted and biopsy was abandoned. Patient denies any pulmonary related concerns or complaints at this time. His PFT shows severe emphysema with moderate obstructive ventilatory defect. [facility] Medical History (Updated 04/14/24 @ 08:42 by Karolina Evans RN) Atrial flutter History of CVA (cerebrovascular accident) Bacteremia Atrial flutter Smoker AAA (abdominal aortic aneurysm) without rupture BPH w urinary obs/LUTS UTI (urinary tract infection) HLD (hyperlipidemia) Surgical History (Updated 03/31/24 @ 10:32 by Pepper Joseph PA-C) History of cataract surgery Social History Household Members: Children Household Members Other:: Daughter and Son in Law Housing: House Are you a primary resident caregiver to a significant other at home: No Alcohol intake: never Patient Tobacco Use Status: Current everyday Tobacco user Tobacco use type: Cigarette Cigarette Packs Per Day: 1.5 Cigarettes Per Day: 30.0 Years Smoked: 72 Second Hand Smoke Exposure: No Advance Directives Date on File: 08/14/21 service: No Current occupational status: retired Review of Systems Const Denies daytime sleepiness, Denies excessive sweating, Denies fatigue, Denies fever(s), Denies lethargy, Denies malaise, Denies night sweats, Denies snoring and Denies weight loss Eyes Denies blurry vision and Denies itchy eyes ENT Denies nasal congestion, Denies post nasal drip, Denies sinus pain, Denies sinus pressure and Denies other ( Thrush) Card Denies chest pain, Denies pedal edema, Denies dyspnea, Denies orthopnea and Denies paroxysmal nocturnal dyspnea Resp Denies cough, Denies hemoptysis, Denies excessive phlegm production, Denies dyspnea, Denies snoring and Denies wheezing GI Denies abdominal pain and Denies heartburn Musc Denies myalgias, Denies arthralgias and Denies joint swelling Skin/Breast Denies rash Neuro Denies memory loss and Denies seizure-like activity Psych Denies abnormal sleep pattern, Denies anxiety and Denies memory loss Endo Denies excessive sweating, Denies fatigue and Denies heat intolerance Dre/Lymph Denies easy bruising Aller/Immun Denies itchy eyes, Denies seasonal rhinorrhea and Denies wheezing Physical Exam Vital Signs: Last Vital Signs Pulse 77 04/21/24 10:32 BP 116/62 04/21/24 10:32 Pulse Ox 94 04/21/24 10:32 Oxygen Delivery Method Room Air 04/21/24 10:32 Const General: no acute distress and alert Nutritional Appearance: not obese Orientation/consciousness: Other orientation findings ( oriented) HEENT Head: Yes atraumatic Eyes General: appearance normal, both eyes and all related structures Sclerae: sclerae normal EOM: EOMs intact bilaterally Neck Neck: Yes supple Lymphatic: no lymphadenopathy noted Resp Effort & Inspection: normal respiratory effort and no use of accessory muscles Auscultation: clear to auscultation bilaterally Cardio Rate: regular rate Rhythm: regular rhythm Heart sounds: no gallops, no murmurs and no rubs Skin General skin exam: other ( warm) Extrem General: No clubbing, No cyanosis and No edema Assessment & Plan Assessment & Plan (1) Emphysema of lung: Code(s): J43.9 - Emphysema, unspecified Category: Medical Plan: Essentially asymptomatic. Continue monitor clinically. (2) Pulmonary nodule 1 cm or greater in diameter: Code(s): R91.1 - Solitary pulmonary nodule Category: Medical Plan: Biopsy attempted, on fluoroscopy significant decrease in nodule size. Will obtain PET-CT in 4 months. Orders: Orders Pneumococcal 20 Immunization Today J43.9 - Emphysema, unspecified PET CT fusion skull to thigh 08/21/24 R91.1 - Solitary pulmonary nodule Coding Level of Care Code Est Pt Level 4 (00504) Diagnoses Emphysema of lung J43.9 Pulmonary nodule 1 cm or greater in diameter R91.1
== END 2024-04-21 10:57 | disposition home or self-care (01) ==
PROVIDERS: PCP Physician Assistant Medical; Visit Provider Internal Medicine Pulmonary Disease
DX: J43.9 Emphysema, unspecified (principal); R91.1 Solitary pulmonary nodule
CPT/HCPCS: 99214

== ENCOUNTER → 2024-04-21 10:26 | Outpatient (BNVA) | payer MEDICARE, OTHER, SELFPAY | PROVIDERS: PCP Physician Assistant Medical; Visit Provider Internal Medicine Pulmonary Disease | DX: J43.9 Emphysema, unspecified (principal); R91.1 Solitary pulmonary nodule; Z23 Encounter for immunization | CPT/HCPCS: 90471; 90677; 99212 ==

== ENCOUNTER 2024-05-27 16:53 | Emergency (ER) | payer MEDICARE, MEDICAID, SELFPAY ==
--- NOTE | ~2024-05-27 | XR_ITS ---
EXAMINATION: XR CHEST CLINICAL INFORMATION: Chest pain. COMPARISON: Chest radiograph dated December 29, 2023. TECHNIQUE: 2 views of the chest were obtained. FINDINGS: The heart is normal in size. There is calcific atherosclerotic disease of the aorta. The lungs are hyperinflated. There is flattening of the diaphragm and increased size of the retrosternal airspace. Findings are consistent with chronic obstructive pulmonary disease. The right lung is clear. There is opacity at the left lung base. An infectious/inflammatory etiology is suspected. There is a small left pleural effusion. No acute osseous abnormality. XR/XR chest 2V IMPRESSION: Left lower lobe airspace disease for which an infectious process is suspected. Small left pleural effusion. Findings consistent with chronic obstructive pulmonary disease. Electronically signed by: Gustavo Garcia DO 05/27/2024 08:23 PM EDT
--- NOTE | 2024-05-27 16:56 | ECG_ITS ---
Test Reason : CHEST PAIN Blood Pressure : / mmHG Vent. Rate : 095 BPM Atrial Rate : 300 BPM P-R Int : 000 ms QRS Dur : 086 ms QT Int : 366 ms P-R-T Axes : 000 107 070 degrees QTc Int : 459 ms Atrial flutter with variable A-V block Rightward axis Abnormal ECG When compared with ECG of 18-MAR-2024 19:06, ST now depressed in Inferior leads Nonspecific T wave abnormality now evident in Inferior leads Referred By: Generic ED Physician Electronically Signed By:ZOE CROCKER
[2024-05-27 17:01] VITALS: BP 150/70; PULSE 60; O2SAT 94
[2024-05-27 17:12] VITALS: BP 114/62; PULSE 102; RESP 20; TEMP 36.9; O2SAT 92; BMI 16.9
[2024-05-27 17:49] LABS: MANUAL DIFF FLAG NO
[2024-05-27 17:51] LABS: Basophils Percent Auto 0.3 % (0-2); Eosinophils Absolute Auto 0.3 X10*3/uL (0.0-0.4); Eosinophils Percent Auto 2.6 % (0-4); Hemoglobin 12.8 g/dl (14.0-18.0); Imm Gran Abs Auto 0.03 X10*3/uL (0.00-0.03); Imm Gran Pct Auto 0.2 % (0.0-0.4); Lymphocytes Absolute Auto 1.3 X10*3/uL (1.2-4.9); Lymphocytes Percent Auto 10.7 % (20-40); Mean Corpuscular Volume 93.7 fL (80.0-98.0); Mean Platelet Volume 9.2 fL (9.4-12.4); Monocytes Absolute Auto 0.7 X10*3/uL (0.1-1.2); Monocytes Percent Auto 5.8 % (2-11); Neutrophils Absolute Auto 9.9 x10*3/uL (2.0-8.3); Neutrophils Percent Auto 80.4 % (45-73); Platelet Count 193 X10*3/uL (160-400); Red Blood Count 4.27 X10*6/uL (4.60-5.80); Red Cell Distribution Width 15.3 % (11.0-16.0); White Blood Count 12.3 X10*3/uL (4.8-10.8)
[2024-05-27 18:05] LABS: Alanine Aminotransferase 8 U/L (0-40); Albumin Level 3.7 g/dL (3.5-5.0); Alkaline Phosphatase 100 U/L (39-117); Anion Gap 13 (12-20); Aspartate Amino Transferase 15 U/L (5-37); Bilirubin Total 0.8 mg/dL (0.0-1.0); Blood Urea Nitrogen 27 mg/dL (9-16); Calcium 9.2 mg/dL (8.4-10.2); Carbon Dioxide 27 mmol/L (22-29); Chloride 107 mmol/L (96-108); Creatinine Clr Calc Pharmacy 29.9; Estimated Glomerular Filt Rate > 60; Glucose Random 126 mg/dL (60-115); Lipase 13 U/L (8-78); Magnesium 2.1 mg/dL (1.6-2.6); Potassium 4.5 mmol/L (3.3-5.1); Sodium 142 mmol/L (135-145); Total Protein 7.4 g/dL (6.5-8.0)
[2024-05-27 18:11] VITALS: BP 131/65; PULSE 92; RESP 20; O2SAT 95
[2024-05-27 18:12] LABS: Troponin-I High Sensitivity 7.7 ng/L (<3.5-35.0)
--- NOTE | 2024-05-27 18:34 | ED.CHESTPAIN ---
HPI - Chest Pain General Chief Complaint: Chest Pain Stated Complaint: sharp chest pain 03/09, went away, hx a-fib Time Seen by Provider: 05/27/24 17:05 Source: patient Limitations: no limitations History of Present Illness ED Provider: Uyen Hu PA-C HPI narrative: 89-year-old male with a history of AAA, saccular aneurysm, BPH with frequent urinary tract infections, CVA, hyperlipidemia presents with chest pain. Patient states he was standing in his kitchen, he developed sharp left anterior chest discomfort that lasted a minute. Patient has been asymptomatic otherwise. He denies associated diaphoresis, shortness of breath, nausea, vomiting, belly pain. Denies recent cough or cold symptoms no fevers. Related Data Home Medications ?Medication ?Instructions ?Recorded ?Confirmed simvastatin 20 mg tablet 1 tab PO BEDTIME 08/10/21 12/29/23 azelastine 137 mcg (0.1 %) nasal 2 spray intranasal BID 12/29/23 12/29/23 spray triamcinolone acetonide 0.1 % 1 appl topical BID 12/29/23 topical ointment Previous Rx's ?Medication ?Instructions ?Recorded apixaban 2.5 mg tablet (Eliquis) 2.5 mg PO BID #1 tab 01/11/24 levofloxacin 250 mg tablet 250 mg PO Q24H #7 tabs 01/11/24 nicotine 14 mg/24 hr daily 14 mg transdermal DAILY #1 ea 01/11/24 transdermal patch metoprolol succinate 25 mg 25 mg PO DAILY #1 tab 01/12/24 tablet,extended release 24 hr amoxicillin 875 mg-potassium 1 tab PO BID #14 tabs 05/27/24 clavulanate 125 mg tablet doxycycline hyclate 100 mg capsule 100 mg PO BID #14 caps 05/27/24 Allergies Allergy/AdvReac Type Severity Reaction Status Date / Time pentazocine [From Joi] Allergy Unknown Verified 05/27/24 17:13 Review of Systems Review of Systems: Yes all other systems are reviewed and are negative Constitutional: Constitutional: Denies fatigue and Denies fever(s) Cardiovascular: Cardiovascular: Reports chest pain and Denies dyspnea Respiratory: Respiratory: Denies dyspnea Gastrointestinal: Gastrointestinal: Denies vomiting Endocrine: Endocrine: Denies fatigue PMF Past Medical History Attestation statement: The following information was validated with the patient. Medical History (Updated 05/27/24 @ 18:55 by SCARLETT Mercedes) Atrial flutter History of CVA (cerebrovascular accident) Bacteremia Atrial flutter Smoker AAA (abdominal aortic aneurysm) without rupture BPH w urinary obs/LUTS UTI (urinary tract infection) HLD (hyperlipidemia) Surgical History (Updated 03/31/24 @ 10:32 by Pepper Joseph PA-C) History of cataract surgery Social History Social History Household Members: Children Household Members Other:: Daughter and Son in Law Housing: House Are you a primary health care social worker to a significant other at home: No Alcohol intake: never Patient Tobacco Use Status: Current everyday Tobacco user Tobacco use type: Cigarette Cigarette Packs Per Day: 1.5 Cigarettes Per Day: 30.0 Years Smoked: 72 Smoked in Last 30 Days: Yes Second Hand Smoke Exposure: No Use of substances other than those prescribed or required for medical reasons: No Advance Directives: Yes Advance Directives on File: Yes Advance Directives Date on File: 08/14/21 service: No Current occupational status: retired Physical Exam Vital Signs: Vital Signs: Last Vital Signs Temp 98.4 F 05/27/24 17:12 Pulse 92 05/27/24 18:11 Resp 20 05/27/24 18:11 BP 131/65 05/27/24 18:11 Pulse Ox 95 05/27/24 18:11 O2 Del Method Room Air 05/27/24 18:11 BMI result Body Mass Index 16.9 Const: Other: Awake, cachectic, Orientation/consciousness: patient oriented x3 Resp: Other: Nonlabored respirations, lungs clear to auscultation, however has a smoker's cough, that is wet Cardio: Other: , radial pulses +2 bilaterally Normal peripheral perfusion Skin: Other: Warm dry no rash Neuro: General: patient oriented x3, no focal motor deficits and CN's II-XI intact bilaterally Psych: Other: Cooperative Course Reevaluation(s) Reevaluation #1: At this point, patient is just having his chest x-ray, he is due for a delta troponin within the next 20 minutes, he declines, he wants to go home. It appears this 1st troponin is at his baseline, however it is preferential that we have a 2nd to compare to. We are having the patient has signed out against medical advice Time: 18:40 Reevaluation #2: Appears the patient has a brewing pneumonia, we will cover with antibiotics, he is a smoker, the daughter's on her way, he does not require admission at this time. In the meantime we will obtain a delta troponin Time: 18:58 Medications Administered Discontinued Medications Generic Name Dose Route Start Last Admin Trade Name Marcusq PRN Reason Stop Dose Admin Amoxicillin/Clavulanate Potassium 875 mg 05/27/24 18:55 05/27/24 19:47 Amoxicillin/Potassium Clav 875 Mg Tablet PO 05/27/24 18:56 875 mg ONCE ONE Administration Doxycycline Monohydrate 100 mg 05/27/24 18:55 05/27/24 19:47 Doxycycline Monohydrate 100 Mg Capsule PO 05/27/24 18:56 100 mg ONCE ONE Administration Medical Decision Making Medical Decision Making [facility] Narrative: 89-year-old male with a history of AAA, saccular aneurysm, BPH with frequent urinary tract infections, CVA, hyperlipidemia presents with chest pain. Patient states he was standing in his kitchen, he developed sharp left anterior chest discomfort that lasted a minute. Patient has been asymptomatic otherwise. He denies associated diaphoresis, shortness of breath, nausea, vomiting, belly pain. Denies recent cough or cold symptoms no fevers. Problem: Age, known aneurysm, prior stroke, tobacco use History: Per patient I have considered the following differential diagnoses: Atypical chest pain, dissection, ACS, COPD exacerbation, viral syndrome Plan: Considering ACS, the patient does have risk factors for coronary artery disease, however his presentation is atypical. Screening labs including a troponin, EKG and chest x-ray were obtained. He has been asymptomatic since his minutes worth of chest discomfort. Thought about COPD exacerbation, however there was no wheezing on exam, he has not had preceding viral syndrome his lungs are clear. Thought about dissection given he has any aneurysm, however he is not overtly hypertensive, he is neurovascularly intact, radial pulses are equal. I have independently reviewed the following tests: EKG: A flutter with variable AV block, noted on prior studies, rate of 95, no ischemic changes Labs: No leukocytosis, not anemic, no electrolyte abnormality, 1st troponin 7.7, no change with delta trop Chest x-ray: barrel chest, consistent with COPD no pleural effusion, I question a left lower lobe pneumonia, however his lungs are clear he has not had a cough, he is afebrile, he does have a slight leukocytosis, clinically he does not have pneumonia ..... The patient is a smoker, I am covering him for pneumonia, as an outpatient Lab Data 05/27/24 17:43 05/27/24 17:43 Labs: Lab Results 05/27/24 05/27/24 Range/Units 17:43 19:07 WBC 12.3 H (4.8-10.8) X10*3/uL RBC 4.27 L (4.60-5.80) X10*6/uL Hgb 12.8 L (14.0-18.0) g/dl Hct 40.0 L (42.0-52.0) % MCV 93.7 (80.0-98.0) fL MCH 30.0 (27.0-33.0) pg MCHC 32.0 (31.0-36.0) g/dl RDW 15.3 (11.0-16.0) % Plt Count 193 (160-400) X10*3/uL MPV 9.2 L (9.4-12.4) fL Immature Gran % (Auto) 0.2 (0.0-0.4) % Neut % (Auto) 80.4 H (45-73) % Lymph % (Auto) 10.7 L (20-40) % Young % (Auto) 5.8 (2-11) % Eos % (Auto) 2.6 (0-4) % Baso % (Auto) 0.3 (0-2) % Lymph # (Auto) 1.3 (1.2-4.9) X10*3/uL Young # (Auto) 0.7 (0.1-1.2) X10*3/uL Eos # (Auto) 0.3 (0.0-0.4) X10*3/uL Baso # (Auto) 0.0 (0.0-0.2) X10*3/uL Abs Immat Gran (auto) 0.03 (0.00-0.03) X10*3/uL Absolute Neuts (auto) 9.9 H (2.0-8.3) x10*3/uL Absolute Nucleated RBC 0.000 (0.0-0.012) X10*3/uL Nucleated RBC % (auto) 0.0 (0.0-0.2) /100WBC Sodium 142 (135-145) mmol/L Potassium 4.5 (3.3-5.1) mmol/L Chloride 107 (96-108) mmol/L Carbon Dioxide 27 (22-29) mmol/L Anion Gap 13 (12-20) BUN 27 H (9-16) mg/dL Creatinine 1.12 (0.5-1.4) mg/dL Estim Creat Clear Calc 29.9 Estimated GFR > 60 Random Glucose 126 H (60-115) mg/dL Calcium 9.2 (8.4-10.2) mg/dL Magnesium 2.1 (1.6-2.6) mg/dL Total Bilirubin 0.8 (0.0-1.0) mg/dL AST 15 (5-37) U/L ALT 8 (0-40) U/L Alkaline Phosphatase 100 (39-117) U/L Troponin I High Sens 7.7 9.5 (<3.5-35.0) ng/L Total Protein 7.4 (6.5-8.0) g/dL Albumin 3.7 (3.5-5.0) g/dL Lipase 13 (8-78) U/L Discharge Plan Discharge Clinical Impression: Chest pain, Pneumonia Patient Disposition: Home, Self-Care Instructions: Chest Pain (ED), Community Acquired Pneumonia (ED) Additional Instructions: All of your labs including 2 cardiac enzymes were normal. There were no concerning changes on your EKG. It appears she may be developing a pneumonia in the left lung. We are covering her with 2 different antibiotics. Take the Augmentin as directed, take the doxycycline as directed. Follow up with your primary care provider this next week. You had your 1st dose of antibiotic tonight in the emergency room, you do not require any more medication until the morning. Prescriptions: New amoxicillin-pot clavulanate 875-125 mg tablet 1 tab PO BID Qty: 14 0RF doxycycline hyclate 100 mg capsule 100 mg PO BID Qty: 14 0RF No Action simvastatin 20 mg tablet 1 tab PO BEDTIME triamcinolone acetonide 0.1 % ointment 1 appl topical BID Rx Instructions: 2 WEEKS ON 1 WEEK OFF azelastine 137 mcg (0.1 %) aerosol,spray 2 spray intranasal BID nicotine 14 mg/24 hr Patch 24 Hour 14 mg transdermal DAILY Qty: 1 0RF levofloxacin 250 mg Tablet 250 mg PO Q24H Qty: 7 0RF Eliquis 2.5 mg Tablet 2.5 mg PO BID Qty: 1 0RF metoprolol succinate 25 mg Tablet Extended Release 24 Hr 25 mg PO DAILY Qty: 1 0RF Protocol: Hold for SBP/HR < HOLD for SBP < : 90 HOLD for HR < : 60 Print Language: Tamazight
--- NOTE | 2024-05-27 18:37 | PC.NURSE ---
pt informed this RN that he wants to leave because he is no longer having the pain. explained to pt the dangers of this and he reports that he doesn't care he does not want to continue laying here while nothing is done . educated pt that labs, ekg and chest xray are done and the results can take time. pt insists on leaving. Nadya PANTOJA made aware
--- NOTE | 2024-05-27 18:45 | PC.NURSE ---
called daughter who does not feel comfortable picking pt up if he is leaving AMA, pts daughter reports she will come to ER and try to talk to him
[2024-05-27 19:34] LABS: Troponin-I High Sensitivity 9.5 ng/L (<3.5-35.0)
[2024-05-27] MEDS: Doxycycline Monohydrate 100 MG CAPSULE PO (19:47)
[2024-05-27] MEDS: Amoxicillin/Potassium Clav 875 MG TABLET PO (19:47)
[2024-05-27 19:56] VITALS: BP 131/65; PULSE 92; RESP 20; TEMP 36.9; O2SAT 95
== END 2024-05-27 19:57 | disposition home or self-care (01) ==
PROVIDERS: Physician Assistant Medical; Emergency Provider Internal Medicine
DX: R07.9 Chest pain, unspecified (principal); J18.9 Pneumonia, unspecified organism; E78.5 Hyperlipidemia, unspecified; F17.210 Nicotine dependence, cigarettes, uncomplicated; Z86.73 Personal history of transient ischemic attack (TIA), and cerebral infarction without residual deficits; Z79.899 Other long term (current) drug therapy
CPT/HCPCS: 36415; 71046; 80053; 83690; 83735; 84484; 85025; 93005; 99283; 99285

== ENCOUNTER 2024-06-08 17:05 | Inpatient (IN) | payer MEDICARE, MEDICAID, SELFPAY ==
[2024-06-08] VITALS (8 sets, daily range): BP systolic 82–150; BP diastolic 40–80; PULSE 78–146; RESP 12–21; TEMP 37.5–38.6; O2SAT 90–100; BMI 17.2
--- NOTE | ~2024-06-08 | XR_ITS ---
EXAMINATION: XR CHEST CLINICAL INFORMATION: Pneumonia COMPARISON: 06/08/2024 TECHNIQUE: Frontal view of the chest was obtained. FINDINGS: There is no gross pneumothorax. Progression of previously noted left upper lobe opacity with extension to the left base with left basilar consolidation and moderate to large left pleural effusion. Mildly prominent patchy opacities in the right lung. Cardiac silhouette is obscured by left basilar consolidative component pleural fluid. XR/XR chest 1V IMPRESSION: Progression of previously noted left upper lobe opacity now with extension to the left base with left basilar consolidation and moderate to large left pleural effusion. Mildly prominent patchy opacities in the right lung. This study was presented today June 14, 2024 for interpretation. Stat results provided at this time as requested by referring provider. Electronically signed by: Sanam Gan MD 06/14/2024 09:28 AM EDT
--- NOTE | ~2024-06-08 | FL_ITS ---
EXAMINATION: Modified Barium Swallow. CLINICAL INFORMATION: Dysphagia. COMPARISON: None. TECHNIQUE: Modified barium swallow was performed under lateral fluoroscopy with patient in standing position. Barium mixed with solids and liquids of different consistencies was administered by the speech pathologist. Examination was recorded in the fluoroscopy suite. FINDINGS: Aspiration was observed with multiple consistencies of barium. Please refer to speech therapy report for further clarification. FLUOROSCOPY TIME: 4 minutes 42 seconds DOSE AREA PRODUCT: 1882 uGy-m2 (microgray-meter squared) FL/FL Modified Barium Swallow IMPRESSION: 1. Aspiration was observed with multiple consistencies of barium. Refer to the speech therapy report for further clarification This procedure was performed by Anthony Bird PA-C, and supervised by Dr. Wheeler Electronically signed by: Don Wheeler MD 06/15/2024 01:20 PM EDT
--- NOTE | ~2024-06-08 | XR_ITS ---
EXAMINATION: XR CHEST CLINICAL INFORMATION: Shortness of breath COMPARISON: Chest 05/27/2024 TECHNIQUE: Frontal view of the chest was obtained. FINDINGS: The lungs are hyperinflated with patchy opacity seen in left upper lobe, new likely infiltrate. There is patchy scarring or atelectasis left lung base, stable. Rest of the lungs are clear. The heart size and pulmonary vascularity is normal. There is mild spondylosis throughout dorsal spine. . XR/XR chest 1V IMPRESSION: Hyperinflated lungs with left upper lobe infiltrate. There is chronic scarring atelectasis left lung base. Electronically signed by: Shubham Shahid MD 06/08/2024 08:21 PM EDT RP
--- NOTE | 2024-06-08 17:16 | ED.AMS ---
HPI - Altered Mental Status General Chief Complaint: Altered Mental Status Stated Complaint: AMS, s/p pneumoniax2 weeks, warm to touch, sepsis? Time Seen by Provider: 06/08/24 17:12 Source: patient and EMS Mode of arrival: EMS Limitations: altered mental status History of Present Illness ED Provider: miguel ARRINGTON narrative: 89 yo male with PMH COPD tobacco smoker, malnutrition, UTI, BPH, infrarenal abdominal aortic aneurysm 5 x 4.8 cm in 01/21, aflutter on eliquis, CVA - previous polymicrobial bacteremia seen here on 05/27 for chest pain noted to have infiltrate in left lower lung discharged on Augmentin and doxycycline for 1 week comes here as family noted that patient has been more confused visual hallucination noted to be warm saturating 90% at room air rectal temperature 101.1 degrees patient is very tremulous speaking only few words patient has had polymicrobial bacteremia in 01/21 treated with Zosyn and Levaquin likely from aspiration grew Pseudomonas and Klebsiella and bacteroides Related Data Home Medications ?Medication ?Instructions ?Recorded ?Confirmed simvastatin 20 mg tablet 20 mg PO BEDTIME 08/10/21 06/08/24 azelastine 137 mcg (0.1 %) nasal 2 spray intranasal BID 12/29/23 06/08/24 spray triamcinolone acetonide 0.1 % 1 appl topical BID PRN Rash 12/29/23 06/08/24 topical ointment metoprolol succinate 25 mg 25 mg PO BEDTIME 06/08/24 06/08/24 tablet,extended release 24 hr Previous Rx's ?Medication ?Instructions ?Recorded apixaban 2.5 mg tablet (Eliquis) 2.5 mg PO BID #1 tab 01/11/24 Allergies Allergy/AdvReac Type Severity Reaction Status Date / Time pentazocine [From Joi] Allergy Unknown Verified 06/08/24 17:19 Review of Systems Review of Systems: Yes Unobtainable due to mental status PMFSH Past Medical History Medical History Atrial flutter History of CVA (cerebrovascular accident) Bacteremia Atrial flutter Smoker AAA (abdominal aortic aneurysm) without rupture BPH w urinary obs/LUTS UTI (urinary tract infection) HLD (hyperlipidemia) Surgical History History of cataract surgery Social History Social History Household Members: Children Household Members Other:: Daughter and Son in Law Housing: House Are you a primary daycare manager to a significant other at home: No Unable to assess alcohol history related to: Unable to respond Alcohol intake: never Patient Tobacco Use Status: Current everyday Tobacco user Tobacco use type: Cigarette Cigarette Packs Per Day: 1.5 Cigarettes Per Day: 30.0 Years Smoked: 72 Smoked in Last 30 Days: Yes Second Hand Smoke Exposure: No Use of substances other than those prescribed or required for medical reasons: No Advance Directives: Yes Advance Directives on File: Yes Advance Directives Date on File: 08/14/21 Do you have a plan to hurt others: No Plan service: No Current occupational status: retired Physical Exam ED Vital Signs: Vital Signs - 24 hr 06/08/24 17:17 06/08/24 19:17 06/08/24 19:32 Temperature 101.1 F H 101.5 F H 101.1 F H Pulse Rate 146 H Respiratory Rate 12 Blood Pressure 134/73 88/54 L 82/40 L Pulse Oximetry 98 100 Oxygen Delivery Method Room Air Room Air Oxygen Flow Rate 06/08/24 20:41 06/08/24 20:57 06/08/24 22:29 Temperature Pulse Rate 146 H Respiratory Rate 20 Blood Pressure 119/72 135/79 Pulse Oximetry Oxygen Delivery Method Oxygen Flow Rate 06/08/24 23:17 06/09/24 00:00 Temperature 99.5 F 99.3 F Pulse Rate 78 80 Respiratory Rate 21 H 23 H Blood Pressure 93/44 L 101/56 L Pulse Oximetry 97 98 Oxygen Delivery Method Oxymask Oxymask Oxygen Flow Rate 4 4 BMI result Body Mass Index 17.2 Appearance: Lethargic hard of hearing very tremulous body feels warm mild discomfort Eyes: PERRLA, ENT: Pharynx normal. Oral Mucosa moist Neck: Normal inspection. Neck supple. CVS: Normal heart rate and rhythm. Pulses normal. Respiratory: No respiratory distress. Equal air entry bilateral, no wheezing/rales/rhonchi decreased air entry bilaterally Abdomen: Soft and nontender. Bowel sounds are present, no mass palpable, no CVA tenderness Skin: Skin warm and dry. Normal skin color. Normal skin turgor. Extremities: No lower extremity edema. No calf tenderness Neuro: Oriented X 1-2. No motor deficit. Medications Administered Generic Name Dose Route Start Last Admin Trade Name Freq PRN Reason Stop Dose Admin Ceftriaxone Sodium 1 gm/ 50 mls @ 100 mls/hr 06/09/24 00:00 06/09/24 00:46 Sodium Chloride IV Infused Q24H TEE Infusion Azithromycin 500 mg/ Sodium 250 mls @ 125 mls/hr 06/09/24 00:30 06/09/24 01:10 Chloride IV 125 mls/hr Q24H TEE Administration Discontinued Medications Generic Name Dose Route Start Last Admin Trade Name Freq PRN Reason Stop Dose Admin Acetaminophen 650 mg 06/08/24 18:08 06/08/24 18:12 Acetaminophen Supp 650 Mg Supp.Rect OK 06/08/24 18:09 650 mg ONCE ONE Administration Diltiazem HCl 10 mg 06/08/24 22:23 06/08/24 22:29 Diltiazem Hcl 50 Mg/10 Ml Vial IVPUSH 06/08/24 22:24 10 mg STAT STA Administration Sodium Chloride 1,000 mls @ 999 mls/hr 06/08/24 17:20 06/08/24 19:08 Ns IV 06/08/24 18:20 Infused .Q1H1M ONE Infusion Levofloxacin 250 mg in 50 mls @ 50 mls/hr 06/08/24 17:31 06/08/24 19:50 Levaquin IV 06/08/24 18:30 Infused ONCE ONE Infusion Piperacillin Sod/Tazobactam 50 mls @ 100 mls/hr 06/08/24 18:01 06/08/24 19:08 Sod 3.375 gm/ Sodium Chloride IV 06/08/24 18:30 Infused ONCE ONE Infusion Sodium Chloride 1,000 mls @ 999 mls/hr 06/08/24 19:18 06/08/24 20:30 Ns IV 06/08/24 20:18 Infused .Q1H1M ONE Infusion Lorazepam 1 mg 06/08/24 22:23 06/08/24 22:30 Lorazepam 2 Mg/Ml Vial IVPUSH 06/08/24 22:24 1 mg STAT STA Administration Metoprolol Tartrate 5 mg 06/08/24 17:40 06/08/24 17:57 Metoprolol Tartrate 5 Mg/5 Ml Vial IVPUSH 06/08/24 17:41 5 mg ONCE ONE Administration Protocol Metoprolol Tartrate 2.5 mg 06/08/24 20:59 06/08/24 21:05 Metoprolol Tartrate 5 Mg/5 Ml Vial IVPUSH 06/08/24 21:00 2.5 mg ONCE ONE Administration Protocol Medical Decision Making Medical Decision Making [facility] Narrative: Patient has leukocytosis with left upper lobe pneumonia with tachycardia with AFib use increased confusion meeting the criteria for sepsis received IV fluids and IV antibiotics admitted to the medical service patient was tachycardic initially because of AFib with RVR responded to IV labetalol and diltiazem heart rate is 85 now Differential Diagnosis Differential Diagnoses: The differential diagnosis associated with the presentation includes Sepsis/metabolic encephalopathy/pneumonia/UTI Admission/Observation Consideration of admission/observation: Escalation of care including admission/observation considered Consult Healthcare Provider Management of the patient was discussed with: Hospitalist Lab Data [facility] Lab Attestation statement: I reviewed the patient's lab results. 06/08/24 18:06 06/08/24 18:06 Labs: Lab Results 06/08/24 06/08/24 06/08/24 Range/Units 18:06 18:16 20:32 WBC 19.1 H (4.8-10.8) X10*3/uL RBC 4.17 L (4.60-5.80) X10*6/uL Hgb 12.2 L (14.0-18.0) g/dl Hct 38.7 L (42.0-52.0) % MCV 92.8 (80.0-98.0) fL MCH 29.3 (27.0-33.0) pg MCHC 31.5 (31.0-36.0) g/dl RDW 15.3 (11.0-16.0) % Plt Count 195 (160-400) X10*3/uL MPV 9.2 L (9.4-12.4) fL Immature Gran % (Auto) 0.5 H (0.0-0.4) % Neut % (Auto) 89.1 H (45-73) % Lymph % (Auto) 5.5 L (20-40) % Schleicher % (Auto) 4.2 (2-11) % Eos % (Auto) 0.4 (0-4) % Baso % (Auto) 0.3 (0-2) % Lymph # (Auto) 1.1 L (1.2-4.9) X10*3/uL [place] # (Auto) 0.8 (0.1-1.2) X10*3/uL Eos # (Auto) 0.1 (0.0-0.4) X10*3/uL Baso # (Auto) 0.1 (0.0-0.2) X10*3/uL Abs Immat Gran (auto) 0.09 H (0.00-0.03) X10*3/uL Absolute Neuts (auto) 17.0 H (2.0-8.3) x10*3/uL Absolute Nucleated RBC 0.000 (0.0-0.012) X10*3/uL Nucleated RBC % (auto) 0.0 (0.0-0.2) /100WBC VBG pH 7.43 (7.32-7.43) VBG pCO2 35 mmHg VBG pO2 85 mmHg VBG HCO3 24 (22-26) mmol/L VBG O2 Saturation 97.0 % VBG Base Excess 0.3 mmol/L Sodium 143 (135-145) mmol/L Potassium 5.4 H (3.3-5.1) mmol/L Chloride 110 H (96-108) mmol/L Carbon Dioxide 23 (22-29) mmol/L Anion Gap 15 (12-20) BUN 31 H (9-16) mg/dL Creatinine 1.26 (0.5-1.4) mg/dL Estim Creat Clear Calc 30.5 Estimated GFR 54 Random Glucose 109 (60-115) mg/dL Lactic Acid 2.9 H* (0.5-2.0) mmol/L Lactic Acid F/U @ 2Hr 2.5 H* (0.5-2.0) mmol/L Lactic Acid F/U @ 4Hr (0.5-2.0) mmol/L Calcium 8.7 (8.4-10.2) mg/dL Magnesium 2.2 (1.6-2.6) mg/dL Total Bilirubin 0.8 (0.0-1.0) mg/dL AST 24 (5-37) U/L ALT 15 (0-40) U/L Alkaline Phosphatase 93 (39-117) U/L Total Protein 7.3 (6.5-8.0) g/dL Albumin 3.4 L (3.5-5.0) g/dL Urine Color Urine Appearance Urine pH (5.0-9.0) Ur Specific [place] (1.005-1.025) Urine Protein (Neg-Trace) mg/dL Urine Glucose (UA) (Negative) mg/dL Urine Ketones (Negative) mg/dL Urine Blood (Negative) Urine Nitrite (Negative) Ur Leukocyte Esterase (Negative) Urine RBC (0-2) /HPF Urine WBC (0-5) /HPF Ur Squamous Epith Cells (0-2) /HPF Urine Bacteria (None Seen) Hyaline Casts (0-2) /LPF 06/08/24 06/08/24 Range/Units 21:52 23:09 WBC (4.8-10.8) X10*3/uL RBC (4.60-5.80) X10*6/uL Hgb (14.0-18.0) g/dl Hct (42.0-52.0) % MCV (80.0-98.0) fL MCH (27.0-33.0) pg MCHC (31.0-36.0) g/dl RDW (11.0-16.0) % Plt Count (160-400) X10*3/uL MPV (9.4-12.4) fL Immature Gran % (Auto) (0.0-0.4) % Neut % (Auto) (45-73) % Lymph % (Auto) (20-40) % [place]le[place] % (Auto) (2-11) % Eos % (Auto) (0-4) % Baso % (Auto) (0-2) % Lymph # (Auto) (1.2-4.9) X10*3/uL [place] # (Auto) (0.1-1.2) X10*3/uL Eos # (Auto) (0.0-0.4) X10*3/uL Baso # (Auto) (0.0-0.2) X10*3/uL Abs Immat Gran (auto) (0.00-0.03) X10*3/uL Absolute Neuts (auto) (2.0-8.3) x10*3/uL Absolute Nucleated RBC (0.0-0.012) X10*3/uL Nucleated RBC % (auto) (0.0-0.2) /100WBC VBG pH (7.32-7.43) VBG pCO2 mmHg VBG pO2 mmHg VBG HCO3 (22-26) mmol/L VBG O2 Saturation % VBG Base Excess mmol/L Sodium (135-145) mmol/L Potassium (3.3-5.1) mmol/L Chloride (96-108) mmol/L Carbon Dioxide (22-29) mmol/L Anion Gap (12-20) BUN (9-16) mg/dL Creatinine (0.5-1.4) mg/dL Estim Creat Clear Calc Estimated GFR Random Glucose (60-115) mg/dL Lactic Acid (0.5-2.0) mmol/L Lactic Acid F/U @ 2Hr (0.5-2.0) mmol/L Lactic Acid F/U @ 4Hr 2.9 H* (0.5-2.0) mmol/L Calcium (8.4-10.2) mg/dL Magnesium (1.6-2.6) mg/dL Total Bilirubin (0.0-1.0) mg/dL AST (5-37) U/L ALT (0-40) U/L Alkaline Phosphatase (39-117) U/L Total Protein (6.5-8.0) g/dL Albumin (3.5-5.0) g/dL Urine Color Yellow Urine Appearance Clear Urine pH 5.0 (5.0-9.0) Ur Specific [place] 1.020 (1.005-1.025) Urine Protein 30 (1+) H (Neg-Trace) mg/dL Urine Glucose (UA) Negative (Negative) mg/dL Urine Ketones Negative (Negative) mg/dL Urine Blood Large (3+) H (Negative) Urine Nitrite Negative (Negative) Ur Leukocyte Esterase Negative (Negative) Urine RBC >20 H (0-2) /HPF Urine WBC 0-5 (0-5) /HPF Ur Squamous Epith Cells 0-2 (0-2) /HPF Urine Bacteria None Seen (None Seen) Hyaline Casts 0-2 (0-2) /LPF Independent Interpretation I performed an independent interpretation of an: EKG Interpretation: Atrial fibrillation with heart rate 139 poor quality EKG no acute ST elevation noticed Critical Care Time Critical Care Time Critical Care Time: Yes Total Critical Care Time: 55 Attestation: The patient was critically ill with a high probability of imminent or life threatening deterioration. I spent greater than 60???minutes of discontinuous time evaluating the patient,delivering critical care at the bedside, discussing and evaluating pertinent data with consultants. Critical care time does not include time spent performing separately billable procedures or teaching. Total time spent performing critical care was ?55??minutes. Discharge Plan Discharge Clinical Impression: Pneumonia, Atrial fibrillation with rapid ventricular response Patient Disposition: Admitted As Inpatient
--- NOTE | 2024-06-08 17:20 | ECG_ITS ---
Test Reason : AFIB Blood Pressure : / mmHG Vent. Rate : 139 BPM Atrial Rate : 147 BPM P-R Int : 128 ms QRS Dur : 074 ms QT Int : 340 ms P-R-T Axes : 000 105 -27 degrees QTc Int : 517 ms Poor data quality, interpretation may be adversely affected Undetermined rhythm Possible Atrial fibrillation Abnormal ECG When compared with ECG of 27-MAY-2024 17:00, Poor data quality in current ECG precludes serial comparison Please repeat EKG Referred By: Suhail Rey Electronically Signed By:RASHAD BRAVO MD
[2024-06-08] MEDS: Metoprolol Tartrate 5 MG/5 ML VIAL IVPUSH (17:57)
[2024-06-08] MEDS: 0.9 % Sodium Chloride 1,000 ML 999 ML IV ×2 (17:59→19:26)
--- NOTE | 2024-06-08 17:59 | PC.NURSE ---
Abx administration delayed d/t not being in pyxis. Pharmacy notified.
[2024-06-08] MEDS: Piperacillin Sodium/Tazobactam 3.375 GM in 0.9 % Sodium Chloride 50 ML IV (18:08)
[2024-06-08] MEDS: Acetaminophen Supp 650 MG SUPP.RECT PR (18:12)
[2024-06-08 18:15] LABS: MANUAL DIFF FLAG NO
[2024-06-08 18:23] LABS: Basophils Absolute Auto 0.1 X10*3/uL (0.0-0.2); Basophils Percent Auto 0.3 % (0-2); Eosinophils Absolute Auto 0.1 X10*3/uL (0.0-0.4); Eosinophils Percent Auto 0.4 % (0-4); Hematocrit 38.7 % (42.0-52.0); Hemoglobin 12.2 g/dl (14.0-18.0); Imm Gran Abs Auto 0.09 X10*3/uL (0.00-0.03); Imm Gran Pct Auto 0.5 % (0.0-0.4); Lymphocytes Absolute Auto 1.1 X10*3/uL (1.2-4.9); Lymphocytes Percent Auto 5.5 % (20-40); Mean Corpuscular HGB Conc 31.5 g/dl (31.0-36.0); Mean Corpuscular Hemoglobin 29.3 pg (27.0-33.0); Mean Corpuscular Volume 92.8 fL (80.0-98.0); Mean Platelet Volume 9.2 fL (9.4-12.4); Monocytes Absolute Auto 0.8 X10*3/uL (0.1-1.2); Monocytes Percent Auto 4.2 % (2-11); Neutrophils Percent Auto 89.1 % (45-73); Platelet Count 195 X10*3/uL (160-400); Red Blood Count 4.17 X10*6/uL (4.60-5.80); Red Cell Distribution Width 15.3 % (11.0-16.0); White Blood Count 19.1 X10*3/uL (4.8-10.8)
[2024-06-08 18:25] LABS: VBG Base Excess 0.3 mmol/L; VBG HCO3 24 mmol/L (22-26); VBG pCO2 35 mmHg; VBG pH 7.43 (7.32-7.43); VBG pO2 85 mmHg
[2024-06-08] MEDS: levoFLOXacin/D5W 250 MG/50 ML PIGGYBACK 50 MG IV (18:45)
[2024-06-08 18:51] LABS: Alanine Aminotransferase 15 U/L (0-40); Albumin Level 3.4 g/dL (3.5-5.0); Alkaline Phosphatase 93 U/L (39-117); Anion Gap 15 (12-20); Aspartate Amino Transferase 24 U/L (5-37); Bilirubin Total 0.8 mg/dL (0.0-1.0); Blood Urea Nitrogen 31 mg/dL (9-16); Calcium 8.7 mg/dL (8.4-10.2); Carbon Dioxide 23 mmol/L (22-29); Chloride 110 mmol/L (96-108); Creatinine Clr Calc Pharmacy 30.5; Estimated Glomerular Filt Rate 54; Glucose Random 109 mg/dL (60-115); Magnesium 2.2 mg/dL (1.6-2.6); Potassium 5.4 mmol/L (3.3-5.1); Sodium 143 mmol/L (135-145); Total Protein 7.3 g/dL (6.5-8.0)
[2024-06-08 18:55] LABS: Lactic Acid 2.9 mmol/L (0.5-2.0)
[2024-06-08 19:14] LABS: Venous Blood Gas Refer to POC result
--- NOTE | 2024-06-08 19:23 | PC.NURSE ---
This RN assumed pt care @ 1900. Pt alert but confused. Pt denies pain at this time. Plan of care ongoing.
--- NOTE | 2024-06-08 19:29 | PC.NURSE ---
Pt medicated per oct. RT with pt, pt is now on rm air @ 97% Plan of care ongoing.
[2024-06-08 20:14] LABS: Reflex Lactate? Lactic Acid Added
--- NOTE | 2024-06-08 20:55 | PHA.MEDREC ---
Addendum entered by Elisa Willams RPh 06/08/24 21:00: REVIEWED Original Note: Pharmacy Consult ? Medication Reconciliation Pharmacy has completed the medication reconciliation. Spoke to patient's daughter over the phone to confirm med list. Daughter states patient is no longer on antibiotics and Nicotine 14 mg patch.
[2024-06-08 21:02] LABS: ~Lactic Acid-LAB USE ONLY 2.5 mmol/L (0.5-2.0)
[2024-06-08] MEDS: Metoprolol Tartrate 5 MG/5 ML VIAL 2.5 MG IVPUSH (21:05)
--- NOTE | 2024-06-08 21:08 | PC.NURSE ---
Dr Rey notified and aware of pts HR of 149 New meds rec'd Pt medicated per oct Pt HR now 100 Provider notified and aware of HR Plan of care ongoing.
--- NOTE | 2024-06-08 21:52 | PC.NURSE ---
Dr Ortiz notified and aware of pts B/P 109/51 and HR106. Plan of care ongoing
[2024-06-08 21:58] LABS: Appearance Urine Clear; Color Urine Yellow; Glucose Urine UA Negative (Negative); Leukocyte Esterase Urine Negative (Negative); Nitrite Urine Negative (Negative); UMIC TRIGGER UACC YES; Urine Blood Large (3+) (Negative); Urine Ketones Negative (Negative); Urine Protein 30 (1+) mg/dL (Neg-Trace)
[2024-06-08 22:03] LABS: Bacteria Urine None Seen (None Seen); Hyaline Casts Urine 0-2 /LPF (0-2); RBC Urine >20 /HPF (0-2); Squamous Epithelial Cell Urine 0-2 /HPF (0-2); WBC Urine 0-5 /HPF (0-5)
[2024-06-08] MEDS: dilTIAZem HCL 50 MG/10 ML VIAL 10 MG IVPUSH (22:29)
[2024-06-08] MEDS: LORazepam 2 MG/ML VIAL 1 MG IVPUSH (22:30)
--- NOTE | 2024-06-08 22:33 | PC.NURSE ---
Dr Ortiz notified and aware of pts HR 150 Pt attempting to get oob, at the end of the bed attempting to stand. Pt redirected back into bed Pt cleaned by tech Pt medicated per mar Pts HR now 81 Plan of care ongoing.
[2024-06-08 22:36] LABS: Reflex Lactate? 2 Y
[2024-06-08 23:25] LABS: ~Lactic Acid-LAB USE ONLY 2.9 mmol/L (0.5-2.0)
--- NOTE | 2024-06-08 23:29 | PC.NURSE ---
Dr Ortiz notified and aware of pts b/p 88/53 and pts lactic of 2.9 No new orders at this time Plan of care ongoing.
[2024-06-09] VITALS (10 sets, daily range): BP systolic 101–148; BP diastolic 56–80; PULSE 80–148; RESP 16–23; TEMP 36.3–37.4; O2SAT 91–99; BMI 17.7
--- NOTE | 2024-06-09 00:05 | P.HPHOSP_ITS ---
History of Present Illness Date of Service: 06/09/24 Chief Complaint: AMS This is a 89-year-old male with pertinent history of BPH, mixed hyperlipidemia, history of CVA, tobacco use disorder, paroxysmal atrial flutter on Eliquis who was brought to the emergency department for evaluation of confusion and fevers. Patient was seen in the ER about a week ago and was diagnosed with pneumonia and sent home on p.o. Augmentin. Family reported that patient continues to have cough and fevers. Was found to be confused on the day of presentation and had associated chills. Patient is only oriented to self at the time of my evaluation. Unable to obtain history from the patient. History obtained from ER provider and chart review. Unable to obtain review of systems. In the emergency department, patient was found to be septic and imaging concerning for left-sided pneumonia. Also found to be in a flutter with RVR and given IV Lopressor and IV diltiazem. Review of Systems 2 Review of Systems: Yes Unobtainable due to mental status [facility] Medical History Atrial flutter History of CVA (cerebrovascular accident) Bacteremia Atrial flutter Smoker AAA (abdominal aortic aneurysm) without rupture BPH w urinary obs/LUTS UTI (urinary tract infection) HLD (hyperlipidemia) Pertinent family history: Unable to obtain Surgical History History of cataract surgery Social History Household Members: Children Household Members Other:: Daughter and Son in Law Housing: House Are you a primary resident care supervisor to a significant other at home: No Unable to assess alcohol history related to: Unable to respond Alcohol intake: never Patient Tobacco Use Status: Current everyday Tobacco user Tobacco use type: Cigarette Cigarette Packs Per Day: 1.5 Cigarettes Per Day: 30.0 Years Smoked: 72 Smoked in Last 30 Days: Yes Second Hand Smoke Exposure: No Use of substances other than those prescribed or required for medical reasons: No Advance Directives: Yes Advance Directives on File: Yes Advance Directives Date on File: 08/14/21 Do you have a plan to hurt others: No Plan service: No Current occupational status: retired Meds Allergies Allergy/AdvReac Type Severity Reaction Status Date / Time pentazocine [From Joi] Allergy Unknown Verified 06/08/24 17:19 Home Medications ?Medication ?Instructions ?Recorded ?Confirmed ?Last Taken ?Type simvastatin 20 mg tablet 20 mg PO BEDTIME 08/10/21 06/08/24 06/07/24 History azelastine 137 mcg (0.1 %) nasal 2 spray intranasal BID 12/29/23 06/08/24 06/08/24 History spray triamcinolone acetonide 0.1 % 1 appl topical BID PRN Rash 12/29/23 06/08/24 Unknown History topical ointment metoprolol succinate 25 mg 25 mg PO BEDTIME 06/08/24 06/08/24 06/07/24 History tablet,extended release 24 hr Physical Exam 2 Vital Signs and Narrative: Vital Signs: Last Vital Signs Temp 99.5 F 06/08/24 23:17 Pulse 78 06/08/24 23:17 Resp 21 H 06/08/24 23:17 BP 93/44 L 06/08/24 23:17 Pulse Ox 97 06/08/24 23:17 O2 Del Method Oxymask 06/08/24 23:17 O2 Flow Rate 4 06/08/24 23:17 BMI result Body Mass Index 17.2 Elderly male lying in bed in no distress Neck supple, no JVD Irregularly irregular, S1-S2 heard Tachypneic with left-sided crackles Abdomen soft nontender, no guarding, no rigidity Patient is awake, alert and oriented to self, disoriented to place, no focal motor weakness Psych: Normal mood No pedal edema Results Labs 06/08/24 18:06 06/08/24 18:06 Labs: Laboratory Results - last 24 hr 06/08/24 06/08/24 06/08/24 18:06 18:16 20:32 MCV 92.8 MCH 29.3 MCHC 31.5 RDW 15.3 Plt Count 195 MPV 9.2 L Immature Gran % (Auto) 0.5 H Neut % (Auto) 89.1 H Lymph % (Auto) 5.5 L [place] % (Auto) 4.2 Eos % (Auto) 0.4 Baso % (Auto) 0.3 Lymph # (Auto) 1.1 L [place] # (Auto) 0.8 Eos # (Auto) 0.1 Baso # (Auto) 0.1 Abs Immat Gran (auto) 0.09 H Absolute Neuts (auto) 17.0 H Absolute Nucleated RBC 0.000 Nucleated RBC % (auto) 0.0 VBG pH 7.43 VBG pCO2 35 VBG pO2 85 VBG HCO3 24 VBG O2 Saturation 97.0 VBG Base Excess 0.3 Anion Gap 15 Estim Creat Clear Calc 30.5 Estimated GFR 54 Random Glucose 109 Lactic Acid 2.9 H* Lactic Acid F/U @ 2Hr 2.5 H* Lactic Acid F/U @ 4Hr Calcium 8.7 Magnesium 2.2 Total Bilirubin 0.8 AST 24 ALT 15 Alkaline Phosphatase 93 Total Protein 7.3 Albumin 3.4 L Urine Color Urine Appearance Urine pH Ur Specific [place] Urine Protein Urine Glucose (UA) Urine Ketones Urine Blood Urine Nitrite Ur Leukocyte Esterase Urine RBC Urine WBC Ur Squamous Epith Cells Urine Bacteria Hyaline Casts 06/08/24 06/08/24 21:52 23:09 MCV MCH MCHC RDW Plt Count MPV Immature Gran % (Auto) Neut % (Auto) Lymph % (Auto) [place] % (Auto) Eos % (Auto) Baso % (Auto) Lymph # (Auto) [place] # (Auto) Eos # (Auto) Baso # (Auto) Abs Immat Gran (auto) Absolute Neuts (auto) Absolute Nucleated RBC Nucleated RBC % (auto) VBG pH VBG pCO2 VBG pO2 VBG HCO3 VBG O2 Saturation VBG Base Excess Anion Gap Estim Creat Clear Calc Estimated GFR Random Glucose Lactic Acid Lactic Acid F/U @ 2Hr Lactic Acid F/U @ 4Hr 2.9 H* Calcium Magnesium Total Bilirubin AST ALT Alkaline Phosphatase Total Protein Albumin Urine Color Yellow Urine Appearance Clear Urine pH 5.0 Ur Specific [place] 1.020 Urine Protein 30 (1+) H Urine Glucose (UA) Negative Urine Ketones Negative Urine Blood Large (3+) H Urine Nitrite Negative Ur Leukocyte Esterase Negative Urine RBC >20 H Urine WBC 0-5 Ur Squamous Epith Cells 0-2 Urine Bacteria None Seen Hyaline Casts 0-2 Imaging Radiologist's Impressions: Impressions Chest X-Ray 06/08/24 17:20 IMPRESSION: Hyperinflated lungs with left upper lobe infiltrate. There is chronic scarring atelectasis left lung base. Electronically signed by: Shubham Shahid MD 06/08/2024 08:21 PM EDT RP Assessment and Plan (1) Atrial fibrillation with rapid ventricular response: Status: Acute (2) Encephalopathy due to infection: Status: Acute (3) Pneumonia: Status: Acute Plan This is a 89-year-old male with pertinent history of BPH, mixed hyperlipidemia, history of CVA, tobacco use disorder, paroxysmal atrial flutter on Eliquis who was brought to the emergency department for evaluation of confusion and fevers. #. Acute metabolic encephalopathy and Sepsis due to left-sided pneumonia: Resuscitated with IV crystalloids. Initiating empiric IV antibiotics for CAP. Lactic acid obtained. Blood culture and sputum culture pending. #. Atrial flutter with RVR: Heart rate improved with IV Lopressor and IV diltiazem in the ER. On Eliquis and beta-omer #. Acute lactic acidosis due to sepsis #. History of CVA: On statin, not on antiplatelet agent Med rec pending DVT prophylaxis: Eliquis Full code. Readdress with family in a.m. Admit as inpatient and will require two night minimum hospital stay for IV antibiotics, monitoring of mentation, monitoring of heart rate (as above), which is not possible in a lesser acute setting. Quality Stroke Does the patient have a stroke diagnosis?: No VTE Prior VTE?: No VTE Risk Level:: Medical - moderate - high VTE Device Contraindication: Treatment Not Indicated VTE Drug Contraindication: N/A - Med Ordered
[2024-06-09] MEDS: cefTRIAXone sodium 1 GM in 0.9 % Sodium Chloride 50 ML IV ×2 (00:16→23:59)
[2024-06-09] MEDS: Azithromycin 500 MG in 0.9 % Sodium Chloride 250 ML 125 MG IV (01:10)
--- NOTE | 2024-06-09 01:15 | PC.NURSE ---
Pt medicated per oct. Plan of care ongoing.
--- NOTE | 2024-06-09 04:31 | ECG_ITS ---
Test Reason : REPEAT Blood Pressure : / mmHG Vent. Rate : 089 BPM Atrial Rate : 000 BPM P-R Int : 000 ms QRS Dur : 084 ms QT Int : 394 ms P-R-T Axes : 000 123 195 degrees QTc Int : 479 ms Atrial fibrillation Right ventricular hypertrophy Nonspecific T wave abnormality Abnormal ECG When compared with ECG of 08-JUN-2024 17:30, ST no longer depressed in Anterolateral leads Nonspecific T wave abnormality has replaced inverted T waves in Inferior leads Nonspecific T wave abnormality, worse in Lateral leads Referred By: Minna Mason Electronically Signed By:RASHAD BRAVO MD
[2024-06-09 05:05] LABS: Hematocrit 38.6 % (42.0-52.0); Hemoglobin 12.1 g/dl (14.0-18.0); Mean Corpuscular HGB Conc 31.3 g/dl (31.0-36.0); Mean Corpuscular Hemoglobin 29.4 pg (27.0-33.0); Mean Corpuscular Volume 93.9 fL (80.0-98.0); Mean Platelet Volume 9.3 fL (9.4-12.4); Platelet Count 163 X10*3/uL (160-400); Red Blood Count 4.11 X10*6/uL (4.60-5.80); Red Cell Distribution Width 15.5 % (11.0-16.0); White Blood Count 16.9 X10*3/uL (4.8-10.8)
[2024-06-09 05:25] LABS: Anion Gap 13 (12-20); Blood Urea Nitrogen 27 mg/dL (9-16); Calcium 8.5 mg/dL (8.4-10.2); Carbon Dioxide 21 mmol/L (22-29); Chloride 113 mmol/L (96-108); Creatinine Clr Calc Pharmacy 33.8; Estimated Glomerular Filt Rate > 60; Glucose Random 110 mg/dL (60-115); Potassium 4.4 mmol/L (3.3-5.1); Sodium 143 mmol/L (135-145)
--- NOTE | 2024-06-09 09:36 | MHC.CM.PN ---
IMM 06/09/24, reviewed with HCP as pt. has AMS at this time. Pt lives with his daughter and her family, she is his adult foster care provider, assists him with personal care and transfers. Someone is always at home with him. Pt. was here in hosp. in January, was DC'd to [facility] for STR and that went well for him. For DME, pt has a life alert button. Family will provide transport home at DC, if pt. goes home from here. PCP is Nasir Neri. DCP: home with services or STR. CM to follow and assist with DC plan.
[2024-06-09] MEDS: Azelastine HCl Nasal 137 MCG/Spray 30 ML 2 SPRAY NOSTRIL-B ×2 (10:24→20:56)
[2024-06-09] MEDS: 0.9 % Sodium Chloride Flush 3 ML SYRINGE IVFLUSH ×2 (10:24→15:29)
[2024-06-09] MEDS: Apixaban 2.5 MG TABLET PO (10:24)
--- NOTE | 2024-06-09 12:31 | MHC.CLN ---
PT IS MODERATELY MALNOURISHED PT WITH MILDLY DEPLETED SUBCUTANEOUS FAT AND MUSCLE MASS WITH BMI 17 AND PREVIOUS SIGNIFICANT WT LOSS 9% PREVIOUS WT HX FOLLOWS: CURRENT 54.4KG 48.7KG (12/29/23)-12% GAIN X 6 MONTHS 53.5KG (11/03/22) PT BACK TO BASELINE PREVIOUSLY TRIGGERED FOR MPCM SEE ASSESSMENT DATED 12/30/23 PTS WT SLOWLY RETURNING BACK TO BASELINE HOWEVER REMAINS BELOW IBW RANGE DIET RX: CARDIAC-APPROPRIATE CAN LIBERALIZE TO INCREASE VARIETY R/T ADVANCED AGE RECOMEND ADDING MAGIC CUP TID TO PROMOTE WOUND HEALING SUPP TO PROVIDE 870KCALS, 27G PROTEIN MONITOR PO INTAKE AND ENCOURAGE SUPPLEMENTS SEE ALSO FULL CLINICAL NUTRITION ASSESSMENT
--- NOTE | 2024-06-09 13:34 | PM.EVENT ---
Event Note Date of Service: 06/09/24 Event Note: Seen and examined this morning Follow-up for pneumonia Patient awake, alert, denies shortness of breath at this time General appearance, frail, elderly. Respiratory, no acute distress, right basilar crackles, no accessory muscle use Assessment and plan: Acute respiratory failure with hypoxia and sepsis due to pneumonia afebrile, wbc count trending down Continue ceftriaxone and azithromycin Wean supplemental oxygen as tolerated h/o aspiration - will obtain speech evaluation Blood cultures pending Atrial flutter with rapid ventricular response Received IV Lopressor and IV diltiazem in ED. heart rate improved Resumed on baseline oral metoprolol Continue Eliquis for anticoagulation Acute metabolic encephalopathy Due to above infection Patient was awake and alert this morning, seems to be improving Time Spent With Patient Time: Total time managing care of this patient today ____ minutes.
[2024-06-09] MEDS: Metoprolol Succinate ER 25 MG TAB.ER.24H PO (15:25)
--- NOTE | 2024-06-09 16:05 | HO.WOUND ---
Wound Consult: Initial 89yr old? male admitted to [facility] on 06/09/24 - See progress notes and H&P for detailed history.? Wound consult placed for sacrum and bilateral trochanters POA.? Patient agreeable to assessment and photo documentation.? Sacrum Etiology: Stage 1 Pressure Injury ??Present on Admission Wound Bed: intact red pink slow to rosana and nonblanchable tissue Drainage / Odor: none Edges: ? irregular Rosa wound: MASD? No Induration, Fluctuance or Warmth noted Pain: tenderness reported Goals of Treatment: ? Foam dressing Bilateral Trochanter Etiology: Resurfacing Full thickness pressure injury??Present on Admission Wound Bed: intact dry thickened tissue - hyper and hypopigmentation noted - scar tissue noted Drainage / Odor: none Edges: ? irregular Rosa wound:intact No Induration, Fluctuance or Warmth noted Pain: denies Goals of Treatment: ? Foam dressing Recommendations: 1. Turn and Reposition every 2 hours and as needed for patient comfort.? Use pillows or wedges to support off loading positions. 2. Off Load all bony prominences with use of pillows and heel boots if needed.? Apply Preventative foams where needed. ? 3. Monitor for incontinence and moisture control, use barrier creams when needed for prevention and treatment. 4. Provide adequate and supplemental nutrition.? 5. Order low air loss mattress. 6. When applicable maintain blood glucose levels per Providers order. 7. Sacrum and Bilateral Trochanter and bilateral heels - Off Load Pressure - Routine cleansing, apply foam dressing. Peel back and assess Q shift and change every 5 days and PRN. Elevate both heels off of bed surface with pillows. Re-consult wound care Nurse for wound deterioration or wound changes.
--- NOTE | 2024-06-09 16:42 | MHC.SL.SWA ---
Speech Pathologist Impression: Risk of aspiration, oropharyngeal dysphagia Risk of Aspiration Due to: Lethargy History of Pneumonia Dysphasia Diet Status: DOWNGRADE TO NPO Liquid Consistency and Strategies for Safe Swallow: Liquid Intake Recommendation: NPO Solid Food Consistency: Dietary Recommendations: NPO Additional Modifications to Solid Foods: Overt s/s of aspiration with trials of thickened liquids and soft solids. Recommend NPO strict, elevate HoB and provide frequent oral care. TITLE INSPECTOR to re-evaluate tomorrow a.m. Oral Medication Intake: NPO Please contact the pharmacy regarding appropriate crushable or liquid drug formulations that are available whenever modified delivery is recommended. Supervision While Eating and Drinking for Safe Swallow: PO with TITLE INSPECTOR Recommendation for Speech: Inpatient Speech Therapy Comment: TITLE INSPECTOR to re-evaluate tomorrow morning. Frequency/Duration: PRN M-F Date Range for Service Req: Timeline to reassess: PRN Gastroenterology Nurse Clinican/Clinical Fellow: No Supervisory Statement: I have reviewed and agree with the student/clinical fellow's documentation: N/A Speech Language Pathologist: Vandana Darnell M.A., [facility]-TITLE INSPECTOR
[2024-06-10] MEDS: 0.9 % Sodium Chloride Flush 3 ML SYRINGE IVFLUSH ×4 (00:03→20:36)
[2024-06-10] MEDS: Azithromycin 500 MG in 0.9 % Sodium Chloride 250 ML 125 MG IV ×2 (00:54→23:59)
[2024-06-10] MEDS: LORazepam 2 MG/ML VIAL 1 MG IVPUSH (01:02)
[2024-06-10 02:05] VITALS: RESP 18
--- NOTE | 2024-06-10 02:29 | PC.NURSE ---
Pt with frequent attempts to get oob and removing oxygen. Increasingly frustrated with redirection. 1:[address] MD Ortiz notified and IV Ativan given with good affect. Upon reassessment, patient resting with eyes closed. Respirations 18.
[2024-06-10 03:52] VITALS: BP 141/73; PULSE 103; RESP 20; TEMP 37; O2SAT 97
[2024-06-10 08:00] VITALS: BP 124/58; PULSE 100; RESP 20; TEMP 36.4; O2SAT 96
[2024-06-10] MEDS: Lactated Ringers 1,000 ML 80 ML IVCONT (08:23)
[2024-06-10] MEDS: Azelastine HCl Nasal 137 MCG/Spray 30 ML 2 SPRAY NOSTRIL-B ×2 (08:34→20:36)
[2024-06-10 11:48] VITALS: BP 159/72; PULSE 103; RESP 20; TEMP 36.6; O2SAT 95
--- NOTE | 2024-06-10 12:31 | MHC.SL.SWA ---
Speech Pathologist Impression: Risk of Aspiration, Oropharyngeal Dysphagia Risk of Aspiration Due to: Lethargy History of Pneumonia Dysphasia Diet Status: Start on NDD1/HTL by tspn only Liquid Consistency and Strategies for Safe Swallow: Liquid Intake Recommendation: Honey Thick Liquid Intake Strategies: Small Sips No Straws Liquids by Teaspoon Only Solid Food Consistency: Dietary Recommendations: Pureed (NDD1) Additional Modifications to Solid Foods: Recommend START on PUREED (NDD1) diet and HONEY THICK liquids (to be given by TEASPOON ONLY), pills CRUSHED in PUREE. Patient requires 1-1, careful feeding, give small bites/sips and cue for dry swallows after each bite/sip to clear suspected pharyngeal residue. Ensure oral cavity is cleared before giving more bites/sips. Patient to be seated upright during PO intake and for at least 30 minutes afterwards. Discontinue if patient exhibits clinical signs of aspiration (coughing, throat clearing, upper airway noise). Oral Medication Intake: Crushed with Puree Please contact the pharmacy regarding appropriate crushable or liquid drug formulations that are available whenever modified delivery is recommended. Compensatory Strategies and Precautions to be Taken for Safe Swallow: Sitting Upright (90 deg) Double Swallow No Straw Liquids from Spoon Small Bites and Sips Alternate Liquids/Solids Rate of Ingestion Change Oral Check Supervision While Eating and Drinking for Safe Swallow: Total Assistance (1:1) Swallowing Recommended Treatments: Compens. Strategy Educat. Recommendation for Speech: Inpatient Speech Therapy Frequency/Duration: PRN M-F Date Range for Service Req: Timeline to reassess: PRN Work Ticket Distributor Clinican/Clinical Fellow: No Supervisory Statement: I have reviewed and agree with the student/clinical fellow's documentation: N/A Speech Language Pathologist: Vandana Darnell M.A., CCC-GYMNASTIC COACH
[2024-06-10] MEDS: Metoprolol Succinate ER 25 MG TAB.ER.24H PO ×2 (13:02→20:36)
[2024-06-10] MEDS: Apixaban 2.5 MG TABLET PO ×2 (13:03→20:36)
--- NOTE | 2024-06-10 13:25 | MHC.CM.PN ---
Per rounds and EMR review, pt. requires ongoing treatment for Acute respiratory failure with Hypoxia and sepsis due to pneumonia. CM to follow for DC needs.
--- NOTE | 2024-06-10 13:35 | MHC.CLN ---
F/U PT IS MODERATELY MALNOURISHED SEE FULL CLINICAL NUTRITION ASSESSMENT DATED 06/09/24 DIET RX: PUREED WITH HT LIQ-FAN INSTALLER FOLLOWING FOR APPROPRIATE DIET CONSISTENCY RECOMMEND ADDING MAGIC CUP TID TO PROMOTE WOUND HEALING SUPP TO PROVIDE 870KCALS, 27G PROTEIN MONITOR PO INTAKE AND ENCOURAGE SUPPLEMENTS
[2024-06-10 13:44] LABS: Glucose, Whole Blood 86 mg/dL (60-115)
--- NOTE | 2024-06-10 15:29 | P.PNIM_ITS ---
Subjective Subjective Date of Service: 06/10/24 Interval History: Seen and examined this morning Follow-up for pneumonia/respiratory failure Received a dose of IV Ativan overnight Patient awake, alert this morning requesting to have coffee Denies shortness of breath Review of Systems Review of Systems: Yes all other systems are reviewed and are negative Constitutional Constitutional: Denies fever(s) Cardiovascular Cardiovascular: Denies chest pain and Denies palpitations Endocrine Endocrine: Denies palpitations Physical Exam 2 Vital Signs: Vital Signs: Last Vital Signs Temp 97.9 F 06/10/24 11:48 Pulse 103 H 06/10/24 11:48 Resp 20 06/10/24 11:48 BP 159/72 H 06/10/24 11:48 Pulse Ox 95 06/10/24 11:48 O2 Del Method Oxymask 06/10/24 11:48 O2 Flow Rate 2 06/10/24 11:48 BMI result Body Mass Index 17.7 Const: Other: thin, frail appearing General: comfortable, alert and awake Resp: Effort & Inspection: normal respiratory effort, able to speak in complete sentences, no respiratory distress and no use of accessory muscles Cardio: Rate: tachycardic (mild ) GI: Inspection: No distended Palpation (GI): Soft to palpation Neuro: General: moves all extremities and CN's II-XI intact bilaterally Extrem: General: Yes no pedal edema Objective Data Active Medications Acetaminophen (Acetaminophen 325 Mg Tablet) 650 mg PO Q6H PRN PRN Reason: Pain, Mild (Pain Scale 1-3), fever or headache Apixaban (Apixaban 2.5 Mg Tablet) 2.5 mg PO BID [facility] Last Admin: 06/10/24 13:03 Dose: 2.5 mg Documented By: ZACHARY Atorvastatin Calcium (Atorvastatin Calcium 10 Mg Tablet) 10 mg PO BEDTIME [facility] Last Admin: 06/09/24 20:53 Dose: Not Given Documented By: TUMMORGAN Non-Admin Reason: NPO Azelastine HCl (Azelastine Hcl Nasal 137 Mcg/[place] 30 Ml) 2 spray NOSTRIL-B BID [facility] Last Admin: 06/10/24 08:34 Dose: 2 spray Documented By: ZACHARY Calcium Carbonate (Calcium Carbonate 750 Mg Tab.Chew) 750 mg PO Q4H PRN PRN Reason: Heartburn Ceftriaxone Sodium 1 gm/ (Sodium Chloride) 50 mls @ 100 mls/hr IV Q24H [facility] Last Infusion: 06/10/24 00:29 Dose: Infused Documented By: ROBERT Azithromycin 500 mg/ Sodium (Chloride) 250 mls @ 125 mls/hr IV Q24H [facility] Last Infusion: 06/10/24 02:54 Dose: Infused Documented By: ROBERT Magnesium Hydroxide (Milk Of Magnesia 30 Ml Oral.Susp) 30 ml PO DAILY PRN PRN Reason: Constipation Melatonin (Melatonin 3 Mg Tablet) 6 mg PO BEDTIME PRN PRN Reason: Insomnia Metoprolol Succinate (Metoprolol Succinate Er 25 Mg Tab.Er.24h) 25 mg PO BEDTIME [facility]; Protocol Last Admin: 06/10/24 13:02 Dose: 25 mg Documented By: ZACHARY Ondansetron HCl (Ondansetron Hcl 4 Mg/2 Ml Vial) 4 mg IVPUSH Q8H PRN PRN Reason: Nausea and Vomiting Sodium Chloride (0.9 % Sodium Chloride Flush 3 Ml Syringe) 3 ml IVFLUSH QSHIFT [facility] Last Admin: 06/10/24 08:24 Dose: 3 ml Documented By: ZACHARY Labs 06/09/24 04:59 06/09/24 04:59 Labs: Laboratory Results - last 24 hr 06/10/24 13:40 POC Glucose 86 Microbiology Microbiology Results: Microbiology 06/08/24 18:06 Blood Culture - Preliminary Blood - Venous No growth after 24 hours. 06/08/24 18:06 Blood Culture - Preliminary Blood - Venous No growth after 24 hours. Assessment and Plan (1) Atrial fibrillation with rapid ventricular response: Status: Acute (2) Sepsis: Status: Acute (3) Pneumonia: Status: Acute Plan This is a 89-year-old male with pertinent history of BPH, mixed hyperlipidemia, history of CVA, tobacco use disorder, paroxysmal atrial flutter on Eliquis who was brought to the emergency department for evaluation of confusion and fevers found to havepneumonia Acute respiratory failure with hypoxia and sepsis due to pneumonia afebrile, wbc count trending down Continue ceftriaxone and azithromycin Wean supplemental oxygen as tolerated, down to 2L h/o aspiration - seen by speech, rec npo but on re-evaluation today, upgraded to pureed diet Blood cultures negative to date Atrial flutter with rapid ventricular response Received IV Lopressor and IV diltiazem in ED. heart rate improved Resumed on baseline oral metoprolol Continue Eliquis for anticoagulation Acute metabolic encephalopathy Due to above infection. improving HLD continue statin Moderately malnourished BMI 17.7 We will add dietary supplements if able to based on speech recommendations DVT prophylaxis-Eliquis will likely need PT evaluation prior to discharge Patient requires ongoing stay in the hospital for management of pneumonia requiring IV antibiotics Quality Stroke Does the patient have a stroke diagnosis?: No VTE Prior VTE?: No VTE Risk Level:: Medical - moderate - high VTE Device Contraindication: Treatment Not Indicated VTE Drug Contraindication: N/A - Med Ordered
[2024-06-10 15:57] VITALS: BP 124/59; PULSE 101; RESP 20; TEMP 37.2; O2SAT 95
--- NOTE | 2024-06-10 16:00 | P.CDIM_ITS ---
PROVIDER RESPONSE TEXT: To clarify, the appropriate diagnosis supported by the clinical indicators: Malnourished: moderate QUERY TEXT: PHYSICIAN'S DOCUMENTATION REQUEST Date of Query: 06/10/2024 05:52 AM EDT Patient Name: Luis Reina Admit Date: 06/09/2024 Dear Minna Mason PA, A review of the medical record indicates additional documentation may be needed. Please review below and update the documentation accordingly. Clinical Indicators: Clinical nutrition - Patient moderately malnourished BMI 17.7 Mildly depleted subcutaneous fat and muscle mass, previous significant wt loss 9%. Recommend adding magic cup TID. If possible, please provide an associated diagnosis related to the abnormal BMI, such as: Underweight Malnourished mild, moderate, severe Cachexia Anorexia Other (explain) Clinically unable to determine (explain) Thank you, Megan Cormier, CCS, CDIS Use of terms such as suspected, likely, concern for, or probable (associated with a specific diagnosi s that is being evaluated, monitored, or treated as if it exists) are acceptable and can be coded in the inpatient se tting, when documented at the time of discharge. Please use your independent medical judgment in providing your response. THIS QUERY IS PART OF THE PERMANENT MEDICAL RECORD
--- NOTE | 2024-06-10 16:03 | P.CDIM_ITS ---
PROVIDER RESPONSE TEXT: To clarify, the appropriate diagnosis supported by the clinical indicators: Pressure Injury Stage 1 Sacrum: documented QUERY TEXT: PHYSICIAN'S DOCUMENTATION REQUEST Date of Query: 06/10/2024 12:02 PM EDT Patient Name: Luis Reina Admit Date: 06/09/2024 Dear Minna APNTOJA, A review of the medical record indicates additional documentation may be needed. Please review below and update the documentation accordingly. Clinical Indicators: Wound assessment - Pressure injury Stage 1 sacrum, present on admission. Foam dressing Based on the above, could you please provide further information regarding the ulcer/wound/injury: Pressure Injury Stage 1 Sacrum possible, probable, suspected, etc. Other (explain) Clinically unable to determine (explain) Thank you, Megan Cormier, CCS, CDIS Use of terms such as suspected, likely, concern for, or probable (associated with a specific diagnosi s that is being evaluated, monitored, or treated as if it exists) are acceptable and can be coded in the inpatient se tting, when documented at the time of discharge. Please use your independent medical judgment in providing your response. THIS QUERY IS PART OF THE PERMANENT MEDICAL RECORD
[2024-06-10 20:00] VITALS: BP 119/60; PULSE 102; RESP 20; TEMP 37.7; O2SAT 90
[2024-06-10] MEDS: Atorvastatin Calcium 10 MG TABLET PO (20:36)
[2024-06-10] MEDS: cefTRIAXone sodium 1 GM VIAL IV (23:59)
[2024-06-11] VITALS (10 sets, daily range): BP systolic 115–139; BP diastolic 61–82; PULSE 80–116; RESP 16–20; TEMP 36.3–37.1; O2SAT 88–97
[2024-06-11 07:49] LABS: Hematocrit 38.7 % (42.0-52.0); Hemoglobin 12.5 g/dl (14.0-18.0); Mean Corpuscular HGB Conc 32.3 g/dl (31.0-36.0); Mean Corpuscular Hemoglobin 29.4 pg (27.0-33.0); Mean Corpuscular Volume 91.1 fL (80.0-98.0); Mean Platelet Volume 9.6 fL (9.4-12.4); Platelet Count 170 X10*3/uL (160-400); Red Blood Count 4.25 X10*6/uL (4.60-5.80); Red Cell Distribution Width 15.7 % (11.0-16.0); White Blood Count 10.3 X10*3/uL (4.8-10.8)
[2024-06-11 08:00] LABS: Anion Gap 13 (12-20); Blood Urea Nitrogen 27 mg/dL (9-16); Calcium 8.7 mg/dL (8.4-10.2); Carbon Dioxide 26 mmol/L (22-29); Chloride 110 mmol/L (96-108); Creatinine Clr Calc Pharmacy 46.4; Estimated Glomerular Filt Rate > 60; Glucose Random 138 mg/dL (60-115); Potassium 3.8 mmol/L (3.3-5.1); Sodium 145 mmol/L (135-145)
[2024-06-11] MEDS: Azelastine HCl Nasal 137 MCG/Spray 30 ML 2 SPRAY NOSTRIL-B (10:29)
[2024-06-11] MEDS: 0.9 % Sodium Chloride Flush 3 ML SYRINGE IVFLUSH ×3 (10:29→23:52)
[2024-06-11] MEDS: Apixaban 2.5 MG TABLET PO ×2 (10:29→20:23)
--- NOTE | 2024-06-11 11:34 | P.PNIM_ITS ---
Subjective Subjective Date of Service: 06/11/24 Interval History: Seen and examined this morning Follow-up for pneumonia/respiratory failure Received a dose of IV Ativan overnight Patient awake, alert this morning requesting to have coffee Denies shortness of breath Review of Systems Review of Systems: Yes all other systems are reviewed and are negative Constitutional Constitutional: Denies fever(s) Cardiovascular Cardiovascular: Denies chest pain and Denies palpitations Endocrine Endocrine: Denies palpitations Physical Exam 2 Vital Signs: Vital Signs: Last Vital Signs Temp 97.3 F 06/11/24 07:48 Pulse 97 06/11/24 07:48 Resp 19 06/11/24 07:48 BP 124/64 06/11/24 07:48 Pulse Ox 93 06/11/24 07:48 O2 Del Method Oxymask 06/11/24 07:48 O2 Flow Rate 3 06/11/24 07:48 BMI result Body Mass Index 17.7 Appearing in no acute distress lung sounds are clear to auscultation heart regular rate rhythm, clear S1, S2 positive bowel sounds, abdomen is soft, nontender neuro patient is alert x3, no focal deficits Objective Data Active Medications Acetaminophen (Acetaminophen 325 Mg Tablet) 650 mg PO Q6H PRN PRN Reason: Pain, Mild (Pain Scale 1-3), fever or headache Apixaban (Apixaban 2.5 Mg Tablet) 2.5 mg PO BID [facility] Last Admin: 06/11/24 10:29 Dose: 2.5 mg Documented By: ZACHARY Atorvastatin Calcium (Atorvastatin Calcium 10 Mg Tablet) 10 mg PO BEDTIME [facility] Last Admin: 06/10/24 20:36 Dose: 10 mg Documented By: LEONIE Azelastine HCl (Azelastine Hcl Nasal 137 Mcg/[place] 30 Ml) 2 spray NOSTRIL-B BID [facility] Last Admin: 06/11/24 10:29 Dose: 2 spray Documented By: ZACHARY Calcium Carbonate (Calcium Carbonate 750 Mg Tab.Chew) 750 mg PO Q4H PRN PRN Reason: Heartburn Ceftriaxone Sodium (Ceftriaxone Sodium 1 Gm Vial) 1 gm IV Q24H [facility] Last Admin: 06/10/24 23:59 Dose: 1 gm Documented By: ROBERT Azithromycin 500 mg/ Sodium (Chloride) 250 mls @ 125 mls/hr IV Q24H [facility] Last Infusion: 06/11/24 01:59 Dose: Infused Documented By: ROBERT Magnesium Hydroxide (Milk Of Magnesia 30 Ml Oral.Susp) 30 ml PO DAILY PRN PRN Reason: Constipation Melatonin (Melatonin 3 Mg Tablet) 6 mg PO BEDTIME PRN PRN Reason: Insomnia Metoprolol Succinate (Metoprolol Succinate Er 25 Mg Tab.Er.24h) 25 mg PO BEDTIME [facility]; Protocol Last Admin: 06/10/24 20:36 Dose: 25 mg Documented By: LEONIE Ondansetron HCl (Ondansetron Hcl 4 Mg/2 Ml Vial) 4 mg IVPUSH Q8H PRN PRN Reason: Nausea and Vomiting Sodium Chloride (0.9 % Sodium Chloride Flush 3 Ml Syringe) 3 ml IVFLUSH QSHIFT [facility] Last Admin: 06/11/24 10:29 Dose: 3 ml Documented By: DOBROB Labs 06/11/24 06:51 06/11/24 06:51 Labs: Laboratory Results - last 24 hr 06/10/24 06/11/24 13:40 06:51 MCV 91.1 MCH 29.4 MCHC 32.3 RDW 15.7 Plt Count 170 MPV 9.6 Absolute Nucleated RBC 0.000 Nucleated RBC % (auto) 0.0 Anion Gap 13 Estim Creat Clear Calc 46.4 Estimated GFR > 60 POC Glucose 86 Random Glucose 138 H Calcium 8.7 Microbiology Microbiology Results: Microbiology 06/08/24 18:06 Blood Culture - Preliminary Blood - Venous No growth after 48 hours. 06/08/24 18:06 Blood Culture - Preliminary Blood - Venous No growth after 48 hours. Assessment and Plan (1) Atrial fibrillation with rapid ventricular response: Status: Acute (2) Sepsis: Status: Acute (3) Pneumonia: Status: Acute Plan 89-year-old male with pertinent history of BPH, mixed hyperlipidemia, history of CVA, tobacco use disorder, paroxysmal atrial flutter on Eliquis who was brought to the emergency department for evaluation of confusion and fevers found to have pneumonia Acute respiratory failure with hypoxia and sepsis due to pneumonia afebrile, wbc count trending down Continue ceftriaxone and azithromycin Wean supplemental oxygen as tolerated, down to 2L h/o aspiration - seen by speech, rec npo but on re-evaluation today, upgraded to pureed diet Blood cultures negative to date Atrial flutter with rapid ventricular response Received IV Lopressor and IV diltiazem in ED. heart rate improved Resumed on baseline oral metoprolol Continue Eliquis for anticoagulation Acute metabolic encephalopathy Due to above infection. improving HLD continue statin Moderately malnourished BMI 17.7 We will add dietary supplements if able to based on speech recommendations DVT prophylaxis-Leon Attending Dr. Madison PT evaluation prior to discharge Patient requires ongoing stay in the hospital for management of pneumonia requiring IV antibiotics Quality Stroke Does the patient have a stroke diagnosis?: No VTE Prior VTE?: No VTE Risk Level:: Medical - moderate - high VTE Device Contraindication: Treatment Not Indicated VTE Drug Contraindication: N/A - Med Ordered
[2024-06-11 11:36] LABS: Glucose, Whole Blood 159 mg/dL (60-115)
--- NOTE | 2024-06-11 18:53 | PM.EVENT ---
Event Note Date of Service: 06/11/24 Event Note: pt noted to have AF/RVR with rate in 160s c/o palpitations BP 125/84 will give 5mg IV metoprolo Time Spent With Patient Time: Total time managing care of this patient today ____ minutes.
[2024-06-11] MEDS: Metoprolol Tartrate 5 MG/5 ML VIAL IVPUSH (18:54)
[2024-06-11] MEDS: Acetaminophen 325 MG TABLET 650 MG PO (20:23)
[2024-06-11] MEDS: Metoprolol Succinate ER 25 MG TAB.ER.24H PO (20:24)
[2024-06-11] MEDS: Atorvastatin Calcium 10 MG TABLET PO (20:24)
[2024-06-11] MEDS: Melatonin 3 MG TABLET 6 MG PO (20:24)
[2024-06-11] MEDS: cefTRIAXone sodium 1 GM VIAL IV (23:52)
[2024-06-11] MEDS: Azithromycin 500 MG in 0.9 % Sodium Chloride 250 ML 125 MG IV (23:56)
[2024-06-12] VITALS (10 sets, daily range): BP systolic 100–126; BP diastolic 45–72; PULSE 75–92; RESP 16–20; TEMP 36.2–37.2; O2SAT 91–95
--- NOTE | 2024-06-12 | ECG_ITS ---
Test Reason : afb Blood Pressure : / mmHG Vent. Rate : 162 BPM Atrial Rate : 000 BPM P-R Int : 000 ms QRS Dur : 080 ms QT Int : 288 ms P-R-T Axes : 000 125 265 degrees QTc Int : 472 ms Supraventricular tachycardia (vs AF with RVR) Nonspecific ST abnormality Abnormal ECG When compared with ECG of 09-JUN-2024 04:31, Vent. rate has increased BY 73 BPM Referred By: Nadya Garcia Electronically Signed By:ENEDINA MASON
[2024-06-12] MEDS: Apixaban 2.5 MG TABLET PO ×2 (07:50→20:50)
[2024-06-12] MEDS: Azelastine HCl Nasal 137 MCG/Spray 30 ML 2 SPRAY NOSTRIL-B (07:50)
[2024-06-12] MEDS: 0.9 % Sodium Chloride Flush 3 ML SYRINGE IVFLUSH ×3 (07:50→20:53)
--- NOTE | 2024-06-12 09:36 | P.PNIM_ITS ---
Subjective Subjective Date of Service: 06/12/24 Interval History: Seen and examined this morning Follow-up for pneumonia/respiratory failure Denies shortness of breath Review of Systems Review of Systems: Yes all other systems are reviewed and are negative Constitutional Constitutional: Denies fever(s) Cardiovascular Cardiovascular: Denies chest pain and Denies palpitations Endocrine Endocrine: Denies palpitations Physical Exam 2 Vital Signs: Vital Signs: Last Vital Signs Temp 98.5 F 06/12/24 07:15 Pulse 91 06/12/24 07:15 Resp 18 06/12/24 07:15 BP 126/72 06/12/24 07:15 Pulse Ox 94 06/12/24 07:15 O2 Del Method Nasal Cannula, Ox ymask 06/12/24 07:15 O2 Flow Rate 2 06/12/24 02:58 BMI result Body Mass Index 17.7 Appearing in no acute distress lung sounds are clear to auscultation heart regular rate rhythm, clear S1, S2 positive bowel sounds, abdomen is soft, nontender neuro patient is alert, confused Objective Data Active Medications Acetaminophen (Acetaminophen 325 Mg Tablet) 650 mg PO Q6H PRN PRN Reason: Pain, Mild (Pain Scale 1-3), fever or headache Last Admin: 06/11/24 20:23 Dose: 650 mg Documented By: MO Apixaban (Apixaban 2.5 Mg Tablet) 2.5 mg PO BID [facility] Last Admin: 06/12/24 07:50 Dose: 2.5 mg Documented By: RINKU Atorvastatin Calcium (Atorvastatin Calcium 10 Mg Tablet) 10 mg PO BEDTIME [facility] Last Admin: 06/11/24 20:24 Dose: 10 mg Documented By: MO Azelastine HCl (Azelastine Hcl Nasal 137 Mcg/[place] 30 Ml) 2 spray NOSTRIL-B BID [facility] Last Admin: 06/12/24 07:50 Dose: 2 spray Documented By: RINKU Calcium Carbonate (Calcium Carbonate 750 Mg Tab.Chew) 750 mg PO Q4H PRN PRN Reason: Heartburn Ceftriaxone Sodium (Ceftriaxone Sodium 1 Gm Vial) 1 gm IV Q24H [facility] Last Admin: 06/11/24 23:52 Dose: 1 gm Documented By: DARRYN Azithromycin 500 mg/ Sodium (Chloride) 250 mls @ 125 mls/hr IV Q24H [facility] Last Infusion: 06/12/24 01:56 Dose: Infused Documented By: DARRYN Magnesium Hydroxide (Milk Of Magnesia 30 Ml Oral.Susp) 30 ml PO DAILY PRN PRN Reason: Constipation Melatonin (Melatonin 3 Mg Tablet) 6 mg PO BEDTIME PRN PRN Reason: Insomnia Last Admin: 06/11/24 20:24 Dose: 6 mg Documented By: MO Metoprolol Succinate (Metoprolol Succinate Er 25 Mg Tab.Er.24h) 25 mg PO BEDTIME [facility]; Protocol Last Admin: 06/11/24 20:24 Dose: 25 mg Documented By: MO Ondansetron HCl (Ondansetron Hcl 4 Mg/2 Ml Vial) 4 mg IVPUSH Q8H PRN PRN Reason: Nausea and Vomiting Sodium Chloride (0.9 % Sodium Chloride Flush 3 Ml Syringe) 3 ml IVFLUSH QSHIFT [facility] Last Admin: 06/12/24 07:50 Dose: 3 ml Documented By: RINKU Labs 06/11/24 06:51 06/11/24 06:51 Labs: Laboratory Results - last 24 hr 06/11/24 11:23 POC Glucose 159 H Assessment and Plan (1) Atrial fibrillation with rapid ventricular response: Status: Acute (2) Sepsis: Status: Acute (3) Pneumonia: Status: Acute Plan 89-year-old male with pertinent history of BPH, mixed hyperlipidemia, history of CVA, tobacco use disorder, paroxysmal atrial flutter on Eliquis who was brought to the emergency department for evaluation of confusion and fevers found to have pneumonia Acute respiratory failure with hypoxia and sepsis due to pneumonia afebrile, wbc count trending down Continue ceftriaxone and azithromycin Wean supplemental oxygen as tolerated, down to 2L h/o aspiration - seen by speech, rec npo but on re-evaluation today, upgraded to pureed diet Blood cultures negative to date Atrial flutter with rapid ventricular response Received IV Lopressor and IV diltiazem in ED. heart rate improved Resumed on baseline oral metoprolol Continue Eliquis for anticoagulation Acute metabolic encephalopathy Due to above infection. improving HLD continue statin Moderately malnourished BMI 17.7 We will add dietary supplements if able to based on speech recommendations DVT prophylaxis-Eliquis Attending Dr. Madison PT evaluation prior to discharge Patient requires ongoing stay in the hospital for management of pneumonia requiring IV antibiotics Quality Stroke Does the patient have a stroke diagnosis?: No VTE Prior VTE?: No VTE Risk Level:: Medical - moderate - high VTE Device Contraindication: Treatment Not Indicated VTE Drug Contraindication: N/A - Med Ordered
[2024-06-12] MEDS: dilTIAZem HCL 50 MG/10 ML VIAL 10 MG IVPUSH ×2 (14:03→17:36)
--- NOTE | 2024-06-12 14:08 | PM.EVENT ---
Event Note Date of Service: 06/12/24 Event Note: Noted Aflutter up to 160's diltiazem 10mg x1 with good effect HR down to 90's Time Spent With Patient Time: Total time managing care of this patient today ____ minutes.
[2024-06-12] MEDS: dilTIAZem HCL 125 MG in 0.9 % Sodium Chloride 100 ML 10 MG IVCONT (17:38)
[2024-06-12] MEDS: Atorvastatin Calcium 10 MG TABLET PO (20:50)
[2024-06-12] MEDS: Melatonin 3 MG TABLET 6 MG PO (20:50)
[2024-06-12] MEDS: Metoprolol Succinate ER 25 MG TAB.ER.24H PO (20:50)
[2024-06-12] MEDS: cefTRIAXone sodium 1 GM VIAL IV (23:37)
[2024-06-12] MEDS: Azithromycin 500 MG in 0.9 % Sodium Chloride 250 ML 125 MG IV (23:48)
[2024-06-13] VITALS (7 sets, daily range): BP systolic 109–162; BP diastolic 61–82; PULSE 70–164; RESP 17–20; TEMP 36–37.7; O2SAT 88–97
[2024-06-13] MEDS: Apixaban 2.5 MG TABLET PO ×2 (08:32→20:07)
[2024-06-13] MEDS: 0.9 % Sodium Chloride Flush 3 ML SYRINGE IVFLUSH ×2 (08:39→15:38)
[2024-06-13] MEDS: Azelastine HCl Nasal 137 MCG/Spray 30 ML 2 SPRAY NOSTRIL-B ×2 (08:41→22:24)
--- NOTE | 2024-06-13 09:33 | P.PNIM_ITS ---
Subjective Subjective Date of Service: 06/13/24 Interval History: Seen and examined this morning Follow-up for pneumonia/respiratory failure Denies shortness of breath more awake today Review of Systems Review of Systems: Yes all other systems are reviewed and are negative Constitutional Constitutional: Denies fever(s) Cardiovascular Cardiovascular: Denies chest pain and Denies palpitations Endocrine Endocrine: Denies palpitations Physical Exam 2 Vital Signs: Vital Signs: Last Vital Signs Temp 98.4 F 06/13/24 08:00 Pulse 90 06/13/24 08:00 Resp 20 06/13/24 08:00 BP 120/69 06/13/24 08:00 Pulse Ox 96 06/13/24 08:00 O2 Del Method Nasal Cannula 06/13/24 08:00 O2 Flow Rate 4 06/13/24 08:00 BMI result Body Mass Index 17.7 Appearing in no acute distress lung sounds are clear to auscultation heart regular rate rhythm, clear S1, S2 positive bowel sounds, abdomen is soft, nontender neuro patient is alert x3, no focal deficits Objective Data Active Medications Acetaminophen (Acetaminophen 325 Mg Tablet) 650 mg PO Q6H PRN PRN Reason: Pain, Mild (Pain Scale 1-3), fever or headache Last Admin: 06/11/24 20:23 Dose: 650 mg Documented By: MO Apixaban (Apixaban 2.5 Mg Tablet) 2.5 mg PO BID [facility] Last Admin: 06/13/24 08:32 Dose: 2.5 mg Documented By: RINKU Atorvastatin Calcium (Atorvastatin Calcium 10 Mg Tablet) 10 mg PO BEDTIME [facility] Last Admin: 06/12/24 20:50 Dose: 10 mg Documented By: DARRYN Azelastine HCl (Azelastine Hcl Nasal 137 Mcg/[place] 30 Ml) 2 spray NOSTRIL-B BID [facility] Last Admin: 06/13/24 08:41 Dose: 2 spray Documented By: RINKU Calcium Carbonate (Calcium Carbonate 750 Mg Tab.Chew) 750 mg PO Q4H PRN PRN Reason: Heartburn Ceftriaxone Sodium (Ceftriaxone Sodium 1 Gm Vial) 1 gm IV Q24H [facility] Last Admin: 06/12/24 23:37 Dose: 1 gm Documented By: DARRYN Azithromycin 500 mg/ Sodium (Chloride) 250 mls @ 125 mls/hr IV Q24H [facility] Last Infusion: 06/13/24 01:48 Dose: Infused Documented By: DARRYN Diltiazem HCl 125 mg/ Sodium (Chloride) 125 mls @ 0 mls/hr IVCONT .Q0M [facility]; Protocol Last Titration: 06/12/24 20:45 Dose: 0 mg/hr, 0 mls/hr Documented By: DARRYN Magnesium Hydroxide (Milk Of Magnesia 30 Ml Oral.Susp) 30 ml PO DAILY PRN PRN Reason: Constipation Melatonin (Melatonin 3 Mg Tablet) 6 mg PO BEDTIME PRN PRN Reason: Insomnia Last Admin: 06/12/24 20:50 Dose: 6 mg Documented By: DARRYN Metoprolol Succinate (Metoprolol Succinate Er 25 Mg Tab.Er.24h) 25 mg PO BEDTIME [facility]; Protocol Last Admin: 06/12/24 20:50 Dose: 25 mg Documented By: DARRYN Ondansetron HCl (Ondansetron Hcl 4 Mg/2 Ml Vial) 4 mg IVPUSH Q8H PRN PRN Reason: Nausea and Vomiting Sodium Chloride (0.9 % Sodium Chloride Flush 3 Ml Syringe) 3 ml IVFLUSH QSHIFT [facility] Last Admin: 06/13/24 08:39 Dose: 3 ml Documented By: RINKU Labs 06/11/24 06:51 06/11/24 06:51 Assessment and Plan (1) Atrial fibrillation with rapid ventricular response: Status: Acute (2) Sepsis: Status: Acute (3) Pneumonia: Status: Acute Plan 89-year-old male with pertinent history of BPH, mixed hyperlipidemia, history of CVA, tobacco use disorder, paroxysmal atrial flutter on Eliquis who was brought to the emergency department for evaluation of confusion and fevers found to have pneumonia Acute respiratory failure with hypoxia and sepsis due to pneumonia afebrile, wbc count trending down Continue ceftriaxone and azithromycin Wean supplemental oxygen as tolerated, down to 2L h/o aspiration - seen by speech, upgraded to pureed diet Blood cultures negative to date Atrial flutter with rapid ventricular response episode of RVR in 160s yesterday s/p IV cardizem x2 with good effect Continue Eliquis and metoprolol Acute metabolic encephalopathy Due to above infection. improving HLD continue statin Moderately malnourished BMI 17.7 We will add dietary supplements if able to based on speech recommendations DVT prophylaxis-Leon Attending Dr. Law PT evaluation prior to discharge Patient requires ongoing stay in the hospital for management of pneumonia requiring IV antibiotics Quality Stroke Does the patient have a stroke diagnosis?: No VTE Prior VTE?: No VTE Risk Level:: Medical - moderate - high VTE Device Contraindication: Treatment Not Indicated VTE Drug Contraindication: N/A - Med Ordered
--- NOTE | 2024-06-13 11:29 | MHC.CLN ---
F/U PT IS MODERATELY MALNOURISHED POINTAKE VARIABLE RANGING FROM 25-100% DIET RX: PUREED WITH HT LIQ-APPROPRIATE RECOMMEND ADDING MAGIC CUP TID TO PROMOTE WOUND HEALING SUPP PROVIDES 870KCALS, 27G PROTEIN CONTINUE TO MONITOR PO INTAKE AND ENCOURAGE SUPPLEMENTS
--- NOTE | 2024-06-13 12:39 | MHC.SL.SWA ---
Speech Pathologist Impression: Risk of Aspiration, Oropharyngeal Dysphagia Risk of Aspiration Due to: Lethargy History of Pneumonia Dysphasia Diet Status: No Change Liquid Consistency and Strategies for Safe Swallow: Liquid Intake Recommendation: Honey Thick Liquid Intake Strategies: Small Sips No Straws Liquids by Teaspoon Only Solid Food Consistency: Dietary Recommendations: Pureed (NDD1) Additional Modifications to Solid Foods: Recommend continue on PUREED (NDD1) diet and HONEY THICK liquids (to be given by TEASPOON ONLY), pills CRUSHED in PUREE. Patient requires 1-1, careful feeding, give small bites/sips and cue for dry swallows after each bite/sip to clear suspected pharyngeal residue. Ensure oral cavity is cleared before giving more bites/sips. Patient to be seated upright during PO intake and for at least 30 minutes afterwards. Discontinue if patient exhibits clinical signs of aspiration (coughing, throat clearing, upper airway noise). Oral Medication Intake: Crushed with Puree Please contact the pharmacy regarding appropriate crushable or liquid drug formulations that are available whenever modified delivery is recommended. Compensatory Strategies and Precautions to be Taken for Safe Swallow: Sitting Upright (90 deg) Double Swallow No Straw Liquids from Spoon Small Bites and Sips Alternate Liquids/Solids Rate of Ingestion Change Oral Check Supervision While Eating and Drinking for Safe Swallow: Total Assistance (1:1) Swallowing Recommended Treatments: Compens. Strategy Educat. Recommendation for Speech: Inpatient Speech Therapy Frequency/Duration: PRN M-F Date Range for Service Req: Timeline to reassess: PRN Store Stock Associate Clinican/Clinical Fellow: No Supervisory Statement: I have reviewed and agree with the student/clinical fellow's documentation: N/A Speech Language Pathologist: Vandana Darnell M.A., CCC-DESIGN DRAFTSMAN
[2024-06-13] MEDS: Acetaminophen 325 MG TABLET 650 MG PO (20:06)
[2024-06-13] MEDS: Melatonin 3 MG TABLET 6 MG PO (20:06)
[2024-06-13] MEDS: Metoprolol Succinate ER 25 MG TAB.ER.24H PO (20:07)
[2024-06-13] MEDS: Atorvastatin Calcium 10 MG TABLET PO (20:07)
[2024-06-13] MEDS: dilTIAZem HCL 125 MG in 0.9 % Sodium Chloride 100 ML 10 MG IVCONT (20:31)
[2024-06-14] VITALS (7 sets, daily range): BP systolic 112–152; BP diastolic 61–75; PULSE 78–122; RESP 16–20; TEMP 36.4–37.9; O2SAT 90–98
[2024-06-14] MEDS: cefTRIAXone sodium 1 GM VIAL IV ×2 (02:17→23:37)
[2024-06-14] MEDS: Azithromycin 500 MG in 0.9 % Sodium Chloride 250 ML 125 MG IV ×2 (02:17→23:37)
[2024-06-14] MEDS: 0.9 % Sodium Chloride Flush 3 ML SYRINGE IVFLUSH ×4 (02:18→21:22)
--- NOTE | 2024-06-14 07:20 | PC.NURSE ---
patient HR was 164, IV diltiazem was intitiated as ordered. HR de
--- NOTE | 2024-06-14 07:22 | PC.NURSE ---
patient heart rate went up to 164, Iv Diltiazem was initiated, heart rate dropped to the 80 s after 15 minutes. Diltiazem is paused.
[2024-06-14] MEDS: Apixaban 2.5 MG TABLET PO ×2 (08:40→21:21)
[2024-06-14] MEDS: Nicotine 14 MG PATCH.TD24 TRANSDERMA (08:41)
[2024-06-14] MEDS: Azelastine HCl Nasal 137 MCG/Spray 30 ML 2 SPRAY NOSTRIL-B ×2 (08:42→21:21)
--- NOTE | 2024-06-14 09:21 | HO.PM.IMPN ---
Subjective Subjective Date of Service: 06/14/24 Interval History: Seen and examined this morning Follow-up for pneumonia/respiratory failure Denies shortness of breath more awake today Review of Systems Review of Systems: Yes all other systems are reviewed and are negative Constitutional Constitutional: Denies fever(s) Cardiovascular Cardiovascular: Denies chest pain and Denies palpitations Endocrine Endocrine: Denies palpitations Physical Exam Vital Signs: Vital Signs: Last Vital Signs Temp 98.1 F 06/14/24 07:18 Pulse 86 06/14/24 07:18 Resp 18 06/14/24 07:18 BP 112/61 06/14/24 07:18 Pulse Ox 93 06/14/24 07:18 O2 Del Method Nasal Cannula 06/14/24 07:18 O2 Flow Rate 3 06/14/24 07:18 BMI result Body Mass Index 17.7 Appearing in no acute distress lung sounds are clear to auscultation heart regular rate rhythm, clear S1, S2 positive bowel sounds, abdomen is soft, nontender neuro patient is alert x3, no focal deficits Objective Data Active Medications Acetaminophen (Acetaminophen 325 Mg Tablet) 650 mg PO Q6H PRN PRN Reason: Pain, Mild (Pain Scale 1-3), fever or headache Last Admin: 06/13/24 20:06 Dose: 650 mg Documented By: VENKAT Apixaban (Apixaban 2.5 Mg Tablet) 2.5 mg PO BID COUNTS INCLUDE 234 BEDS AT THE [facility] Last Admin: 06/14/24 08:40 Dose: 2.5 mg Documented By: LUIS Atorvastatin Calcium (Atorvastatin Calcium 10 Mg Tablet) 10 mg PO BEDTIME COUNTS INCLUDE 234 BEDS AT THE [facility] Last Admin: 06/13/24 20:07 Dose: 10 mg Documented By: VENKAT Azelastine HCl (Azelastine Hcl Nasal 137 Mcg/[place] 30 Ml) 2 spray NOSTRIL-B BID COUNTS INCLUDE 234 BEDS AT THE [facility] Last Admin: 06/14/24 08:42 Dose: 2 spray Documented By: LUIS Calcium Carbonate (Calcium Carbonate 750 Mg Tab.Chew) 750 mg PO Q4H PRN PRN Reason: Heartburn Ceftriaxone Sodium (Ceftriaxone Sodium 1 Gm Vial) 1 gm IV Q24H COUNTS INCLUDE 234 BEDS AT THE [facility] Last Admin: 06/14/24 02:17 Dose: 1 gm Documented By: VENKAT Azithromycin 500 mg/ Sodium (Chloride) 250 mls @ 125 mls/hr IV Q24H COUNTS INCLUDE 234 BEDS AT THE [facility] Last Infusion: 06/14/24 04:17 Dose: Infused Documented By: VENKAT Diltiazem HCl 125 mg/ Sodium (Chloride) 125 mls @ 0 mls/hr IVCONT .Q0M COUNTS INCLUDE 234 BEDS AT THE [facility]; Protocol Last Titration: 06/13/24 20:51 Dose: 0 mg/hr, 0 mls/hr Documented By: VENKAT Magnesium Hydroxide (Milk Of Magnesia 30 Ml Oral.Susp) 30 ml PO DAILY PRN PRN Reason: Constipation Melatonin (Melatonin 3 Mg Tablet) 6 mg PO BEDTIME PRN PRN Reason: Insomnia Last Admin: 06/13/24 20:06 Dose: 6 mg Documented By: VENKAT Metoprolol Succinate (Metoprolol Succinate Er 25 Mg Tab.Er.24h) 25 mg PO BEDTIME COUNTS INCLUDE 234 BEDS AT THE [facility]; Protocol Last Admin: 06/13/24 20:07 Dose: 25 mg Documented By: VENKAT Nicotine (Nicotine 14 Mg Patch.Td24) 14 mg TRANSDERMA DAILY COUNTS INCLUDE 234 BEDS AT THE [facility] Last Admin: 06/14/24 08:41 Dose: 14 mg Documented By: LUIS Ondansetron HCl (Ondansetron Hcl 4 Mg/2 Ml Vial) 4 mg IVPUSH Q8H PRN PRN Reason: Nausea and Vomiting Sodium Chloride (0.9 % Sodium Chloride Flush 3 Ml Syringe) 3 ml IVFLUSH QSHIFT COUNTS INCLUDE 234 BEDS AT THE [facility] Last Admin: 06/14/24 08:43 Dose: 3 ml Documented By: LUIS Labs 06/11/24 06:51 06/11/24 06:51 Microbiology Microbiology Results: Microbiology 06/08/24 18:06 Blood Culture - Final Blood - Venous No growth after 5 days. 06/08/24 18:06 Blood Culture - Final Blood - Venous No growth after 5 days. Assessment and Plan (1) Atrial fibrillation with rapid ventricular response: Status: Acute (2) Sepsis: Status: Acute (3) Pneumonia: Status: Acute Plan 89-year-old male with pertinent history of BPH, mixed hyperlipidemia, history of CVA, tobacco use disorder, paroxysmal atrial flutter on Eliquis who was brought to the emergency department for evaluation of confusion and fevers found to have pneumonia Acute respiratory failure with hypoxia and sepsis due to aspiration pneumonia Continue ceftriaxone and azithromycin Wean supplemental oxygen as tolerated, down to 2L h/o aspiration - seen by speech, upgraded to pureed diet, plan for MBBS Blood cultures negative to date Atrial flutter with rapid ventricular response, on and off episodes of RVR as high as 160's s/p IV cardizem Continue Eliquis and metoprolol cardiology consultation for possible medication adjustments Acute metabolic encephalopathy Due to above infection. improving HLD continue statin Moderately malnourished BMI 17.7 We will add dietary supplements if able to based on speech recommendations DVT prophylaxis-Leon Attending Dr. Law Patient requires ongoing stay in the hospital for management of pneumonia requiring IV antibiotics Quality Stroke Does the patient have a stroke diagnosis?: No VTE Prior VTE?: No VTE Risk Level:: Medical - moderate - high VTE Device Contraindication: Treatment Not Indicated VTE Drug Contraindication: N/A - Med Ordered
--- NOTE | 2024-06-14 10:45 | PM.CNCAR ---
History of Present Illness History of Present Illness Date of Service: 06/14/24 Chief complaint: AMS Narrative: This is a cardiology consultation regarding atrial flutter. We have seen him in the past for similar reasons. At that time, per notes, he was on beta-blockers for rate control. He is still seems to be on the same. Also on anticoagulation. Current admission is regarding respiratory failure/hypoxia/sepsis due to pneumonia. He is on antibiotics and has also been on supplemental oxygen. Documented to have metabolic encephalopathy. Malnourished. In this setting, he had atrial flutter/rapid ventricular rate requiring IV diltiazem. However, nothing in the last 12-15 hours. He has been controlled with rates in the 80s. Currently, he states that he is feeling fine. Denies any cardiac symptoms including angina or shortness of breath or in fact anything cardiac sounding. Review of Systems Review of Systems: Yes all other systems are reviewed and are negative Constitutional: Constitutional: Reports as per HPI and Reports no additional constitutional complaints Eyes: Eyes: Reports as per HPI and Denies no additional eye complaints ENT: Denies system reviewed and no additional complaints, except as documented and Reports as per HPI Cardiovascular: Cardiovascular: Reports as per HPI, Reports no additional cardiovascular complaints, Denies acrocyanosis, Denies cool extremities, Denies chest pain, Denies leg edema, Denies lightheadedness, Denies palpitations and Denies dyspnea Respiratory: Respiratory: Reports as per HPI, Denies no additional respiratory complaints and Denies dyspnea Gastrointestinal: Gastrointestinal: Reports as per HPI and Denies no additional gastrointestinal complaints Genitourinary: Genitourinary: Reports no additional male genitourinary complaints and Reports as per HPI Musculoskeletal: Musculoskeletal: Reports no additional musculoskeletal complaints and Reports as per HPI Integumentary/Breasts: Skin/Breast: Reports system reviewed and no additional complaints, except as docu Neurologic: Reports system reviewed and no additional complaints, except as documented and Reports as per HPI Psychiatric: Psychiatric: Reports no additional psychiatric complaints and Reports as per HPI Endocrine: Endocrine: Reports no additional endocrine complaints, Reports as per HPI and Denies palpitations Hematologic/Lymphatic: Hematologic/Lymphatic: Reports no additional hematologic/lymphatic complaints and Reports as per HPI Allergic/Immunologic: Allergic/Immunologic: Reports no additional allergic/immunologic complaints and Reports as per HPI COUNT INCLUDES [facility] Past Medical History Medical History Atrial flutter History of CVA (cerebrovascular accident) Bacteremia Atrial flutter Smoker AAA (abdominal aortic aneurysm) without rupture BPH w urinary obs/LUTS UTI (urinary tract infection) HLD (hyperlipidemia) Family History Pertinent family history: No pertinent family history Surgical History Surgical History History of cataract surgery Social History Social History Household Members: Family Household Members Other:: Daughter and Son in Law Housing: House Are you a primary critical care nurse specialist to a significant other at home: No Unable to assess alcohol history related to: Unable to respond Alcohol intake: never Comment: SITTER Patient Tobacco Use Status: Tobacco use Unknown Tobacco use type: Cigarette Cigarette Packs Per Day: 1.5 Cigarettes Per Day: 30.0 Years Smoked: 72 Second Hand Smoke Exposure: No Advance Directives Date on File: 08/14/21 service: No Current occupational status: retired [employer] Allergies Allergy/AdvReac Type Severity Reaction Status Date / Time pentazocine [From Joi] Allergy Unknown Verified 06/08/24 17:19 Active Medications: Current Medications Acetaminophen (Acetaminophen 325 Mg Tablet) 650 mg PO Q6H PRN PRN Reason: Pain, Mild (Pain Scale 1-3), fever or headache Last Admin: 06/13/24 20:06 Dose: 650 mg Apixaban (Apixaban 2.5 Mg Tablet) 2.5 mg PO BID [facility] Last Admin: 06/14/24 08:40 Dose: 2.5 mg Atorvastatin Calcium (Atorvastatin Calcium 10 Mg Tablet) 10 mg PO BEDTIME [facility] Last Admin: 06/13/24 20:07 Dose: 10 mg Azelastine HCl (Azelastine Hcl Nasal 137 Mcg/[place] 30 Ml) 2 spray NOSTRIL-B BID [facility] Last Admin: 06/14/24 08:42 Dose: 2 spray Calcium Carbonate (Calcium Carbonate 750 Mg Tab.Chew) 750 mg PO Q4H PRN PRN Reason: Heartburn Ceftriaxone Sodium (Ceftriaxone Sodium 1 Gm Vial) 1 gm IV Q24H [facility] Last Admin: 06/14/24 02:17 Dose: 1 gm Azithromycin 500 mg/ Sodium (Chloride) 250 mls @ 125 mls/hr IV Q24H [facility] Last Infusion: 06/14/24 04:17 Dose: Infused Diltiazem HCl 125 mg/ Sodium (Chloride) 125 mls @ 0 mls/hr IVCONT .Q0M [facility]; Protocol Last Titration: 06/13/24 20:51 Dose: 0 mg/hr, 0 mls/hr Magnesium Hydroxide (Milk Of Magnesia 30 Ml Oral.Susp) 30 ml PO DAILY PRN PRN Reason: Constipation Melatonin (Melatonin 3 Mg Tablet) 6 mg PO BEDTIME PRN PRN Reason: Insomnia Last Admin: 06/13/24 20:06 Dose: 6 mg Metoprolol Succinate (Metoprolol Succinate Er 25 Mg Tab.Er.24h) 25 mg PO BEDTIME [facility]; Protocol Last Admin: 06/13/24 20:07 Dose: 25 mg Nicotine (Nicotine 14 Mg Patch.Td24) 14 mg TRANSDERMA DAILY TEE Last Admin: 06/14/24 08:41 Dose: 14 mg Ondansetron HCl (Ondansetron Hcl 4 Mg/2 Ml Vial) 4 mg IVPUSH Q8H PRN PRN Reason: Nausea and Vomiting Sodium Chloride (0.9 % Sodium Chloride Flush 3 Ml Syringe) 3 ml IVFLUSH QSHIFT [facility] Last Admin: 06/14/24 08:43 Dose: 3 ml Home Medications ?Medication ?Instructions ?Recorded ?Confirmed ?Last Taken ?Type simvastatin 20 mg tablet 20 mg PO BEDTIME 08/10/21 06/08/24 06/07/24 History azelastine 137 mcg (0.1 %) nasal 2 spray intranasal BID 12/29/23 06/08/24 06/08/24 History spray triamcinolone acetonide 0.1 % 1 appl topical BID PRN Rash 12/29/23 06/08/24 Unknown History topical ointment metoprolol succinate 25 mg 25 mg PO BEDTIME 06/08/24 06/08/24 06/07/24 History tablet,extended release 24 hr Physical Exam Vital Signs: Vital Signs: Last Vital Signs Temp 98.1 F 06/14/24 07:18 Pulse 86 06/14/24 07:18 Resp 18 06/14/24 07:18 BP 112/61 06/14/24 07:18 Pulse Ox 93 06/14/24 07:18 O2 Del Method Nasal Cannula 06/14/24 07:18 O2 Flow Rate 3 06/14/24 07:18 BMI result Body Mass Index 17.7 Const: General: comfortable and no acute distress Nutritional Appearance: malnourished, thin and underweight Orientation/consciousness: patient oriented x3 HEENT: Other: Unremarkable Head: Yes normal to inspection Neck: Neck: Yes normal visual inspection Chest: Chest palpation & inspection: normal inspection of the chest Resp: Auscultation: clear to auscultation bilaterally Cardio: Palpation: normal PMI Heart sounds: S1 normal heart sound present, S2 normal heart sound present, no gallops, no murmurs and no rubs GI: Palpation (GI): Soft to palpation Back/Spine/Pelvis: Other: unremarkable Skin: General skin exam: no rashes or lesions noted Neuro: General: patient oriented x3 Extrem: General: Yes normal to inspection Psych: Mental Status: mental status grossly normal Objective Labs and Meds 06/11/24 06:51 06/11/24 06:51 ECG Interpretation: EKG from yesterday shows possible atrial fibrillation versus flutter at a rapid rate at 162/Min. Currently, he is in atrial flutter in the 80s on telemetry. Imaging Radiologist's impression: Impressions Chest X-Ray 06/14/24 07:30 IMPRESSION: Progression of previously noted left upper lobe opacity now with extension to the left base with left basilar consolidation and moderate to large left pleural effusion. Mildly prominent patchy opacities in the right lung. This study was presented today June 14, 2024 for interpretation. Stat results provided at this time as requested by referring provider. Electronically signed by: Sanam Gan MD 06/14/2024 09:28 AM EDT Assessment and Plan (1) Atrial flutter with rapid ventricular response: Status: Acute (2) Acute hypoxic respiratory failure: Status: Acute (3) Severe malnutrition: Status: Acute Plan Episodes of atrial flutter with rapid rate in the setting of acute medical issues, but improved since. Currently, rate is around 85/Min. He is still in flutter. For rate control, he is on metoprolol succinate 25 mg daily. Also on Eliquis. That seems quite reasonable. Diltiazem drip has been used but not anymore. We could add digoxin for additional heart rate control. Otherwise, treat medical issues. Discussed with Nadya Garcia. Procedures Date of Service Date of Service: 06/14/24
--- NOTE | 2024-06-14 11:50 | MHC.CM.PN ---
CM spoke with pt.'s dtr / healthcare consulting manager, Mercy, re: STR. She chose [facility] or [facility]. Mercy said that if pt. is able to walk when he is ready to DC, then she prefers to take him home and no go to [facility]. CM will continue to follow for DC needs.
--- NOTE | 2024-06-14 15:57 | MHC.SPEECHCO ---
MBSS completed. Pt was unfortunately observed to aspiration on all trial of Thin, [place], and Honey-thick liquids, as well as Puree Solids. Swallowing difficulty was caused by insufficient pharyngeal clearance with large amounts of residue in the pyriform sinus. Pt required cues to swallow up to 3 times per administered bite/sip to clear. He did not sense that there was any residue present when asked. Results are shared with referring provider. LEARNING STRATEGIST recommending NPO for safety, but Pt/Family with have to determine their next goals of care based on these results. Full report pending.
--- NOTE | 2024-06-14 16:32 | PM.EVENT ---
Event Note Date of Service: 06/14/24 Event Note: Discussed with patient's daughter and son-in-law regarding possible hospice. Patient had modified barium swallow and unfortunately failed practically the entire exam showing silent aspiration. It was discussed that if they knew the risks that the patient may aspirate they would be okay with him continuing to eat orally, they did not agree with the option of a PEG tube which he would likely not be a candidate for as he does have dementia and he would still be at risk for aspiration. The patient's daughter did not come to a conclusion as to whether she wanted him on hospice yet but understands his poor prognosis and the fact that he has silent aspiration puts him at greater risk for rapid decompensation. Time Spent With Patient Time: Total time managing care of this patient today ____ minutes.
[2024-06-14] MEDS: Digoxin 0.5 MG/2 ML AMPUL 0.25 MG IVPUSH ×2 (17:39→23:36)
[2024-06-14] MEDS: Atorvastatin Calcium 10 MG TABLET PO (21:21)
[2024-06-14] MEDS: Metoprolol Succinate ER 25 MG TAB.ER.24H PO (21:21)
[2024-06-14] MEDS: Melatonin 3 MG TABLET 6 MG PO (21:28)
[2024-06-15] VITALS (7 sets, daily range): BP systolic 122–158; BP diastolic 61–74; PULSE 75–88; RESP 16–22; TEMP 36.5–37; O2SAT 92–96
[2024-06-15] MEDS: Apixaban 2.5 MG TABLET PO ×2 (09:15→21:38)
[2024-06-15] MEDS: Digoxin 0.125 MG TABLET PO (09:15)
[2024-06-15] MEDS: 0.9 % Sodium Chloride Flush 3 ML SYRINGE IVFLUSH ×3 (09:16→21:38)
[2024-06-15] MEDS: Nicotine 14 MG PATCH.TD24 TRANSDERMA (09:16)
[2024-06-15] MEDS: Azelastine HCl Nasal 137 MCG/Spray 30 ML 2 SPRAY NOSTRIL-B ×2 (09:18→21:40)
--- NOTE | 2024-06-15 11:21 | MHC.CLN ---
F/U PT IS MODERATELY MALNOURISHED PO INTAKE REMAINS VARIABLE RANGING FROM 25-100% DIET RX: PUREED WITH HT LIQ-APPROPRIATE PT RECEIVING MAGIC CUP TID TO PROMOTE WOUND HEALING SUPP PROVIDES 870KCALS, 27G PROTEIN CONTINUE TO MONITOR PO INTAKE AND ENCOURAGE SUPPLEMENTS
--- NOTE | 2024-06-15 12:47 | P.PNIM_ITS ---
Subjective Subjective Date of Service: 06/15/24 Interval History: Seen and examined this morning Follow-up for pneumonia/respiratory failure Denies shortness of breath more awake today Review of Systems Review of Systems: Yes all other systems are reviewed and are negative Constitutional Constitutional: Denies fever(s) Cardiovascular Cardiovascular: Denies chest pain and Denies palpitations Endocrine Endocrine: Denies palpitations Physical Exam 2 Vital Signs: Vital Signs: Last Vital Signs Temp 98.6 F 06/15/24 11:03 Pulse 80 06/15/24 11:03 Resp 20 06/15/24 11:03 BP 148/68 H 06/15/24 11:03 Pulse Ox 92 06/15/24 11:03 O2 Del Method Nasal Cannula 06/15/24 11:03 O2 Flow Rate 3 06/15/24 11:03 BMI result Body Mass Index 17.7 Objective Data Active Medications Acetaminophen (Acetaminophen 325 Mg Tablet) 650 mg PO Q6H PRN PRN Reason: Pain, Mild (Pain Scale 1-3), fever or headache Last Admin: 06/13/24 20:06 Dose: 650 mg Documented By: VENKAT Apixaban (Apixaban 2.5 Mg Tablet) 2.5 mg PO BID [facility] Last Admin: 06/15/24 09:15 Dose: 2.5 mg Documented By: GOLDEN Atorvastatin Calcium (Atorvastatin Calcium 10 Mg Tablet) 10 mg PO BEDTIME [facility] Last Admin: 06/14/24 21:21 Dose: 10 mg Documented By: VENKAT Azelastine HCl (Azelastine Hcl Nasal 137 Mcg/[place] 30 Ml) 2 spray NOSTRIL-B BID [facility] Last Admin: 06/15/24 09:18 Dose: 2 spray Documented By: GOLDEN Calcium Carbonate (Calcium Carbonate 750 Mg Tab.Chew) 750 mg PO Q4H PRN PRN Reason: Heartburn Ceftriaxone Sodium (Ceftriaxone Sodium 1 Gm Vial) 1 gm IV Q24H [facility] Last Admin: 06/14/24 23:37 Dose: 1 gm Documented By: VENKAT Digoxin (Digoxin 0.125 Mg Tablet) 0.125 mg PO DAILY [facility]; Protocol Last Admin: 06/15/24 09:15 Dose: 0.125 mg Documented By: GOLDEN Azithromycin 500 mg/ Sodium (Chloride) 250 mls @ 125 mls/hr IV Q24H [facility] Last Infusion: 06/15/24 01:37 Dose: Infused Documented By: VENKAT Diltiazem HCl 125 mg/ Sodium (Chloride) 125 mls @ 0 mls/hr IVCONT .Q0M [facility]; Protocol Last Titration: 06/13/24 20:51 Dose: 0 mg/hr, 0 mls/hr Documented By: VENKAT Magnesium Hydroxide (Milk Of Magnesia 30 Ml Oral.Susp) 30 ml PO DAILY PRN PRN Reason: Constipation Melatonin (Melatonin 3 Mg Tablet) 6 mg PO BEDTIME PRN PRN Reason: Insomnia Last Admin: 06/14/24 21:28 Dose: 6 mg Documented By: VENKAT Metoprolol Succinate (Metoprolol Succinate Er 25 Mg Tab.Er.24h) 25 mg PO BEDTIME [facility]; Protocol Last Admin: 06/14/24 21:21 Dose: 25 mg Documented By: VENKAT Nicotine (Nicotine 14 Mg Patch.Td24) 14 mg TRANSDERMA DAILY [facility] Last Admin: 06/15/24 09:16 Dose: 14 mg Documented By: GOLDEN Ondansetron HCl (Ondansetron Hcl 4 Mg/2 Ml Vial) 4 mg IVPUSH Q8H PRN PRN Reason: Nausea and Vomiting Sodium Chloride (0.9 % Sodium Chloride Flush 3 Ml Syringe) 3 ml IVFLUSH QSHIFT [facility] Last Admin: 06/15/24 09:16 Dose: 3 ml Documented By: GOLDEN Labs 06/11/24 06:51 06/11/24 06:51 Assessment and Plan (1) Atrial fibrillation with rapid ventricular response: Status: Acute (2) Sepsis: Status: Acute (3) Pneumonia: Status: Acute Plan 89-year-old male with pertinent history of BPH, mixed hyperlipidemia, history of CVA, tobacco use disorder, paroxysmal atrial flutter on Eliquis who was brought to the emergency department for evaluation of confusion and fevers found to have pneumonia Acute respiratory failure with hypoxia and sepsis due to aspiration pneumonia Continue ceftriaxone and azithromycin Wean supplemental oxygen as tolerated, down to 2L h/o aspiration - seen by speech, upgraded to pureed diet Blood cultures negative to date Aspiration pneumonia silent aspiration failed MBBS family aware and would still want him to eat, discussed hospice, family has not decided yet Atrial flutter with rapid ventricular response, on and off episodes of RVR as high as 160's s/p IV cardizem Continue Eliquis and metoprolol cardiology consultation for possible medication adjustments Acute metabolic encephalopathy Due to above infection. improving HLD continue statin Moderately malnourished BMI 17.7 We will add dietary supplements if able to based on speech recommendations DISPO tx to [facility] when bed available DVT prophylaxis-Leon Attending Dr. Law Patient requires ongoing stay in the hospital for management of pneumonia requiring IV antibiotics Quality Stroke Does the patient have a stroke diagnosis?: No VTE Prior VTE?: No VTE Risk Level:: Medical - moderate - high VTE Device Contraindication: Treatment Not Indicated VTE Drug Contraindication: N/A - Med Ordered
--- NOTE | 2024-06-15 13:07 | P.CONPL_ITS ---
History of Present Illness History of Present Illness Consult date: 06/15/24 Chief complaint: AMS Narrative: 89-year-old gentleman, active 50+ pack-year smoker with underlying pulmonary emphysema hospitalized since 06/01/2024 with left-sided pneumonia with significant aspiration component. He was treated with empiric antibiotics with improvement, however he continues to require supplemental oxygen patient failed all consistencies on his modified barium swallow study and pulmonary input was requested. Review of Systems 2 Constitutional: Constitutional: Denies daytime sleepiness, Denies excessive sweating, Denies fatigue, Denies fever(s), Denies lethargy, Denies malaise, Denies night sweats, Denies snoring and Denies weight loss Eyes: Eyes: Denies blurry vision and Denies itchy eyes ENT: Denies nasal congestion, Denies post nasal drip, Denies sinus pain, Denies sinus pressure and Denies other ( Thrush) Cardiovascular: Cardiovascular: Denies chest pain, Denies pedal edema, Denies dyspnea, Denies orthopnea and Denies paroxysmal nocturnal dyspnea Respiratory: Respiratory: Denies cough, Denies hemoptysis, Denies excessive phlegm production, Denies dyspnea, Denies snoring and Denies wheezing Gastrointestinal: Gastrointestinal: Denies abdominal pain and Denies heartburn Musculoskeletal: Musculoskeletal: Denies myalgias, Denies arthralgias and Denies joint swelling Integumentary/Breasts: Skin/Breast: Denies rash Neurologic: Denies memory loss and Denies seizure-like activity Psychiatric: Psychiatric: Denies abnormal sleep pattern, Denies anxiety and Denies memory loss Endocrine: Endocrine: Denies excessive sweating, Denies fatigue and Denies heat intolerance Hematologic/Lymphatic: Hematologic/Lymphatic: Denies easy bruising Allergic/Immunologic: Allergic/Immunologic: Denies itchy eyes, Denies seasonal rhinorrhea and Denies wheezing PMFSH Past Medical History Medical History Atrial flutter History of CVA (cerebrovascular accident) Bacteremia Atrial flutter Smoker AAA (abdominal aortic aneurysm) without rupture BPH w urinary obs/LUTS UTI (urinary tract infection) HLD (hyperlipidemia) Surgical History Surgical History History of cataract surgery Social History Social History Household Members: Family Household Members Other:: Daughter and Son in Law Housing: House Are you a primary care consultant to a significant other at home: No Unable to assess alcohol history related to: Unable to respond Alcohol intake: never Comment: SITTER Patient Tobacco Use Status: Tobacco use Unknown Tobacco use type: Cigarette Cigarette Packs Per Day: 1.5 Cigarettes Per Day: 30.0 Years Smoked: 72 Second Hand Smoke Exposure: No Advance Directives Date on File: 08/14/21 service: No Current occupational status: retired [employer] Allergies Allergy/AdvReac Type Severity Reaction Status Date / Time pentazocine [From Talwin] Allergy Unknown Verified 06/08/24 17:19 Active Medications: Current Medications Acetaminophen (Acetaminophen 325 Mg Tablet) 650 mg PO Q6H PRN PRN Reason: Pain, Mild (Pain Scale 1-3), fever or headache Last Admin: 06/13/24 20:06 Dose: 650 mg Apixaban (Apixaban 2.5 Mg Tablet) 2.5 mg PO BID [facility] Last Admin: 06/15/24 09:15 Dose: 2.5 mg Atorvastatin Calcium (Atorvastatin Calcium 10 Mg Tablet) 10 mg PO BEDTIME [facility] Last Admin: 06/14/24 21:21 Dose: 10 mg Azelastine HCl (Azelastine Hcl Nasal 137 Mcg/Hamilton 30 Ml) 2 spray NOSTRIL-B BID [facility] Last Admin: 06/15/24 09:18 Dose: 2 spray Calcium Carbonate (Calcium Carbonate 750 Mg Tab.Chew) 750 mg PO Q4H PRN PRN Reason: Heartburn Ceftriaxone Sodium (Ceftriaxone Sodium 1 Gm Vial) 1 gm IV Q24H [facility] Last Admin: 06/14/24 23:37 Dose: 1 gm Digoxin (Digoxin 0.125 Mg Tablet) 0.125 mg PO DAILY [facility]; Protocol Last Admin: 06/15/24 09:15 Dose: 0.125 mg Azithromycin 500 mg/ Sodium (Chloride) 250 mls @ 125 mls/hr IV Q24H [facility] Last Infusion: 06/15/24 01:37 Dose: Infused Diltiazem HCl 125 mg/ Sodium (Chloride) 125 mls @ 0 mls/hr IVCONT .Q0M [facility]; Protocol Last Titration: 06/13/24 20:51 Dose: 0 mg/hr, 0 mls/hr Magnesium Hydroxide (Milk Of Magnesia 30 Ml Oral.Susp) 30 ml PO DAILY PRN PRN Reason: Constipation Melatonin (Melatonin 3 Mg Tablet) 6 mg PO BEDTIME PRN PRN Reason: Insomnia Last Admin: 06/14/24 21:28 Dose: 6 mg Metoprolol Succinate (Metoprolol Succinate Er 25 Mg Tab.Er.24h) 25 mg PO BEDTIME [facility]; Protocol Last Admin: 06/14/24 21:21 Dose: 25 mg Nicotine (Nicotine 14 Mg Patch.Td24) 14 mg TRANSDERMA DAILY [facility] Last Admin: 06/15/24 09:16 Dose: 14 mg Ondansetron HCl (Ondansetron Hcl 4 Mg/2 Ml Vial) 4 mg IVPUSH Q8H PRN PRN Reason: Nausea and Vomiting Sodium Chloride (0.9 % Sodium Chloride Flush 3 Ml Syringe) 3 ml IVFLUSH QSHIFT [facility] Last Admin: 06/15/24 09:16 Dose: 3 ml Home Medications ?Medication ?Instructions ?Recorded ?Confirmed ?Last Taken ?Type simvastatin 20 mg tablet 20 mg PO BEDTIME 08/10/21 06/08/24 06/07/24 History azelastine 137 mcg (0.1 %) nasal 2 spray intranasal BID 12/29/23 06/08/24 06/08/24 History spray triamcinolone acetonide 0.1 % 1 appl topical BID PRN Rash 12/29/23 06/08/24 Unknown History topical ointment metoprolol succinate 25 mg 25 mg PO BEDTIME 06/08/24 06/08/24 06/07/24 History tablet,extended release 24 hr Physical Exam 2 Vital Signs: Vital Signs: Last Vital Signs Temp 98.6 F 06/15/24 11:03 Pulse 80 06/15/24 11:03 Resp 20 06/15/24 11:03 BP 148/68 H 06/15/24 11:03 Pulse Ox 92 06/15/24 11:03 O2 Del Method Nasal Cannula 06/15/24 11:03 O2 Flow Rate 3 06/15/24 11:03 BMI result Body Mass Index 17.7 Const: General: no acute distress and alert Nutritional Appearance: m alnourished and obese Orientation/consciousness: Other orientation findings ( oriented) HEENT: Head: Yes atraumatic Eyes: General: appearance normal, both eyes and all related structures S clerae: sclerae normal EOM: EOMs intact bilaterally Neck: Neck: Yes supple Lymphatic: no lymphadenopathy noted Resp: Effort & Inspection: normal respiratory effort and no use of accessory muscles Auscultation: rales (Left basilar) Cardio: Rate: regular rate Rhythm: regular rhythm Heart sounds: no gallops, no murmurs and no rubs Skin: General skin exam: other ( warm) Extrem: General: No clubbing, No cyanosis and No edema Results Laboratory Findings 06/11/24 06:51 06/11/24 06:51 Abnormal lab findings: Abnormal Labs 06/08/24 06/08/24 06/08/24 18:06 20:32 21:52 WBC 19.1 H RBC 4.17 L Hgb 12.2 L Hct 38.7 L MPV 9.2 L Immature Gran % (Auto) 0.5 H Neut % (Auto) 89.1 H Lymph % (Auto) 5.5 L Lymph # (Auto) 1.1 L Abs Immat Gran (auto) 0.09 H Absolute Neuts (auto) 17.0 H Potassium 5.4 H Chloride 110 H Carbon Dioxide BUN 31 H POC Glucose Random Glucose Lactic Acid 2.9 H* Lactic Acid F/U @ 2Hr 2.5 H* Lactic Acid F/U @ 4Hr Albumin 3.4 L Urine Protein 30 (1+) H Urine Blood Large (3+) H Urine RBC >20 H 06/08/24 06/09/24 06/11/24 23:09 04:59 06:51 WBC 16.9 H RBC 4.11 L 4.25 L Hgb 12.1 L 12.5 L Hct 38.6 L 38.7 L MPV 9.3 L Immature Gran % (Auto) Neut % (Auto) Lymph % (Auto) Lymph # (Auto) Abs Immat Gran (auto) Absolute Neuts (auto) Potassium Chloride 113 H 110 H Carbon Dioxide 21 L BUN 27 H 27 H POC Glucose Random Glucose 138 H Lactic Acid Lactic Acid F/U @ 2Hr Lactic Acid F/U @ 4Hr 2.9 H* Albumin Urine Protein Urine Blood Urine RBC 06/11/24 11:23 WBC RBC Hgb Hct MPV Immature Gran % (Auto) Neut % (Auto) Lymph % (Auto) Lymph # (Auto) Abs Immat Gran (auto) Absolute Neuts (auto) Potassium Chloride Carbon Dioxide BUN POC Glucose 159 H Random Glucose Lactic Acid Lactic Acid F/U @ 2Hr Lactic Acid F/U @ 4Hr Albumin Urine Protein Urine Blood Urine RBC Microbiology: Microbiology 06/08/24 18:06 Blood - Venous Blood Culture - Final No growth after 5 days. 06/08/24 18:06 Blood - Venous Blood Culture - Final No growth after 5 days. Assessment and Plan (1) Emphysema of lung: Status: Acute (2) Aspiration pneumonia: Status: Acute Plan Impression: 89-year-old gentleman with underlying COPD, cachexia now hospitalized with aspiration pneumonia and hypoxic respiratory failure secondary to recurrent aspiration. Overall respiratory status has improved, however patient completely fails his barium swallow evaluation. His imaging demonstrate left-sided pneumonia with an effusion that have been improving with empiric antibiotics. He continues to require supplemental oxygen to maintain normal oximetry. Recommendation: Agree with empiric antibiotic coverage for underlying pneumonia. Location of left-sided basilar pneumonias consistent with recurrent aspiration in laying down position. Unfortunately, patient has almost complete deterioration of his swallowing reflex with multiple recurrent aspirations. In this situation discussion with patient/healthcare proxy is reasonable, as no corrective measures including PEG placement eliminate the risk of recurrent aspirations. Procedures Date of Service Date of Service: 06/15/24
--- NOTE | 2024-06-15 15:08 | P.CDIM_ITS ---
PROVIDER RESPONSE TEXT: To clarify, the appropriate diagnosis supported by the clinical indicators: Pressure Injury right Trochanter Stage 1: probable QUERY TEXT: PHYSICIAN'S DOCUMENTATION REQUEST Date of Query: 06/15/2024 01:05 PM EDT Patient Name: Luis Reina Admit Date: 06/09/2024 Dear Nadya Garcia INSTRUCTOR [place], A review of the medical record indicates additional documentation may be needed. Please review below and update the documentation accordingly. Clinical Indicators: Wound care assessment notes: Pressure injury right Trochanter Stage 1 Dry and intact Foam dressing Based on the above, could you please provide further information regarding the ulcer/wound: Pressure Injury right Trochanter Stage 1 possible, probable, suspected etc. Other (explain) Clinically unable to determine (explain) Thank you, Megan Cormier, CCS, CDIS Use of terms such as suspected, likely, concern for, or probable (associated with a specific diagnosi s that is being evaluated, monitored, or treated as if it exists) are acceptable and can be coded in the inpatient se tting, when documented at the time of discharge. Please use your independent medical judgment in providing your response. THIS QUERY IS PART OF THE PERMANENT MEDICAL RECORD
[2024-06-15] MEDS: Metoprolol Succinate ER 25 MG TAB.ER.24H PO (21:38)
[2024-06-15] MEDS: Atorvastatin Calcium 10 MG TABLET PO (21:38)
[2024-06-15] MEDS: cefTRIAXone sodium 1 GM VIAL IV (23:30)
[2024-06-15] MEDS: Azithromycin 500 MG in 0.9 % Sodium Chloride 250 ML 125 MG IV (23:30)
[2024-06-16] VITALS (7 sets, daily range): BP systolic 114–139; BP diastolic 56–91; PULSE 79–85; RESP 19–20; TEMP 36.5–37.2; O2SAT 92–94
[2024-06-16] MEDS: Digoxin 0.125 MG TABLET PO (10:22)
[2024-06-16] MEDS: Azelastine HCl Nasal 137 MCG/Spray 30 ML 2 SPRAY NOSTRIL-B (10:22)
[2024-06-16] MEDS: Apixaban 2.5 MG TABLET PO (10:22)
[2024-06-16] MEDS: Nicotine 14 MG PATCH.TD24 TRANSDERMA (10:23)
[2024-06-16] MEDS: 0.9 % Sodium Chloride Flush 3 ML SYRINGE IVFLUSH ×2 (10:23→16:19)
--- NOTE | 2024-06-16 13:04 | MHC.SL.SWA ---
Speech Pathologist Impression: Risk of Aspiration Due to: Medically Fragile Neurological Condition History of Pneumonia Poor PO Intake Reduced Cognition Dysphasia Diet Status: MD at family's request has ordered conservative diet of PUREE with HONEY THICK liquids, pills crushed in puree. WATER SANDER recommended NPO secondary to documented aspiration on MBSS study. Family has opted to continue to feed patient, accepting the aspiration risk. Liquid Consistency and Strategies for Safe Swallow: Liquid Intake Recommendation: MD order Liquid Intake Strategies: Small Sips No Straws Liquids by Teaspoon Only Solid Food Consistency: Dietary Recommendations: MD order Additional Modifications to Solid Foods: See note below.. Oral Medication Intake: Crushed with Puree Please contact the pharmacy regarding appropriate crushable or liquid drug formulations that are available whenever modified delivery is recommended. Compensatory Strategies and Precautions to be Taken for Safe Swallow: Sitting Upright (90 deg) Supervision While Eating and Drinking for Safe Swallow: Total Assistance (1:1) Foods to Avoid: Swallowing Recommended Treatments: Compens. Strategy Educat. Recommendation for Speech: Inpatient Speech Therapy Comment: Patient seen at lunch meal however meal today was arriving late on the floors and not available at the time of the visit. Patient was awake, very cheerful, seated in chair beside bed chatting with sitter in room. On 06/14/24, patient had MBSS study that was significant for penetration and aspiration on all consistencies presented, with limited to no airway protection (e.g. coughing to eject the aspirated material). WATER SANDER recommended NPO with alternate feeding method. In discussion with family with MD, Family opted to continue feeding patient orally and declined PEG placement, accepting the risk for aspiration. Patient is now on diet of PUREE with HONEY THICK liquids. Patient reported that he is eating well and that they are brining me all kinds of food. At this time, continued WATER SANDER service is not warranted, as no further treatment is indicated, and family accepts patients high risk for aspiratio. Recommend DC Speech at this time. Recommendations reviewed as previously stated: small amounts of PO (pureed and thin consistencies) while pt sitting upright, slow pacing, pills CRUSHED in PUREE. Encourage multiple swallows per bite, cue pt for throat clear/re-swallow after each bite/sip to promote clearance of suspected pharyngeal residue. Ensure oral cavity is cleared before giving more bites/sips, remain upright during PO intake and for at least 30 minutes after. Discontinue if patient exhibits clinical signs of aspiration (coughing, throat clearing, upper airway noise). Frequency/Duration: PRN M-F Date Range for Service Req: Timeline to reassess: PRN Pulping Machine Operator Clinican/Clinical Fellow: No Supervisory Statement: I have reviewed and agree with the student/clinical fellow's documentation: N/A Speech Language Pathologist: Radha Hurd M.A., CCC-WATER SANDER
--- NOTE | 2024-06-16 13:44 | PM.DS ---
DS: Providers Provider Date of Service: 06/16/24 Date of admission: 06/09/24 00:03 Date of discharge: 06/16/24 Primary care physician: SCARLETT Mcnamara Consults: 06/09/24 11:14 Consult to Wound Care Routine Reason for consultation: redness/pressure injury 06/12/24 13:38 Consult for Sitter Routine Reason for consultation: agitation 06/14/24 07:23 Consult to Cardiology Routine Consulting Provider: [facility] Reason for consultation: multiple episodes of afib rvr 06/14/24 17:24 Consult to Pulmonology Routine Consulting Provider: [facility] Reason for consultation: ? aspiration pna Attending physician on discharge: Nishant Law Discharging clinician: Minna Mason DS: Diagnosis Discharge Diagnosis (1) Emphysema of lung: Status: Acute (2) Aspiration pneumonia: Status: Acute DS: Summary Hospital Course Hospital Course: From H&P on the day of admission This is a 89-year-old male with pertinent history of BPH, mixed hyperlipidemia, history of CVA, tobacco use disorder, paroxysmal atrial flutter on Eliquis who was brought to the emergency department for evaluation of confusion and fevers. Patient was seen in the ER about a week ago and was diagnosed with pneumonia and sent home on p.o. Augmentin. Family reported that patient continues to have cough and fevers. Was found to be confused on the day of presentation and had associated chills. Patient is only oriented to self at the time of my evaluation. Unable to obtain history from the patient. History obtained from ER provider and chart review. Unable to obtain review of systems. In the emergency department, patient was found to be septic and imaging concerning for left-sided pneumonia. Also found to be in a flutter with RVR and given IV Lopressor and IV diltiazem. Acute respiratory failure with hypoxia and sepsis due to aspiration pneumonia Treated with IV ceftriaxone and azithromycin and completed course of antibiotics during hospitalization Continues to require supplemental oxygen, 3 L. wean oxygen as tolerated. h/o aspiration - on MBBS- patient observed to have aspiration with multiple consistencies. Discussed with family, they understand and accept the risk of recurrent aspiration and subsequent recurrent pneumonia and possible recurrent hospitalizations for the same, and they want to continue letting patient eat for comfort. they would not want feeding tube. Per speech the safest consistency is pureed diet with honey thick liquids. Diet has been supplemented with fortified ice cream 3 times daily. Blood cultures negative to date. Attempted to discuss code status as well as consideration of hospice, Healthcare proxy not ready for that discussion at this time. Recommend continued outpatient discussion as patient currently remains full code. Atrial flutter with rapid ventricular response, on and off episodes of RVR as high as 160's. s/p IV cardizem. Continued on metoprolol, digoxin added with good effect. Continue Eliquis for anticoagulation Acute metabolic encephalopathy Due to above infection. resolved HLD continue statin Moderately malnourished BMI 17.7 add dietary supplements Sacrum and bilateral trochanter wounds Sacrum-stage I pressure injury; bilateral trochanter, resurfacing, full-thickness pressure injury. Both present on admission wound care : Sacrum and Bilateral Trochanter and bilateral heels, Off Load Pressure - Routine cleansing, apply foam dressing. Peel back and assess Q shift and change every 5 days and PRN. Elevate both heels off of bed surface with pillows. Time Attestation Discharge Coordination Time (in mins): 40 Quality: Safe Use of Opioids Does Pt have an Active Cancer Diagnosis on the Problem List?: No Quality: Stroke Does the patient have a stroke diagnosis?: No Physical Exam Vital Signs: Vital Signs: Last Vital Signs Temp 98.8 F 06/16/24 11:20 Pulse 85 06/16/24 12:18 Resp 20 06/16/24 11:20 BP 114/56 L 06/16/24 11:20 Pulse Ox 93 06/16/24 12:18 O2 Del Method Nasal Cannula 06/16/24 11:20 O2 Flow Rate 3 06/16/24 11:20 BMI result Body Mass Index 17.7 Const: Other: thin, frail appearing General: comfortable, alert and awake Resp: Effort & Inspection: normal respiratory effort, able to speak in complete sentences, no respiratory distress and no use of accessory muscles Cardio: Rate: regular rate GI: Inspection: No distended Palpation (GI): Soft to palpation Neuro: General: moves all extremities and CN's II-XI intact bilaterally Extrem: General: Yes no pedal edema DS: Data Data Completed and Pending Completed studies during hospitalization [Text1]: Procedures Drainage of Bladder with Drainage Device, Via Natural or Artificial Opening Endoscopic (08/10/21) Discharge Plan Discharge Anticipated Discharge Date/Time: 06/16/24 16:00 Patient Disposition: Xfer SNF Discharge Diagnosis: Sepsis due to aspiration pneumonia Atrial fibrillation with rapid ventricular response Referrals: Nasir Neri PA [Primary Care Provider] - 1 Week Discharge Medications: New digoxin 125 mcg (0.125 mg) Tablet 0.125 mg PO DAILY Qty: 90 0RF Protocol: Hold for HR <: HOLD for HR < : 60 Continued simvastatin 20 mg tablet 20 mg PO BEDTIME triamcinolone acetonide 0.1 % ointment 1 appl topical BID PRN (Reason: Rash) Rx Instructions: 2 WEEKS ON 1 WEEK OFF azelastine 137 mcg (0.1 %) aerosol,spray 2 spray intranasal BID Eliquis 2.5 mg Tablet 2.5 mg PO BID Qty: 1 0RF metoprolol succinate 25 mg tablet extended release 24 hr 25 mg PO BEDTIME Protocol: Hold for SBP/HR < HOLD for SBP < : 90 HOLD for HR < : 60 Discharge Orders: Discharge Order (Routine); Ordered 06/16/24 Ordered By: Minna Mason Activity on Discharge: As tolerated Stand Alone Forms: Patient Portal Discharge page Print Language: Spanish Care Plan Goals: See below Health Concerns: Acute respiratory failure with hypoxia and Sepsis due to aspiration pneumonia Silent aspiration Atrial fibrillation with rapid ventricular response Metabolic encephalopathy. Resolved Moderate protein calorie malnutrition Plan of Treatment: Completed course of antibiotics during hospitalization. Remains on 2-3 L of supplemental oxygen Noted to have silent aspiration on modified barium swallow-per family they have agreed to allow him to continue eating and accept risk for recurrent aspiration/pneumonia, safest diet per speech therapy is pureed diet with honey thick liquids. Would not want feeding tube. Continue aspiration precautions. 1:1 assist for feedings. Per speech therapy - rec small amounts of PO (pureed and thin consistencies) while pt sitting upright, slow pacing, pills CRUSHED in PUREE. Encourage multiple swallows per bite, cue pt for throat clear/re-swallow after each bite/sip to promote clearance of suspected pharyngeal residue. Ensure oral cavity is cleared before giving more bites/sips, remain upright during PO intake and for at least 30 minutes after. Discontinue if patient exhibits clinical signs of aspiration (coughing, throat clearing, upper airway noise) recommend ongoing discussion for code status/goals of care with family for atrial fibrillation - digoxin was added 06/15 - rec check digoxin level early next week and adjust accordingly Assessment: See discharge summary
--- NOTE | 2024-06-16 13:55 | MHC.CM.PN ---
Second IMM 06/16/24, Pt has been medically cleared for DC, he will go to [facility] via BLS this afternoon.
== END 2024-06-16 18:14 | disposition skilled nursing facility (03) | DRG 871 ==
LOC: HO.ED 21:50 → HO.EDOVER 06-09 00:16 → HO.IMC 06-09 07:35
PROVIDERS: Nurse Practitioner Acute Care; Admitting Provider Student in an Organized Health Care Education/Training Program; Emergency Provider Internal Medicine; PCP Physician Assistant Medical; Visit Provider Physician Assistant Medical
DX: A41.9 Sepsis, unspecified organism (principal); G93.41 Metabolic encephalopathy; J96.01 Acute respiratory failure with hypoxia; J69.0 Pneumonitis due to inhalation of food and vomit; E44.0 Moderate protein-calorie malnutrition; Z68.1 Body mass index [BMI] 19.9 or less, adult; I48.92 Unspecified atrial flutter; J43.9 Emphysema, unspecified; L89.221 Pressure ulcer of left hip, stage 1; L89.211 Pressure ulcer of right hip, stage 1; E78.2 Mixed hyperlipidemia; L89.151 Pressure ulcer of sacral region, stage 1; I48.0 Paroxysmal atrial fibrillation; Z79.899 Other long term (current) drug therapy
CPT/HCPCS: 0241U; 36415; 70450; 71045; 72125; 74230; 80048; 80053; 81001; 82803; 82947; 83605; 83735; 84484; 85025; 85027; 85610; 85730; 87040; 92526; 92610; 92611; 93005; 94640; 97162; 97530; 99285; C1758; J0131; J0456; J0692; J0696; J1160; J1630; J1956; J2060; J2359; J2543; J3410; J7120

== ENCOUNTER → 2024-06-08 17:20 | Outpatient (BNV) | payer MEDICARE, MEDICAID, SELFPAY | PROVIDERS: Admitting Provider Student in an Organized Health Care Education/Training Program; Emergency Provider Internal Medicine; Visit Provider Internal Medicine Cardiovascular Disease | DX: I48.91 Unspecified atrial fibrillation (principal) | CPT/HCPCS: 93010 ==

== ENCOUNTER → 2024-06-08 17:42 | Outpatient (BNV) | payer MEDICARE, MEDICAID, SELFPAY | PROVIDERS: Emergency Provider Internal Medicine; Visit Provider Student in an Organized Health Care Education/Training Program | DX: I48.91 Unspecified atrial fibrillation (principal); A41.9 Sepsis, unspecified organism; J18.9 Pneumonia, unspecified organism | CPT/HCPCS: 99223; 99232; 99239; 99499 ==

== ENCOUNTER 2024-06-09 00:03 | Outpatient (BNV) | payer MEDICARE, MEDICAID, SELFPAY | END 2024-06-14 12:14 | PROVIDERS: Admitting Provider Student in an Organized Health Care Education/Training Program; Emergency Provider Internal Medicine; PCP Physician Assistant Medical; Visit Provider Radiology Diagnostic Radiology | DX: R13.10 Dysphagia, unspecified (principal) | CPT/HCPCS: 74230 ==

== ENCOUNTER 2024-06-09 00:03 | Outpatient (BNV) | payer MEDICARE, MEDICAID, SELFPAY | END 2024-06-12 13:44 | PROVIDERS: Admitting Provider Student in an Organized Health Care Education/Training Program; Emergency Provider Internal Medicine; PCP Physician Assistant Medical; Visit Provider Internal Medicine | DX: I48.91 Unspecified atrial fibrillation (principal) | CPT/HCPCS: 93010 ==

== ENCOUNTER 2024-06-09 00:03 | Outpatient (BNV) | payer MEDICARE, MEDICAID, SELFPAY | END 2024-06-09 04:31 | PROVIDERS: Admitting Provider Student in an Organized Health Care Education/Training Program; Emergency Provider Internal Medicine; Visit Provider Internal Medicine Cardiovascular Disease | DX: R94.31 Abnormal electrocardiogram [ECG] [EKG] (principal) | CPT/HCPCS: 93010 ==

== ENCOUNTER → 2024-06-09 00:03 | Outpatient (BNV) | payer MEDICARE, MEDICAID, SELFPAY | PROVIDERS: Admitting Provider Student in an Organized Health Care Education/Training Program; Emergency Provider Internal Medicine; PCP Physician Assistant Medical; Visit Provider Internal Medicine | DX: I48.92 Unspecified atrial flutter (principal); J96.01 Acute respiratory failure with hypoxia; E43 Unspecified severe protein-calorie malnutrition | CPT/HCPCS: 99223 ==

== ENCOUNTER → 2024-06-09 00:03 | Outpatient (BNV) | payer MEDICARE, MEDICAID, SELFPAY | PROVIDERS: Admitting Provider Student in an Organized Health Care Education/Training Program; Emergency Provider Internal Medicine; PCP Physician Assistant Medical; Visit Provider Internal Medicine Pulmonary Disease | DX: J69.0 Pneumonitis due to inhalation of food and vomit (principal); J96.01 Acute respiratory failure with hypoxia; J43.9 Emphysema, unspecified | CPT/HCPCS: 99232 ==

== ENCOUNTER → 2024-06-17 15:12 | Outpatient (BNV) | payer MEDICARE, MEDICAID, SELFPAY | PROVIDERS: Admitting Provider Student in an Organized Health Care Education/Training Program; Emergency Provider Internal Medicine; Visit Provider Internal Medicine | DX: R55 Syncope and collapse (principal) | CPT/HCPCS: 93010 ==

== ENCOUNTER 2024-06-17 15:32 | Inpatient (IN) | payer MEDICARE, MEDICAID, SELFPAY ==
[2024-06-17] VITALS (10 sets, daily range): BP systolic 96–158; BP diastolic 55–75; PULSE 80–108; RESP 12–21; TEMP 36.2–36.8; O2SAT 90–97; BMI 13.3
--- NOTE | ~2024-06-17 | CT_ITS ---
EXAMINATION: CT HEAD WITHOUT CONTRAST CT CERVICAL SPINE WITHOUT CONTRAST CLINICAL INFORMATION: Fall? Head trauma COMPARISON: CT head without contrast 07/14/2023 TECHNIQUE: Contiguous axial imaging was performed from the skull base to vertex without intravenous administration of contrast. Contiguous axial imaging was performed from the upper chest through the skull base without intravenous administration of contrast. Coronal and sagittal reformats were obtained at the acquisition workstation. This CT examination was performed using dose optimization techniques as appropriate, variously including the following: *Automated exposure control *Adjustment of mA and/or kV according to patient size (this includes techniques or standardized protocols for targeted exams where dose is matched to indication/reason for exam; i.e. extremities or head) *Use of iterative reconstruction technique DLP: 907 mGy-cm FINDINGS: Head: Streak artifacts slightly limit evaluation. Again noted chronic regions of encephalomalacia within the occipital lobes, right greater than left, with associated volume loss. Small chronic infarcts of bilateral cerebellar hemispheres and right thalamus. There is no evidence of acute intracranial hemorrhage. Mild ex vacuo dilatation of the posterior lateral ventricles, secondary to volume loss. Otherwise the ventricles and cortical sulci are proportional with diffuse volume loss. Patchy and confluent hypodensities within the periventricular and deep white matter likely representing extensive chronic microangiopathy. There is no mass effect or midline shift. No acute extra-axial collections. No acute soft tissue or osseous abnormalities. Mild paranasal sinus mucosal thickening. The mastoids are well-aerated. Cervical Spine: The atlantooccipital and atlantoaxial articulations remain well aligned. Severe degenerative changes at the atlantodental articulations. Mild reversal of the normal cervical lordosis. Overall sagittal alignment appears maintained. Multilevel cervical spondylosis with endplate osteophytes, intervertebral space narrowing and advanced facet arthropathy. There is fusion across the right facet joints at C2-C3. No acute fracture or traumatic subluxation. The thyroid gland and remaining cervical soft tissues are within normal limits. The lung apices demonstrate some severe emphysematous changes and biapical pleural parenchymal scarring with calcifications. Partially visualized esophageal wall thickening. CT/CT cervical spine wo IV con IMPRESSION: No acute intracranial pathology. Generalized volume loss with extensive underlying chronic microangiopathy, remote infarcts and chronic encephalomalacia. No acute fracture or traumatic subluxation involving the cervical spine. Multilevel cervical spondylosis as detailed. Electronically signed by: Hector Traylor MD 06/17/2024 06:08 PM EDT RP
--- NOTE | ~2024-06-17 | XR_ITS ---
EXAMINATION: XR CHEST CLINICAL INFORMATION: Hypoxia COMPARISON: Chest radiograph 06/14/2024 TECHNIQUE: Frontal view of the chest was obtained. FINDINGS: Again noted moderate left pleural effusion with left basilar consolidation. Improving hazy opacities in the left upper to midlung. The right lung appears clear with interval resolution of patchy opacities in the right lung base.. No right-sided pleural effusion. No pneumothorax. The cardiac silhouette is partially obscured. Aortic calcifications. Degenerative changes of the thoracic spine. XR/XR chest 1V IMPRESSION: Again noted moderate left pleural effusion and left basilar consolidation. Improving hazy opacities in the left upper to midlung. Electronically signed by: Hector Traylor MD 06/17/2024 05:18 PM EDT
--- NOTE | 2024-06-17 15:12 | ECG_ITS ---
Test Reason : SYNCOPE Blood Pressure : / mmHG Vent. Rate : 083 BPM Atrial Rate : 322 BPM P-R Int : 000 ms QRS Dur : 066 ms QT Int : 368 ms P-R-T Axes : 081 089 -89 degrees QTc Int : 432 ms Artifact in tracing Atrial flutter with variable A-V block Low voltage QRS Nonspecific ST and T wave abnormality Abnormal ECG When compared with ECG of 12-JUN-2024 13:44, Vent. rate has decreased BY 79 BPM Referred By: Mari Shukla Electronically Signed By:ENEDINA MASON
--- NOTE | 2024-06-17 15:24 | ED_ITS ---
HPI - General Adult General Chief complaint: Dyspnea Stated complaint: Hypoxia Time Seen by Provider: 06/17/24 15:41 Source: EMS, RN notes reviewed and old records reviewed Mode of arrival: EMS Limitations: other (Baseline dementia) History of Present Illness ED Provider: Laverne Garcia PA-C HPI narrative: 89-year-old male with a past medical history BPH, HLD, CVA, tobacco use disorder, proximal AFib on Eliquis, recent discharged from our facility yesterday 06/16/2024 for acute respiratory failure with hypoxia and sepsis due to aspiration pneumonia (d/c'd on 2-3L supplemental O2), presenting to ED via EMS today s/p unwitnessed fall at [facility] and suspected aspiration on his lunch. Per patient's nurse she was updating his vitals and noted to be hypoxic 50-70's% on supplemental O2, non-rebreather applied at 15L & max O2 appreciated was 71% on NRB at facility. Per EMS patient was cyanotic. Confused at baseline. Noted to have coarse cough Remaining history limited due to patient's baseline mental status Related Data Home Medications ?Medication ?Instructions ?Recorded ?Confirmed simvastatin 20 mg tablet 20 mg PO BEDTIME 08/10/21 06/08/24 azelastine 137 mcg (0.1 %) nasal 2 spray intranasal BID 12/29/23 06/08/24 spray triamcinolone acetonide 0.1 % 1 appl topical BID PRN Rash 12/29/23 06/08/24 topical ointment metoprolol succinate 25 mg 25 mg PO BEDTIME 06/08/24 06/08/24 tablet,extended release 24 hr Previous Rx's ?Medication ?Instructions ?Recorded apixaban 2.5 mg tablet (Eliquis) 2.5 mg PO BID #1 tab 01/11/24 digoxin 125 mcg (0.125 mg) tablet 0.125 mg PO DAILY #90 tabs 06/16/24 Allergies Allergy/AdvReac Type Severity Reaction Status Date / Time pentazocine [From Joi] Allergy Unknown Verified 06/17/24 15:16 Review of Systems 2 Review of Systems: Yes all other systems are reviewed and are negative Constitutional: Constitutional: Reports as per [facility] Past Medical History Attestation statement: The following information was validated with the patient. Source: old records reviewed Medical History Atrial flutter History of CVA (cerebrovascular accident) Bacteremia Atrial flutter Smoker AAA (abdominal aortic aneurysm) without rupture BPH w urinary obs/LUTS UTI (urinary tract infection) HLD (hyperlipidemia) Surgical History History of cataract surgery Social History Social History Household Members: Family Household Members Other:: Daughter and Son in Law Housing: House Are you a primary field care manager to a significant other at home: No Unable to assess alcohol history related to: Unable to respond Alcohol intake: never Comment: SITTER Patient Tobacco Use Status: Tobacco use Unknown Tobacco use type: Cigarette Cigarette Packs Per Day: 1.5 Cigarettes Per Day: 30.0 Years Smoked: 72 Second Hand Smoke Exposure: No Advance Directives: Yes Advance Directives on File: Yes Advance Directives Date on File: 08/14/21 service: No Current occupational status: retired Physical Exam ED Vital Signs: Vital Signs - 24 hr 06/17/24 15:12 06/17/24 15:29 06/17/24 16:23 Temperature 97.1 F Pulse Rate 88 82 92 Respiratory Rate 21 H 19 18 Blood Pressure 134/67 99/61 Pulse Oximetry 90 L 93 Oxygen Delivery Method Room Air Nasal Cannula Oxygen Flow Rate 3 06/17/24 16:25 06/17/24 17:48 06/17/24 18:22 Temperature 98 F Pulse Rate 80 106 H 108 H Respiratory Rate 18 18 20 Blood Pressure 124/56 L 139/74 Pulse Oximetry 94 93 Oxygen Delivery Method Aerosol Mask Nasal Cannula Oxygen Flow Rate 2 06/17/24 18:24 Temperature 98 F Pulse Rate 92 Respiratory Rate 13 Blood Pressure 139/74 Pulse Oximetry 97 Oxygen Delivery Method Nasal Cannula Oxygen Flow Rate 2 BMI result Body Mass Index 13.3 Const Other: Baseline dementia, cachectic General: awake and ill appearing chronically HENMT Head: Yes normal to inspection and Yes atraumatic Ears: hearing grossly normal bilaterally General nose exam: Normal external nose present Face and sinus: Yes normal facial exam Eyes General: appearance normal, both eyes and all related structures EOM: EOMs intact bilaterally Neck Neck: Yes normal visual inspection and Yes no meningeal signs Resp Effort & Inspection: normal respiratory effort and no respiratory distress Auscultation: rhonchi lower bilaterally and diminished lung sounds diffuse Cardio Rate: regular rate Heart sounds: S1 normal heart sound present and S2 normal heart sound present GI Inspection: Yes normal to inspection Palpation (GI): Soft to palpation, nontender, no guarding and not rigid Skin Rashes: no rashes Wounds: no wounds Neuro General: tone normal and no meningeal signs Extrem General: Yes normal to inspection and Yes no pedal edema Course Course Course Narrative: -1800--leukocytosis of 13.6. pH 7.45 -acute on chronically elevated BUN. Lactic acid 1.8. Initial troponin 18.1 > will obtain repeat -viral testing negative XR chest 1V IMPRESSION: Again noted moderate left pleural effusion and left basilar consolidation. Improving hazy opacities in the left upper to midlung. -patient desatting to 88% on [address] head/brain wo IV con/CT cervical spine wo IV co IMPRESSION: No acute intracranial pathology. Generalized volume loss with extensive underlying chronic microangiopathy, remote infarcts and chronic encephalomalacia. No acute fracture or traumatic subluxation involving the cervical spine. Multilevel cervical spondylosis as detailed. > 191--patient now satting 95% on 2 L NC. Will discuss case with hospitalist Medications Administered Discontinued Medications Generic Name Dose Route Start Last Admin Trade Name Freq PRN Reason Stop Dose Admin Albuterol Sulfate 2.5 mg/ 0 mg 06/17/24 15:57 06/17/24 16:21 Albuterol/Ipratropium 3 ml INHALE 06/17/24 15:58 1 dose ONCE ONE Administration Cefepime HCl 2 gm in 50 mls @ 100 mls/hr 06/17/24 15:39 06/17/24 16:26 Maxipime IV 06/17/24 16:08 Infused ONCE ONE Infusion Medical Decision Making Medical Decision Making [facility] Narrative: 89-year-old male with a past medical history BPH, HLD, CVA, tobacco use disorder, proximal AFib on Eliquis, recent discharged from our facility yesterday 06/16/2024 for acute respiratory failure with hypoxia and sepsis due to aspiration pneumonia (d/c'd on 2-3L supplemental O2), presenting to ED via EMS today s/p unwitnessed fall at [facility] and suspected aspiration on his lunch with noted hypoxia. On exam mildly tachypneic, satting 90% on RA, increased in 92-93% on 3 L NC, coarse lung sounds throughout, cachectic/frail. Concern for recurrent aspiration vs ICH or fractures. Low suspicion for severe sepsis Plan: EKG, labs, UA, CXR, head/C-spine CT, anticipated admission Please refer to course for remaining clinical decision making, interpretation of labs/imaging results, and discussions with consultants and/or family members. Differential Diagnosis Differential Diagnoses: The differential diagnosis associated with the presentation includes As above Admission/Observation Consideration of admission/observation: Escalation of care including admission/observation considered Consult Healthcare Provider Management of the patient was discussed with: Hospitalist Lab Data MDM Lab Attestation statement: I reviewed the patient's lab results. 06/17/24 15:40 06/17/24 15:40 Labs: Lab Results 06/17/24 06/17/24 06/17/24 Range/Units 15:40 15:44 15:49 WBC 13.6 H (4.8-10.8) X10*3/uL RBC 4.59 L (4.60-5.80) X10*6/uL Hgb 13.3 L (14.0-18.0) g/dl Hct 42.0 (42.0-52.0) % MCV 91.5 (80.0-98.0) fL MCH 29.0 (27.0-33.0) pg MCHC 31.7 (31.0-36.0) g/dl RDW 15.0 (11.0-16.0) % Plt Count 295 D (160-400) X10*3/uL MPV 9.2 L (9.4-12.4) fL Immature Gran % (Auto) 1.0 H (0.0-0.4) % Neut % (Auto) 82.5 H (45-73) % Lymph % (Auto) 9.3 L (20-40) % [place] % (Auto) 5.8 (2-11) % Eos % (Auto) 1.1 (0-4) % Baso % (Auto) 0.3 (0-2) % Lymph # (Auto) 1.3 (1.2-4.9) X10*3/uL [place] # (Auto) 0.8 (0.1-1.2) X10*3/uL Eos # (Auto) 0.2 (0.0-0.4) X10*3/uL Baso # (Auto) 0.0 (0.0-0.2) X10*3/uL Abs Immat Gran (auto) 0.13 H (0.00-0.03) X10*3/uL Absolute Neuts (auto) 11.2 H (2.0-8.3) x10*3/uL Absolute Nucleated RBC 0.000 (0.0-0.012) X10*3/uL Nucleated RBC % (auto) 0.0 (0.0-0.2) /100WBC PT 14.7 H (10.9-12.4) SEC INR 1.3 H (0.9-1.1) APTT 32.4 (26.0-36.8) SEC VBG pH 7.45 H (7.32-7.43) VBG pCO2 46 mmHg VBG pO2 37 mmHg VBG HCO3 33 H (22-26) mmol/L VBG O2 Saturation 55.0 % VBG Base Excess 7.9 mmol/L Sodium 144 (135-145) mmol/L Potassium 5.1 D (3.3-5.1) mmol/L Chloride 105 (96-108) mmol/L Carbon Dioxide 30 H (22-29) mmol/L Anion Gap 14 (12-20) BUN 38 H (9-16) mg/dL Creatinine 1.08 (0.5-1.4) mg/dL Estim Creat Clear Calc 29.2 Estimated GFR > 60 Random Glucose 120 H (60-115) mg/dL Lactic Acid 1.8 (0.5-2.0) mmol/L Calcium 9.4 D (8.4-10.2) mg/dL Magnesium 2.3 (1.6-2.6) mg/dL Total Bilirubin 0.8 (0.0-1.0) mg/dL AST 39 H (5-37) U/L ALT 39 (0-40) U/L Alkaline Phosphatase 97 (39-117) U/L Troponin I High Sens 18.1 D (<3.5-35.0) ng/L Total Protein 7.5 (6.5-8.0) g/dL Albumin 3.3 L (3.5-5.0) g/dL Influenza Type A (PCR) NEGATIVE (Negative) Influenza Type B (PCR) NEGATIVE (Negative) RSV RNA Qual (PCR) NEGATIVE (Negative) SARS-CoV-2 RNA (RT-PCR) NEGATIVE (Negative) Independent Interpretation I performed an independent interpretation of an: EKG, Plain X-Ray and CT Scan Radiology Impression Discussion of test interpretation with radiology: I have reviewed the radiologist's reading. Independent Historian Clinical information obtained from an independent historian. History obtained from or confirmed by: EMS External Record Review External record reviewed: Inpatient record, Office record, Outpatient record, Prior outpatient labs, Prior outpatient radiology, Primary care record and Outside ED record Tests considered The following testing was considered but not selected: As above Prescription Management I considered prescription management with: Other Chronic Conditions Patient?s care impacted by: Other (Aspiration pneumonia, a flutter with RVR) Social Determinants Patient?s care significantly limited by Social Determinants of Health including: Problems related to primary support group and Other Social Determinant of Health Discharge Plan Discharge Clinical Impression: Aspiration pneumonia, Hypoxia, Pleural effusion Prescriptions: No Action simvastatin 20 mg tablet 20 mg PO BEDTIME triamcinolone acetonide 0.1 % ointment 1 appl topical BID PRN (Reason: Rash) Rx Instructions: 2 WEEKS ON 1 WEEK OFF azelastine 137 mcg (0.1 %) aerosol,spray 2 spray intranasal BID Eliquis 2.5 mg Tablet 2.5 mg PO BID Qty: 1 0RF metoprolol succinate 25 mg tablet extended release 24 hr 25 mg PO BEDTIME Protocol: Hold for SBP/HR < HOLD for SBP < : 90 HOLD for HR < : 60 digoxin 125 mcg (0.125 mg) Tablet 0.125 mg PO DAILY Qty: 90 0RF Protocol: Hold for HR <: HOLD for HR < : 60 Print Language: Mexican
[2024-06-17 15:49] LABS: MANUAL DIFF FLAG NO
[2024-06-17 15:52] LABS: Basophils Percent Auto 0.3 % (0-2); Eosinophils Absolute Auto 0.2 X10*3/uL (0.0-0.4); Eosinophils Percent Auto 1.1 % (0-4); Hemoglobin 13.3 g/dl (14.0-18.0); Imm Gran Abs Auto 0.13 X10*3/uL (0.00-0.03); Lymphocytes Absolute Auto 1.3 X10*3/uL (1.2-4.9); Lymphocytes Percent Auto 9.3 % (20-40); Mean Corpuscular HGB Conc 31.7 g/dl (31.0-36.0); Mean Corpuscular Volume 91.5 fL (80.0-98.0); Mean Platelet Volume 9.2 fL (9.4-12.4); Monocytes Absolute Auto 0.8 X10*3/uL (0.1-1.2); Monocytes Percent Auto 5.8 % (2-11); Neutrophils Absolute Auto 11.2 x10*3/uL (2.0-8.3); Neutrophils Percent Auto 82.5 % (45-73); Platelet Count 295 X10*3/uL (160-400); Red Blood Count 4.59 X10*6/uL (4.60-5.80); White Blood Count 13.6 X10*3/uL (4.8-10.8)
[2024-06-17 15:54] LABS: VBG Base Excess 7.9 mmol/L; VBG HCO3 33 mmol/L (22-26); VBG pCO2 46 mmHg; VBG pH 7.45 (7.32-7.43); VBG pO2 37 mmHg
[2024-06-17 15:54] LABS: Venous Blood Gas Refer to POC result
[2024-06-17] MEDS: cefEPime HCl/D5W 2 GM/50 ML PIGGYBACK IV (15:58)
[2024-06-17 16:02] LABS: Lactic Acid 1.8 mmol/L (0.5-2.0)
[2024-06-17 16:08] LABS: Alanine Aminotransferase 39 U/L (0-40); Albumin Level 3.3 g/dL (3.5-5.0); Alkaline Phosphatase 97 U/L (39-117); Anion Gap 14 (12-20); Aspartate Amino Transferase 39 U/L (5-37); Bilirubin Total 0.8 mg/dL (0.0-1.0); Blood Urea Nitrogen 38 mg/dL (9-16); Calcium 9.4 mg/dL (8.4-10.2); Carbon Dioxide 30 mmol/L (22-29); Chloride 105 mmol/L (96-108); Creatinine Clr Calc Pharmacy 29.2; Estimated Glomerular Filt Rate > 60; Glucose Random 120 mg/dL (60-115); Magnesium 2.3 mg/dL (1.6-2.6); Potassium 5.1 mmol/L (3.3-5.1); Sodium 144 mmol/L (135-145); Total Protein 7.5 g/dL (6.5-8.0)
[2024-06-17 16:15] LABS: Troponin-I High Sensitivity 18.1 ng/L (<3.5-35.0)
[2024-06-17 16:17] LABS: INTERNATIONAL NORM RATIO 1.3 (0.9-1.1); Prothrombin Time 14.7 SEC (10.9-12.4)
[2024-06-17 16:20] LABS: Partial Thromboplastin Time 32.4 SEC (26.0-36.8)
[2024-06-17] MEDS: Albuterol Sulfate 2.5 MG, Albuterol/Iprat 2.5/0.5MG 3 ML 3 ML INHALE (16:21)
--- NOTE | 2024-06-17 16:27 | MHC.EDTECH ---
patient came in by ems. changed patient into hospital gown did vitals. patient is a total care confuse did ADL care and place a condom cath.
--- NOTE | 2024-06-17 16:27 | PC.NURSE ---
Pt presents to ED via EMS from [facility], per EMS, staff found pt hypoxic in 60s and cyanotic. Pt had fall at nurses station, unknown head hit, skin tear to left forearm and left gao, covered. Confused at baseline. EMS placed pt on NRB but pt removed.Pt alert but confused, mumbling. Breathing unlabored, wet sounding cough. Pt has known aspiration PNA, D/C yesterday to rehab. SPO2 88-90% on RA, improved to 93-94% 2L NC.
--- NOTE | 2024-06-17 17:09 | PC.NURSE ---
[place] cath placed for incontinence
--- NOTE | 2024-06-17 17:20 | ECG_ITS ---
Test Reason : TACHY Blood Pressure : / mmHG Vent. Rate : 097 BPM Atrial Rate : 000 BPM P-R Int : 000 ms QRS Dur : 078 ms QT Int : 406 ms P-R-T Axes : 000 077 -72 degrees QTc Int : 515 ms Atrial fibrillation with premature ventricular or aberrantly conducted complexes Low voltage QRS ST & T wave abnormality, consider inferior ischemia Abnormal ECG When compared with ECG of 17-JUN-2024 16:23, Atrial fibrillation has replaced Atrial flutter ST now depressed in Inferior leads Inverted T waves have replaced nonspecific T wave abnormality in Anterior leads QT has lengthened Referred By: Laverne Garcia Electronically Signed By:
[2024-06-17 17:58] LABS: Influenza A PCR NEGATIVE (Negative); Influenza B PCR NEGATIVE (Negative); Resp Syncy Virus RNA Qual PCR NEGATIVE (Negative); SARS COV2 PCR INHOUSE NEGATIVE (Negative)
--- NOTE | 2024-06-17 19:15 | PC.NURSE ---
Assumed care of pt. Pt lying on stretcher, sitter 1:1 for safety (pt continuing to pull at lines and be disruptive of care). per SCARLETT Galloway, plan for admission.
[2024-06-17 19:45] LABS: Troponin-I High Sensitivity 19.9 ng/L (<3.5-35.0)
--- NOTE | 2024-06-17 20:03 | PM.IMHP ---
History of Present Illness Date of Service: 06/17/24 Chief Complaint: Dyspnea This is a 89-year-old male with pertinent history of BPH, mixed hyperlipidemia, history of CVA, tobacco use disorder, paroxysmal atrial flutter on Eliquis, recurrent hospitalization due to aspiration pneumonia, chronic hypoxic respiratory failure, dementia unspecified who was brought to the emergency department for evaluation of dyspnea and hypoxia. Patient was seen choking on his lunch with suspected aspiration. Patient went found to be hypoxic in the 50s on his home baseline O2. He as per EMS he was requiring 6 L supplemental oxygen to maintain sats. Unable to obtain history from the patient due to underlying dementia. History obtained from ER provider and chart review. Patient also had an unwitnessed fall on the day of presentation. Unable to obtain review of systems. Of note, patient was recently admitted and discharged on 06/16 with acute hypoxic respiratory failure due to aspiration pneumonia. Family accepted the risk of recurrent aspiration and want to let the patient eat for comfort. They do not want feeding tube. In the emergency department, patient was found to be septic and imaging concerning for left-sided pneumonia. Review of Systems Review of Systems: Yes Unobtainable due to mental condition [facility] Medical History Atrial flutter History of CVA (cerebrovascular accident) Bacteremia Atrial flutter Smoker AAA (abdominal aortic aneurysm) without rupture BPH w urinary obs/LUTS UTI (urinary tract infection) HLD (hyperlipidemia) Pertinent family history: Unable to obtain Surgical History History of cataract surgery Social History Household Members: Family Household Members Other:: Daughter and Son in Law Housing: House Are you a primary caretaker grounds to a significant other at home: No Unable to assess alcohol history related to: Unable to respond Alcohol intake: never Comment: SITTER Patient Tobacco Use Status: Tobacco use Unknown Tobacco use type: Cigarette Cigarette Packs Per Day: 1.5 Cigarettes Per Day: 30.0 Years Smoked: 72 Second Hand Smoke Exposure: No Advance Directives: Yes Advance Directives on File: Yes Advance Directives Date on File: 08/14/21 service: No Current occupational status: retired Meds Allergies Allergy/AdvReac Type Severity Reaction Status Date / Time pentazocine [From Joi] Allergy Unknown Verified 06/17/24 15:16 Home Medications ?Medication ?Instructions ?Recorded ?Confirmed ?Last Taken ?Type simvastatin 20 mg tablet 20 mg PO BEDTIME 08/10/21 06/08/24 06/07/24 History azelastine 137 mcg (0.1 %) nasal 2 spray intranasal BID 12/29/23 06/08/24 06/08/24 History spray triamcinolone acetonide 0.1 % 1 appl topical BID PRN Rash 12/29/23 06/08/24 Unknown History topical ointment metoprolol succinate 25 mg 25 mg PO BEDTIME 06/08/24 06/08/24 06/07/24 History tablet,extended release 24 hr Physical Exam Vital Signs and Narrative: Vital Signs: Last Vital Signs Temp 98 F 06/17/24 18:24 Pulse 92 06/17/24 18:24 Resp 13 06/17/24 18:24 BP 139/74 06/17/24 18:24 Pulse Ox 97 06/17/24 18:24 O2 Del Method Nasal Cannula 06/17/24 18:24 O2 Flow Rate 2 06/17/24 18:24 BMI result Body Mass Index 13.3 Elderly male lying in bed in no distress Neck supple, no JVD Irregularly irregular, S1-S2 heard Tachypneic with left-sided crackles Abdomen soft nontender, no guarding, no rigidity Patient is awake, alert and oriented to self, disoriented to place, no focal motor weakness Psych: Normal mood No pedal edema Results Labs 06/17/24 15:40 06/17/24 15:40 Labs: Laboratory Results - last 24 hr 06/17/24 06/17/24 06/17/24 15:40 15:44 15:49 MCV 91.5 MCH 29.0 MCHC 31.7 RDW 15.0 Plt Count 295 D MPV 9.2 L Immature Gran % (Auto) 1.0 H Neut % (Auto) 82.5 H Lymph % (Auto) 9.3 L [place] % (Auto) 5.8 Eos % (Auto) 1.1 Baso % (Auto) 0.3 Lymph # (Auto) 1.3 [place] # (Auto) 0.8 Eos # (Auto) 0.2 Baso # (Auto) 0.0 Abs Immat Gran (auto) 0.13 H Absolute Neuts (auto) 11.2 H Absolute Nucleated RBC 0.000 Nucleated RBC % (auto) 0.0 PT 14.7 H INR 1.3 H APTT 32.4 VBG pH 7.45 H VBG pCO2 46 VBG pO2 37 VBG HCO3 33 H VBG O2 Saturation 55.0 VBG Base Excess 7.9 Anion Gap 14 Estim Creat Clear Calc 29.2 Estimated GFR > 60 Random Glucose 120 H Lactic Acid 1.8 Calcium 9.4 D Magnesium 2.3 Total Bilirubin 0.8 AST 39 H ALT 39 Alkaline Phosphatase 97 Troponin I High Sens 18.1 D Total Protein 7.5 Albumin 3.3 L Influenza Type A (PCR) NEGATIVE Influenza Type B (PCR) NEGATIVE RSV RNA Qual (PCR) NEGATIVE SARS-CoV-2 RNA (RT-PCR) NEGATIVE 06/17/24 19:20 MCV MCH MCHC RDW Plt Count MPV Immature Gran % (Auto) Neut % (Auto) Lymph % (Auto) [place] % (Auto) Eos % (Auto) Baso % (Auto) Lymph # (Auto) [place] # (Auto) Eos # (Auto) Baso # (Auto) Abs Immat Gran (auto) Absolute Neuts (auto) Absolute Nucleated RBC Nucleated RBC % (auto) PT INR APTT VBG pH VBG pCO2 VBG pO2 VBG HCO3 VBG O2 Saturation VBG Base Excess Anion Gap Estim Creat Clear Calc Estimated GFR Random Glucose Lactic Acid Calcium Magnesium Total Bilirubin AST ALT Alkaline Phosphatase Troponin I High Sens 19.9 Total Protein Albumin Influenza Type A (PCR) Influenza Type B (PCR) RSV RNA Qual (PCR) SARS-CoV-2 RNA (RT-PCR) Imaging Radiologist's Impressions: Impressions Chest X-Ray 06/17/24 15:25 IMPRESSION: Again noted moderate left pleural effusion and left basilar consolidation. Improving hazy opacities in the left upper to midlung. Electronically signed by: Hector Traylor MD 06/17/2024 05:18 PM EDT Cervical Spine CT 06/17/24 16:04 IMPRESSION: No acute intracranial pathology. Generalized volume loss with extensive underlying chronic microangiopathy, remote infarcts and chronic encephalomalacia. No acute fracture or traumatic subluxation involving the cervical spine. Multilevel cervical spondylosis as detailed. Electronically signed by: Hector Traylor MD 06/17/2024 06:08 PM EDT RP Head CT 06/17/24 16:04 IMPRESSION: No acute intracranial pathology. Generalized volume loss with extensive underlying chronic microangiopathy, remote infarcts and chronic encephalomalacia. No acute fracture or traumatic subluxation involving the cervical spine. Multilevel cervical spondylosis as detailed. Electronically signed by: Hector Traylor MD 06/17/2024 06:08 PM EDT RP Assessment and Plan (1) Hypoxia: Status: Acute (2) Aspiration pneumonia: Status: Acute Plan This is a 89-year-old male with pertinent history of BPH, mixed hyperlipidemia, history of CVA, tobacco use disorder, paroxysmal atrial flutter on Eliquis who was brought to the emergency department for evaluation of confusion and fevers. #. Acute on chronic hypoxic respiratory failure with sepsis due to left-sided aspiration pneumonia: Resuscitated with IV crystalloids. Initiating empiric IV Zosyn. Lactic acid obtained. Blood culture pending. Monitor oxygen saturation and wean as tolerated. #. Recurrent aspiration: Family aware and would like the patient to eat for comfort. Refused feeding tube in the past. Risk of recurrent hospitalizations. Readdress goals of care. NPO for now. Speech to evaluate and treat #. Atrial flutter: On Eliquis and metoprolol #. Dementia, unspecified: Maintain sleep-wake cycle #. History of CVA: On statin, not on antiplatelet agent Med rec pending DVT prophylaxis: Eliquis Full code. Readdress with family in a.m. Admit as inpatient and will require two night minimum hospital stay for IV antibiotics, supplemental oxygen (as above), which is not possible in a lesser acute setting. Quality Stroke Does the patient have a stroke diagnosis?: No VTE Prior VTE?: No VTE Risk Level:: Medical - moderate - high VTE Device Contraindication: Treatment Not Indicated VTE Drug Contraindication: N/A - Med Ordered
[2024-06-17] MEDS: Piperacillin Sodium/Tazobactam 4.5 GM in 0.9 % Sodium Chloride 100 ML IV (20:19)
[2024-06-17] MEDS: Melatonin 3 MG TABLET 6 MG PO (20:25)
--- NOTE | 2024-06-17 21:13 | PHA.MEDREC ---
Addendum entered by Nasir Persaud [facility] 06/17/24 21:25: Med rec reviewed Original Note: Pharmacy Consult ? Medication Reconciliation Pharmacy has completed the medication reconciliation. Confirmed medications with list from [facility]. I noticed they did not have Eliquis 2.5mg tabs on their list, I called and inquired more about that medication and the lady from the 2nd floor station went through the paperwork from the patient and stated they have no record of the patient on that medication and when I stated he had a 90 day supply filled 04/21/24 she stated we never got it on the discharge paperwork from the hospital last night and I had the discharge packet from last night 06/16 printed next to me and it is printed on the patient med list that he is taking Eliquis 2.5mg tabs 1 BID and when I said that they had no idea why it was not relayed over to them, I kept it on patient med rec since it is documented on his DC packet on 06/16 that he is taking it.
[2024-06-17] MEDS: Lactated Ringers 1,000 ML 999 ML IV (21:28)
[2024-06-18 03:10] VITALS: BP 127/62; PULSE 78; RESP 18; TEMP 36.8; O2SAT 95
[2024-06-18] MEDS: Piperacillin Sodium/Tazobactam 4.5 GM in 0.9 % Sodium Chloride 100 ML IV ×3 (03:54→20:00)
[2024-06-18 07:28] LABS: MANUAL DIFF FLAG NO
[2024-06-18 07:32] LABS: Basophils Absolute Auto 0.1 X10*3/uL (0.0-0.2); Basophils Percent Auto 0.4 % (0-2); Eosinophils Absolute Auto 0.2 X10*3/uL (0.0-0.4); Eosinophils Percent Auto 1.2 % (0-4); Hematocrit 37.8 % (42.0-52.0); Hemoglobin 11.5 g/dl (14.0-18.0); Imm Gran Abs Auto 0.08 X10*3/uL (0.00-0.03); Imm Gran Pct Auto 0.6 % (0.0-0.4); Lymphocytes Percent Auto 6.9 % (20-40); Mean Corpuscular HGB Conc 30.4 g/dl (31.0-36.0); Mean Corpuscular Hemoglobin 28.3 pg (27.0-33.0); Mean Corpuscular Volume 93.1 fL (80.0-98.0); Mean Platelet Volume 9.4 fL (9.4-12.4); Monocytes Absolute Auto 0.7 X10*3/uL (0.1-1.2); Monocytes Percent Auto 4.8 % (2-11); Neutrophils Absolute Auto 12.4 x10*3/uL (2.0-8.3); Neutrophils Percent Auto 86.1 % (45-73); Platelet Count 272 X10*3/uL (160-400); Red Blood Count 4.06 X10*6/uL (4.60-5.80); Red Cell Distribution Width 15.1 % (11.0-16.0); White Blood Count 14.3 X10*3/uL (4.8-10.8)
[2024-06-18 07:56] LABS: Anion Gap 12 (12-20); Blood Urea Nitrogen 33 mg/dL (9-16); Calcium 8.6 mg/dL (8.4-10.2); Carbon Dioxide 29 mmol/L (22-29); Chloride 108 mmol/L (96-108); Creatinine Clr Calc Pharmacy 28.2; Estimated Glomerular Filt Rate > 60; Glucose Random 101 mg/dL (60-115); Potassium 4.7 mmol/L (3.3-5.1); Sodium 144 mmol/L (135-145)
[2024-06-18 08:00] VITALS: BP 139/63; PULSE 79; RESP 16; TEMP 36.3; O2SAT 96
[2024-06-18] MEDS: 0.9 % Sodium Chloride Flush 3 ML SYRINGE IVFLUSH ×2 (09:35→20:08)
[2024-06-18] MEDS: Dextrose 5 % and Lactated Ring 1,000 ML 100 ML IVCONT ×2 (13:02→21:33)
--- NOTE | 2024-06-18 13:59 | HO.PM.IMPN ---
Subjective Subjective Date of Service: 06/18/24 Interval History: Awake confused no respiratory distress Review of Systems Unable to obtain Physical Exam Vital Signs: Vital Signs: Last Vital Signs Temp 97.3 F 06/18/24 08:00 Pulse 79 06/18/24 08:00 Resp 16 06/18/24 08:00 BP 139/63 06/18/24 08:00 Pulse Ox 96 06/18/24 08:00 O2 Del Method Nasal Cannula 06/18/24 08:00 O2 Flow Rate 3 06/18/24 08:00 BMI result Body Mass Index 13.3 Const: Other: Somnolent but arousable; confused when speaking Resp: Other: Diminished throughout with scattered rhonchi Cardio: Other: Irregularly irregular; no S4; positive S1-S2; no S3 murmurs rubs or gallops GI: Other: Soft nontender nondistended normoactive bowel sounds Extrem: Other: No edema bilaterally Objective Data Active Medications Acetaminophen (Acetaminophen 325 Mg Tablet) 650 mg PO Q6H PRN PRN Reason: Pain, Mild (Pain Scale 1-3), fever or headache Acetaminophen (Acetaminophen 325 Mg Tablet) 650 mg PO Q4H PRN PRN Reason: Fever >/= 100, Pain, mild 1-3 Calcium Carbonate (Calcium Carbonate 750 Mg Tab.Chew) 750 mg PO Q4H PRN PRN Reason: Heartburn Docusate Sodium (Docusate Sodium 100 Mg Capsule) 100 mg PO BEDTIME TEE Piperacillin Sod/Tazobactam (Sod 4.5 gm/ Sodium Chloride) 100 mls @ 200 mls/hr IV Q8H [facility] Last Infusion: 06/18/24 12:42 Dose: Infused Documented By: WALLACE Dextrose/Lactated Ringer's (D5lr) 1,000 mls @ 100 mls/hr IVCONT .Q10H TEE Last Admin: 06/18/24 13:02 Dose: 100 mls/hr Documented By: ALMITA Magnesium Hydroxide (Milk Of Magnesia 30 Ml Oral.Susp) 30 ml PO DAILY PRN PRN Reason: Constipation Melatonin (Melatonin 3 Mg Tablet) 6 mg PO BEDTIME PRN PRN Reason: Insomnia Last Admin: 06/17/24 20:25 Dose: 6 mg Documented By: DAINA Ondansetron HCl (Ondansetron Hcl 4 Mg/2 Ml Vial) 4 mg IVPUSH Q8H PRN PRN Reason: Nausea and Vomiting Ondansetron HCl (Ondansetron Odt 4 Mg Tab.Rapdis) 4 mg TRANSLINGU Q8H PRN PRN Reason: Nausea and Vomiting Sodium Chloride (0.9 % Sodium Chloride Flush 3 Ml Syringe) 3 ml IVFLUSH QSHIFT [facility] Last Admin: 06/18/24 09:35 Dose: 3 ml Documented By: ALMITA Labs 06/18/24 06:22 06/18/24 06:22 Labs: Laboratory Results - last 24 hr 06/17/24 06/17/24 06/17/24 15:40 15:44 15:49 MCV 91.5 MCH 29.0 MCHC 31.7 RDW 15.0 Plt Count 295 D MPV 9.2 L Immature Gran % (Auto) 1.0 H Neut % (Auto) 82.5 H Lymph % (Auto) 9.3 L [place] % (Auto) 5.8 Eos % (Auto) 1.1 Baso % (Auto) 0.3 Lymph # (Auto) 1.3 [place] # (Auto) 0.8 Eos # (Auto) 0.2 Baso # (Auto) 0.0 Abs Immat Gran (auto) 0.13 H Absolute Neuts (auto) 11.2 H Absolute Nucleated RBC 0.000 Nucleated RBC % (auto) 0.0 PT 14.7 H INR 1.3 H APTT 32.4 VBG pH 7.45 H VBG pCO2 46 VBG pO2 37 VBG HCO3 33 H VBG O2 Saturation 55.0 VBG Base Excess 7.9 Anion Gap 14 Estim Creat Clear Calc 29.2 Estimated GFR > 60 Random Glucose 120 H Lactic Acid 1.8 Calcium 9.4 D Magnesium 2.3 Total Bilirubin 0.8 AST 39 H ALT 39 Alkaline Phosphatase 97 Troponin I High Sens 18.1 D Total Protein 7.5 Albumin 3.3 L Influenza Type A (PCR) NEGATIVE Influenza Type B (PCR) NEGATIVE RSV RNA Qual (PCR) NEGATIVE SARS-CoV-2 RNA (RT-PCR) NEGATIVE 06/17/24 06/18/24 19:20 06:22 MCV 93.1 MCH 28.3 MCHC 30.4 L RDW 15.1 Plt Count 272 MPV 9.4 Immature Gran % (Auto) 0.6 H Neut % (Auto) 86.1 H Lymph % (Auto) 6.9 L [place] % (Auto) 4.8 Eos % (Auto) 1.2 Baso % (Auto) 0.4 Lymph # (Auto) 1.0 L [place] # (Auto) 0.7 Eos # (Auto) 0.2 Baso # (Auto) 0.1 Abs Immat Gran (auto) 0.08 H Absolute Neuts (auto) 12.4 H Absolute Nucleated RBC 0.000 Nucleated RBC % (auto) 0.0 PT INR APTT VBG pH VBG pCO2 VBG pO2 VBG HCO3 VBG O2 Saturation VBG Base Excess Anion Gap 12 Estim Creat Clear Calc 28.2 Estimated GFR > 60 Random Glucose 101 Lactic Acid Calcium 8.6 D Magnesium Total Bilirubin AST ALT Alkaline Phosphatase Troponin I High Sens 19.9 Total Protein Albumin Influenza Type A (PCR) Influenza Type B (PCR) RSV RNA Qual (PCR) SARS-CoV-2 RNA (RT-PCR) Assessment and Plan (1) Aspiration pneumonia: Status: Acute Plan This is a 89-year-old male with pertinent history of BPH, mixed hyperlipidemia, history of CVA, tobacco use disorder, paroxysmal atrial flutter on Eliquis who was brought to the emergency department for evaluation of confusion and fevers. 1.Acute on chronic hypoxic respiratory failure with sepsis due to left-sided aspiration pneumonia secondary to recurrent aspiration -long discussion with family related to results of modified barium swallow and recommendations of speech to keep NPO. Educated family that patient can not be kept a full code and be allowed to eat. Family educated upon further discussion they wished patient to be DNR DNI with move to CHILDREN'S COUNSELOR. They understand the risks of feeding have but now they understand the need for CHILDREN'S COUNSELOR in that backdrop. At their request discharge planning will be asked to arrange a meeting with hospice care; will continue antibiotics at this time but no p.o. meds. Further plans based on hospice meeting - DNR/DNI with move to CHILDREN'S COUNSELOR Quality Stroke Does the patient have a stroke diagnosis?: No VTE Prior VTE?: No VTE Risk Level:: Medical - moderate - high VTE Device Contraindication: Treatment Not Indicated VTE Drug Contraindication: N/A - Med Ordered
--- NOTE | 2024-06-18 14:43 | MHC.CM.PN ---
Addendum entered by Ese Hu 06/19/24 08:12: SNF REFERRALS MADE BASED ON DAUGHTERS PREFERRED LOCATION, BANNING FOLLOWING, ALL OTHERS DECLINED Original Note: CM SPOKE TO PTS DAUGHTER,TONO [phone] SHE CONFIRMS PT WAS LIVING WITH HER BUT HAS BEEN AT [facility] SHE SAYS SHE IS NOW INTERESTED IN HOSPICE IN A SNF, BUT HOPES IT CAN BE A DIFFERENT ONE HCP ON FILE PCP: [facility]MM DELIVERED DCP: A HOSPICE INFORMATIONAL WILL BE ARRANGED ON THURSDAY PTS DAUGHTER HOPES HE CAN GO TO A DIFFERENT SNF ON HOSPICE, BUT HOPES IT WILL NOT BE FAR FROM [facility] TRANSPORT
[2024-06-18 15:46] VITALS: BP 128/58; PULSE 80; RESP 16; TEMP 36.9; O2SAT 94
--- NOTE | 2024-06-18 18:44 | PC.NURSE ---
Pt keeps asking for food and coffee and trying to get oob. Saying he has to use the bathroom. Got him a bedside commode and he said he doesn't have to go. Bill cath on and explained he can just urinate into bag. Easy to redirect, but impulsive.
[2024-06-18 19:26] VITALS: BP 120/59; PULSE 82; RESP 18; TEMP 36.7; O2SAT 93
[2024-06-18] MEDS: Haloperidol Lactate 5 MG/ML VIAL IM (21:37)
--- NOTE | 2024-06-18 21:39 | MHC.PIE ---
p; pt anxious, agitated, confused, restless and making threatening statements burn this place to the ground unless we give him food. note; pt strict NPO i; dr wesley notified; new order haldol IM once e; will cont to monitor
[2024-06-19] MEDS: Piperacillin Sodium/Tazobactam 4.5 GM in 0.9 % Sodium Chloride 100 ML IV ×3 (03:40→20:40)
[2024-06-19 03:53] VITALS: BP 122/73; PULSE 79; RESP 18; TEMP 37; O2SAT 95
[2024-06-19 07:23] VITALS: BP 147/63; PULSE 80; RESP 14; TEMP 36.7; O2SAT 92
--- NOTE | 2024-06-19 07:41 | HE.PHANOTE ---
re methadone verification last dose 45 mg given 06/15/24 @1131 @[facility] [place]
[2024-06-19] MEDS: Dextrose 5 % and Lactated Ring 1,000 ML 100 ML IVCONT ×2 (08:49→17:55)
[2024-06-19] MEDS: hydrOXYzine HCL 50 MG/ML VIAL 25 MG IM (09:19)
--- NOTE | 2024-06-19 10:45 | P.PNIM_ITS ---
Subjective Subjective Date of Service: 06/19/24 Interval History: Some agitation overnight responded well to medical therapies Review of Systems Unable to obtain Physical Exam 2 Vital Signs: Vital Signs: Last Vital Signs Temp 98.1 F 06/19/24 07:23 Pulse 80 06/19/24 07:23 Resp 14 06/19/24 07:23 BP 147/63 H 06/19/24 07:23 Pulse Ox 92 06/19/24 07:23 O2 Del Method Aerosol Mask 06/19/24 07:23 O2 Flow Rate 3 06/19/24 07:23 BMI result Body Mass Index 13.3 Const: Other: Somnolent but arousable; confused when speaking Resp: Other: Diminished throughout with scattered rhonchi Cardio: Other: Irregularly irregular; no S4; positive S1-S2; no S3 murmurs rubs or gallops GI: Other: Soft nontender nondistended normoactive bowel sounds Extrem: Other: No edema bilaterally Objective Data Active Medications Acetaminophen (Acetaminophen 325 Mg Tablet) 650 mg PO Q6H PRN PRN Reason: Pain, Mild (Pain Scale 1-3), fever or headache Acetaminophen (Acetaminophen 325 Mg Tablet) 650 mg PO Q4H PRN PRN Reason: Fever >/= 100, Pain, mild 1-3 Calcium Carbonate (Calcium Carbonate 750 Mg Tab.Chew) 750 mg PO Q4H PRN PRN Reason: Heartburn Docusate Sodium (Docusate Sodium 100 Mg Capsule) 100 mg PO BEDTIME [facility] Last Admin: 06/18/24 20:08 Dose: Not Given Documented By: CADEN Non-Admin Reason: NPO Haloperidol Lactate (Haloperidol Lactate 5 Mg/Ml Vial) 5 mg IM ONCE PRN PRN Reason: agitation Last Admin: 06/18/24 21:37 Dose: 5 mg Documented By: CADEN Piperacillin Sod/Tazobactam (Sod 4.5 gm/ Sodium Chloride) 100 mls @ 200 mls/hr IV Q8H [facility] Last Infusion: 06/19/24 04:17 Dose: Infused Documented By: CADEN Dextrose/Lactated Ringer's (D5lr) 1,000 mls @ 100 mls/hr IVCONT .Q10H [facility] Last Admin: 06/19/24 08:49 Dose: 100 mls/hr Documented By: VAISHALI Magnesium Hydroxide (Milk Of Magnesia 30 Ml Oral.Susp) 30 ml PO DAILY PRN PRN Reason: Constipation Melatonin (Melatonin 3 Mg Tablet) 6 mg PO BEDTIME PRN PRN Reason: Insomnia Last Admin: 06/17/24 20:25 Dose: 6 mg Documented By: DAINA Sodium Chloride (0.9 % Sodium Chloride Flush 3 Ml Syringe) 3 ml IVFLUSH QSHIFT TEE Last Admin: 06/19/24 08:50 Dose: Not Given Documented By: VAISHALI Non-Admin Reason: IV Running Labs 06/18/24 06:22 06/18/24 06:22 Microbiology Microbiology Results: Microbiology 06/17/24 15:59 Blood Culture - Preliminary Blood - Venous No growth after 24 hours. 06/17/24 15:40 Blood Culture - Preliminary Blood - Venous No growth after 24 hours. Assessment and Plan (1) Aspiration pneumonia: Status: Acute Plan This is a 89-year-old male with pertinent history of BPH, mixed hyperlipidemia, history of CVA, tobacco use disorder, paroxysmal atrial flutter on Eliquis who was brought to the emergency department for evaluation of confusion and fevers. 1.Acute on chronic hypoxic respiratory failure with sepsis due to left-sided aspiration pneumonia secondary to recurrent aspiration -long discussion with family related to results of modified barium swallow and recommendations of speech to keep NPO. Educated family that patient can not be kept a full code and be allowed to eat. Family educated upon further discussion they wished patient to be DNR DNI with move to FORGING ROLL OPERATOR. They understand the risks of feeding have but now they understand the need for FORGING ROLL OPERATOR in that backdrop. At their request discharge planning will be asked to arrange a meeting with hospice care; will continue antibiotics at this time but no p.o. meds. Further plans based on hospice meeting -discussed with family at length. They understand and accept the risk of aspiration with any oral intake. They are requesting that he be given something by mouth at this time. Ordered a puree diet with honey thick liquids and discuss with nursing. Quality Stroke Does the patient have a stroke diagnosis?: No VTE Prior VTE?: No VTE Risk Level:: Medical - moderate - high VTE Device Contraindication: Treatment Not Indicated VTE Drug Contraindication: N/A - Med Ordered
[2024-06-19 15:09] VITALS: BP 130/60; PULSE 82; RESP 14; TEMP 36.3; O2SAT 91
[2024-06-19 19:04] VITALS: BP 131/60; PULSE 68; RESP 16; TEMP 36.1; O2SAT 91
[2024-06-19] MEDS: Haloperidol Lactate 5 MG/ML VIAL IM (21:10)
[2024-06-20] MEDS: Valproic Acid (as Sodium Salt) 250 MG in Dextrose 5 % 50 ML 52.5 MG IV (02:34)
[2024-06-20] MEDS: Dextrose 5 % and Lactated Ring 1,000 ML 100 ML IVCONT (03:48)
[2024-06-20 03:50] VITALS: BP 117/64; PULSE 82; RESP 20; TEMP 36.9; O2SAT 94
[2024-06-20] MEDS: Piperacillin Sodium/Tazobactam 4.5 GM in 0.9 % Sodium Chloride 100 ML IV ×2 (04:04→11:42)
[2024-06-20] MEDS: OLANZapine 10 MG VIAL 7.5 MG IM (04:31)
[2024-06-20] MEDS: Acetaminophen 1,000 MG/100 ML PIGGYBACK 400 MG IV ×2 (04:53→13:19)
--- NOTE | 2024-06-20 05:06 | PM.EVENT ---
Event Note Date of Service: 06/20/24 Event Note: Mr. Reina has been experiencing delirium and agitation over the last few nights. He has been very restless, pulling at things and trying to get out of bed despite having 1:1 sitter. He has not slept. Treatment with Haldol, Zyprexa and Depakote has been given without improvement of his agitation. Tylenol IV scheduled has been ordered to treat possible underlying pain that he is unable to express. Risperdal and melatonin scheduled to give nightly at 7 PM were also ordered and hoping this helps to avoid further events of agitation. Time Spent With Patient Time: Total time managing care of this patient today ____ minutes.
--- NOTE | 2024-06-20 06:23 | PC.NURSE ---
Addendum entered by Radha Flowers RN 06/20/24 06:31: Despite the one time dose medications that was given to pt earlier(see MAR), pt was still restless/agitated, unable to fall asleep, trying to climb out of bed. MD Huggins was notified and one time dose of Zyprexa 5mg IM was given to pt with good effect, along with IV Tylenol. Pt is now resting comfortably in bed with less restlessness and more calm. Will continue to monitor pt's behavior. Addendum entered by Radha Flowers RN 06/20/24 06:28: Approximately around 02:00, MD Huggins came to pt's room to check on him, pt was still restless/agitated in bed. One time dose of Valproic acid (Depacon D5w) was ordered and given to pt @02:34, see MAR, with no effect. Will continue to monitor. Original Note: Late entry: This RN assumed care of pt at 19:00, pt A&Ox1, confused, unable to follow commands, and 1:1 sitter at bedside for restlessness/agitation. Pt was restless/agitated, taking off his clothes, and trying to climb out of bed. MD Huggins was notified of the pt's behavior. One time dose of Haldol 5mg IM was given to pt @21:00, with no effect. Pt was unable to settle down despite the one time dose of medication. Will continue to monitor pt's behavior, 1:1 sitter at bedside, and camera in room.
[2024-06-20 07:00] VITALS: BP 156/69; PULSE 80; RESP 18; TEMP 36.3; O2SAT 94
[2024-06-20 11:16] VITALS: BMI 14.5
--- NOTE | 2024-06-20 12:00 | P.PNIM_ITS ---
Subjective Subjective Date of Service: 06/20/24 Interval History: No acute issues overnight. Resting quietly. Sitter removed. Review of Systems Unable to obtain Physical Exam 2 Vital Signs: Vital Signs: Last Vital Signs Temp 97.4 F 06/20/24 07:00 Pulse 80 06/20/24 07:00 Resp 18 06/20/24 07:00 BP 156/69 H 06/20/24 07:00 Pulse Ox 94 06/20/24 07:00 O2 Del Method Nasal Cannula 06/20/24 07:00 O2 Flow Rate 3 06/20/24 07:00 BMI result Body Mass Index 13.3 Const: Other: Somnolent but arousable; confused when speaking Resp: Other: Diminished throughout with scattered rhonchi Cardio: Other: Irregularly irregular; no S4; positive S1-S2; no S3 murmurs rubs or gallops GI: Other: Soft nontender nondistended normoactive bowel sounds Extrem: Other: No edema bilaterally Objective Data Active Medications Calcium Carbonate (Calcium Carbonate 750 Mg Tab.Chew) 750 mg PO Q4H PRN PRN Reason: Heartburn Docusate Sodium (Docusate Sodium 100 Mg Capsule) 100 mg PO BEDTIME [facility] Last Admin: 06/19/24 20:31 Dose: Not Given Documented By: BRIANNA Non-Admin Reason: unable to crush med, pt on pureed diet Piperacillin Sod/Tazobactam (Sod 4.5 gm/ Sodium Chloride) 100 mls @ 200 mls/hr IV Q8H [facility] Last Admin: 06/20/24 11:42 Dose: 200 mls/hr Documented By: BEULAH Dextrose/Lactated Ringer's (D5lr) 1,000 mls @ 100 mls/hr IVCONT .Q10H [facility] Last Admin: 06/20/24 03:48 Dose: 100 mls/hr Documented By: BRIANNA Acetaminophen (Ofirmev) 1,000 mg in 100 mls @ 400 mls/hr IV Q8H [facility] Last Infusion: 06/20/24 05:17 Dose: Infused Documented By: BRIANNA Magnesium Hydroxide (Milk Of Magnesia 30 Ml Oral.Susp) 30 ml PO DAILY PRN PRN Reason: Constipation Melatonin (Melatonin 3 Mg Tablet) 6 mg PO DAILY@1900 TEE Olanzapine (Olanzapine 10 Mg Vial) 7.5 mg IM ONCE PRN PRN Reason: agitation Last Admin: 06/20/24 04:31 Dose: 7.5 mg Documented By: BRINANA Risperidone (Risperidone 0.5 Mg Tablet) 0.5 mg PO DAILY@1900 TEE Sodium Chloride (0.9 % Sodium Chloride Flush 3 Ml Syringe) 3 ml IVFLUSH QSHIFT [facility] Last Admin: 06/20/24 09:06 Dose: Not Given Documented By: BEULAH Non-Admin Reason: IV Running Labs 06/18/24 06:22 06/18/24 06:22 Microbiology Microbiology Results: Microbiology 06/17/24 15:59 Blood Culture - Preliminary Blood - Venous No growth after 48 hours. 06/17/24 15:40 Blood Culture - Preliminary Blood - Venous No growth after 48 hours. Assessment and Plan (1) Aspiration pneumonia: Status: Acute Plan This is a 89-year-old male with pertinent history of BPH, mixed hyperlipidemia, history of CVA, tobacco use disorder, paroxysmal atrial flutter on Eliquis who was brought to the emergency department for evaluation of confusion and fevers. 1.Acute on chronic hypoxic respiratory failure with sepsis due to left-sided aspiration pneumonia secondary to recurrent aspiration -family met with hospice today. Continues to tolerate small amounts of feeding with one-to-one. Behavior improved ... no longer requires sitter -await safe placement LEAD MILITARY ANALYST Quality Stroke Does the patient have a stroke diagnosis?: No VTE Prior VTE?: No VTE Risk Level:: Medical - moderate - high VTE Device Contraindication: Treatment Not Indicated VTE Drug Contraindication: N/A - Med Ordered
--- NOTE | 2024-06-20 12:19 | MHC.CLN ---
NUTRITION DIET=PUREE WITH HONEY THICK LIQUIDS. ADDING MAGIC CUP TID TO INCREASE KCAL INTAKE. SUPPLEMENT PROVIDES 870 KCALS, 27 G PROTEIN. PATIENT IS DNR/DNI. HOSPICE REFERRAL. NO TUBE FEEDING PER FAMILY. QUALIFIES MODERATELY MALNOURISHED IN THE CONTEXT OF CHRONIC ILLNESS. FOLLOW FOR PO INTAKE, DIET TOLERANCE, AND PLAN OF CARE.
--- NOTE | 2024-06-20 13:26 | MHC.CM.PN ---
Per MD, patient medically cleared to dc to SNF on hospice. [facility] provided informational and HCP will move forward with their services. Family initially requesting not to return to [facility]. No other bed offers at this time. CM spoke w/ HCP/daughter Mercy who is ok w/ return to [facility]. MDS/PASRR completed and submitted to [facility]. BLS transport scheduled for 4pm. MD YRIS, RN, and HCP/daughter aware.
--- NOTE | 2024-06-20 13:54 | PM.DS ---
DS: Providers Provider Date of Service: 06/20/24 Date of admission: 06/17/24 20:00 Date of discharge: 06/20/24 Primary care physician: SCARLETT Mcnamara DS: Diagnosis Discharge Diagnosis (1) Aspiration pneumonia: Status: Acute DS: Summary Hospital Course Hospital Course: 89-year-old male with pertinent history of BPH, mixed hyperlipidemia, history of CVA, tobacco use disorder, paroxysmal atrial flutter on Eliquis, recurrent hospitalization due to aspiration pneumonia, chronic hypoxic respiratory failure, dementia unspecified who was brought to the emergency department for evaluation of dyspnea and hypoxia. Patient was seen choking on his lunch with suspected aspiration. Patient went found to be hypoxic in the 50s on his home baseline O2. He as per EMS he was requiring 6 L supplemental oxygen to maintain sats. Unable to obtain history from the patient due to underlying dementia. History obtained from ER provider and chart review. Patient also had an unwitnessed fall on the day of presentation. Unable to obtain review of systems. Of note, patient was recently admitted and discharged on 06/16 with acute hypoxic respiratory failure due to aspiration pneumonia. Family accepted the risk of recurrent aspiration and want to let the patient eat for comfort. They do not want feeding tube. In the emergency department, patient was found to be septic and imaging concerning for left-sided pneumonia. Hospital Course Patient admitted to the general medical floor. Discussion with daughter revealed they wished patient be able to eat despite him aspirating; explained to daughter that as a full code that would not be possible. After lengthy discussion, daughter who is proxy, decided the best course would be hospice. Family met with hospice this a.m.. Patient will be discharged to long-term care on hospice care. Time Attestation Discharge Coordination Time (in mins): 35 Quality: Safe Use of Opioids Does Pt have an Active Cancer Diagnosis on the Problem List?: No Quality: Stroke Does the patient have a stroke diagnosis?: No Physical Exam Vital Signs: Vital Signs: Last Vital Signs Temp 97.4 F 06/20/24 07:00 Pulse 80 06/20/24 07:00 Resp 18 06/20/24 07:00 BP 156/69 H 06/20/24 07:00 Pulse Ox 94 06/20/24 07:00 O2 Del Method Nasal Cannula 06/20/24 07:00 O2 Flow Rate 3 06/20/24 07:00 BMI result Body Mass Index 14.5 Const: Other: Somnolent but arousable; confused when speaking Resp: Other: Diminished throughout with scattered rhonchi Cardio: Other: Irregularly irregular; no S4; positive S1-S2; no S3 murmurs rubs or gallops GI: Other: Soft nontender nondistended normoactive bowel sounds Extrem: Other: No edema bilaterally DS: Data Data Completed and Pending Completed studies during hospitalization [Text1]: Procedures Drainage of Bladder with Drainage Device, Via Natural or Artificial Opening Endoscopic (08/10/21) Labs on day of discharge: Preliminary micro results at discharge 06/17/24 15:59 Blood Culture - Preliminary Blood - Venous No growth after 48 hours. 06/17/24 15:40 Blood Culture - Preliminary Blood - Venous No growth after 48 hours. Discharge Plan Discharge Anticipated Discharge Date/Time: 06/20/24 13:41 Patient Disposition: Xfer SNF Discharge Diagnosis: End stage dementia Referrals: [facility] [Outside] - 1 Week [facility] [Outside] - 1 Day ([facility] will provide hospice services) Nasir Neri PA [Primary Care Provider] - 1 Week Discharge Medications: New haloperidol 0.5 mg tablet 0.5 mg PO Q4H PRN (Reason: nausea and vomiting) Qty: 30 0RF hyoscyamine sulfate 0.125 mg tablet 0.125 mg PO Q4H PRN (Reason: secretions) Qty: 30 0RF morphine concentrate 100 mg/5 mL (20 mg/mL) solution 5 mg PO Q1H PRN (Reason: pain) Qty: 30 0RF Rx Instructions: Partial Fill upon patient request. Continued acetaminophen 650 mg Suppository 650 mg IL Q4H PRN (Reason: Pain/Temp 101 or Greater) bisacodyl 10 mg Suppository 10 mg IL DAILY PRN (Reason: Bowel Management, If MOM not effective ) Discontinued simvastatin 20 mg tablet 20 mg PO BEDTIME triamcinolone acetonide 0.1 % ointment 1 appl topical BID PRN (Reason: Rash) Rx Instructions: 2 WEEKS ON 1 WEEK OFF azelastine 137 mcg (0.1 %) aerosol,spray 2 spray intranasal BID Eliquis 2.5 mg Tablet 2.5 mg PO BID Qty: 1 0RF acetaminophen 325 mg Tablet 650 mg PO Q4H PRN (Reason: Pain/Fever 101 or Greater) magnesium hydroxide [Milk of Magnesia] 400 mg/5 mL Suspension 5 ml PO DAILY PRN (Reason: Bowel Management, No BM in 9 Shifts) Fleet Enema 19-7 gram/118 mL Enema 118 ml IL DAILY PRN (Reason: Bowel Management, If Bisacodyl not effective. ) metoprolol succinate 25 mg tablet extended release 24 hr 25 mg PO BEDTIME Protocol: Hold for SBP/HR < HOLD for SBP < : 90 HOLD for HR < : 60 digoxin 125 mcg (0.125 mg) Tablet 0.125 mg PO DAILY Qty: 90 0RF Protocol: Hold for HR <: HOLD for HR < : 60 Discharge Orders: Discharge Order (Routine); Ordered 06/20/24 Ordered By: Galen French Diet: Advance to usual diet Activity on Discharge: As tolerated Stand Alone Forms: Patient Portal Discharge page Print Language: Danish Care Plan Goals: Meds as ordered Health Concerns: Further plans as per hospice Plan of Treatment: Further plans as per receiving facility Assessment: See discharge summary
--- NOTE | 2024-06-20 14:00 | P.CDIM_ITS ---
PROVIDER RESPONSE TEXT: To clarify, the appropriate diagnosis supported by the clinical indicators: Anorexia QUERY TEXT: PHYSICIAN'S DOCUMENTATION REQUEST Date of Query: 06/20/2024 08:17 AM EDT Patient Name: Luis Reina Admit Date: 06/18/2024 Dear Galen French DO, A review of the medical record indicates additional documentation may be needed. Please review below and update the documentation accordingly. Clinical Indicators: Height: 6 ft Weight: 44.6kg BMI: 13.3 If possible, please provide an associated diagnosis related to the abnormal BMI, such as: Underweight Malnutrition mild, moderate, severe Anorexia Other (explain) Clinically unable to determine (explain) Thank you, Megan Cormier, CCS, CDIS Use of terms such as suspected, likely, concern for, or probable (associated with a specific diagnosi s that is being evaluated, monitored, or treated as if it exists) are acceptable and can be coded in the inpatient se tting, when documented at the time of discharge. Please use your independent medical judgment in providing your response. THIS QUERY IS PART OF THE PERMANENT MEDICAL RECORD
--- NOTE | 2024-06-20 14:00 | P.CDIM_ITS ---
PROVIDER RESPONSE TEXT: To clarify, the appropriate diagnosis supported by the clinical indicators: Pressure Injury Sacrum Stage 1: suspected QUERY TEXT: PHYSICIAN'S DOCUMENTATION REQUEST Date of Query: 06/20/2024 08:18 AM EDT Patient Name: Luis Reina Admit Date: 06/18/2024 Dear Galen French DO, A review of the medical record indicates additional documentation may be needed. Please review below and update the documentation accordingly. Clinical Indicators: Wound assessment notes 06/16 - Pressure injury Stage 1 sacrum Foam dressing, air mattress, turn and reposition q 2 hr Based on the above, could you please provide further information regarding the ulcer/wound/injury: Pressure Injury Sacrum Stage 1 possible, probable, suspected etc. Other (explain) Clinically unable to determine (explain) Thank you, Megan Cormier, CCS, CDIS Use of terms such as suspected, likely, concern for, or probable (associated with a specific diagnosi s that is being evaluated, monitored, or treated as if it exists) are acceptable and can be coded in the inpatient se tting, when documented at the time of discharge. Please use your independent medical judgment in providing your response. THIS QUERY IS PART OF THE PERMANENT MEDICAL RECORD
[2024-06-20 15:15] VITALS: BP 118/57; PULSE 88; RESP 18; TEMP 36.7; O2SAT 92
== END 2024-06-20 16:15 | disposition skilled nursing facility (03) | DRG 871 ==
LOC: HO.ED 17:16 → HO.EDOVER 20:07 → HO.S3 20:53
PROVIDERS: Physician Assistant; Physician Assistant Medical; Admitting Provider Student in an Organized Health Care Education/Training Program; Emergency Provider Internal Medicine; PCP Physician Assistant Medical; Visit Provider Hospitalist
DX: A41.9 Sepsis, unspecified organism (principal); J69.0 Pneumonitis due to inhalation of food and vomit; J96.21 Acute and chronic respiratory failure with hypoxia; Z68.1 Body mass index [BMI] 19.9 or less, adult; F05 Delirium due to known physiological condition; L89.151 Pressure ulcer of sacral region, stage 1; Z66 Do not resuscitate; R63.0 Anorexia; F03.90 Unspecified dementia, unspecified severity, without behavioral disturbance, psychotic disturbance, mood disturbance, and anxiety; Z20.822 Contact with and (suspected) exposure to COVID-19; Z86.73 Personal history of transient ischemic attack (TIA), and cerebral infarction without residual deficits; Z79.01 Long term (current) use of anticoagulants; Z79.899 Other long term (current) drug therapy
CPT/HCPCS: 0241U; 36415; 70450; 71045; 72125; 80048; 80053; 82803; 83605; 83735; 84484; 85025; 85610; 85730; 87040; 93005; 94640; 99285; J0131; J0692; J1630; J2359; J2543; J3410; J7120

== ENCOUNTER → 2024-06-17 20:00 | Outpatient (BNV) | payer MEDICARE, MEDICAID, SELFPAY | PROVIDERS: Admitting Provider Student in an Organized Health Care Education/Training Program; Emergency Provider Internal Medicine; Visit Provider Student in an Organized Health Care Education/Training Program | DX: J69.0 Pneumonitis due to inhalation of food and vomit (principal) | CPT/HCPCS: 99222; 99232; 99239; 99499 ==